=== PATIENT | male | born 1940 | race Hispanic/Latino ===

== ENCOUNTER 2022-08-21 21:16 | Inpatient (IN) | payer MEDICARE ==
[~2022-08-21] VITALS: Ht 167.6 cm; Wt 71.0 kg
[2022-08-21] MEDS ORDERED: LACTATED RINGERS 1000ML 1,000 ML IV ONE (21:30)
[2022-08-21 21:52] LABS: BASOPHILS % (AUTO) 0.5 % (0.0-5.0); EOSINOPHILS % (AUTO) 0.7 % (0.0-8.0); HEMATOCRIT 43.2 % (42-54); LYMPHOCYTES % (AUTO) 9.8 % (21.0-51.0); MEAN CORPUSCULAR HEMOGLOBIN 30.8 pg (27.0-33.0); MEAN CORPUSCULAR HGB CONC 33.3 g/dL (32.0-36.0); MEAN CORPUSCULAR VOLUME 92.3 fL (79-99); MONOCYTES % (AUTO) 9.8 % (3.0-13.0); NEUTROPHILS % (AUTO) 78.8 % (40.0-77.0); PLATELET COUNT (AUTO) 180 K/uL (130-400); RED BLOOD CELL COUNT(AUTO) 4.68 MIL/uL (4.50-6.20); RED CELL DISTRIBUTION WIDTH 13.7 % (11.0-15.5); WHITE BLOOD COUNT (AUTO) 8.5 K/uL (4.8-10.8)
[2022-08-21 21:53] LABS: APPEARANCE,URINE CLEAR (CLEAR); BILIRUBIN,URINE NEGATIVE (NEGATIVE); COLOR,URINE COLORLESS (YELLOW); GLUCOSE, URINE (UA) NEGATIVE (NEGATIVE); KETONES,URINE NEGATIVE (NEGATIVE); LEUKOCYTE ESTERASE ,URINE NEGATIVE Leu/uL (NEGATIVE); NITRATE,URINE NEGATIVE (NEGATIVE); OCCULT BLOOD,URINE SMALL (NEGATIVE); PH,URINE 6.5 (5.0-8.0); PROTEIN,URINE 70 mg/dL (NEGATIVE); UROBILINOGEN,URINE 0.2 mg/dL (0.2-1.0)
[2022-08-21] MEDS ORDERED: HYDRALAZINE 20MG/ML VIAL IV ONE (22:00)
[2022-08-21 22:01] LABS: CREATININE 1.3 mg/dL (0.5-1.5); POTASSIUM 3.7 mmol/L (3.5-5.1)
[2022-08-21 22:03] LABS: WBC,URINE 0-1 /HPF (0-1)
[2022-08-21 22:08] LABS: ALBUMIN 2.8 g/dL (3.5-5.0); MAGNESIUM 1.6 mg/dL (1.80-2.40); TOTAL PROTEIN, SERUM 7.6 g/dL (6.0-8.3)
[2022-08-21 22:28] LABS: B-TYPE NATRIURETIC PEPTIDE 276 pg/mL (0-100)
[2022-08-21] MEDS ORDERED: M.V.I. IV [ADULT] 10 ML, FOLIC ACID 1 MG, THIAMINE HCL 100 MG in 0.9%NACL 1000ML 1,000 ML IV ONE (22:30)
[2022-08-21] MEDS ORDERED: IOHEXOL 350 MG/ML 100ML INFUS..BTL IV ONE (22:57)
[2022-08-21] MEDS ORDERED: MORPHINE 2 MG SYG IV PRN (23:00)
[2022-08-21] MEDS ORDERED: MAGNESIUM 2GM PREMIX 50ML 50 ML IV PRN (23:00)
[2022-08-21] MEDS ORDERED: ONDANSETRON 4MG INJ IV PRN (23:00)
[2022-08-21] MEDS ORDERED: POTASSIUM CHLORIDE 20MEQ/100ML 100 ML IV PRN (23:00)
[2022-08-21] MEDS ORDERED: ACETAMINOPHEN 325 MG TAB PO PRN ×2 (23:00)
[2022-08-21] MEDS ORDERED: MORPHINE 4 MG SYG IV PRN (23:00)
[2022-08-21] MEDS: CEFTRIAXONE 1G VIAL IV SCH ×2 (23:15→23:39)
[2022-08-21] MEDS ORDERED: DiphenhydrAMINE HCL 50 MG/ML VIAL IV PRN (23:30)
[2022-08-21] MEDS ORDERED: SODIUM CHLORIDE 3% FOR INHALATION 4 ML/AMP VIAL.NEB IH ONE (23:34)
[2022-08-21] MEDS: DOXYCYCLINE 100MG+NS 250ML 250 ML IV SCH (23:39)
[2022-08-21] MEDS: LACTATED RINGERS 1000ML 1,000 ML IV SCH (23:40)
[2022-08-22] VITALS (12 sets, daily range): BP systolic 150–195; BP diastolic 75–94
[2022-08-22] MEDS ORDERED: IPRATROPIUM 0.5 MG/2.5 ML INH IH SCH
[2022-08-22] MEDS: IPRATROPIUM/ALBUTEROL SULFATE 3 ML SOLUTION IH SCH ×2 (00:36→05:26)
[2022-08-22] MEDS ORDERED: ALBUTEROL 0.083% 2.5 MG/3 ML INH IH PRN (01:00)
[2022-08-22] MEDS ORDERED: IPRATROPIUM 0.5 MG/2.5 ML INH IH PRN (01:00)
[2022-08-22] MEDS ORDERED: THIAMINE HCL 100 MG/ML 2ML VIAL IVP ONE (01:30)
[2022-08-22] MEDS: HYDRALAZINE 20MG/ML VIAL IV PRN ×3 (04:32→18:05)
[2022-08-22 06:24] LABS: BASOPHILS % (AUTO) 0.4 % (0.0-5.0); EOSINOPHILS % (AUTO) 0.4 % (0.0-8.0); HEMATOCRIT 42.2 % (42-54); LYMPHOCYTES % (AUTO) 13.4 % (21.0-51.0); MEAN CORPUSCULAR HEMOGLOBIN 31.1 pg (27.0-33.0); MEAN CORPUSCULAR HGB CONC 33.6 g/dL (32.0-36.0); MEAN CORPUSCULAR VOLUME 92.5 fL (79-99); MONOCYTES % (AUTO) 12.1 % (3.0-13.0); NEUTROPHILS % (AUTO) 73.5 % (40.0-77.0); PLATELET COUNT (AUTO) 173 K/uL (130-400); RED BLOOD CELL COUNT(AUTO) 4.56 MIL/uL (4.50-6.20); RED CELL DISTRIBUTION WIDTH 14.1 % (11.0-15.5); WHITE BLOOD COUNT (AUTO) 8.3 K/uL (4.8-10.8)
[2022-08-22 06:37] LABS: CREATININE 1.1 mg/dL (0.5-1.5); MAGNESIUM 2.2 mg/dL (1.80-2.40); PHOSPHORUS 2.9 mg/dL (2.5-4.9); POTASSIUM 3.4 mmol/L (3.5-5.1)
[2022-08-22] MEDS: POTASSIUM CHLORIDE 10% ELIXIR 20 MEQ/15 ML UDCUP PO PRN ×2 (06:42→10:02)
[2022-08-22] MEDS: FAMOTIDINE 20MG VIAL IV SCH (08:31)
[2022-08-22] MEDS: ENOXAPARIN SODIUM 40 MG/0.4 ML SYRINGE SQ SCH (08:32)
[2022-08-22] MEDS ORDERED: M.V.I. IV [ADULT] 10 ML, FOLIC ACID 1 MG, THIAMINE HCL 100 MG in 0.9%NACL 1000ML 1,000 ML IV ONE (09:00)
[2022-08-22] MEDS ORDERED: FUROSEMIDE 40MG VIAL IV ONE (09:30)
[2022-08-22] MEDS: AMLODIPINE 5 MG TAB PO SCH ×2 (10:02→21:07)
[2022-08-22] MEDS: METOPROLOL TARTRATE 25 MG TAB PO SCH ×3 (10:02→21:07)
[2022-08-22] MEDS ORDERED: SODIUM CHLORIDE 3% FOR INHALATION 4 ML/AMP VIAL.NEB IH ONE ×2 (10:21→23:01)
[2022-08-22] MEDS ORDERED: AMLO-258 PO (10:58)
[2022-08-22] MEDS: DOXYCYCLINE 100MG+NS 250ML 250 ML IV SCH ×2 (11:36→22:43)
[2022-08-22 11:47] LABS: HEMOGLOBIN A1C 6.6 % (4.0-6.0)
[2022-08-22] MEDS: LACTATED RINGERS 1000ML 1,000 ML IV SCH (16:48)
[2022-08-22] MEDS: LOSARTAN 50 MG TABLET PO SCH ×2 (16:48→21:07)
[2022-08-22] MEDS: CEFTRIAXONE 1G VIAL IV SCH (22:43)
[2022-08-23] VITALS (8 sets, daily range): BP systolic 137–176; BP diastolic 63–113
[2022-08-23] MEDS: HYDRALAZINE 20MG/ML VIAL IV PRN (00:20)
[2022-08-23 04:01] LABS: BASOPHILS % (AUTO) 0.4 % (0.0-5.0); EOSINOPHILS % (AUTO) 1.2 % (0.0-8.0); HEMATOCRIT 42.8 % (42-54); MEAN CORPUSCULAR HEMOGLOBIN 30.3 pg (27.0-33.0); MEAN CORPUSCULAR HGB CONC 32.7 g/dL (32.0-36.0); MEAN CORPUSCULAR VOLUME 92.6 fL (79-99); MONOCYTES % (AUTO) 12.6 % (3.0-13.0); NEUTROPHILS % (AUTO) 69.5 % (40.0-77.0); PLATELET COUNT (AUTO) 178 K/uL (130-400); RED BLOOD CELL COUNT(AUTO) 4.62 MIL/uL (4.50-6.20); RED CELL DISTRIBUTION WIDTH 14.2 % (11.0-15.5); WHITE BLOOD COUNT (AUTO) 7.7 K/uL (4.8-10.8)
[2022-08-23 04:26] LABS: ALBUMIN 2.3 g/dL (3.5-5.0); CREATININE 1.4 mg/dL (0.5-1.5); CRP QUANTITATIVE 57.2 mg/L (0.00-9.0); MAGNESIUM 1.9 mg/dL (1.80-2.40); POTASSIUM 3.3 mmol/L (3.5-5.1); TOTAL PROTEIN, SERUM 6.6 g/dL (6.0-8.3)
[2022-08-23 04:27] LABS: B-TYPE NATRIURETIC PEPTIDE 516 pg/mL (0-100)
[2022-08-23] MEDS: POTASSIUM CHLORIDE 10% ELIXIR 20 MEQ/15 ML UDCUP PO PRN (05:34)
[2022-08-23] MEDS: FUROSEMIDE 40MG VIAL IV SCH (08:41)
[2022-08-23] MEDS: FAMOTIDINE 20MG VIAL IV SCH (08:41)
[2022-08-23] MEDS: METOPROLOL TARTRATE 25 MG TAB PO SCH ×3 (08:41→20:49)
[2022-08-23] MEDS: AMLODIPINE 5 MG TAB PO SCH ×2 (08:41→20:49)
[2022-08-23] MEDS: LOSARTAN 50 MG TABLET PO SCH ×2 (08:44→20:49)
[2022-08-23] MEDS: ENOXAPARIN SODIUM 40 MG/0.4 ML SYRINGE SQ SCH (08:44)
[2022-08-23] MEDS ORDERED: SODIUM CHLORIDE 3% FOR INHALATION 4 ML/AMP VIAL.NEB IH ONE (10:49)
[2022-08-23] MEDS: DOXYCYCLINE 100MG+NS 250ML 250 ML IV SCH (11:32)
[2022-08-23] MEDS: TAMSULOSIN HCL 0.4 MG CAP.ER.24H PO SCH (13:05)
[2022-08-23] MEDS ORDERED: HYDRALAZINE 20MG/ML VIAL IV PRN (15:30)
[2022-08-23] MEDS: KCL 20 MEQ ERTAB PO PRN (18:30)
[2022-08-23] MEDS: TRIAMCINOLONE ACETONIDE 0.1% CREAM 15GM TP SCH (20:49)
[2022-08-23] MEDS: CEFTRIAXONE 1G VIAL IV SCH (23:23)
[2022-08-24] MEDS: DOXYCYCLINE 100MG+NS 250ML 250 ML IV SCH ×3 (00:37→22:25)
[2022-08-24 04:00] VITALS: BP 150/67
[2022-08-24 08:00] VITALS: BP 174/82
[2022-08-24 08:39] LABS: BASOPHILS % (AUTO) 0.4 % (0.0-5.0); EOSINOPHILS % (AUTO) 1.8 % (0.0-8.0); LYMPHOCYTES % (AUTO) 22.3 % (21.0-51.0); MEAN CORPUSCULAR HEMOGLOBIN 30.8 pg (27.0-33.0); MEAN CORPUSCULAR HGB CONC 32.5 g/dL (32.0-36.0); MEAN CORPUSCULAR VOLUME 94.8 fL (79-99); MONOCYTES % (AUTO) 10.2 % (3.0-13.0); NEUTROPHILS % (AUTO) 64.9 % (40.0-77.0); PLATELET COUNT (AUTO) 194 K/uL (130-400); RED BLOOD CELL COUNT(AUTO) 4.64 MIL/uL (4.50-6.20); RED CELL DISTRIBUTION WIDTH 14.1 % (11.0-15.5); WHITE BLOOD COUNT (AUTO) 7.7 K/uL (4.8-10.8)
[2022-08-24 08:55] LABS: ALBUMIN 2.7 g/dL (3.5-5.0); CREATININE 1.5 mg/dL (0.5-1.5); POTASSIUM 3.5 mmol/L (3.5-5.1); TOTAL PROTEIN, SERUM 7.5 g/dL (6.0-8.3)
[2022-08-24] MEDS: METOPROLOL TARTRATE 25 MG TAB PO SCH ×3 (09:30→20:49)
[2022-08-24] MEDS: TAMSULOSIN HCL 0.4 MG CAP.ER.24H PO SCH (09:30)
[2022-08-24] MEDS: AMLODIPINE 5 MG TAB PO SCH ×2 (09:30→20:49)
[2022-08-24] MEDS: LOSARTAN 50 MG TABLET PO SCH ×2 (09:30→20:49)
[2022-08-24] MEDS: FUROSEMIDE 40MG VIAL IV SCH (09:30)
[2022-08-24] MEDS: FAMOTIDINE 20MG VIAL IV SCH (09:30)
[2022-08-24] MEDS: TRIAMCINOLONE ACETONIDE 0.1% CREAM 15GM TP SCH ×2 (09:31→20:52)
[2022-08-24] MEDS: ENOXAPARIN SODIUM 40 MG/0.4 ML SYRINGE SQ SCH (09:31)
[2022-08-24 11:00] VITALS: BP 148/82
[2022-08-24] MEDS ORDERED: MAGNESIUM 2GM PREMIX 50ML 50 ML IV PRN (11:00)
[2022-08-24] MEDS: POTASSIUM CHLORIDE 10% ELIXIR 20 MEQ/15 ML UDCUP PO PRN (14:59)
[2022-08-24 16:00] VITALS: BP 184/78
[2022-08-24 20:00] VITALS: BP 154/89
[2022-08-24] MEDS: LACTULOSE 20 GM/30 ML UDCUP PO SCH (20:51)
[2022-08-24] MEDS: CEFTRIAXONE 1G VIAL IV SCH (22:26)
[2022-08-25 03:20] VITALS: BP 165/68
[2022-08-25 05:23] LABS: BASOPHILS % (AUTO) 0.7 % (0.0-5.0); HEMATOCRIT 39.3 % (42-54); LYMPHOCYTES % (AUTO) 16.7 % (21.0-51.0); MEAN CORPUSCULAR HEMOGLOBIN 30.5 pg (27.0-33.0); MEAN CORPUSCULAR HGB CONC 33.3 g/dL (32.0-36.0); MEAN CORPUSCULAR VOLUME 91.6 fL (79-99); MONOCYTES % (AUTO) 12.6 % (3.0-13.0); NEUTROPHILS % (AUTO) 67.7 % (40.0-77.0); PLATELET COUNT (AUTO) 191 K/uL (130-400); RED BLOOD CELL COUNT(AUTO) 4.29 MIL/uL (4.50-6.20); RED CELL DISTRIBUTION WIDTH 13.9 % (11.0-15.5); WHITE BLOOD COUNT (AUTO) 6.1 K/uL (4.8-10.8)
[2022-08-25 05:48] LABS: ALBUMIN 2.4 g/dL (3.5-5.0); CREATININE 1.3 mg/dL (0.5-1.5); MAGNESIUM 1.7 mg/dL (1.80-2.40); POTASSIUM 3.4 mmol/L (3.5-5.1); TOTAL PROTEIN, SERUM 6.6 g/dL (6.0-8.3)
[2022-08-25 07:30] VITALS: BP 162/77
[2022-08-25] MEDS: ENOXAPARIN SODIUM 40 MG/0.4 ML SYRINGE SQ SCH (09:00)
[2022-08-25] MEDS: TRIAMCINOLONE ACETONIDE 0.1% CREAM 15GM TP SCH (09:00)
[2022-08-25 11:00] VITALS: BP 164/89
[2022-08-25] MEDS: LACTULOSE 20 GM/30 ML UDCUP PO SCH (11:18)
[2022-08-25] MEDS: LOSARTAN 50 MG TABLET PO SCH (11:18)
[2022-08-25] MEDS: FAMOTIDINE 20MG VIAL IV SCH (11:18)
[2022-08-25] MEDS: TAMSULOSIN HCL 0.4 MG CAP.ER.24H PO SCH (11:19)
[2022-08-25] MEDS: METOPROLOL TARTRATE 25 MG TAB PO SCH (11:21)
[2022-08-25] MEDS: AMLODIPINE 5 MG TAB PO SCH (11:22)
[2022-08-25] MEDS: FUROSEMIDE 40MG VIAL IV SCH (11:22)
[2022-08-25] MEDS: KCL 20 MEQ ERTAB PO PRN (11:24)
[2022-08-25] MEDS: DOXYCYCLINE 100MG+NS 250ML 250 ML IV SCH (11:25)
[2022-08-25] MEDS ORDERED: LOSA50TA2 PO (11:53)
[2022-08-25] MEDS ORDERED: TAMS-1 PO (11:53)
[2022-08-25] MEDS ORDERED: AMLO5TAB4 PO (11:53)
[2022-08-25] MEDS ORDERED: METO25 PO (11:53)
[2022-08-25] MEDS ORDERED: FURO20TA4 PO (11:54)
[2022-08-25] MEDS ORDERED: FUROSEMIDE 20 MG TABLET PO SCH (12:00)
== END 2022-08-25 13:05 | disposition home or self-care (01) | DRG 177 ==
LOC: EDH 21:16 → EDHIP 22:58 → 2AH 08-22 01:28 → 4BH 08-24 10:30
PROVIDERS: ADMIT Family Medicine; ATTEND Family Medicine
DX: J15.6 Pneumonia due to other Gram-negative bacteria (principal); E43 Unspecified severe protein-calorie malnutrition; G92.8 Other toxic encephalopathy; D68.59 Other primary thrombophilia; I48.92 Unspecified atrial flutter; I16.1 Hypertensive emergency; N39.0 Urinary tract infection, site not specified; E51.2 Wernicke's encephalopathy; Z20.822 Contact with and (suspected) exposure to COVID-19; E83.42 Hypomagnesemia; E11.9 Type 2 diabetes mellitus without complications; E87.6 Hypokalemia; I10 Essential (primary) hypertension; N40.0 Benign prostatic hyperplasia without lower urinary tract symptoms; Z79.899 Other long term (current) drug therapy; Z83.3 Family history of diabetes mellitus; Z68.25 Body mass index [BMI] 25.0-25.9, adult
CPT/HCPCS: 36415; 70450; 71045; 71270; 76775; 80048; 80053; 81001; 82607; 82948; 83036; 83605; 83735; 83880; 84100; 84145; 84153; 84425; 84484; 85025; 85378; 85651; 86140; 87040; 87077; 87088; 87186; 87635; 87804; 92610; 93005; 93306; 93356; 93970; 94640; G0378; J0360; J0696; J1650; J1940; J3411; J3475; J3490; J7030; Q9967

== ENCOUNTER 2023-11-12 11:45 | Emergency (ER) | payer OTHER, MEDICARE ==
[~2023-11-12] VITALS: Ht 167.6 cm; Wt 64.4 kg
[~2023-11-12 11:45] MED LIST: AMLO5TAB4 PO; FURO20TA4 PO; LOSA-418 PO; METO25 PO; TAMS-1 PO
[2023-11-12 12:11] LABS: BASOPHILS # (AUTO) 0.03 K/uL (0.00-0.20); BASOPHILS % (AUTO) 0.5 % (0.0-5.0); EOSINOPHILS # (AUTO) 0.06 K/uL (0.00-0.70); EOSINOPHILS % (AUTO) 0.9 % (0.0-8.0); HEMATOCRIT 45.4 % (42-54); IMMATURE GRANULOCYTE ABSOLUTE 0.02 K/uL (0-1); LYMPHOCYTES # (AUTO) 1.1 K/uL (1.0-4.8); MEAN CORPUSCULAR HEMOGLOBIN 31.9 pg (27.0-33.0); MEAN CORPUSCULAR HGB CONC 33.9 g/dL (32.0-36.0); MONOCYTES # (AUTO) 0.5 K/uL (0.1-1.0); MONOCYTES % (AUTO) 8.3 % (3.0-13.0); NEUTROPHILS # (AUTO) 4.7 K/uL (1.8-7.7); PLATELET COUNT (AUTO) 181 K/uL (130-400); RED BLOOD CELL COUNT(AUTO) 4.83 MIL/uL (4.50-6.20); RED CELL DISTRIBUTION WIDTH 14.6 % (11.0-15.5); WHITE BLOOD COUNT (AUTO) 6.4 K/uL (4.8-10.8)
[2023-11-12] MEDS: ENALAPRILAT DIHYDRATE 1.25MG/ML 1ML VIAL IV SCH (12:18)
[2023-11-12 12:24] LABS: CREATININE 1.4 mg/dL (0.5-1.3); POTASSIUM 3.9 mmol/L (3.5-5.1)
[2023-11-12 12:38] LABS: B-TYPE NATRIURETIC PEPTIDE 569 pg/mL (0-100)
[2023-11-12] MEDS: HYDRALAZINE 20MG/ML VIAL IV ONE (14:19)
[2023-11-12 15:15] LABS: APPEARANCE,URINE CLEAR (CLEAR); BILIRUBIN,URINE NEGATIVE (NEGATIVE); COLOR,URINE YELLOW (YELLOW); GLUCOSE, URINE (UA) NEGATIVE (NEGATIVE); KETONES,URINE NEGATIVE (NEGATIVE); LEUKOCYTE ESTERASE ,URINE NEGATIVE Leu/uL (NEGATIVE); NITRATE,URINE NEGATIVE (NEGATIVE); OCCULT BLOOD,URINE MODERATE (NEGATIVE); PROTEIN,URINE 100 mg/dL (NEGATIVE); UROBILINOGEN,URINE 0.2 mg/dL (0.2-1.0)
[2023-11-12 15:31] LABS: ADD UA MICROSCOPIC YES
[2023-11-12 15:53] LABS: BACTERIA,URINE Few /HPF (None Seen); SQUAMOUS EPITHELIAL CELL,UR Rare /HPF (0-2); WBC,URINE 0-1 /HPF (0-1)
[2023-11-12 16:36] VITALS: BP 152/79; PULSE 70; RESP 18; O2SAT 98
== END 2023-11-12 16:58 | disposition home or self-care (01) ==
LOC: EDH 11:45
DX: I10 Essential (primary) hypertension (principal); E11.9 Type 2 diabetes mellitus without complications; E78.00 Pure hypercholesterolemia, unspecified; Z79.899 Other long term (current) drug therapy
CPT/HCPCS: 99285; 96374; 71045; 96375; 84484; 80048; 83880; 85025; 81001; 36415; 93005; J0360; J3490

== ENCOUNTER 2024-02-29 01:32 | Observation (INO) | payer OTHER, MEDICARE ==
[2024-02-29] VITALS (10 sets, daily range): BP systolic 129–183; BP diastolic 57–88; PULSE 57–77; RESP 17–20; TEMP 98.2–98.6; O2SAT 98–99
[~2024-02-29] VITALS: Ht 160 cm; Wt 69.5 kg
[~2024-02-29 01:32] MED LIST changes: +LEVO-70 PO
[2024-02-29 02:18] LABS: BASOPHILS # (AUTO) 0.03 K/uL (0.00-0.20); BASOPHILS % (AUTO) 0.5 % (0.0-5.0); EOSINOPHILS # (AUTO) 0.12 K/uL (0.00-0.70); EOSINOPHILS % (AUTO) 1.9 % (0.0-8.0); HEMATOCRIT 36.5 % (42-54); IMMATURE GRANULOCYTE ABSOLUTE 0.01 K/uL (0-1); LYMPHOCYTES # (AUTO) 0.7 K/uL (1.0-4.8); LYMPHOCYTES % (AUTO) 11.2 % (21.0-51.0); MEAN CORPUSCULAR HEMOGLOBIN 32.1 pg (27.0-33.0); MEAN CORPUSCULAR HGB CONC 34.5 g/dL (32.0-36.0); MEAN CORPUSCULAR VOLUME 93.1 fL (79-99); MONOCYTES # (AUTO) 0.7 K/uL (0.1-1.0); MONOCYTES % (AUTO) 11.1 % (3.0-13.0); NEUTROPHILS # (AUTO) 4.8 K/uL (1.8-7.7); NEUTROPHILS % (AUTO) 75.1 % (40.0-77.0); PLATELET COUNT (AUTO) 153 K/uL (130-400); RED BLOOD CELL COUNT(AUTO) 3.92 MIL/uL (4.50-6.20); RED CELL DISTRIBUTION WIDTH 14.6 % (11.0-15.5); WHITE BLOOD COUNT (AUTO) 6.4 K/uL (4.8-10.8)
[2024-02-29 02:26] LABS: CREATININE 1.3 mg/dL (0.5-1.3); POTASSIUM 3.7 mmol/L (3.5-5.1)
[2024-02-29 02:41] LABS: B-TYPE NATRIURETIC PEPTIDE 482 pg/mL (0-100)
[2024-02-29] MEDS: furoSEMIDE 40MG VIAL IV ONE (02:43)
[2024-02-29] MEDS: hydrALAZine 20MG/ML VIAL IV ONE (02:43)
[2024-02-29 02:44] LABS: APPEARANCE,URINE CLEAR (CLEAR); BILIRUBIN,URINE NEGATIVE (NEGATIVE); COLOR,URINE LIGHT-YELLOW (YELLOW); GLUCOSE, URINE (UA) NEGATIVE (NEGATIVE); KETONES,URINE 5 mg/dL (NEGATIVE); LEUKOCYTE ESTERASE ,URINE 75 Leu/uL (NEGATIVE); NITRATE,URINE NEGATIVE (NEGATIVE); OCCULT BLOOD,URINE SMALL (NEGATIVE); PH,URINE 5.5 (5.0-8.0); PROTEIN,URINE 100 mg/dL (NEGATIVE); UROBILINOGEN,URINE 0.2 mg/dL (0.2-1.0)
[2024-02-29 02:45] LABS: ADD UA MICROSCOPIC YES
[2024-02-29 02:47] LABS: BACTERIA,URINE RARE /HPF (None Seen); MUCUS,URINE RARE LPF (None Seen); SQUAMOUS EPITHELIAL CELL,UR RARE /HPF (0-2)
[2024-02-29] MEDS ORDERED: DEXTROSE 50%-WATER 50 ML DISP.SYRIN IV PRN (04:30)
[2024-02-29] MEDS ORDERED: ENOXAPARIN SODIUM 40 MG/0.4 ML SYRINGE SQ SCH (05:00)
[2024-02-29] MEDS: INSULIN humuLIN R 100 UNIT/ML 3ML SQ SCH (05:46)
[2024-02-29] MEDS: hydrALAZine 20MG/ML VIAL IV PRN (08:28)
[2024-02-29] MEDS: furoSEMIDE 20 MG TABLET PO SCH (08:28)
[2024-02-29] MEDS ORDERED: OLME40TA18 PO (10:57)
[2024-02-29] MEDS ORDERED: FURO40TA5 PO (10:57)
[2024-02-29] MEDS ORDERED: AMLO-258 PO (10:57)
[2024-02-29] MEDS ORDERED: LABE100T7 PO (10:57)
[2024-02-29] MEDS: OLMESARTAN MEDOXOMIL PO SCH (12:30)
[2024-02-29] MEDS: acetaMINOPHEN 325 MG TAB PO PRN (12:53)
[2024-02-29] MEDS: amLODIPine 5 MG TAB PO SCH (12:53)
[2024-02-29] MEDS: furoSEMIDE 40 MG TABLET PO SCH (12:54)
[2024-02-29] MEDS: LAbetaLOL HCL 100 MG TABLET PO SCH (20:51)
[2024-03-01 04:15] VITALS: BP 156/78; PULSE 62; RESP 18; TEMP 98.1
[2024-03-01 04:37] LABS: BASOPHILS # (AUTO) 0.03 K/uL (0.00-0.20); BASOPHILS % (AUTO) 0.5 % (0.0-5.0); EOSINOPHILS # (AUTO) 0.06 K/uL (0.00-0.70); HEMATOCRIT 38.7 % (42-54); IMMATURE GRANULOCYTE ABSOLUTE 0.02 K/uL (0-1); LYMPHOCYTES # (AUTO) 0.9 K/uL (1.0-4.8); MEAN CORPUSCULAR HEMOGLOBIN 32.7 pg (27.0-33.0); MEAN CORPUSCULAR HGB CONC 34.4 g/dL (32.0-36.0); MEAN CORPUSCULAR VOLUME 95.1 fL (79-99); MONOCYTES # (AUTO) 0.8 K/uL (0.1-1.0); MONOCYTES % (AUTO) 12.5 % (3.0-13.0); NEUTROPHILS # (AUTO) 4.3 K/uL (1.8-7.7); NEUTROPHILS % (AUTO) 70.7 % (40.0-77.0); PLATELET COUNT (AUTO) 142 K/uL (130-400); RED BLOOD CELL COUNT(AUTO) 4.07 MIL/uL (4.50-6.20); RED CELL DISTRIBUTION WIDTH 14.5 % (11.0-15.5); WHITE BLOOD COUNT (AUTO) 6.1 K/uL (4.8-10.8)
[2024-03-01 04:54] LABS: CREATININE 1.5 mg/dL (0.5-1.3); POTASSIUM 3.5 mmol/L (3.5-5.1)
[2024-03-01 07:40] VITALS: BP 177/92; PULSE 73; RESP 18; TEMP 98.6
[2024-03-01 08:00] VITALS: O2SAT 99
[2024-03-01] MEDS ORDERED: amLODIPine 5 MG TAB PO SCH (09:00)
[2024-03-01] MEDS ORDERED: OLMESARTAN MEDOXOMIL PO SCH (09:00)
[2024-03-01] MEDS ORDERED: furoSEMIDE 40 MG TABLET PO SCH (09:00)
[2024-03-01] MEDS ORDERED: guaiFENesin-DM 200/20MG 10ML PO PRN (10:00)
[2024-03-01] MEDS ORDERED: IOHEXOL 350 MG/ML 100ML INFUS..BTL IV ONE (10:06)
[2024-03-01 11:50] VITALS: BP 141/65; PULSE 53; RESP 18; TEMP 97.9
== END 2024-03-01 15:35 | disposition home or self-care (01) ==
LOC: EDH 01:32 → EDHIP 04:02 → INTOOBSV 04:02 → 4DH 04:40
PROVIDERS: ADMIT Hospitalist; ATTEND Hospitalist
DX: I16.0 Hypertensive urgency (principal); I51.7 Cardiomegaly; I12.9 Hypertensive chronic kidney disease with stage 1 through stage 4 chronic kidney disease, or unspecified chronic kidney disease; E11.22 Type 2 diabetes mellitus with diabetic chronic kidney disease; N18.30 Chronic kidney disease, stage 3 unspecified; I48.92 Unspecified atrial flutter; N40.0 Benign prostatic hyperplasia without lower urinary tract symptoms; F03.90 Unspecified dementia, unspecified severity, without behavioral disturbance, psychotic disturbance, mood disturbance, and anxiety; E87.70 Fluid overload, unspecified; Z87.891 Personal history of nicotine dependence; Z79.899 Other long term (current) drug therapy
CPT/HCPCS: 99285; 96374; 71045; 96375; 82550; 84484; 80048 ×2; 83880; 85025 ×2; 87086; 82948 ×5; 81001; 36415 ×2; 96376; 93005; 70460; J0360 ×2; J1940; J1815; G0378; Q9967

== ENCOUNTER 2024-03-16 15:33 | Inpatient (IN) | payer OTHER, MEDICARE ==
[~2024-03-16] VITALS: Ht 160 cm; Wt 74.6 kg
[~2024-03-16 15:33] MED LIST changes: +AMLO-258 PO; -AMLO5TAB4 PO; -FURO20TA4 PO; +FURO40TA5 PO; +LABE100T7 PO; -LEVO-70 PO; -LOSA-418 PO; -METO25 PO; +OLME40TA18 PO; -TAMS-1 PO
[2024-03-16 15:59] LABS: BASOPHILS # (AUTO) 0.03 K/uL (0.00-0.20); BASOPHILS % (AUTO) 0.4 % (0.0-5.0); EOSINOPHILS # (AUTO) 0.09 K/uL (0.00-0.70); EOSINOPHILS % (AUTO) 1.3 % (0.0-8.0); HEMATOCRIT 35.7 % (42-54); IMMATURE GRANULOCYTE ABSOLUTE 0.03 K/uL (0-1); LYMPHOCYTES # (AUTO) 0.5 K/uL (1.0-4.8); LYMPHOCYTES % (AUTO) 7.3 % (21.0-51.0); MEAN CORPUSCULAR HEMOGLOBIN 32.6 pg (27.0-33.0); MEAN CORPUSCULAR HGB CONC 34.2 g/dL (32.0-36.0); MEAN CORPUSCULAR VOLUME 95.5 fL (79-99); MONOCYTES # (AUTO) 0.8 K/uL (0.1-1.0); MONOCYTES % (AUTO) 11.2 % (3.0-13.0); NEUTROPHILS # (AUTO) 5.7 K/uL (1.8-7.7); NEUTROPHILS % (AUTO) 79.4 % (40.0-77.0); PLATELET COUNT (AUTO) 144 K/uL (130-400); RED BLOOD CELL COUNT(AUTO) 3.74 MIL/uL (4.50-6.20); RED CELL DISTRIBUTION WIDTH 14.5 % (11.0-15.5); WHITE BLOOD COUNT (AUTO) 7.2 K/uL (4.8-10.8)
[2024-03-16 16:13] LABS: CREATININE 1.5 mg/dL (0.5-1.3); POTASSIUM 3.5 mmol/L (3.5-5.1)
[2024-03-16 16:22] LABS: ALBUMIN 2.6 g/dL (3.5-5.0); BILIRUBIN,DIRECT 0.3 mg/dL (0.0-0.3); BILIRUBIN,TOTAL 0.8 mg/dL (0.2-1.0); TOTAL PROTEIN, SERUM 7.6 g/dL (6.0-8.3)
[2024-03-16 16:25] LABS: B-TYPE NATRIURETIC PEPTIDE 595 pg/mL (0-100)
[2024-03-16] MEDS: 0.9% NACL 500ML IV.SOLN 500 ML IV ONE (16:42)
[2024-03-16] MEDS: acetaMINOPHEN 500 MG TABLET PO ONE (16:42)
[2024-03-16 17:06] LABS: APPEARANCE,URINE CLEAR (CLEAR); BILIRUBIN,URINE NEGATIVE (NEGATIVE); COLOR,URINE LIGHT-YELLOW (YELLOW); GLUCOSE, URINE (UA) 50 mg/dL (NEGATIVE); KETONES,URINE NEGATIVE (NEGATIVE); LEUKOCYTE ESTERASE ,URINE NEGATIVE Leu/uL (NEGATIVE); NITRATE,URINE NEGATIVE (NEGATIVE); OCCULT BLOOD,URINE MODERATE (NEGATIVE); PH,URINE 5.5 (5.0-8.0); PROTEIN,URINE 100 mg/dL (NEGATIVE); UROBILINOGEN,URINE 0.2 mg/dL (0.2-1.0)
[2024-03-16 17:08] LABS: RAPID GROUP A STREP negative (NEGATIVE)
[2024-03-16 17:09] LABS: ADD UA MICROSCOPIC YES
[2024-03-16 17:10] LABS: SARS-CoV-2, RNA, NAAT NEGATIVE SARS CoV-2 (NEGATIVE)
[2024-03-16 17:12] LABS: SQUAMOUS EPITHELIAL CELL,UR RARE /HPF (0-2); WBC,URINE 0-1 /HPF (0-1)
--- NOTE | 2024-03-16 17:13 | HMCIMG ---
PORTABLE CHEST RADIOGRAPH INDICATION: sob COMPARISON: 02/29/2004 FINDINGS: bus monitor leads overlie the field of view. Heart and pulmonary vascularity are enlarged. No abnormal pulmonary parenchymal opacity or consolidation identified. No significant pleural effusion noted. No pneumothorax detected. IMPRESSION: Cardiomegaly and pulmonary vascular congestion.
[2024-03-16 17:18] LABS: INFLUENZA TYPE A Negative For Type A (NEGATIVE); INFLUENZA TYPE B Negative For Type B (NEGATIVE)
[2024-03-16] MEDS: hydrALAZine 20MG/ML VIAL IV ONE (17:50)
[2024-03-16] MEDS ORDERED: VANCOMYCIN 1.75 GM/250 ML BAG 250 ML IV ONE (18:00)
[2024-03-16] MEDS ORDERED: VANCOMYCIN PROTOCOL PER PHARMACY IV SCH ×2 (18:00→19:30)
--- NOTE | 2024-03-16 18:06 | ERN ---
General Chief Complaint: Weakness Stated Complaint: WEAKNESS Time Seen by MD: 15:36 Time Seen by Midlevel: 15:36 Source: patient, family, EMS History of Present Illness Initial Comments Patient is an 83-year-old male with a past medical history of type 2 diabetes, hyperlipidemia, and hypertension presenting to the emergency department for evaluation of generalized weakness and fever. According to daughter who is at bedside patient lives with his who has a history of of dementia. According to daughter, patient's called her stating that patient was not feeling well and he looked very sick. EMS was called onto seen and patient was found to be febrile. He was transported to the ER for further evaluation. On arrival patient does report generalized weakness. His initial blood pressure is elevated with a systolic of 188/82. He was a temperature of 101.5. Patient states he forgot to take his blood pressure medication this morning. Otherwise patient has no other concerns at this time Allergies: Coded Allergies: No Known Drug Allergies (Unverified Allergy, Unknown, 08/21/22) Home Meds Reported Medications Amlodipine Besylate (Amlodipine Besylate) 10 Mg Tablet, 1 TAB PO DAILY 02/29/24 Furosemide (Furosemide) 40 Mg Tablet, 1 TAB PO DAILY 02/29/24 Olmesartan Medoxomil (Olmesartan Medoxomil) 40 Mg Tablet, 1 TAB PO DAILY 02/29/24 Labetalol HCl (Labetalol HCl) 100 Mg Tablet, 1 TAB PO BID 02/29/24 Past Medical History Past Medical History: Diabetes-Type II, High Cholesterol, Hypertension Medical History Other: CATARACS Past Surgical History: None Surgical History Other: UMBILICAL HERNIA REPAIR Social History Social History: Negative, Lives with family ROS Dictation CONSTITUTIONAL: Negative except for HPI HEAD/FACE: Negative except for HPI EENT: Negative except for HPI RESPIRATORY: Negative except for HPI GASTROINTESTINAL/ABDOMINAL: Negative except for HPI GENITOURINARY: Negative except for HPI MUSCULOSKELETAL: Negative except for HPI INTEGUMENTARY: Negative except for HPI NEUROLOGICAL/PSYCH: Negative except for HPI HEMATOLOGIC/LYMPHATIC: Negative except for HPI All Systems Negative, Except as noted above. 13 point review of systems assessed and all negative except for above. Physical Exam Physical Exam Dictation Vital Signs reviewed General Appearance: Alert, oriented x 3, no acute distress, well developed, nourished. Head and Face: non-traumatic. Eyes: PERRL, pink conjunctivas, eyelid no trauma, anterior chamber with arcus s enilis. Ears: Pinnas intact and no signs of trauma or erythema ear canals clear and no discharge TM no erythema Nose: No discharge, no bleeding. Oropharynx: Mouth normal, tongue pink, pharynx clear,no erythema, tonsils no exudates, no abscesses noted, mucous membrane moist Neck: Supple, non-tender, no thyromegaly, no masses, no JVD, no bruits Breast:Deferred Chest:No tenderness, no crepitus, no paradoxical movement, no retractions Lungs:Clear, well-ventilated, symmetric, no rales, no wheezing, no rhonchi, no stridor, good breath sounds bilaterally Heart: Regular rate, regular rhythm, no murmur, no gallops Vascular: no peripheral edema, Abdomen: Soft, positive bowel sounds, nondistended, no guarding, nontender, no rebound, no masses no hepatomegaly, no splenomegaly, no Bliss's sign, no hernias. Rectal: Deferred Genital: Deferred Neurological: Normal speech, motor function intact, sensory function intact Musculoskeletal: Neck nontender, full range of motion, back nontender, full range of motion, Extremities: nontender, full range of motion Skin: Color pink, dry, no turgor, no rash, no lacerations, no abrasions, no contusions. Lymphatic: Deferred Results Laboratory and Microbiology Lab and Micro Result Laboratory Tests Test 03/16/24 15:48 03/16/24 16:21 03/16/24 16:51 White Blood Count 7.2 K/uL (4.8-10.8) Red Blood Count 3.74 MIL/uL (4.50-6.20) L Hemoglobin 12.2 g/dL (14.0-18.0) L Hematocrit 35.7 % (42-54) L Mean Corpuscular Volume 95.5 fL (79-99) Mean Corpuscular Hemoglobin 32.6 pg (27.0-33.0) Mean Corpuscular Hemoglobin Concent 34.2 g/dL (32.0-36.0) Red Cell Distribution Width 14.5 % (11.0-15.5) Platelet Count 144 K/uL (130-400) Mean Platelet Volume 10.1 fL (7.5-10.5) Immature Granulocyte % (Auto) 0.4 % (0-1) Neutrophils (%) (Auto) 79.4 % (40.0-77.0) H Lymphocytes (%) (Auto) 7.3 % (21.0-51.0) L Monocytes (%) (Auto) 11.2 % (3.0-13.0) Eosinophils (%) (Auto) 1.3 % (0.0-8.0) Basophils (%) (Auto) 0.4 % (0.0-5.0) Neutrophils # (Auto) 5.7 K/uL (1.8-7.7) Lymphocytes # (Auto) 0.5 K/uL (1.0-4.8) L Monocytes # (Auto) 0.8 K/uL (0.1-1.0) Eosinophils # (Auto) 0.09 K/uL (0.00-0.70) Basophils # (Auto) 0.03 K/uL (0.00-0.20) Absolute Immature Granulocyte (auto 0.03 K/uL (0-1) Nucleated Red Blood Cells 0.0 % (0.0-0.19) White Cell Morphology Comment See comments Sodium Level 132 mmol/L (136-145) L Potassium Level 3.5 mmol/L (3.5-5.1) Chloride Level 99 mmol/L (101-111) L Carbon Dioxide Level 25 mmol/L (21-32) Blood Urea Nitrogen 23 mg/dL (7-18) H Creatinine 1.5 mg/dL (0.5-1.3) H Glomerular Filtration Rate Calc 45 mL/min (>90) Random Glucose 192 mg/dL (70-105) H Lactic Acid Level 2.3 mmol/L (0.8-2.5) Total Calcium 8.1 mg/dL (8.5-10.1) L Total Bilirubin 0.8 mg/dL (0.2-1.0) Direct Bilirubin 0.3 mg/dL (0.0-0.3) Aspartate Amino Transf (AST/SGOT) 39 U/L (10-37) H Alanine Aminotransferase (ALT/SGPT) 18 U/L (12-78) Alkaline Phosphatase 161 U/L (50-136) H Total Creatine Kinase 251 U/L (21-232) #H Troponin I High Sensitivity 35 ng/L (4-75) B-Type Natriuretic Peptide 595 pg/mL (0-100) H Total Protein 7.6 g/dL (6.0-8.3) Albumin 2.6 g/dL (3.5-5.0) L Procalcitonin 0.06 ng/mL (0.05-0.5) Influenza Type A Antigen Negative For Type A Influenza Type B Antigen Negative For Type B SARS-CoV-2, RNA, NAAT NEGATIVE SARS CoV-2 Group A Streptococcus Rapid negative (NEGATIVE) Urine Color LIGHT-YELLOW (YELLOW) Urine Appearance CLEAR (CLEAR) Urine pH 5.5 (5.0-8.0) Urine Specific Start 1.010 (1.001-1.031) Urine Protein 100 mg/dL (NEGATIVE) H Urine Glucose (UA) 50 mg/dL (NEGATIVE) H Urine Ketones NEGATIVE mg/dL (NEGATIVE) Urine Occult Blood MODERATE (NEGATIVE) H Urine Nitrate NEGATIVE (NEGATIVE) Urine Bilirubin NEGATIVE mg/dL (NEGATIVE) Urine Urobilinogen 0.2 mg/dL (0.2-1.0) Urine Leukocyte Esterase NEGATIVE Yobany/uL Urine RBC 2-5 /HPF (0-1) H Urine WBC 0-1 /HPF (0-1) Urine Squamous Epithelial Cells RARE /HPF (0-2) Urine Bacteria None /HPF (None Seen) Labs Reviewed?: Yes MDM MDM: Patient is an 83-year-old male with a past medical history of type 2 diabetes, hyperlipidemia, and hypertension presenting to the emergency department for evaluation of generalized weakness and fever. According to daughter who is at bedside patient lives with his who has a history of of dementia. According to daughter, patient's called her stating that patient was not feeling well and he looked very sick. EMS was called onto seen and patient was found to be febrile. He was transported to the ER for further evaluation. On arrival patient does report generalized weakness. Patient states he forgot to take his blood pressure medication this morning. Otherwise patient has no other concerns at this time. His initial blood pressure is elevated with a systolic of 188/82. On arrival his temperature was 101.5. Patient meets criteria for sepsis. Sepsis alert was called overhead. Patient was started on IV fluids and blood cultures were drawn. He was given 1 g of Tylenol on arrival. His CBC shows no leukocytosis with a normal white blood cell count of 7.2. His hemoglobin is stable at 12.2. His platelets are normal at 144. His chemistries reveal slight hyponatremia with a sodium of 132. He is hypochloremic with a chloride of 99. His BUN and creatinine are slightly elevated. His lactic acid is on the upper end of the normal ranges at 2.3. He has an elevated alk-phos however patient does have a history of alcohol use. His BNP is 595 however on physical examination patient has 2+ pitting edema. Patient was given 500 cc of IV fluids. His urine does not show any evidence of infection. His respiratory swabs are negative. This time I can not find a source for his fever he was started on broad-spectrum antibiotics and will be admitted for further observation and management. His blood pressure in the emergency department for remained over 180 systolic. He was given 10 mg of hydralazine. Case was discussed with hospitalist on-call who agrees to admit the patient for further observation and management. Differential diagnosis: Sepsis, hypertensive urgency, electrolyte abnormality, dehydration Rationale: Tests considered and ordered secondary to shared decision making include: Previous outside records reviewed: Old ER visits. Risk of complication and/or morbidity or mortality of patient management: None Medications-Per medication reconciliation Need for hospitalization: Patient does meet criteria for hospitalization. Need for emergency major/minor surgery: No There are no social concerns with this patient. Prescription drug management Prescriptions will include symptomatic care Patient's prior external medical records from other ER visits were reviewed by me as indicated. Prior testing and results from previous visits were reviewed. Prior tests were taken into account with medical decision making and resource utilization, independent historian/historians were used to obtain complete medical history. I independently interpreted the test that were performed, results were reviewed by me and considered findings on radiology if ordered. Medical management and examination interpretation discussions were had by me with other qualified healthcare professionals as indicated for the patient's care. ED Course Orders Procedure Category Date Status Time 12 Lead Ekg Tracing- EKG 03/16/24 Logged Technical 15:36 B-Type Natriuretic LAB 03/16/24 Complete Peptide 15:36 Cbc With Differential LAB 03/16/24 Complete 15:36 Basic Metabolic Panel LAB 03/16/24 Complete 15:36 Creatine Kinase, Total LAB 03/16/24 Complete 15:36 Hepatic Function Panel LAB 03/16/24 Complete 15:36 Lactic Acid LAB 03/16/24 Complete 15:36 Procalcitonin LAB 03/16/24 Complete 15:36 Troponin I High LAB 03/16/24 Complete Sensitivity 15:36 Urinalysis Profile LAB 03/16/24 Complete 15:36 Chest 1vw RAD 03/16/24 Resulted 15:36 Blood Cult ANDRE 03/16/24 In Process 15:36 Influenza Type A & B, LAB 03/16/24 Complete Rapid 15:36 Covid Rna Naat LAB 03/16/24 Complete 15:36 Rapid (Group A Strep) LAB 03/16/24 Complete 15:36 Acetaminophen 500mg PHA 03/16/24 Complete Tab (Tylenol 500mg T 16:00 0.9% Nacl 500ml PHA 03/16/24 Complete Iv.Soln (Ns 500ml 16:30 Hydralazine 20mg Inj PHA 03/16/24 Complete (Apresoline 20mg In 17:30 Vancomycin Protocol PHA 03/16/24 In Process (Vancomycin Protocol 18:00 Zosyn 3.375gm+Ns 50ml PHA 03/16/24 Complete (Zosyn 3.375gm+Ns 18:00 Vancomycin 1.75 PHA 03/16/24 Complete Gm/250 Ml Bag 18:00 Vancomycin 1.75 PHA 03/16/24 In Process Gm/250 Ml Bag 22:00 Vancomycin Trough LAB 03/19/24 Verified 21:00 Vancomycin 1g/250ml PHA 03/17/24 In Process Kit (Vancomycin 1g/2 22:00 Compound Iv PHA 03/16/24 In Process Refrigerated 18:30 Edm Admit Bridge Order ADM 03/16/24 Transmitted 18:29 Current Medications Medications (Trade) Dose Ordered Sig/Lashonda Route PRN Reason Start Time Stop Time Status Last Admin Dose Admin Acetaminophen (TYLenol 500MG TAB) 1,000 mg ONCE ONCE PO 03/16/24 16:00 03/16/24 16:04 DC 03/16/24 16:42 Hydralazine HCl (APRESOLine 20MG INJ) 10 mg ONCE ONCE IV 03/16/24 17:30 03/16/24 17:46 DC 03/16/24 17:50 Piperacillin Sod/ Tazobactam Sod (Zosyn 3.375gm+NS 50ml) 3.375 gm ONCE ONCE IV 03/16/24 18:00 03/16/24 18:01 DC 03/16/24 18:25 Sodium Chloride 500 ml @ 0 mls/hr ONCE ONCE IV 03/16/24 16:30 03/16/24 16:31 DC 03/16/24 16:42 Vancomycin HCl 250 ml @ 125 mls/hr ONCE ONCE IV 03/16/24 18:00 03/16/24 17:55 DC Vancomycin HCl (Vancomycin Protocol) 1 each AD IV 03/16/24 18:00 03/30/24 17:59 Vital Signs Date Time Temp Pulse Resp B/P (MAP) Pulse Ox O2 Delivery O2 Flow Rate FiO2 03/16/24 18:30 99.1 73 16 165/76 95 Room Air* 0 03/16/24 16:42 101.1 03/16/24 15:58 101.3 122 16 210/96 98 Room Air* 0 03/16/24 15:34 101.5 94 18 188/[address] [address] IMAGING REPORT Signed PATIENT: EKTA BRICEÑO MR#: [id number] : 1940 SEX: M AGE: 83 LOCATION: [facility] ORDER 36 STATUS: REG REPORT#: [id number] SERVICE 35 REASON: sob ORDERING PHYSICIAN: CHAN ALMEIDA PROCEDURE: CXR1VW - CHEST 1VW PORTABLE CHEST RADIOGRAPH INDICATION: sob COMPARISON: 02/29/2004 FINDINGS: patient monitor leads overlie the field of view. Heart and pulmonary vascularity are enlarged. No abnormal pulmonary parenchymal opacity or consolidation identified. No significant pleural effusion noted. No pneumothorax detected. IMPRESSION: Cardiomegaly and pulmonary vascular congestion. DICTATED BY: CHINO MORELAND MD DATE: 03/16/241704 ELECTRONICALLY SIGNED BY: CHINO MORELAND MD DATE: 03/16/241712 Critical Care Note Critical Time: 30 minutes Comments Total critical care time: Approximately 30 minutes Due to a high probability of clinically significant, life threatening deterioration, the patient required my highest level of preparedness to intervene emergently and I personally spent this critical care time directly and personally managing the patient. This critical care time included obtaining a history; examining the patient; pulse oximetry; ordering and review of studies; arranging urgent treatment with development of a management plan; evaluation of patient's response to treatment; frequent reassessment; and, discussions with other providers. This critical care time was performed to assess and manage the high probability of imminent, life-threatening deterioration that could result in multi-organ failure. It was exclusive of separately billable procedures and treating other patients and teaching time. Please see MDM section and the rest of the note for further information on patient assessment and treatment. DX & DISP Disposition: Discharge Departure Impression: Primary Impression: Fever of unknown origin Additional Impressions: Sepsis, Hypertensive urgency Critical Time: 30 minutes Condition: Stable Referrals: YUSUF AREVALO MD (PCP) I have reviewed the case, and I agree with, Diagnosis and Plan I performed the substantive portion of the visit. I have reviewed and personally made and approve the management plan that is documented in the note by myself or the ABY. I acknowledge for responsibility for the patient's management plan. CHAN ALMEIDA Mar 16, 2024 18:06
[2024-03-16] MEDS: ZOSYN 3.375GM +NS 50ML IV ONE (18:25)
[2024-03-16] MEDS ORDERED: COMPOUND IV REFRIGERATED 1 EACH IVSOLN MISC PRN (18:30)
[2024-03-16] MEDS ORDERED: ondanSETRON 4MG INJ IVP PRN (19:00)
[2024-03-16] MEDS ORDERED: acetaMINOPHEN 650 MG SUPPOSITORY RC PRN (19:00)
[2024-03-16] MEDS ORDERED: LACTULOSE 20 GM/30 ML UDCUP PO PRN (19:00)
[2024-03-16] MEDS ORDERED: TEMAZepam 15 MG CAPSULE PO PRN (19:00)
[2024-03-16] MEDS ORDERED: doCUSate SODIUM 100 MG CAP PO PRN (19:00)
[2024-03-16] MEDS: 0.9%NACL 1000ML 1,000 ML IV SCH (19:25)
--- NOTE | 2024-03-16 20:52 | HP ---
[facility] HISTORY AND PHYSICAL Date of Service: Mar 16, 2024 Time of Service: 20:51 Attending/supervising physicians: Dr. Neff and Dr. Huyen Lees HISTORY OF PRESENT ILLNESS: Mr. Briceño is an 83-year-old male with a past medical history of type 2 diabetes, hyperlipidemia, and hypertension who presented to the emergency department for evaluation of generalized weakness and fever. Per ED the daughter reported that the patient lives with his who has a history of of dementia. According to daughter, patient's called her stating that patient was not feeling well and he looked very sick. EMS was called onto seen and patient was found to be febrile. He was transported to the [facility] for further evaluation. On arrival patient does reported generalized weakness. His initial blood pressure is elevated with a systolic of 188/82 then blood pressure increased to 210/96. He was a temperature of 101.5. Patient stated he forgot to take his blood pressure medication this morning. Patient is negative for flu, COVID, and rapid strep. Remarkable lab results: Hemoglobin 12.2, hematocrit 35.7, RBC 3.75. Sodium 132, chloride 99, BUN 23, creatinine 1.5, GFR 45, glucose 192, total calcium 8.1, AST 39, alk-phos 161, CK 2, BNP 595, albumin 2.6. UA negative for leuk EST and nitrites. Chest x-ray: Cardiomegaly and pulmonary vascular congestion. In ED patient was administered vancomycin, Zosyn, hydralazine, NS 500 mL bolus, and Tylenol1 g. Off note: The patient was recently admitted on February 28 at discharge on March 01, 2024 with the diagnosis of hypertensive urgency. ED provider request patient be admitted with the diagnosis of fever of unknown origin, sepsis, hypertensive urgency. I went to assess the patient at bedside in ED five. Patient appeared comfortable, in no distress, breathing was even and unlabored. The patient denied sore throat, cold signs and symptoms, chest pain, shortness of breath, pain with urination, abdominal pain, any rash or ulcer. I informed patient of labs, diagnostics, and plan of care. Patient verbalized understanding and is in agreement with the plan. Plan and assessment are listed below. REVIEW OF SYSTEMS 12-point ROS reviewed with patient. All pertinent positives mentioned above. Otherwise negative, nonpertinent, or non-contributory. Past Medical History: Diabetes-Type II, High Cholesterol, Hypertension, cataract Past Surgical History: Umbilical hernia repair Social history: Denied alcohol, tobacco, illicit drug abuse Lives with family Coded Allergies: No Known Drug Allergies (Unverified Allergy, Unknown, 08/21/22) PHYSICAL EXAM GENERAL APPEARANCE: The patient is awake, alert, and oriented, in no acute ca rdiopulmonary distress. NEUROLOGICAL: Cranial nerves II-XII grossly intact. Motor is 5/5 in bilateral upper and lower extremities proximal to distal. No sensory deficits. HEENT: Hard of hearing. Face is symmetric. Pupils are equal and reactive. Extraocular movements are intact. NECK: Supple. No JVD. No thyromegaly. No submental, submandibular, pre- /postauricular, occipital or supraclavicular lymphadenopathy. CHEST: Normal chest expansion. No Telemetry. LUNGS: Absence of any rales, rhonchi or any wheezing. CARDIOVASCULAR: Regular. S1 and S2 normal. No appreciable rubs, murmurs or gallops. ABDOMEN: Soft, nontender, and nondistended. There is no rebound, voluntary guarding, or rigidity. : Deferred. No Mcdermott. EXTREMITIES: Non-edematous and not cyanotic. No clubbing. Good capillary refill. SKIN: No skin breakdown. Vital Sign (Last 24 Hours) 03/16/24 18:30 Temp 99.1 Pulse 73 Resp 16 B/P (MAP) 165/76 Pulse Ox 95 O2 Delivery Room Air* O2 Flow Rate 0 FiO2 21 LABS: Laboratory: Test 03/16/24 16:51 03/16/24 16:21 03/16/24 15:48 Range/Units Urine Color LIGHT-YELLOW YELLOW Urine Appearance CLEAR CLEAR Urine pH 5.5 5.0-8.0 Urine Specific [place] 1.010 1.001-1.031 Urine Protein 100 H NEGATIVE mg/dL Urine Glucose (UA) 50 H NEGATIVE mg/dL Urine Ketones NEGATIVE NEGATIVE mg/dL Urine Occult Blood MODERATE H NEGATIVE Urine Nitrate NEGATIVE NEGATIVE Urine Bilirubin NEGATIVE NEGATIVE mg/dL Urine Urobilinogen 0.2 0.2-1.0 mg/dL Urine Leukocyte Esterase NEGATIVE NEGATIVE Yobany/uL Urine RBC 2-5 H 0-1 /HPF Urine WBC 0-1 0-1 /HPF Urine Squamous Epithelial Cells RARE 0-2 /HPF Urine Bacteria None None Seen /HPF Influenza Type A Antigen Negative For Type A NEGATIVE Influenza Type B Antigen Negative For Type B NEGATIVE SARS-CoV-2, RNA, NAAT NEGATIVE SARS CoV-2 NEGATIVE Group A Streptococcus Rapid negative NEGATIVE White Blood Count 7.2 4.8-10.8 K/uL Red Blood Count 3.74 L 4.50-6.20 MIL/uL Hemoglobin 12.2 L 14.0-18.0 g/dL Hematocrit 35.7 L 42-54 % Mean Corpuscular Volume 95.5 79-99 fL Mean Corpuscular Hemoglobin 32.6 27.0-33.0 pg Mean Corpuscular Hemoglobin Concent 34.2 32.0-36.0 g/dL Red Cell Distribution Width 14.5 11.0-15.5 % Platelet Count 144 130-400 K/uL Mean Platelet Volume 10.1 7.5-10.5 fL Immature Granulocyte % (Auto) 0.4 0-1 % Neutrophils (%) (Auto) 79.4 H 40.0-77.0 % Lymphocytes (%) (Auto) 7.3 L 21.0-51.0 % Monocytes (%) (Auto) 11.2 3.0-13.0 % Eosinophils (%) (Auto) 1.3 0.0-8.0 % Basophils (%) (Auto) 0.4 0.0-5.0 % Neutrophils # (Auto) 5.7 1.8-7.7 K/uL Lymphocytes # (Auto) 0.5 L 1.0-4.8 K/uL Monocytes # (Auto) 0.8 0.1-1.0 K/uL Eosinophils # (Auto) 0.09 0.00-0.70 K/uL Basophils # (Auto) 0.03 0.00-0.20 K/uL Absolute Immature Granulocyte (auto 0.03 0-1 K/uL Nucleated Red Blood Cells 0.0 0.0-0.19 % White Cell Morphology Comment See comments Sodium Level 132 L 136-145 mmol/L Potassium Level 3.5 3.5-5.1 mmol/L Chloride Level 99 L 101-111 mmol/L Carbon Dioxide Level 25 21-32 mmol/L Blood Urea Nitrogen 23 H 7-18 mg/dL Creatinine 1.5 H 0.5-1.3 mg/dL Glomerular Filtration Rate Calc 45 >90 mL/min Random Glucose 192 H 70-105 mg/dL Lactic Acid Level 2.3 0.8-2.5 mmol/L Total Calcium 8.1 L 8.5-10.1 mg/dL Total Bilirubin 0.8 0.2-1.0 mg/dL Direct Bilirubin 0.3 0.0-0.3 mg/dL Aspartate Amino Transf (AST/SGOT) 39 H 10-37 U/L Alanine Aminotransferase (ALT/SGPT) 18 12-78 U/L Alkaline Phosphatase 161 H 50-136 U/L Total Creatine Kinase 251 #H 21-232 U/L Troponin I High Sensitivity 35 4-75 ng/L B-Type Natriuretic Peptide 595 H 0-100 pg/mL Total Protein 7.6 6.0-8.3 g/dL Albumin 2.6 L 3.5-5.0 g/dL Procalcitonin 0.06 0.05-0.5 ng/mL Current Medications Medications (Trade) Dose Ordered Sig/Lashonda Route PRN Reason Start Time Stop Time Status Last Admin Dose Admin Acetaminophen (TYLenol 325MG TAB) 650 mg Q6H PRN PO FEVER/MILD PAIN LEVEL 1-3 03/16/24 19:00 04/15/24 18:59 Acetaminophen (TYLenol 650MG SUPPOSITORY) 650 mg Q6H PRN RC FEVER / MILD PAIN 1-3 IF NPO 03/16/24 19:00 04/15/24 18:59 Docusate Sodium (COLace 100MG CAP) 100 mg BID PRN PO c 03/16/24 19:00 04/15/24 18:59 Enoxaparin Sodium (Lovenox) 30 mg DAILY SQ 03/17/24 09:00 04/16/24 08:59 Hydralazine HCl (APRESOLine 20MG INJ) 10 mg Q2H PRN IV SBP GREATER THAN 160 03/16/24 19:00 04/15/24 18:59 Insulin Human Regular (humuLIN R 100 UNIT/ML 3ML) INSULIN SLIDING SCAL... ACHS SQ 03/16/24 21:00 04/15/24 20:59 Lactulose (Constulose 20gm/ 30ml Udcup) 20 gm Q6H PRN PO CONSTIPATION 03/16/24 19:00 04/15/24 18:59 Ondansetron HCl (zoFRAN 4MG INJ) 4 mg Q6H PRN IVP NAUSEA/VOMITING 03/16/24 19:00 04/15/24 18:59 Pantoprazole Sodium (PROTonix 40MG TAB) 40 mg DAILY PO 03/17/24 09:00 04/16/24 08:59 Piperacillin Sod/ Tazobactam Sod (Zosyn 3.375gm+NS 50ml) 3.375 gm Q8H IVPB 03/17/24 02:00 03/27/24 01:59 Sodium Chloride 1,000 ml @ 75 mls/hr [id number] IV 03/16/24 19:00 04/15/24 18:59 03/16/24 19:25 75 MLS/HR Sodium Chloride (NS 50ml) 50 ml AD IV 03/17/24 02:00 03/16/24 19:08 DC Temazepam (restORIL 15 MG CAP) 15 mg HS PRN PO INSOMNIA/SLEEP 03/16/24 19:00 04/15/24 18:59 Vancomycin HCl 250 ml @ 125 mls/hr Q24H IV 03/17/24 22:00 03/27/24 21:59 Vancomycin HCl (Vancomycin Protocol) 1 each AD IV 03/16/24 18:00 03/30/24 17:59 Vancomycin HCl (Vancomycin Protocol) 1 each AD IV 03/16/24 19:30 03/16/24 19:29 DC DIAGNOSTICS / RADIOLOGY: [ ] ASSESSMENT: Sepsis, POA Acute febrile illness, unknown origin Hypertensive urgency Pulmonary vascular congestion Anemia Transaminitis Volume overload, Elevated BNP 595 Grade III diastolic dysfunction, LVEF 60-65%, RVSP 52 mmHg, per echo 08/23/2022 Hypoalbuminemia Electrolyte derangement (hyponatremia, hypochloremia, hypocalcemia) Acute on chronic kidney disease, GFR 45 Diabetes mellitus with hyperglycemia Noncompliance with medical management/medications PLAN: Admit to medical floor with telemetry monitoring. Continue vancomycin IV per pharmacy protocol and start cefepime IV. Monitor for any fevers. Follow white blood cell count. Cultures and infl ammatory markers as needed. Antibiotic therapy tailored to culture results. De- escalate antibiotics when appropriate. P.r.n. medications for: Fever, nausea, vomiting, constipation, hypertension Reconcile home medications: Labetalol, Amlodipine, and Olmesartan. Hold Lasix for now due to Sepsis. (ED administer NS 500 ml bolus). Monitor renal and liver function. Monitor electrolytes and treat accordingly. Monitor for fluid overload. Strict I&Os. Daily weights. Glucometer checks a.c. and HS with insulin regular sliding scale per protocol. DVT and GI prophylaxis. Obtain a CT abdomen and pelvis for evaluation of a liver/transaminitis and fever. A.m. labs. Additional Plan and Assessment: Neurological: Avoid psychoactive medications as much as possible. Maintain adequate lighting during the daytime and a quiet environment at night with low light level to prevent acute delirium. Continue with seizure, fall, and aspiration precaution. Antiemetics and pain management. Respiratory: Monitor respiratory status and maintain adequate oxygenation. Administer oxygen therapy as needed. Titrate oxygen therapy PRN to keep SpO2 >/= 92%. Monitor ABGs and CXR as needed. Nebulizer therapy, CPT, and CPAP/BIPAP PRN. Cardiovascular: Continues telemetry pack monitoring. Blood pressure checks every 4 hours and as needed. Spread cardioprotective medications evenly thr oughout the day. Monitor for arrhythmias. Maintain adequate perfusion pressures, keep MAP >/= 65 mmHg. Gastrointestinal: Follow dietary recommendations. Advance nutrition as tolerated. Monitor albumin and pre albumin. Aspiration precautions. Prokinetic agents and laxatives as needed. Renal: Keep the patient in a euvolemic state. Correct electrolytes accordingly. Avoid Nephrotoxic medications. Adjust medications according to renal function. Infectious Diseases: Monitor for any fevers. Follow white blood cell count. Cultures and inflammatory markers as needed. Antibiotic therapy tailored to culture results. De-escalate antibiotics if possible. Endocrine: Monitor blood sugars. Avoid hypoglycemic events. Insulin coverage as per insulin sliding scale protocol. Hematologic: Monitor closely for any signs or symptoms of bleeding. Keep Hgb >/= 7. Avoid blood transfusions unless patient is symptomatic or has an active bleed. Skin: Monitor for any skin breakdown. Turn patient as per pressure ulcer prevention protocol. Prophylaxis: Continue GI and DVT prophylaxis. Code status: Full Code. ADVANCED CARE PLANNING 1. Which of the following were discussed? Hospice Care - No Therapeutic options - No Advance Directives - Yes Other discussions - 2. Discussed with who? Patient 3. Voluntary nature of this service was explained to the patient? Yes 4. Amount of time spent - ___ over 30 minutes ____ 5. Reviewed by Physician? (if this service was performed by NPP) Yes Patient seen and examined by me. Agree with note by FLAVORER SEE ADDITIONAL ORDERS PER CHART DISCUSSED WITH NURSING STAFF TYSHAWN BRICEÑO DUST COLLECTOR TREATER Mar 16, 2024 20:51
[2024-03-16] MEDS: INSULIN humuLIN R 100 UNIT/ML 3ML SQ SCH (20:58)
[2024-03-16] MEDS: VANCOMYCIN 1.75 GM/250 ML BAG 250 ML IV ONE (21:40)
[2024-03-17] MEDS ORDERED: 0.9%NACL 50ML IV SCH (02:00)
[2024-03-17] MEDS: ZOSYN 3.375GM +NS 50ML IVPB SCH (03:05)
[2024-03-17 04:35] LABS: BASOPHILS # (AUTO) 0.03 K/uL (0.00-0.20); BASOPHILS % (AUTO) 0.5 % (0.0-5.0); EOSINOPHILS # (AUTO) 0.05 K/uL (0.00-0.70); EOSINOPHILS % (AUTO) 0.8 % (0.0-8.0); HEMATOCRIT 37.4 % (42-54); IMMATURE GRANULOCYTE ABSOLUTE 0.02 K/uL (0-1); LYMPHOCYTES # (AUTO) 0.9 K/uL (1.0-4.8); LYMPHOCYTES % (AUTO) 13.9 % (21.0-51.0); MEAN CORPUSCULAR HGB CONC 34.5 g/dL (32.0-36.0); MEAN CORPUSCULAR VOLUME 92.8 fL (79-99); MONOCYTES % (AUTO) 15.6 % (3.0-13.0); NEUTROPHILS # (AUTO) 4.3 K/uL (1.8-7.7); NEUTROPHILS % (AUTO) 68.9 % (40.0-77.0); PLATELET COUNT (AUTO) 140 K/uL (130-400); RED BLOOD CELL COUNT(AUTO) 4.03 MIL/uL (4.50-6.20); RED CELL DISTRIBUTION WIDTH 14.5 % (11.0-15.5); WHITE BLOOD COUNT (AUTO) 6.2 K/uL (4.8-10.8)
[2024-03-17] MEDS: hydrALAZine 20MG/ML VIAL IV PRN (04:35)
[2024-03-17 04:45] LABS: CREATININE 1.3 mg/dL (0.5-1.3); PHOSPHORUS 2.5 mg/dL (2.5-4.9); POTASSIUM 3.5 mmol/L (3.5-5.1)
[2024-03-17] MEDS: acetaMINOPHEN 325 MG TAB PO PRN (06:19)
--- NOTE | 2024-03-17 06:58 | EKG ---
[facility] Test Date: 2024-03-16 Test Time: 15:51:29 Pat Name: EKTA BRICEÑO Department: EDHIP Room: 316 Gender: M [employer] Installer: [id number] : 1940 Requested By: CHAN ALMEIDA Order Number: [id number] Reading MD: Clyde Bradshaw Measurements Intervals [place] Rate: 79 P: 0 AK: 0 QRS: -34 QRSD: 103 T: 80 QT: 388 QTc: 447 Interpretive Statements Atrial flutter with predominant 3:1 AV block Left axis deviation ST elevation, consider inferior injury Compared to ECG 02/29/2024 01:49:24 Prolonged QT interval no longer present ST (T wave) deviation still present Myocardial infarct finding still present Electronically Signed On 03-17-2024 19:13:16 TRUCK JUMPER by Clyde Bradshaw Please click the below link to view image of tracing.
[2024-03-17 07:05] VITALS: TEMP 97.6
[2024-03-17] MEDS: ENOXAPARIN SODIUM 30 MG/0.3 ML SQ SCH (10:19)
[2024-03-17] MEDS: LoSARTan 100 MG TABLET PO SCH (10:19)
[2024-03-17] MEDS: amLODIPine 5 MG TAB PO SCH (10:19)
[2024-03-17] MEDS: ceFEPime HCL 1 GM VIAL IVPB SCH (10:19)
[2024-03-17] MEDS: PANTOPrazole 40 MG TAB DR PO SCH (10:19)
[2024-03-17] MEDS: LAbetaLOL HCL 100 MG TABLET PO SCH (10:21)
--- NOTE | 2024-03-17 11:01 | PN ---
[facility] PROGRESS NOTE Date of Service: Mar 17, 2024 Time of Service: 10:59 SUBJECTIVE: The patient has been seen and examined during my rounding, comfortably in bed, spiked fever earlier this morning 100.2, BP 137/82, saturating normal on room air, getting IV antibiotics during my visit, he denies dizziness, no headache, no blurry vision, no chest pain, no shortness a breath, nausea, no vomiting, no abdominal pain, no diarrhea, no constipation, no melena, no hematochezia, no hematemesis, no hematuria, no dysuria. No family members at bedside during my visit REVIEW OF SYSTEMS 12-point ROS reviewed with patient. All pertinent positives mentioned above. Otherwise negative, nonpertinent, or non-contributory. PHYSICAL EXAM GENERAL APPEARANCE: The patient is awake, alert, and oriented, in no acute cardiopulmonary distress. NEUROLOGICAL: Cranial nerves II-XII grossly intact. Motor is 5/5 in bilateral upper and lower extremities proximal to distal. No sensory deficits. HEENT: Hard of hearing. Face is symmetric. Pupils are equal and reactive. Extraocular movements are intact. NECK: Supple. No JVD. No thyromegaly. No submental, submandibular, pre- /postauricular, occipital or supraclavicular lymphadenopathy. CHEST: Normal chest expansion. No Telemetry. LUNGS: Absence of any rales, rhonchi or any wheezing. CARDIOVASCULAR: Regular. S1 and S2 normal. No appreciable rubs, murmurs or gallops. ABDOMEN: Soft, nontender, and nondistended. There is no rebound, voluntary guarding, or rigidity. : Deferred. No Mcdermott. EXTREMITIES: Non-edematous and not cyanotic. No clubbing. Good capillary refill. SKIN: No skin breakdown. Vital Signs (last 8hr) Date Time Temp Pulse Resp B/P (MAP) Pulse Ox O2 Delivery O2 Flow Rate FiO2 03/17/24 07:30 97.5 77 20 137/82 96 Room Air* 0 21 03/17/24 06:19 100.2 03/17/24 06:13 100.2 77 16 173/77 98 Room Air* 0 03/17/24 04:47 98.8 76 16 165/93 97 Room Air* 0 21 03/17/24 04:32 99.0 82 16 186/81 98 Room Air* 0 21 LABS: Laboratory: Test 03/17/24 04:27 03/16/24 20:34 03/16/24 16:51 03/16/24 16:21 Range/Units White Blood Count 6.2 4.8-10.8 K/uL Red Blood Count 4.03 L 4.50-6.20 MIL/uL Hemoglobin 12.9 L 14.0-18.0 g/dL Hematocrit 37.4 L 42-54 % Mean Corpuscular Volume 92.8 79-99 fL Mean Corpuscular Hemoglobin 32.0 27.0-33.0 pg Mean Corpuscular Hemoglobin Concent 34.5 32.0-36.0 g/dL Red Cell Distribution Width 14.5 11.0-15.5 % Platelet Count 140 130-400 K/uL Mean Platelet Volume 9.6 7.5-10.5 fL Immature Granulocyte % (Auto) 0.3 0-1 % Neutrophils (%) (Auto) 68.9 40.0-77.0 % Lymphocytes (%) (Auto) 13.9 L 21.0-51.0 % Monocytes (%) (Auto) 15.6 H 3.0-13.0 % Eosinophils (%) (Auto) 0.8 0.0-8.0 % Basophils (%) (Auto) 0.5 0.0-5.0 % Neutrophils # (Auto) 4.3 1.8-7.7 K/uL Lymphocytes # (Auto) 0.9 L 1.0-4.8 K/uL Monocytes # (Auto) 1.0 0.1-1.0 K/uL Eosinophils # (Auto) 0.05 0.00-0.70 K/uL Basophils # (Auto) 0.03 0.00-0.20 K/uL Absolute Immature Granulocyte (auto 0.02 0-1 K/uL Nucleated Red Blood Cells 0.0 0.0-0.19 % Sodium Level 141 136-145 mmol/L Potassium Level 3.5 3.5-5.1 mmol/L Chloride Level 108 101-111 mmol/L Carbon Dioxide Level 23 21-32 mmol/L Blood Urea Nitrogen 18 7-18 mg/dL Creatinine 1.3 0.5-1.3 mg/dL Glomerular Filtration Rate Calc 54 >90 mL/min Random Glucose 94 # 70-105 mg/dL Total Calcium 7.8 L 8.5-10.1 mg/dL Phosphorus Level 2.5 2.5-4.9 mg/dL Lactic Acid Level 1.8 0.8-2.5 mmol/L Urine Color LIGHT-YELLOW YELLOW Urine Appearance CLEAR CLEAR Urine pH 5.5 5.0-8.0 Urine Specific [place] 1.010 1.001-1.031 Urine Protein 100 H NEGATIVE mg/dL Urine Glucose (UA) 50 H NEGATIVE mg/dL Urine Ketones NEGATIVE NEGATIVE mg/dL Urine Occult Blood MODERATE H NEGATIVE Urine Nitrate NEGATIVE NEGATIVE Urine Bilirubin NEGATIVE NEGATIVE mg/dL Urine Urobilinogen 0.2 0.2-1.0 mg/dL Urine Leukocyte Esterase NEGATIVE NEGATIVE Yobany/uL Urine RBC 2-5 H 0-1 /HPF Urine WBC 0-1 0-1 /HPF Urine Squamous Epithelial Cells RARE 0-2 /HPF Urine Bacteria None None Seen /HPF Influenza Type A Antigen Negative For Type A NEGATIVE Influenza Type B Antigen Negative For Type B NEGATIVE SARS-CoV-2, RNA, NAAT NEGATIVE SARS CoV-2 NEGATIVE Group A Streptococcus Rapid negative NEGATIVE Test 03/16/24 15:48 Range/Units White Cell Morphology Comment See comments Total Bilirubin 0.8 0.2-1.0 mg/dL Direct Bilirubin 0.3 0.0-0.3 mg/dL Aspartate Amino Transf (AST/SGOT) 39 H 10-37 U/L Alanine Aminotransferase (ALT/SGPT) 18 12-78 U/L Alkaline Phosphatase 161 H 50-136 U/L Total Creatine Kinase 251 #H 21-232 U/L Troponin I High Sensitivity 35 4-75 ng/L B-Type Natriuretic Peptide 595 H 0-100 pg/mL Total Protein 7.6 6.0-8.3 g/dL Albumin 2.6 L 3.5-5.0 g/dL Procalcitonin 0.06 0.05-0.5 ng/mL Current Medications Medications (Trade) Dose Ordered Sig/Lashonda Route PRN Reason Start Time Stop Time Status Last Admin Dose Admin Acetaminophen (TYLenol 325MG TAB) 650 mg Q6H PRN PO FEVER/MILD PAIN LEVEL 1-3 03/16/24 19:00 04/15/24 18:59 03/17/24 06:19 650 MG Acetaminophen (TYLenol 650MG SUPPOSITORY) 650 mg Q6H PRN RC FEVER / MILD PAIN 1-3 IF NPO 03/16/24 19:00 04/15/24 18:59 Amlodipine Besylate (NorvASC 5MG TAB) 10 mg DAILY PO 03/17/24 09:00 04/16/24 08:59 03/17/24 10:19 10 MG Cefepime HCl (MAXipime 1 GM vial) 1 gm Q24H IVPB 03/17/24 09:00 03/27/24 08:59 03/17/24 10:19 1 GM Docusate Sodium (COLace 100MG CAP) 100 mg BID PRN PO c 03/16/24 19:00 04/15/24 18:59 Enoxaparin Sodium (Lovenox) 30 mg DAILY SQ 03/17/24 09:00 04/16/24 08:59 03/17/24 10:19 30 MG Hydralazine HCl (APRESOLine 20MG INJ) 10 mg Q2H PRN IV SBP GREATER THAN 160 03/16/24 19:00 04/15/24 18:59 03/17/24 04:35 10 MG Insulin Human Regular (humuLIN R 100 UNIT/ML 3ML) INSULIN SLIDING SCAL... ACHS SQ 03/16/24 21:00 04/15/24 20:59 Labetalol HCl (TRANdate 100 MG TABLET) 100 mg BID PO 03/17/24 09:00 04/16/24 08:59 03/17/24 10:21 100 MG Lactulose (Constulose 20gm/ 30ml Udcup) 20 gm Q6H PRN PO CONSTIPATION 03/16/24 19:00 04/15/24 18:59 Losartan Potassium (CozAAR 100MG TAB) 100 mg DAILY PO 03/17/24 09:00 04/16/24 08:59 03/17/24 10:19 100 MG Ondansetron HCl (zoFRAN 4MG INJ) 4 mg Q6H PRN IVP NAUSEA/VOMITING 03/16/24 19:00 04/15/24 18:59 Pantoprazole Sodium (PROTonix 40MG TAB) 40 mg DAILY PO 03/17/24 09:00 04/16/24 08:59 03/17/24 10:19 40 MG Piperacillin Sod/ Tazobactam Sod (Zosyn 3.375gm+NS 50ml) 3.375 gm Q8H IVPB 03/17/24 02:00 03/17/24 03:50 DC 03/17/24 03:05 3.375 GM Sodium Chloride 1,000 ml @ 75 mls/hr [id number] IV 03/16/24 19:00 04/15/24 18:59 03/17/24 10:21 75 MLS/HR Sodium Chloride (NS 50ml) 50 ml AD IV 03/17/24 02:00 03/16/24 19:08 DC Temazepam (restORIL 15 MG CAP) 15 mg HS PRN PO INSOMNIA/SLEEP 03/16/24 19:00 04/15/24 18:59 Vancomycin HCl 250 ml @ 125 mls/hr Q24H IV 03/17/24 22:00 03/27/24 21:59 Vancomycin HCl (Vancomycin Protocol) 1 each AD IV 03/16/24 18:00 03/30/24 17:59 Vancomycin HCl (Vancomycin Protocol) 1 each AD IV 03/16/24 19:30 03/16/24 19:29 DC DIAGNOSTICS / RADIOLOGY: [ ] PORTABLE CHEST RADIOGRAPH INDICATION: sob COMPARISON: 02/29/2004 FINDINGS: sales special agent leads overlie the field of view. Heart and pulmonary vascularity are enlarged. No abnormal pulmonary parenchymal opacity or consolidation identified. No significant pleural effusion noted. No pneumothorax detected. IMPRESSION: Cardiomegaly and pulmonary vascular congestion. ASSESSMENT: Sepsis, POA Acute febrile illness, unknown origin Hypertensive urgency Pulmonary vascular congestion Anemia Transaminitis Volume overload, Elevated BNP 595 Grade III diastolic dysfunction, LVEF 60-65%, RVSP 52 mmHg, per echo 08/23/2022 Hypoalbuminemia Electrolyte derangement (hyponatremia, hypochloremia, hypocalcemia) Acute on chronic kidney disease, GFR 45 Diabetes mellitus with hyperglycemia Noncompliance with medical management/medications PLAN: Admit to medical floor with telemetry monitoring. Continue vancomycin IV per pharmacy protocol and start cefepime IV. Monitor for any fevers. Follow white blood cell count. Cultures and inflammatory markers as needed. Antibiotic therapy tailored to culture results. De-escalate antibiotics when appropriate. P.r.n. medications for: Fever, nausea, vomiting, constipation, hypertension Reconcile home medications: Labetalol, Amlodipine, and Olmesartan. Hold Lasix for now due to Sepsis. (ED administer NS 500 ml bolus). Monitor renal and liver function. Monitor electrolytes and treat accordingly. Monitor for fluid overload. Strict I&Os. Daily weights. Glucometer checks a.c. and HS with insulin regular sliding scale per protocol. DVT and GI prophylaxis. Obtain a CT abdomen and pelvis for evaluation of a liver/transaminitis and fever. A.m. labs. Plan of action discussed with the patient, all questions answered, agreed and understood the information provided RANDOLPH MARTELL MD Mar 17, 2024 11:01
--- NOTE | 2024-03-17 11:56 | HMCIMG ---
CT ABDOMEN/PELVIS W/O CONTRAST HISTORY: Elevated liver enzymes COMPARISON: None TECHNIQUE: Multiple sequential axial images of the abdomen and pelvis were obtained from the dome of the diaphragm through symphysis pubis. Patient was not given contrast through intravenous route. Oral contrast was not given. FINDINGS: Small bilateral pleural effusions are seen. Mild bilateral pulmonary infiltrates are seen. Degenerative changes of the thoracolumbar spine are present. The heart is not enlarged. Liver is enlarged with fatty changes measuring 17 cm. There is liver parenchymal disease. Dystrophic calcifications are seen in the spleen. Gallbladder is moderately distended with gallstones. There is left renal cyst measuring 3.5 cm. Nonspecific bilateral perinephric fat stranding is seen. There is diverticulosis. The liver, spleen, adrenal glands and pancreas are unremarkable. There is no evidence of hydronephrosis bilaterally. No evidence of renal stone is seen. Fecal material is seen in the colon. There are normal size retroperitoneal and mesenteric lymph nodes. No ascites is seen. Atherosclerotic changes are present. Pelvic sidewalls are symmetric bilaterally. Bladder is well distended without wall thickening. There may be bladder stone in the bladder measuring 17 mm. IMPRESSION: 1. Diverticulosis. Nonspecific mesenteric fat stranding. Small bilateral pleural effusions. Borderline enlarged fatty liver. CT was performed with one or more following dose reduction techniques: automated exposure control, adjustment of the mA and kv according to patient's size, or use of a iterative reconstruction technique.
[2024-03-17 15:05] VITALS: BP 161/75; PULSE 68; RESP 20; TEMP 98.4
[2024-03-17 18:00] VITALS: O2SAT 96
[2024-03-17 20:00] VITALS: BP 150/85; PULSE 77; RESP 18; TEMP 99.1
[2024-03-17 20:29] VITALS: O2SAT 96
[2024-03-17] MEDS: VANCOMYCIN 1G/250ML KIT 250 ML IV SCH (21:58)
--- NOTE | 2024-03-17 22:03 | CONS ---
INFECTIOUS DISEASE CONSULTATION NOTE DATE OF SERVICE: 03/17/2024 REQUESTING PHYSICIAN: Dr. Neff. REASON FOR CONSULTATION: Sepsis and antibiotic management. HISTORY OF PRESENT ILLNESS: An 83-year-old male with history of diabetes mellitus, dyslipidemia and hypertension, was brought to the Emergency Room with fever, weakness. The patient found with increasing weakness and poor oral intake by and was brought to the Emergency Room. In the ER, the patient found with T-max of 101.5. Blood culture has been done, came back with gram-positive cocci in cluster. The patient has been started on cefepime and vancomycin. Denies sick contact or recent travel. No rashes or itchiness. No dysuria, no urinary frequency. Denied depression. No suicidal ideation. No palpitation, no orthopnea. No neck pain or neck swelling. PAST MEDICAL HISTORY: * Diabetes mellitus. * Dyslipidemia. * Hypertension. PAST SURGICAL HISTORY: Umbilical hernia repair. ALLERGIES: No known drug allergy. HOME MEDICATIONS: Reviewed, include: * Cefepime. * Norvasc. * Lovenox. * Vancomycin. * Tylenol. SOCIAL HISTORY: Lives with . Denies alcohol, tobacco or illicit drug use. FAMILY HISTORY: Positive for diabetes mellitus. REVIEW OF SYSTEMS: CONSTITUTIONAL: Positive for fever. No weight loss or night sweats. EYES: No eye pain, no photophobia or diplopia. HENT: No sore throat, no rhinorrhea or earache. NECK: No neck pain or neck swelling. RESPIRATORY: No cough, no hemoptysis or pleuritic pain. CARDIOVASCULAR: No chest pain, no palpitation or orthopnea. GASTROINTESTINAL: Denied nausea, vomiting or abdominal pain. GENITOURINARY: No dysuria, urgency or urinary frequency. CENTRAL NERVOUS SYSTEM: No headache, dyspnea, or slurred speech. PSYCHIATRY: No depression. No suicidal ideation. MUSCULOSKELETAL: No joint pain or joint swelling. PHYSICAL EXAMINATION: GENERAL: Elderly male, awake. VITAL SIGNS: Temperature 100.2, pulse 77, respiration 20, BP 137/82. EYES: No icterus. Pupils equal and reactive. HENT: No oral thrush seen. Moist oral mucosa. NECK: Supple, no JVD or thyromegaly. LUNGS: Good air entry. No rales, no rhonchi. CARDIOVASCULAR: S1, S2 regular. No murmur heard. ABDOMEN: Full, soft, nontender. Bowel sound is present. CENTRAL NERVOUS SYSTEM: Awake, alert, oriented x 3. No focal deficits. SKIN: No rashes, no itchiness. LYMPHATIC: No peripheral lymphadenopathy. BACK: No deformity, no pressure ulcer. HEMATOLOGIC: No bleeding or petechial lesion seen. MUSCULOSKELETAL: No joint swelling, erythema or tenderness. LABORATORY DATA: Sodium 141, potassium 3.5, BUN 18, creatinine 1.3, WBC 6.2, hemoglobin 12.9, platelet 114. ____ negative. Urinalysis negative. Blood cultures growing gram-positive cocci in cluster. RADIOLOGY: CT of the abdomen shows diverticulosis, nonspecific ____ . Chest x-ray shows severe pneumoniae. ASSESSMENT: An 83-year-old male presenting with fever and generalized weakness. CURRENT PROBLEMS: Include: * Sepsis. * Pneumonia. * Gram-positive bacteremia. * Diabetes mellitus. * Hypertension. * Debility. PLAN: * Continue cefepime. * Continue vancomycin. * Continue antihypertensive. * Continue antidiabetic. * Continue pain management. * Monitor electrolytes. * Continue GI prophylaxis. * Follow up cultures. Thank you for allowing me to participate in the care of this patient. TID: [id number] RECEIPT: [id number]
--- NOTE | 2024-03-17 23:07 | EKG ---
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 : 1940 Requested By: TYSHAWN BRICEÑO Order Number: [id number] Reading MD: Clyde Bradshaw Measurements Intervals [place] Rate: 59 P: 0 MI: 0 QRS: -5 QRSD: 98 T: 10 QT: 510 QTc: 504 Interpretive Statements Atrial flutter with variable AV block with ventricular escape complexes Nonspecific T wave abnormality Prolonged QT Compared to ECG 03/16/2024 15:51:29 Ventricular escape complex(es) now present T-wave abnormality now present Prolonged QT interval now present AV block, advanced (high-grade) no longer present Left-axis deviation no longer present ST (T wave) deviation no longer present Myocardial infarct finding no longer present Electronically Signed On 03-18-2024 14:33:14 [employer] by Clyde Bradshaw Please click the below link to view image of tracing.
[2024-03-18] VITALS (8 sets, daily range): BP systolic 137–181; BP diastolic 62–94; PULSE 52–78; RESP 18–20; TEMP 97.7–98.9; O2SAT 97
[2024-03-18 04:32] LABS: HEMATOCRIT 37.1 % (42-54); MEAN CORPUSCULAR HEMOGLOBIN 32.1 pg (27.0-33.0); MEAN CORPUSCULAR HGB CONC 33.7 g/dL (32.0-36.0); MEAN CORPUSCULAR VOLUME 95.1 fL (79-99); RED BLOOD CELL COUNT(AUTO) 3.9 MIL/uL (4.50-6.20); RED CELL DISTRIBUTION WIDTH 14.9 % (11.0-15.5); WHITE BLOOD COUNT (AUTO) 8.4 K/uL (4.8-10.8)
[2024-03-18 04:49] LABS: ALBUMIN 2.2 g/dL (3.5-5.0); BILIRUBIN,TOTAL 0.9 mg/dL (0.2-1.0); CREATININE 1.5 mg/dL (0.5-1.3); MAGNESIUM 1.8 mg/dL (1.80-2.40); POTASSIUM 3.4 mmol/L (3.5-5.1); TOTAL PROTEIN, SERUM 6.8 g/dL (6.0-8.3)
[2024-03-18] MEDS: PoTASSium chloRIDE 20MEQ ER 20 MEQ ERTAB PO ONE (10:22)
--- NOTE | 2024-03-18 12:18 | PN ---
[facility] PROGRESS NOTE Date of Service: Mar 18, 2024 Time of Service: 12:14 SUBJECTIVE: The patient has been seen and examined during my rounding, comfortably in bed, spiked fever earlier this morning 100.2, BP 137/82, saturating normal on room air, getting IV antibiotics during my visit, he denies dizziness, no headache, no blurry vision, no chest pain, no shortness a breath, nausea, no vomiting, no abdominal pain, no diarrhea, no constipation, no melena, no hematochezia, no hematemesis, no hematuria, no dysuria. No family members at bedside during my visit 03/18 the patient has been seen and examined during my rounding, no acute events overnight, BP 174/94, rest of the vital signs are unremarkable. The patient looks and feels less weak today compared to time of admission. He denies dizziness, no headache, no blurry vision, no chest pain, no shortness a breath, no nausea, no vomiting, no abdominal discomfort, no diarrhea, no constipation, no melena, no hematochezia, no hematemesis, no hematuria, no dysuria. is at bedside during my visit. Results of CT of the abdomen and pelvis without contrast reviewed and discussed with both the patient and the , all questions answered. Understood the information provided. REVIEW OF SYSTEMS 12-point ROS reviewed with patient. All pertinent positives mentioned above. Otherwise negative, nonpertinent, or non-contributory. PHYSICAL EXAM GENERAL APPEARANCE: The patient is awake, alert, and oriented, in no acute cardiopulmonary distress. NEUROLOGICAL: Cranial nerves II-XII grossly intact. Motor is 5/5 in bilateral upper and lower extremities proximal to distal. No sensory deficits. HEENT: Hard of hearing. Face is symmetric. Pupils are equal and reactive. Extraocular movements are intact. NECK: Supple. No JVD. No thyromegaly. No submental, submandibular, pre-/postauricular, occipital or supraclavicular lymphadenopathy. CHEST: Normal chest expansion. No Telemetry. LUNGS: Absence of any rales, rhonchi or any wheezing. CARDIOVASCULAR: Regular. S1 and S2 normal. No appreciable rubs, murmurs or gallops. ABDOMEN: Soft, nontender, and nondistended. There is no rebound, voluntary guarding, or rigidity. : Deferred. No Mcdermott. EXTREMITIES: Non-edematous and not cyanotic. No clubbing. Good capillary refill. SKIN: No skin breakdown. Vital Signs (last 8hr) Date Time Temp Pulse Resp B/P (MAP) Pulse Ox O2 Delivery O2 Flow Rate FiO2 03/18/24 08:00 98.1 73 20 174/94 96 Room Air 03/18/24 08:00 97 Room Air* 0 21 03/18/24 05:00 163/86 LABS: Laboratory: Test 03/18/24 11:34 03/18/24 04:28 03/17/24 04:27 03/16/24 20:34 Range/Units Whole Blood Glucose 156 #H 70-110 MG/DL White Blood Count 8.4 4.8-10.8 K/uL Red Blood Count 3.90 L 4.50-6.20 MIL/uL Hemoglobin 12.5 L 14.0-18.0 g/dL Hematocrit 37.1 L 42-54 % Mean Corpuscular Volume 95.1 79-99 fL Mean Corpuscular Hemoglobin 32.1 27.0-33.0 pg Mean Corpuscular Hemoglobin Concent 33.7 32.0-36.0 g/dL Red Cell Distribution Width 14.9 11.0-15.5 % Platelet Count 126 L 130-400 K/uL Mean Platelet Volume 9.9 7.5-10.5 fL Nucleated Red Blood Cells 0.0 0.0-0.19 % Sodium Level 139 136-145 mmol/L Potassium Level 3.4 L 3.5-5.1 mmol/L Chloride Level 106 101-111 mmol/L Carbon Dioxide Level 22 21-32 mmol/L Blood Urea Nitrogen 19 H 7-18 mg/dL Creatinine 1.5 H 0.5-1.3 mg/dL Glomerular Filtration Rate Calc 45 >90 mL/min Random Glucose 105 70-105 mg/dL Total Calcium 7.7 L 8.5-10.1 mg/dL Magnesium Level 1.80 1.80-2.40 mg/dL Total Bilirubin 0.9 0.2-1.0 mg/dL Aspartate Amino Transf (AST/SGOT) 40 H 10-37 U/L Alanine Aminotransferase (ALT/SGPT) 17 12-78 U/L Alkaline Phosphatase 105 50-136 U/L Total Protein 6.8 6.0-8.3 g/dL Albumin 2.2 L 3.5-5.0 g/dL Immature Granulocyte % (Auto) 0.3 0-1 % Neutrophils (%) (Auto) 68.9 40.0-77.0 % Lymphocytes (%) (Auto) 13.9 L 21.0-51.0 % Monocytes (%) (Auto) 15.6 H 3.0-13.0 % Eosinophils (%) (Auto) 0.8 0.0-8.0 % Basophils (%) (Auto) 0.5 0.0-5.0 % Neutrophils # (Auto) 4.3 1.8-7.7 K/uL Lymphocytes # (Auto) 0.9 L 1.0-4.8 K/uL Monocytes # (Auto) 1.0 0.1-1.0 K/uL Eosinophils # (Auto) 0.05 0.00-0.70 K/uL Basophils # (Auto) 0.03 0.00-0.20 K/uL Absolute Immature Granulocyte (auto 0.02 0-1 K/uL Phosphorus Level 2.5 2.5-4.9 mg/dL Lactic Acid Level 1.8 0.8-2.5 mmol/L Test 03/16/24 16:51 03/16/24 16:21 03/16/24 15:48 Range/Units Urine Color LIGHT-YELLOW YELLOW Urine Appearance CLEAR CLEAR Urine pH 5.5 5.0-8.0 Urine Specific [place] 1.010 1.001-1.031 Urine Protein 100 H NEGATIVE mg/dL Urine Glucose (UA) 50 H NEGATIVE mg/dL Urine Ketones NEGATIVE NEGATIVE mg/dL Urine Occult Blood MODERATE H NEGATIVE Urine Nitrate NEGATIVE NEGATIVE Urine Bilirubin NEGATIVE NEGATIVE mg/dL Urine Urobilinogen 0.2 0.2-1.0 mg/dL Urine Leukocyte Esterase NEGATIVE NEGATIVE Yobany/uL Urine RBC 2-5 H 0-1 /HPF Urine WBC 0-1 0-1 /HPF Urine Squamous Epithelial Cells RARE 0-2 /HPF Urine Bacteria None None Seen /HPF Influenza Type A Antigen Negative For Type A NEGATIVE Influenza Type B Antigen Negative For Type B NEGATIVE SARS-CoV-2, RNA, NAAT NEGATIVE SARS CoV-2 NEGATIVE Group A Streptococcus Rapid negative NEGATIVE White Cell Morphology Comment See comments Direct Bilirubin 0.3 0.0-0.3 mg/dL Total Creatine Kinase 251 #H 21-232 U/L Troponin I High Sensitivity 35 4-75 ng/L B-Type Natriuretic Peptide 595 H 0-100 pg/mL Procalcitonin 0.06 0.05-0.5 ng/mL Current Medications Medications (Trade) Dose Ordered Sig/Lashonda Route PRN Reason Start Time Stop Time Status Last Admin Dose Admin Acetaminophen (TYLenol 325MG TAB) 650 mg Q6H PRN PO FEVER/MILD PAIN LEVEL 1-3 03/16/24 19:00 04/15/24 18:59 03/17/24 06:19 650 MG Acetaminophen (TYLenol 650MG SUPPOSITORY) 650 mg Q6H PRN RC FEVER / MILD PAIN 1-3 IF NPO 03/16/24 19:00 04/15/24 18:59 Amlodipine Besylate (NorvASC 5MG TAB) 10 mg DAILY PO 03/17/24 09:00 04/16/24 08:59 03/18/24 08:24 10 MG Cefepime HCl (MAXipime 1 GM vial) 1 gm Q24H IVPB 03/17/24 09:00 03/27/24 08:59 03/18/24 08:23 1 GM Docusate Sodium (COLace 100MG CAP) 100 mg BID PRN PO c 03/16/24 19:00 04/15/24 18:59 Enoxaparin Sodium (Lovenox) 30 mg DAILY SQ 03/17/24 09:00 04/16/24 08:59 03/18/24 08:24 30 MG Hydralazine HCl (APRESOLine 20MG INJ) 5 mg Q6H6 PRN IV SBP GREATER THAN 160 03/18/24 09:00 04/17/24 08:59 Hydralazine HCl (APRESOLine 20MG INJ) 10 mg Q2H PRN IV SBP GREATER THAN 160 03/16/24 19:00 03/18/24 08:55 DC 03/18/24 04:05 10 MG Insulin Human Regular (humuLIN R 100 UNIT/ML 3ML) INSULIN SLIDING SCAL... ACHS SQ 03/16/24 21:00 04/15/24 20:59 Labetalol HCl (TRANdate 100 MG TABLET) 100 mg BID PO 03/17/24 09:00 04/16/24 08:59 03/18/24 08:24 100 MG Lactulose (Constulose 20gm/ 30ml Udcup) 20 gm Q6H PRN PO CONSTIPATION 03/16/24 19:00 04/15/24 18:59 Losartan Potassium (CozAAR 100MG TAB) 100 mg DAILY PO 03/17/24 09:00 04/16/24 08:59 03/18/24 08:24 100 MG Ondansetron HCl (zoFRAN 4MG INJ) 4 mg Q6H PRN IVP NAUSEA/VOMITING 03/16/24 19:00 04/15/24 18:59 Pantoprazole Sodium (PROTonix 40MG TAB) 40 mg DAILY PO 03/17/24 09:00 04/16/24 08:59 03/18/24 08:23 40 MG Piperacillin Sod/ Tazobactam Sod (Zosyn 3.375gm+NS 50ml) 3.375 gm Q8H IVPB 03/17/24 02:00 03/17/24 03:50 DC 03/17/24 03:05 3.375 GM Sodium Chloride 1,000 ml @ 75 mls/hr [id number] IV 03/16/24 19:00 04/15/24 18:59 03/18/24 08:27 75 MLS/HR Sodium Chloride (NS 50ml) 50 ml AD IV 03/17/24 02:00 03/16/24 19:08 DC Temazepam (restORIL 15 MG CAP) 15 mg HS PRN PO INSOMNIA/SLEEP 03/16/24 19:00 04/15/24 18:59 Vancomycin HCl 250 ml @ 125 mls/hr Q24H IV 03/17/24 22:00 03/27/24 21:59 03/17/24 21:58 125 MLS/HR Vancomycin HCl (Vancomycin Protocol) 1 each AD IV 03/16/24 18:00 03/30/24 17:59 Vancomycin HCl (Vancomycin Protocol) 1 each AD IV 03/16/24 19:30 03/16/24 19:29 DC DIAGNOSTICS / RADIOLOGY: [ ] CT ABDOMEN/PELVIS W/O CONTRAST HISTORY: Elevated liver enzymes COMPARISON: None TECHNIQUE: Multiple sequential axial images of the abdomen and pelvis were obtained from the dome of the diaphragm through symphysis pubis. Patient was not given contrast through intravenous route. Oral contrast was not given. FINDINGS: Small bilateral pleural effusions are seen. Mild bilateral pulmonary infiltrates are seen. Degenerative changes of the thoracolumbar spine are present. The heart is not enlarged. Liver is enlarged with fatty changes measuring 17 cm. There is liver parenchymal disease. Dystrophic calcifications are seen in the spleen. Gallbladder is moderately distended with gallstones. There is left renal cyst measuring 3.5 cm. Nonspecific bilateral perinephric fat stranding is seen. There is diverticulosis. The liver, spleen, adrenal glands and pancreas are unremarkable. There is no evidence of hydronephrosis bilaterally. No evidence of renal stone is seen. Fecal material is seen in the colon. There are normal size retroperitoneal and mesenteric lymph nodes. No ascites is seen. Atherosclerotic changes are present. Pelvic sidewalls are symmetric bilaterally. Bladder is well distended without wall thickening. There may be bladder stone in the bladder measuring 17 mm. IMPRESSION: 1. Diverticulosis. Nonspecific mesenteric fat stranding. Small bilateral pleural effusions. Borderline enlarged fatty liver. ASSESSMENT: Sepsis, POA Acute febrile illness, unknown origin Hypertensive urgency Pulmonary vascular congestion Anemia Transaminitis Volume overload, Elevated BNP 595 Grade III diastolic dysfunction, LVEF 60-65%, RVSP 52 mmHg, per echo 08/23/2022 Hypoalbuminemia Electrolyte derangement (hyponatremia, hypochloremia, hypocalcemia) Acute on chronic kidney disease, GFR 45 Diabetes mellitus with hyperglycemia Noncompliance with medical management/medications PLAN: Admit to medical floor with telemetry monitoring. Continue vancomycin IV per pharmacy protocol and start cefepime IV. Monitor for any fevers. Follow white blood cell count. Cultures and inflammatory markers as needed. Antibiotic therapy tailored to culture results. De-escalate antibiotics when appropriate. P.r.n. medications for: Fever, nausea, vomiting, constipation, hypertension Reconcile home medications: Labetalol, Amlodipine, and Olmesartan. Hold Lasix for now due to Sepsis. (ED administer NS 500 ml bolus). Monitor renal and liver function. Monitor electrolytes and treat accordingly. Monitor for fluid overload. Strict I&Os. Daily weights. Glucometer checks a.c. and HS with insulin regular sliding scale per protocol. DVT and GI prophylaxis. A.m. labs. Disposition: The patient remains admitted to the medical floor, BP noted to be moderately elevated, continue hydralazine 5 mg IV every 6 hours as needed for SBP greater than 160, currently the patient on amlodipine 10 mg p.o. daily, labetalol 100 mg p.o. b.i.d.. Results of CT of the abdomen and pelvis without contrast showing diverticulosis, nonspecific mesenteric fat stranding, small bilateral pleural effusion, borderline enlarged fatty liver. We will continue the patient on IV antibiotics. Infectious disease input noted and appreciated. Continue to follow a.m. labs. Plan of action discussed with the patient, all questions answered, agreed and understood the information provided RANDOLPH MARTELL MD Mar 18, 2024 12:18
--- NOTE | 2024-03-18 13:18 | CONS ---
[facility] Cardiology Consultation Note Cardiology consultation March 18 2024 Chief complaint: This is an 83-year-old male who was admitted with fever and generalized weakness. He has been found to be in atrial flutter with controlled ventricular response. The patient has no knowledge of any prior atrial arrhythmias or cardiac issues. He has had no dizziness syncope or chest pain. Past medical history: He has a history of hypertension dyslipidemia and diabetes mellitus type 2. There was no history of previous rheumatic fever heart murmur myocardial infarction CVAs kidney or liver disease. Review of systems: No recent syncope PND orthopnea. He is unaware of any palpitations in his noted has had no chest pain. He has had some fever but no productive cough diarrhea or dysuria. Allergies: No known allergies Social history: He is a nonsmoker nondrinker Surgical history: Umbilical hernia repair and cataract surgery Medications: The patient continues on amlodipine antibiotics Lovenox for DVT prophylaxis insulin scale labetalol 100 mg b.i.d. losartan 100 mg daily pantoprazole and temazepam p.r.n.. Physical exam: The patient is in no acute distress. Blood pressure is running 160-170 systolic heart rate in the 70s there there was no elevation of the jugular venous pressure but he does have ford a waves present when lying flat. He is currently afebrile. Lungs are clear S1 normal S2 physiologically split. No murmur appreciable. Abdomen is soft extremities show no edema he is alert and oriented. Laboratory studies: White count 8.4 hemoglobin 12.5 platelet count [id number]. He was [id number] baseline. Potassium 3.4 BUN 19 creatinine 1.5 with estimated GFR of 45 essentially unchanged from baseline. Chest x-ray: This is a portable film nevertheless there appears to be some cardiomegaly present. Mild passive congestive changes are noted there were no effusions or infiltrates. Electrode atrial flutter with 4-1 conduction and rate of 60 per minute. Isol ated PVC. Assessment: 1. Fever 2. Atrial fibrillation of uncertain duration with controlled ventricular response on labetalol 3. Hypertension 4. Diabetes mellitus type 2 5. Dyslipidemia Plan: At this point we are unsure as to how long the patient has been in atrial flutter. He is asymptomatic with this on a home dose of labetalol. He does have a significant CHADS-VASc score and I would recommend initiation of Eliquis 2.5 mg b.i.d. for stroke prevention. We will monitor his platelet count while on antibiotics. A 2D echocardiogram will be used to assess LV function mitral valve status and left atrial size. In 4-6 weeks can have elective cardioversion or a trial of antiarrhythmic drug therapy. MIRIAM DAVALOS MD Mar 18, 2024 13:18
--- NOTE | 2024-03-18 15:06 | PN ---
INFECTIOUS DISEASE PROGRESS NOTE Date of Service: Mar 18, 2024 SUBJECTIVE: This is an 83 year old male patient seen today at bedside. Patient continues with antibiotics, vancomycin and cefepime tolerating well. WBC 8.4 this AM. No fever or chills. Patient denies chest pain and shortness of breath. Patient is seating in bed calm, with at bedside. Nurse reports patient is pending to be evaluated by cardio due to A-flutter with controlled ventricular response. Patient continues to be monitored closely. PHYSICAL EXAM EYES: Anicteric. Pupils equal and reactive. HENT: No oral thrush seen, moist Oral mucosa NECK: Supple, no JVD or thyromegaly. LUNGS: Good air entry. No rales, no rhonchi. CARDIOVASCULAR: S1, S2 regular. No murmur heard. ABDOMEN: Soft, non tender, bowel sounds present, no organomegaly CENTRAL NERVOUS SYSTEM: Awake, alert, oriented x 3. No focal deficits. SKIN: No rashes, no swelling. LYMPHATICS: No peripheral lymphadenopathy MUSCULOSKELETAL: No joint swelling, erythema or tenderness. EXTREMITIES: No cyanosis or clubbing BACK: No deformity, no pressure ulcer. GENITOURINARY: No dysuria or hematuria Vital Sign (Last 12 Hours) 03/18/24 03/18/24 03/18/24 03/18/24 04:00 05:00 08:00 08:00 Temp 98.4 98.1 Pulse 78 73 Resp 18 20 B/P (MAP) 181/88 163/86 174/94 Pulse Ox 97 97 96 O2 Delivery Room Air Room Air* Room Air O2 Flow Rate 0 FiO2 21 03/18/24 12:00 Temp 97.7 Pulse 52 Resp 20 B/P (MAP) 137/62 Pulse Ox 97 O2 Delivery Room Air Intake & Output (last 24hrs) 03/17/24 03/17/24 03/18/24 15:00 23:00 07:00 Intake Total 400 ml 250.0 ml Balance 400 ml 250.0 ml LABS: Laboratory: Test 03/18/24 11:34 03/18/24 04:28 03/17/24 04:27 03/16/24 20:34 Range/Units Whole Blood Glucose 156 #H 70-110 MG/DL White Blood Count 8.4 4.8-10.8 K/uL Red Blood Count 3.90 L 4.50-6.20 MIL/uL Hemoglobin 12.5 L 14.0-18.0 g/dL Hematocrit 37.1 L 42-54 % Mean Corpuscular Volume 95.1 79-99 fL Mean Corpuscular Hemoglobin 32.1 27.0-33.0 pg Mean Corpuscular Hemoglobin Concent 33.7 32.0-36.0 g/dL Red Cell Distribution Width 14.9 11.0-15.5 % Platelet Count 126 L 130-400 K/uL Mean Platelet Volume 9.9 7.5-10.5 fL Nucleated Red Blood Cells 0.0 0.0-0.19 % Sodium Level 139 136-145 mmol/L Potassium Level 3.4 L 3.5-5.1 mmol/L Chloride Level 106 101-111 mmol/L Carbon Dioxide Level 22 21-32 mmol/L Blood Urea Nitrogen 19 H 7-18 mg/dL Creatinine 1.5 H 0.5-1.3 mg/dL Glomerular Filtration Rate Calc 45 >90 mL/min Random Glucose 105 70-105 mg/dL Total Calcium 7.7 L 8.5-10.1 mg/dL Magnesium Level 1.80 1.80-2.40 mg/dL Total Bilirubin 0.9 0.2-1.0 mg/dL Aspartate Amino Transf (AST/SGOT) 40 H 10-37 U/L Alanine Aminotransferase (ALT/SGPT) 17 12-78 U/L Alkaline Phosphatase 105 50-136 U/L Total Protein 6.8 6.0-8.3 g/dL Albumin 2.2 L 3.5-5.0 g/dL Immature Granulocyte % (Auto) 0.3 0-1 % Neutrophils (%) (Auto) 68.9 40.0-77.0 % Lymphocytes (%) (Auto) 13.9 L 21.0-51.0 % Monocytes (%) (Auto) 15.6 H 3.0-13.0 % Eosinophils (%) (Auto) 0.8 0.0-8.0 % Basophils (%) (Auto) 0.5 0.0-5.0 % Neutrophils # (Auto) 4.3 1.8-7.7 K/uL Lymphocytes # (Auto) 0.9 L 1.0-4.8 K/uL Monocytes # (Auto) 1.0 0.1-1.0 K/uL Eosinophils # (Auto) 0.05 0.00-0.70 K/uL Basophils # (Auto) 0.03 0.00-0.20 K/uL Absolute Immature Granulocyte (auto 0.02 0-1 K/uL Phosphorus Level 2.5 2.5-4.9 mg/dL Lactic Acid Level 1.8 0.8-2.5 mmol/L Test 03/16/24 16:51 03/16/24 16:21 03/16/24 15:48 Range/Units Urine Color LIGHT-YELLOW YELLOW Urine Appearance CLEAR CLEAR Urine pH 5.5 5.0-8.0 Urine Specific [place] 1.010 1.001-1.031 Urine Protein 100 H NEGATIVE mg/dL Urine Glucose (UA) 50 H NEGATIVE mg/dL Urine Ketones NEGATIVE NEGATIVE mg/dL Urine Occult Blood MODERATE H NEGATIVE Urine Nitrate NEGATIVE NEGATIVE Urine Bilirubin NEGATIVE NEGATIVE mg/dL Urine Urobilinogen 0.2 0.2-1.0 mg/dL Urine Leukocyte Esterase NEGATIVE NEGATIVE Yobany/uL Urine RBC 2-5 H 0-1 /HPF Urine WBC 0-1 0-1 /HPF Urine Squamous Epithelial Cells RARE 0-2 /HPF Urine Bacteria None None Seen /HPF Influenza Type A Antigen Negative For Type A NEGATIVE Influenza Type B Antigen Negative For Type B NEGATIVE SARS-CoV-2, RNA, NAAT NEGATIVE SARS CoV-2 NEGATIVE Group A Streptococcus Rapid negative NEGATIVE White Cell Morphology Comment See comments Direct Bilirubin 0.3 0.0-0.3 mg/dL Total Creatine Kinase 251 #H 21-232 U/L Troponin I High Sensitivity 35 4-75 ng/L B-Type Natriuretic Peptide 595 H 0-100 pg/mL Procalcitonin 0.06 0.05-0.5 ng/mL DIAGNOSTICS / RADIOLOGY: CT ABDOMEN/PELVIS W/O CONTRAST HISTORY: Elevated liver enzymes COMPARISON: None TECHNIQUE: Multiple sequential axial images of the abdomen and pelvis were obtained from the dome of the diaphragm through symphysis pubis. Patient was not given contrast through intravenous route. Oral contrast was not given. FINDINGS: Small bilateral pleural effusions are seen. Mild bilateral pulmonary infiltrates are seen. Degenerative changes of the thoracolumbar spine are present. The heart is not enlarged. Liver is enlarged with fatty changes measuring 17 cm. There is liver parenchymal disease. Dystrophic calcifications are seen in the spleen. Gallbladder is moderately distended with gallstones. There is left renal cyst measuring 3.5 cm. Nonspecific bilateral perinephric fat stranding is seen. There is diverticulosis. The liver, spleen, adrenal glands and pancreas are unremarkable. There is no evidence of hydronephrosis bilaterally. No evidence of renal stone is seen. Fecal material is seen in the colon. There are normal size retroperitoneal and mesenteric lymph nodes. No ascites is seen. Atherosclerotic changes are present. Pelvic sidewalls are symmetric bilaterally. Bladder is well distended without wall thickening. There may be bladder stone in the bladder measuring 17 mm. IMPRESSION: 1. Diverticulosis. Nonspecific mesenteric fat stranding. Small bilateral pleural effusions. Borderline enlarged fatty liver. ASSESSMENT: this is an 83 year old male patient with current problems which include: * Sepsis. * Pneumonia. * Gram-positive cocci bacteremia. * Diabetes mellitus. * Hypertension. * Debility. PLAN: * Continue cefepime. * Continue vancomycin. * Continue antihypertensive. * Continue antidiabetic. * Continue pain management. * Monitor electrolytes. * Continue GI prophylaxis. * Follow up cultures. This case has been discussed with my supervising physician Dr. Thomas. The case been discussed and agreed upon. PAUL JOHNSON [facility] Mar 18, 2024 15:06
[2024-03-18] MEDS: APIXaban 2.5 MG TABLET PO SCH (20:53)
[2024-03-19] VITALS (9 sets, daily range): BP systolic 132–179; BP diastolic 67–90; PULSE 57–90; RESP 16–20; TEMP 97.4–98.7; O2SAT 96–98
[2024-03-19] MEDS: hydrALAZine 20MG/ML VIAL IV PRN (03:46)
[2024-03-19 05:30] LABS: HEMATOCRIT 36.2 % (42-54); MEAN CORPUSCULAR HEMOGLOBIN 32.2 pg (27.0-33.0); MEAN CORPUSCULAR HGB CONC 33.1 g/dL (32.0-36.0); MEAN CORPUSCULAR VOLUME 97.1 fL (79-99); RED BLOOD CELL COUNT(AUTO) 3.73 MIL/uL (4.50-6.20); RED CELL DISTRIBUTION WIDTH 15.1 % (11.0-15.5); WHITE BLOOD COUNT (AUTO) 6.8 K/uL (4.8-10.8)
[2024-03-19 05:58] LABS: ALBUMIN 2.1 g/dL (3.5-5.0); BILIRUBIN,TOTAL 0.7 mg/dL (0.2-1.0); CREATININE 1.5 mg/dL (0.5-1.3); MAGNESIUM 1.8 mg/dL (1.80-2.40); POTASSIUM 3.8 mmol/L (3.5-5.1); THYROID STIMULATING HORMONE 3.97 uIU/mL (0.36-3.74); TOTAL PROTEIN, SERUM 6.6 g/dL (6.0-8.3)
--- NOTE | 2024-03-19 11:11 | PN ---
1. Fever 2. Atrial fibrillation of uncertain duration with controlled ventricular response on labetalol 3. Hypertension 4. Diabetes mellitus type 2 5. Dyslipidemia Patient is very cheerful, very pleasant, offers no symptomatic complaints of any type. Specifically denies dizziness or lightheadedness or chest pain or chest pressure. Says he has never had a chest pain in his life and he is83 years old. Chest is clear and S1 and S2 are normal. S4 is noted. Appears to be in sinus rhythm at this time. No murmur. Impression: Patient had atrial flutter with controlled ventricular response but heart rate has been in the 54-90 range for the last24 hours and the patient is stable. Recommendations: No change from recommendation yesterday by Dr. Bradshaw. Vitals/Labs Vital Signs Date Time Temp Pulse Resp B/P (MAP) Pulse Ox O2 Delivery O2 Flow Rate FiO2 03/19/24 04:55 74 20 159/73 97 Room Air 0.0 03/19/24 04:00 98.1 21 Laboratory Tests 03/19/24 05:09 Medications Current Medications Acetaminophen 1,000 mg ONCE ONCE PO Last administered on 03/16/24at 16:42; Start 03/16/24 at 16:00; Stop 03/16/24 at 16:04; Status DC Sodium Chloride 500 ml @ 0 mls/hr ONCE ONCE IV Last administered on 03/16/24at 16:42; Start 03/16/24 at 16:30; Stop 03/16/24 at 16:31; Status DC Hydralazine HCl 10 mg ONCE ONCE IV Last administered on 03/16/24at 17:50; Start 03/16/24 at 17:30; Stop 03/16/24 at 17:46; Status DC Vancomycin HCl 1 each AD IV; Start 03/16/24 at 18:00; Stop 03/30/24 at 17:59 Piperacillin Sod/ Tazobactam Sod 3.375 gm ONCE ONCE IV Last administered on 03/16/24at 18:25; Start 03/16/24 at 18:00; Stop 03/16/24 at 18:01; Status DC Vancomycin HCl 250 ml @ 125 mls/hr ONCE ONCE IV; Start 03/16/24 at 18:00; Stop 03/16/24 at 17:55; Status DC Vancomycin HCl 250 ml @ 125 mls/hr ONCE ONCE IV Last administered on 03/16/24at 21:40; Start 03/16/24 at 22:00; Stop 03/16/24 at 23:59; Status DC Vancomycin HCl 250 ml @ 125 mls/hr Q24H IV Last administered on 03/18/24at 20:59; Start 03/17/24 at 22:00; Stop 03/27/24 at 21:59 Sodium Chloride 1,000 ml @ 75 mls/hr [id number] IV Last administered on 03/19/24at 03:41; Start 03/16/24 at 19:00; Stop 04/15/24 at 18:59 Pantoprazole Sodium 40 mg DAILY PO Last administered on 03/19/24at 09:09; Start 03/17/24 at 09:00; Stop 04/16/24 at 08:59 Enoxaparin Sodium 30 mg DAILY SQ Last administered on 03/18/24at 08:24; Start 03/17/24 at 09:00; Stop 03/18/24 at 13:22; Status DC Acetaminophen 650 mg Q6H PRN PO Last administered on 03/17/24at 06:19; Start 03/16/24 at 19:00; Stop 04/15/24 at 18:59 Acetaminophen 650 mg Q6H PRN RC; Start 03/16/24 at 19:00; Stop 04/15/24 at 18:59 Lactulose 20 gm Q6H PRN PO; Start 03/16/24 at 19:00; Stop 04/15/24 at 18:59 Docusate Sodium 100 mg BID PRN PO; Start 03/16/24 at 19:00; Stop 04/15/24 at 18:59 Temazepam 15 mg HS PRN PO; Start 03/16/24 at 19:00; Stop 04/15/24 at 18:59 Ondansetron HCl 4 mg Q6H PRN IVP; Start 03/16/24 at 19:00; Stop 04/15/24 at 18:59 Hydralazine HCl 10 mg Q2H PRN IV Last administered on 03/18/24at 04:05; Start 03/16/24 at 19:00; Stop 03/18/24 at 08:55; Status DC Insulin Human Regular INSULIN SLIDING SCAL... ACHS SQ; Start 03/16/24 at 21:00; Stop 04/15/24 at 20:59 Piperacillin Sod/ Tazobactam Sod 3.375 gm Q8H IVPB Last administered on 03/17/24at 03:05; Start 03/17/24 at 02:00; Stop 03/17/24 at 03:50; Status DC Sodium Chloride 50 ml AD IV; Start 03/17/24 at 02:00; Stop 03/16/24 at 19:08; Status DC Vancomycin HCl 1 each AD IV; Start 03/16/24 at 19:30; Stop 03/16/24 at 19:29; Status DC Cefepime HCl 1 gm Q24H IVPB Last administered on 03/19/24at 09:07; Start 03/17/24 at 09:00; Stop 03/27/24 at 08:59 Labetalol HCl 100 mg BID PO Last administered on 03/19/24at 09:09; Start 03/17/24 at 09:00; Stop 04/16/24 at 08:59 Amlodipine Besylate 10 mg DAILY PO Last administered on 03/19/24at 09:10; Start 03/17/24 at 09:00; Stop 04/16/24 at 08:59 Losartan Potassium 100 mg DAILY PO Last administered on 03/19/24at 09:09; Start 03/17/24 at 09:00; Stop 04/16/24 at 08:59 Hydralazine HCl 5 mg Q6H6 PRN IV Last administered on 03/19/24at 03:46; Start 03/18/24 at 09:00; Stop 04/17/24 at 08:59 Potassium Chloride 40 meq ONCE ONCE PO Last administered on 03/18/24at 10:22; Start 03/18/24 at 09:00; Stop 03/18/24 at 09:05; Status DC Apixaban 2.5 mg BID PO Last administered on 03/19/24at 09:09; Start 03/18/24 at 21:00; Stop 04/17/24 at 20:59 SONAL FREEMAN MD Mar 19, 2024 11:11
--- NOTE | 2024-03-19 12:08 | PN ---
[facility] PROGRESS NOTE Date of Service: Mar 19, 2024 Time of Service: 12:03 SUBJECTIVE: The patient has been seen and examined during my rounding, comfortably in bed, spiked fever earlier this morning 100.2, BP 137/82, saturating normal on room air, getting IV antibiotics during my visit, he denies dizziness, no headache, no blurry vision, no chest pain, no shortness a breath, nausea, no vomiting, no abdominal pain, no diarrhea, no constipation, no melena, no hematochezia, no hematemesis, no hematuria, no dysuria. No family members at bedside during my visit 03/18 the patient has been seen and examined during my rounding, no acute events overnight, BP 174/94, rest of the vital signs are unremarkable. The patient looks and feels less weak today compared to time of admission. He denies dizziness, no headache, no blurry vision, no chest pain, no shortness a breath, no nausea, no vomiting, no abdominal discomfort, no diarrhea, no constipation, no melena, no hematochezia, no hematemesis, no hematuria, no dysuria. is at bedside during my visit. Results of CT of the abdomen and pelvis without contrast reviewed and discussed with both the patient and the , all questions answered. Understood the information provided. 03/19 the patient has been seen and examined during my rounding, no acute events overnight, he is sitting comfortably in the chair during my visit, admits dry nonproductive cough. BP 159/73, afebrile, saturating normal on room air, he denied chest pain, no shortness shortness for breath, no nausea, no vomiting, no abdominal discomfort. at bedside during my visit. REVIEW OF SYSTEMS 12-point ROS reviewed with patient. All pertinent positives mentioned above. Otherwise negative, nonpertinent, or non-contributory. PHYSICAL EXAM GENERAL APPEARANCE: The patient is awake, alert, and oriented, in no acute cardiopulmonary distress. NEUROLOGICAL: Cranial nerves II-XII grossly intact. Motor is 5/5 in bilateral upper and lower extremities proximal to distal. No sensory deficits. HEENT: Hard of hearing. Face is symmetric. Pupils are equal and reactive. Extraocular movements are intact. NECK: Supple. No JVD. No thyromegaly. No submental, submandibular, pre- /postauricular, occipital or supraclavicular lymphadenopathy. CHEST: Normal chest expansion. No Telemetry. LUNGS: Absence of any rales, rhonchi or any wheezing. CARDIOVASCULAR: Regular. S1 and S2 normal. No appreciable rubs, murmurs or gallops. ABDOMEN: Soft, nontender, and nondistended. There is no rebound, voluntary guarding, or rigidity. : Deferred. No Mcdermott. EXTREMITIES: Non-edematous and not cyanotic. No clubbing. Good capillary refill. SKIN: No skin breakdown. Vital Signs (last 8hr) Date Time Temp Pulse Resp B/P (MAP) Pulse Ox O2 Delivery O2 Flow Rate FiO2 03/19/24 04:55 74 20 159/73 97 Room Air 0.0 LABS: Laboratory: Test 03/19/24 05:17 03/19/24 05:09 Range/Units Whole Blood Glucose 93 70-110 MG/DL White Blood Count 6.8 4.8-10.8 K/uL Red Blood Count 3.73 L 4.50-6.20 MIL/uL Hemoglobin 12.0 L 14.0-18.0 g/dL Hematocrit 36.2 L 42-54 % Mean Corpuscular Volume 97.1 79-99 fL Mean Corpuscular Hemoglobin 32.2 27.0-33.0 pg Mean Corpuscular Hemoglobin Concent 33.1 32.0-36.0 g/dL Red Cell Distribution Width 15.1 11.0-15.5 % Platelet Count 117 L 130-400 K/uL Mean Platelet Volume 9.6 7.5-10.5 fL Nucleated Red Blood Cells 0.0 0.0-0.19 % Sodium Level 138 136-145 mmol/L Potassium Level 3.8 3.5-5.1 mmol/L Chloride Level 106 101-111 mmol/L Carbon Dioxide Level 22 21-32 mmol/L Blood Urea Nitrogen 22 H 7-18 mg/dL Creatinine 1.5 H 0.5-1.3 mg/dL Glomerular Filtration Rate Calc 45 >90 mL/min Random Glucose 95 70-105 mg/dL Total Calcium 7.6 L 8.5-10.1 mg/dL Magnesium Level 1.80 1.80-2.40 mg/dL Total Bilirubin 0.7 0.2-1.0 mg/dL Aspartate Amino Transf (AST/SGOT) 41 H 10-37 U/L Alanine Aminotransferase (ALT/SGPT) 14 12-78 U/L Alkaline Phosphatase 96 50-136 U/L Total Protein 6.6 6.0-8.3 g/dL Albumin 2.1 L 3.5-5.0 g/dL Thyroid Stimulating Hormone (TSH) 3.97 H 0.36-3.74 uIU/mL Current Medications Medications (Trade) Dose Ordered Sig/Lashonda Route PRN Reason Start Time Stop Time Status Last Admin Dose Admin Acetaminophen (TYLenol 325MG TAB) 650 mg Q6H PRN PO FEVER/MILD PAIN LEVEL 1-3 03/16/24 19:00 04/15/24 18:59 03/17/24 06:19 650 MG Acetaminophen (TYLenol 650MG SUPPOSITORY) 650 mg Q6H PRN RC FEVER / MILD PAIN 1-3 IF NPO 03/16/24 19:00 04/15/24 18:59 Amlodipine Besylate (NorvASC 5MG TAB) 10 mg DAILY PO 03/17/24 09:00 04/16/24 08:59 03/19/24 09:10 10 MG Apixaban (EliquIS 2.5 mg) 2.5 mg BID PO 03/18/24 21:00 04/17/24 20:59 03/19/24 09:09 2.5 MG Cefepime HCl (MAXipime 1 GM vial) 1 gm Q24H IVPB 03/17/24 09:00 03/27/24 08:59 03/19/24 09:07 1 GM Docusate Sodium (COLace 100MG CAP) 100 mg BID PRN PO c 03/16/24 19:00 04/15/24 18:59 Enoxaparin Sodium (Lovenox) 30 mg DAILY SQ 03/17/24 09:00 03/18/24 13:22 DC 03/18/24 08:24 30 MG Hydralazine HCl (APRESOLine 20MG INJ) 5 mg Q6H6 PRN IV SBP GREATER THAN 160 03/18/24 09:00 04/17/24 08:59 03/19/24 03:46 5 MG Hydralazine HCl (APRESOLine 20MG INJ) 10 mg Q2H PRN IV SBP GREATER THAN 160 03/16/24 19:00 03/18/24 08:55 DC 03/18/24 04:05 10 MG Insulin Human Regular (humuLIN R 100 UNIT/ML 3ML) INSULIN SLIDING SCAL... ACHS SQ 03/16/24 21:00 04/15/24 20:59 Labetalol HCl (TRANdate 100 MG TABLET) 100 mg BID PO 03/17/24 09:00 04/16/24 08:59 03/19/24 09:09 100 MG Lactulose (Constulose 20gm/ 30ml Udcup) 20 gm Q6H PRN PO CONSTIPATION 03/16/24 19:00 04/15/24 18:59 Losartan Potassium (CozAAR 100MG TAB) 100 mg DAILY PO 03/17/24 09:00 04/16/24 08:59 03/19/24 09:09 100 MG Ondansetron HCl (zoFRAN 4MG INJ) 4 mg Q6H PRN IVP NAUSEA/VOMITING 03/16/24 19:00 04/15/24 18:59 Pantoprazole Sodium (PROTonix 40MG TAB) 40 mg DAILY PO 03/17/24 09:00 04/16/24 08:59 03/19/24 09:09 40 MG Piperacillin Sod/ Tazobactam Sod (Zosyn 3.375gm+NS 50ml) 3.375 gm Q8H IVPB 03/17/24 02:00 03/17/24 03:50 DC 03/17/24 03:05 3.375 GM Sodium Chloride 1,000 ml @ 75 mls/hr [id number] IV 03/16/24 19:00 04/15/24 18:59 03/19/24 03:41 75 MLS/HR Sodium Chloride (NS 50ml) 50 ml AD IV 03/17/24 02:00 03/16/24 19:08 DC Temazepam (restORIL 15 MG CAP) 15 mg HS PRN PO INSOMNIA/SLEEP 03/16/24 19:00 04/15/24 18:59 Vancomycin HCl 250 ml @ 125 mls/hr Q24H IV 03/17/24 22:00 03/27/24 21:59 03/18/24 20:59 125 MLS/HR Vancomycin HCl (Vancomycin Protocol) 1 each AD IV 03/16/24 18:00 03/30/24 17:59 Vancomycin HCl (Vancomycin Protocol) 1 each AD IV 03/16/24 19:30 03/16/24 19:29 DC DIAGNOSTICS / RADIOLOGY: [ ] CT ABDOMEN/PELVIS W/O CONTRAST HISTORY: Elevated liver enzymes COMPARISON: None TECHNIQUE: Multiple sequential axial images of the abdomen and pelvis were obtained from the dome of the diaphragm through symphysis pubis. Patient was not given contrast through intravenous route. Oral contrast was not given. FINDINGS: Small bilateral pleural effusions are seen. Mild bilateral pulmonary infiltrates are seen. Degenerative changes of the thoracolumbar spine are present. The heart is not enlarged. Liver is enlarged with fatty changes measuring 17 cm. There is liver parenchymal disease. Dystrophic calcifications are seen in the spleen. Gallbladder is moderately distended with gallstones. There is left renal cyst measuring 3.5 cm. Nonspecific bilateral perinephric fat stranding is seen. There is diverticulosis. The liver, spleen, adrenal glands and pancreas are unremarkable. There is no evidence of hydronephrosis bilaterally. No evidence of renal stone is seen. Fecal material is seen in the colon. There are normal size retroperitoneal and mesenteric lymph nodes. No ascites is seen. Atherosclerotic changes are present. Pelvic sidewalls are symmetric bilaterally. Bladder is well distended without wall thickening. There may be bladder stone in the bladder measuring 17 mm. IMPRESSION: 1. Diverticulosis. Nonspecific mesenteric fat stranding. Small bilateral pleural effusions. Borderline enlarged fatty liver. ASSESSMENT: Sepsis, POA Acute febrile illness, unknown origin Hypertensive urgency Pulmonary vascular congestion Anemia Transaminitis Volume overload, Elevated BNP 595 Grade III diastolic dysfunction, LVEF 60-65%, RVSP 52 mmHg, per echo 08/23/2022 Hypoalbuminemia Electrolyte derangement (hyponatremia, hypochloremia, hypocalcemia) Acute on chronic kidney disease, GFR 45 Diabetes mellitus with hyperglycemia Noncompliance with medical management/medications Atrial flutter Gallbladder moderately distended with gallstones PLAN: Admit to medical floor with telemetry monitoring. Continue vancomycin IV per pharmacy protocol and start cefepime IV. Monitor for any fevers. Follow white blood cell count. Cultures and inflammatory markers as needed. Antibiotic therapy tailored to culture results. De-escalate antibiotics when appropriate. P.r.n. medications for: Fever, nausea, vomiting, constipation, hypertension Reconcile home medications: Labetalol, Amlodipine, and Olmesartan. Hold Lasix for now due to Sepsis. (ED administer NS 500 ml bolus). Monitor renal and liver function. Monitor electrolytes and treat accordingly. Monitor for fluid overload. Strict I&Os. Daily weights. Glucometer checks a.c. and HS with insulin regular sliding scale per protocol. DVT and GI prophylaxis. A.m. labs. Disposition: The patient remains admitted to the medical floor, results of CT of the abdomen reviewed, diverticulosis, nonspecific mesenteric fat stranding, small bilateral pleural effusions, borderline enlarged fatty liver. Gallbladder is moderately distended with gallstones. HIDA scan has been requested. Continue the patient on broad-spectrum IV antibiotics, continue to follow infectious disease input and recommendations. The patient also with a atrial flutter, Cardiology input noted and appreciated, patient with significant chads Vasc score, recommended initiation of Eliquis 2.5 mg p.o. b.i.d. for stroke prevention. Echocardiogram pending to assess left ventricular ejection fraction. In 4-6 weeks patient can happen elective cardioversion or a trial of antiarrhythmic drug therapy. Plan of action discussed with the patient, all questions answered, agreed and understood the information provided RANDOLPH MARTELL MD Mar 19, 2024 12:08
--- NOTE | 2024-03-19 14:32 | HMCSR ---
APPROVED REPORT EXAM: Two-dimensional and M-mode echocardiogram with Doppler and color Doppler. Study Details: Hx: DM, High cholesterol, HTN INDICATION ICD: Atrial flutter I48.4 2D Dimensions RVDd4.5 cmLVEF(%)48.7 (>50%)LVED Vol(simp.)102.0 mL IVSd1.1 (0.7-1.1cm)FS(%)24 %LVES Vol(simp.)40.5 mL LVDd4.5 (3.8-5.6cm)LA (2D)4.9 (1.6-4.0cm)LVEF(%, simp.)60 % PWd1.1 (0.7-1.1cm)Ao Root(2D)3.6 (2.0-3.7cm)LA ESV INDEX (4CH)56.10 mL/m2 IVSs1.6 cmLVOT diam2.1 (1.8-2.4cm)LA ESV INDEX (2CH)43.40 mL/m2 LVDs3.4 (2.5-4.0cm)LA ESV INDEX (BP)51.80 mL/m2 PWs1.5 cm Deformation Strain Apical 418.0 % Apical 219.0 % Apical 324.0 % Global Vfykxp37.0 % M-Mode Dimensions EPSS0.9 cm LA (MM)5.0 (1.6-4.0cm) Ao Root(MM)3.4 (2.0-3.7cm) Aortic Valve AoV VTI0.3 mAo Mean GR6.0 mmHgLVOT VTI0.21 m CHERIE (VMAX)2.3 cm2Al P1/2T765 msAVA (VTI) 2.3 cm2 Mitral Valve MV E Vmax87.3 cm/sDECEL Npqu720 ms MR Max PG33 mmHgP 1/2 T81 ms MVA (PHT)2.7 cm2 TDI E/E' Bnzqow80.0E/E' Kuirinb54.4 Medial E' Peak V6.70 cm/sLateral E' Peak V8.40 cm/s Pulmonary Valve PV VTI0.26 mPV Mean GR3 mmHg Tricuspid Valve TR Vmax3.0 m/sRAP (EST) 15 stUdTHOQ04.9 mmHg TR Peak GR34.9 mmHg Left Ventricle Left ventricular cavity size is normal. Normal GLS -20.0%. There is normal left ventricular wall thic kness. LVEF is 60-65%. Right Ventricle The right ventricle is moderately dilated. The right ventricular systolic function is normal. Atria The left atrium is severely dilated. LASVI 52mL/m. Echogenicity mass attached to the left atrial sep jerry wall. The right atrium is severely dilated. Aortic Valve Aortic valve is trileaflet, thickened but open well. Trace of aortic regurgitation is present. There is no aortic valvular stenosis. Mitral Valve The mitral valve is mildly thickened but open well. There is mild mitral valve regurgitation noted. T here is no mitral valve stenosis. Tricuspid Valve The tricuspid valve is normal in structure and function. There is mild tricuspid valve regurgitation noted. RVSP 50 mmHg There is moderate to severe pulmonary hypertension. Pulmonic Valve The pulmonary valve is normal in structure and function. There is no pulmonic valvular regurgitation. Great Vessels The aortic root is normal in size. IVC is dilated and collapses <50% with inspiration. Pericardium No pericardial effusion. Other Information Quality : Fair Conclusion LVEF is 60-65%. Normal GLS -20.0%. The right ventricle is moderately dilated. The right atrium is severely dilated. Trace of aortic regurgitation is present. There is mild tricuspid valve regurgitation noted. There is mild tricuspid valve regurgitation noted. RVSP 50 mmHg There is moderate to severe pulmonary hypertension.
[2024-03-20] VITALS (7 sets, daily range): BP systolic 142–173; BP diastolic 68–79; PULSE 53–68; RESP 18–20; TEMP 98–98.6; O2SAT 97–98
[2024-03-20 05:01] LABS: MEAN CORPUSCULAR HEMOGLOBIN 32.1 pg (27.0-33.0); MEAN CORPUSCULAR HGB CONC 33.8 g/dL (32.0-36.0); RED BLOOD CELL COUNT(AUTO) 3.58 MIL/uL (4.50-6.20); WHITE BLOOD COUNT (AUTO) 5.5 K/uL (4.8-10.8)
[2024-03-20 05:16] LABS: ALBUMIN 2.2 g/dL (3.5-5.0); BILIRUBIN,TOTAL 0.7 mg/dL (0.2-1.0); CREATININE 1.6 mg/dL (0.5-1.3); MAGNESIUM 1.9 mg/dL (1.80-2.40); TOTAL PROTEIN, SERUM 6.2 g/dL (6.0-8.3)
--- NOTE | 2024-03-20 07:17 | PN ---
[facility] Cardiology Progress Note CARDIOLOGY PROGRESS NOTE MARCH 20, 2024 problems: 1. Fever 2. Atrial fibrillation of uncertain duration with controlled ventricular response on labetalol 3. Hypertension 4. Diabetes mellitus type 2 5. Dyslipidemia Pressure is running 130-140 systolic heart rate is in the 60s. The patient is a febrile. White count 5.5 hemoglobin 0.5 platelet count [id number]. Potassium 0.0 BUN 26 creatinine 1.6. Baseline creatinine 1.5. CT scan of the pelvis showed diverticulosis. 2D echo shows an ejection fraction of 60-65%. Left atrial size was enlarged at 5.0. Patient had mild mitral regurgitation. There was no pericardial effusion. Patient continues on amlodipine apixaban insulin scale losartan pantoprazole home dose of labetalol and antibiotics. The patient has had a drop in platelets. I suspect this is related to antibiotics as he has not received any heparin products. If platelet count remains [place] [id number] can continue with apixaban medication. From my standpoint he can be discharged home and follow up me as an outpatient. We will consider continue medical management or cardioversion in 4-6 weeks depending on his clinical status. MIRIAM DAVALOS MD Mar 20, 2024 07:17
--- NOTE | 2024-03-20 12:25 | PN ---
INFECTIOUS DISEASE PROGRESS NOTE Date of Service: Mar 20, 2024 SUBJECTIVE: Patient was seen and examined at bedside in room is 316. Patient is awake, alert and able to answer basic questions. Blood culture is final results came back positive for Staphylococcus epidermidis which is possible a contaminant. No growth reported on the repeat blood cultures yet. No reports of fever this morning, temperature is 98.4 and a WBC of 5.5. Will continue on cefepime and vancomycin. No reports of nausea or vomiting. We will continue to monitor patient. PHYSICAL EXAM EYES: Anicteric. Pupils equal and reactive. HENT: No oral thrush seen, moist Oral mucosa NECK: Supple, no JVD or thyromegaly. LUNGS: Good air entry. No rales, no rhonchi. CARDIOVASCULAR: S1, S2 regular. No murmur heard. ABDOMEN: Soft, non tender, bowel sounds present, no organomegaly CENTRAL NERVOUS SYSTEM: Awake, alert, oriented x 3. No focal deficits. SKIN: No rashes, no swelling. LYMPHATICS: No peripheral lymphadenopathy MUSCULOSKELETAL: No joint swelling, erythema or tenderness. EXTREMITIES: No cyanosis or clubbing BACK: No deformity, no pressure ulcer. GENITOURINARY: No dysuria or hematuria Vital Sign (Last 12 Hours) 03/20/24 03/20/24 03/20/24 03:28 07:15 11:46 Temp 98.1 98.6 98.4 Pulse 60 60 53 Resp 19 18 18 B/P (MAP) 142/74 173/79 157/72 Pulse Ox 99 96 97 O2 Delivery Room Air Room Air Room Air FiO2 21 21 Intake & Output (last 24hrs) 03/19/24 03/19/24 03/20/24 15:00 23:00 07:00 Intake Total 1000 ml Balance 1000 ml LABS: Laboratory: Test 03/20/24 05:07 03/20/24 04:31 03/19/24 20:54 03/19/24 05:09 Range/Units Whole Blood Glucose 98 70-110 MG/DL White Blood Count 5.5 4.8-10.8 K/uL Red Blood Count 3.58 L 4.50-6.20 MIL/uL Hemoglobin 11.5 L 14.0-18.0 g/dL Hematocrit 34.0 L 42-54 % Mean Corpuscular Volume 95.0 79-99 fL Mean Corpuscular Hemoglobin 32.1 27.0-33.0 pg Mean Corpuscular Hemoglobin Concent 33.8 32.0-36.0 g/dL Red Cell Distribution Width 15.0 11.0-15.5 % Platelet Count 118 L 130-400 K/uL Mean Platelet Volume 9.9 7.5-10.5 fL Nucleated Red Blood Cells 0.0 0.0-0.19 % Sodium Level 148 H 136-145 mmol/L Potassium Level 4.0 3.5-5.1 mmol/L Chloride Level 115 H 101-111 mmol/L Carbon Dioxide Level 23 21-32 mmol/L Blood Urea Nitrogen 26 H 7-18 mg/dL Creatinine 1.6 H 0.5-1.3 mg/dL Glomerular Filtration Rate Calc 42 >90 mL/min Random Glucose 86 70-105 mg/dL Total Calcium 7.7 L 8.5-10.1 mg/dL Magnesium Level 1.90 1.80-2.40 mg/dL Total Bilirubin 0.7 0.2-1.0 mg/dL Aspartate Amino Transf (AST/SGOT) 38 H 10-37 U/L Alanine Aminotransferase (ALT/SGPT) 17 # 12-78 U/L Alkaline Phosphatase 103 50-136 U/L Total Protein 6.2 6.0-8.3 g/dL Albumin 2.2 L 3.5-5.0 g/dL Vancomycin Level Trough 16.4 10.0-20.0 UG/ML Thyroid Stimulating Hormone (TSH) 3.97 H 0.36-3.74 uIU/mL ASSESSMENT: Pneumonia. Staphylococcus epidermidis bacteremia, possible contaminant. Sepsis. Diabetes mellitus. Hypertension. Debility. PLAN: Continue vancomycin per pharmacy protocol. Continue on cefepime. GI prophylaxis. Continue antihypertensive. Continue antidiabetic. Continue pain management. Will Monitor electrolytes. Continue GI prophylaxis. This case was reviewed and discussed with my supervising physician and the above assessment and plan was formulated and agreed upon. ATTESTATION BY PHYSICIAN I have seen and examined the patient. I reviewed the documentation, medical decision making, and treatment plan as noted by the mid-level provider above. I agree with the findings and plan of care. TANNA BLACKMAN MD, MIRTA L [facility] Mar 20, 2024 12:24
--- NOTE | 2024-03-20 16:54 | PN ---
[facility] PROGRESS NOTE Date of Service: Mar 20, 2024 Time of Service: 16:37 SUBJECTIVE: The patient has been seen and examined during my rounding, comfortably in bed, spiked fever earlier this morning 100.2, BP 137/82, saturating normal on room air, getting IV antibiotics during my visit, he denies dizziness, no headache, no blurry vision, no chest pain, no shortness a breath, nausea, no vomiting, no abdominal pain, no diarrhea, no constipation, no melena, no hematochezia, no hematemesis, no hematuria, no dysuria. No family members at bedside during my visit 03/18 the patient has been seen and examined during my rounding, no acute events overnight, BP 174/94, rest of the vital signs are unremarkable. The patient looks and feels less weak today compared to time of admission. He denies dizziness, no headache, no blurry vision, no chest pain, no shortness a breath, no nausea, no vomiting, no abdominal discomfort, no diarrhea, no constipation, no melena, no hematochezia, no hematemesis, no hematuria, no dysuria. is at bedside during my visit. Results of CT of the abdomen and pelvis without contrast reviewed and discussed with both the patient and the , all questions answered. Understood the information provided. 03/19 the patient has been seen and examined during my rounding, no acute events overnight, he is sitting comfortably in the chair during my visit, admits dry nonproductive cough. BP 159/73, afebrile, saturating normal on room air, he denied chest pain, no shortness shortness for breath, no nausea, no vomiting, no abdominal discomfort. at bedside during my visit. 03/20 Pt seen at bedside, no acute events overnight. Pending HIDA scan will follow up post study. Vitals unremarkable, creatinine stable at 1.5, similar to yesterday. REVIEW OF SYSTEMS 12-point ROS reviewed with patient. All pertinent positives mentioned above. Otherwise negative, nonpertinent, or non-contributory. PHYSICAL EXAM GENERAL APPEARANCE: The patient is awake, alert, and oriented, in no acute cardiopulmonary distress. NEUROLOGICAL: Cranial nerves II-XII grossly intact. Motor is 5/5 in bilateral upper and lower extremities proximal to distal. No sensory deficits. HEENT: Hard of hearing. Face is symmetric. Pupils are equal and reactive. Extraocular movements are intact. NECK: Supple. No JVD. No thyromegaly. No submental, submandibular, pre- /postauricular, occipital or supraclavicular lymphadenopathy. CHEST: Normal chest expansion. No Telemetry. LUNGS: Absence of any rales, rhonchi or any wheezing. CARDIOVASCULAR: Regular. S1 and S2 normal. No appreciable rubs, murmurs or gallops. ABDOMEN: Soft, nontender, and nondistended. There is no rebound, voluntary guarding, or rigidity. : Deferred. No Mcdermott. EXTREMITIES: Non-edematous and not cyanotic. No clubbing. Good capillary refill. SKIN: No skin breakdown. Vital Signs (last 8hr) Date Time Temp Pulse Resp B/P (MAP) Pulse Ox O2 Delivery O2 Flow Rate FiO2 03/20/24 11:46 98.4 53 18 157/72 97 Room Air 21 LABS: Laboratory: Test 03/20/24 16:25 03/20/24 04:31 03/19/24 20:54 03/19/24 05:09 Range/Units Whole Blood Glucose 86 70-110 MG/DL White Blood Count 5.5 4.8-10.8 K/uL Red Blood Count 3.58 L 4.50-6.20 MIL/uL Hemoglobin 11.5 L 14.0-18.0 g/dL Hematocrit 34.0 L 42-54 % Mean Corpuscular Volume 95.0 79-99 fL Mean Corpuscular Hemoglobin 32.1 27.0-33.0 pg Mean Corpuscular Hemoglobin Concent 33.8 32.0-36.0 g/dL Red Cell Distribution Width 15.0 11.0-15.5 % Platelet Count 118 L 130-400 K/uL Mean Platelet Volume 9.9 7.5-10.5 fL Nucleated Red Blood Cells 0.0 0.0-0.19 % Sodium Level 148 H 136-145 mmol/L Potassium Level 4.0 3.5-5.1 mmol/L Chloride Level 115 H 101-111 mmol/L Carbon Dioxide Level 23 21-32 mmol/L Blood Urea Nitrogen 26 H 7-18 mg/dL Creatinine 1.6 H 0.5-1.3 mg/dL Glomerular Filtration Rate Calc 42 >90 mL/min Random Glucose 86 70-105 mg/dL Total Calcium 7.7 L 8.5-10.1 mg/dL Magnesium Level 1.90 1.80-2.40 mg/dL Total Bilirubin 0.7 0.2-1.0 mg/dL Aspartate Amino Transf (AST/SGOT) 38 H 10-37 U/L Alanine Aminotransferase (ALT/SGPT) 17 # 12-78 U/L Alkaline Phosphatase 103 50-136 U/L Total Protein 6.2 6.0-8.3 g/dL Albumin 2.2 L 3.5-5.0 g/dL Vancomycin Level Trough 16.4 10.0-20.0 UG/ML Thyroid Stimulating Hormone (TSH) 3.97 H 0.36-3.74 uIU/mL Current Medications Medications (Trade) Dose Ordered Sig/Lashonda Route PRN Reason Start Time Stop Time Status Last Admin Dose Admin Acetaminophen (TYLenol 325MG TAB) 650 mg Q6H PRN PO FEVER/MILD PAIN LEVEL 1-3 03/16/24 19:00 04/15/24 18:59 03/17/24 06:19 650 MG Acetaminophen (TYLenol 650MG SUPPOSITORY) 650 mg Q6H PRN RC FEVER / MILD PAIN 1-3 IF NPO 03/16/24 19:00 04/15/24 18:59 Amlodipine Besylate (NorvASC 5MG TAB) 10 mg DAILY PO 03/17/24 09:00 04/16/24 08:59 03/20/24 10:09 10 MG Apixaban (EliquIS 2.5 mg) 2.5 mg BID PO 03/18/24 21:00 04/17/24 20:59 03/19/24 21:46 2.5 MG Cefepime HCl (MAXipime 1 GM vial) 1 gm Q24H IVPB 03/17/24 09:00 03/27/24 08:59 03/20/24 10:07 1 GM Docusate Sodium (COLace 100MG CAP) 100 mg BID PRN PO c 03/16/24 19:00 04/15/24 18:59 Enoxaparin Sodium (Lovenox) 30 mg DAILY SQ 03/17/24 09:00 03/18/24 13:22 DC 03/18/24 08:24 30 MG Hydralazine HCl (APRESOLine 20MG INJ) 5 mg Q6H6 PRN IV SBP GREATER THAN 160 03/18/24 09:00 04/17/24 08:59 03/19/24 03:46 5 MG Hydralazine HCl (APRESOLine 20MG INJ) 10 mg Q2H PRN IV SBP GREATER THAN 160 03/16/24 19:00 03/18/24 08:55 DC 03/18/24 04:05 10 MG Insulin Human Regular (humuLIN R 100 UNIT/ML 3ML) INSULIN SLIDING SCAL... ACHS SQ 03/16/24 21:00 04/15/24 20:59 Labetalol HCl (TRANdate 100 MG TABLET) 100 mg BID PO 03/17/24 09:00 04/16/24 08:59 03/20/24 10:08 100 MG Lactulose (Constulose 20gm/ 30ml Udcup) 20 gm Q6H PRN PO CONSTIPATION 03/16/24 19:00 04/15/24 18:59 Losartan Potassium (CozAAR 100MG TAB) 100 mg DAILY PO 03/17/24 09:00 04/16/24 08:59 03/20/24 10:08 100 MG Ondansetron HCl (zoFRAN 4MG INJ) 4 mg Q6H PRN IVP NAUSEA/VOMITING 03/16/24 19:00 04/15/24 18:59 Pantoprazole Sodium (PROTonix 40MG TAB) 40 mg DAILY PO 03/17/24 09:00 04/16/24 08:59 03/19/24 09:09 40 MG Piperacillin Sod/ Tazobactam Sod (Zosyn 3.375gm+NS 50ml) 3.375 gm Q8H IVPB 03/17/24 02:00 03/17/24 03:50 DC 03/17/24 03:05 3.375 GM Sodium Chloride 1,000 ml @ 75 mls/hr [id number] IV 03/16/24 19:00 04/15/24 18:59 03/20/24 03:23 75 MLS/HR Sodium Chloride (NS 50ml) 50 ml AD IV 03/17/24 02:00 03/16/24 19:08 DC Temazepam (restORIL 15 MG CAP) 15 mg HS PRN PO INSOMNIA/SLEEP 03/16/24 19:00 04/15/24 18:59 Vancomycin HCl 250 ml @ 125 mls/hr Q24H IV 03/17/24 22:00 03/27/24 21:59 03/19/24 21:47 125 MLS/HR Vancomycin HCl (Vancomycin Protocol) 1 each AD IV 03/16/24 18:00 03/30/24 17:59 Vancomycin HCl (Vancomycin Protocol) 1 each AD IV 03/16/24 19:30 03/16/24 19:29 DC DIAGNOSTICS / RADIOLOGY: [ ] ASSESSMENT: Sepsis, POA Acute febrile illness, unknown origin Hypertensive urgency Pulmonary vascular congestion Anemia Transaminitis Volume overload, Elevated BNP 595 Grade III diastolic dysfunction, LVEF 60-65%, RVSP 52 mmHg, per echo 08/23/2022 Hypoalbuminemia Electrolyte derangement (hyponatremia, hypochloremia, hypocalcemia) Acute on chronic kidney disease, GFR 45 Diabetes mellitus with hyperglycemia Noncompliance with medical management/medications Atrial flutter Gallbladder moderately distended with gallstones PLAN: Admit to medical floor with telemetry monitoring. Continue vancomycin IV per pharmacy protocol and start cefepime IV. Monitor for any fevers. Follow white blood cell count. Cultures and inflammatory markers as needed. Antibiotic therapy tailored to culture results. De-escalate antibiotics when appropriate. P.r.n. medications for: Fever, nausea, vomiting, constipation, hypertension Reconcile home medications: Labetalol, Amlodipine, and Olmesartan. Hold Lasix for now due to Sepsis. (ED administer NS 500 ml bolus). Monitor renal and liver function. Monitor electrolytes and treat accordingly. Monitor for fluid overload. Strict I&Os. Daily weights. Glucometer checks a.c. and HS with insulin regular sliding scale per protocol. DVT and GI prophylaxis. A.m. labs. Disposition: Pending HIDA scan and surgery recommendations Plan of action discussed with the patient, all questions answered, agreed and understood the information provided JENNIFER GARCIA MD Mar 20, 2024 16:54
--- NOTE | 2024-03-20 22:27 | PN ---
DATE OF SERVICE: 03/19/2024. INFECTIOUS DISEASE FOLLOWUP NOTE SUBJECTIVE: The patient is seen. No fever or chills. No nausea or vomiting. Appetite is good. Denies sore throat or rhinorrhea. No depression. No suicidal ideation. No dysuria or hematuria. No bleeding tendency. No slurred speech or limb weakness. PHYSICAL EXAMINATION: VITAL SIGNS: Temperature today is 97.5. EYES: No icterus. Pupils equal and reactive. HENT: No oral thrush seen. Moist oral mucosa. NECK: Supple, no JVD or thyromegaly. LUNGS: Good air entry. No rales, no rhonchi. CARDIOVASCULAR: S1, S2 regular. No murmur heard. ABDOMEN: Full, soft, and nontender. Bowel sounds present. CENTRAL NERVOUS SYSTEM: Awake, alert, and oriented x 3. No focal deficits. SKIN: No rashes, no itchiness. LYMPHATIC: No peripheral lymphadenopathy. MUSCULOSKELETAL: No joint swelling, erythema or tenderness. BACK: No deformity, no pressure ulcer. ASSESSMENT: An 83-year-old male admitted with fever, chills and weakness. CURRENT PROBLEMS: Include: * Sepsis. * Gram-positive bacteremia. * Pneumonia. * Diabetes mellitus. * Hypertension. * Debility. PLAN: * Continue vancomycin. * Continue cefepime. * Continue pain management. * Continue GI prophylaxis. * Continue DVT prophylaxis. * Monitor electrolytes. TID: [id number] RECEIPT: [id number]
[2024-03-21] VITALS: BP 146/66; PULSE 55; RESP 20; TEMP 98
[2024-03-21 04:00] VITALS: BP 146/58; PULSE 46; RESP 20; TEMP 98
[2024-03-21 05:56] LABS: BASOPHILS # (AUTO) 0.02 K/uL (0.00-0.20); BASOPHILS % (AUTO) 0.4 % (0.0-5.0); EOSINOPHILS # (AUTO) 0.24 K/uL (0.00-0.70); EOSINOPHILS % (AUTO) 4.4 % (0.0-8.0); HEMATOCRIT 33.6 % (42-54); IMMATURE GRANULOCYTE ABSOLUTE 0.02 K/uL (0-1); LYMPHOCYTES # (AUTO) 0.9 K/uL (1.0-4.8); LYMPHOCYTES % (AUTO) 16.5 % (21.0-51.0); MEAN CORPUSCULAR HEMOGLOBIN 31.7 pg (27.0-33.0); MONOCYTES # (AUTO) 0.6 K/uL (0.1-1.0); MONOCYTES % (AUTO) 11.7 % (3.0-13.0); NEUTROPHILS # (AUTO) 3.6 K/uL (1.8-7.7); NEUTROPHILS % (AUTO) 66.6 % (40.0-77.0); PLATELET COUNT (AUTO) 109 K/uL (130-400); WHITE BLOOD COUNT (AUTO) 5.5 K/uL (4.8-10.8)
[2024-03-21 06:07] LABS: ALBUMIN 2.2 g/dL (3.5-5.0); BILIRUBIN,TOTAL 0.7 mg/dL (0.2-1.0); CREATININE 1.7 mg/dL (0.5-1.3); MAGNESIUM 1.9 mg/dL (1.80-2.40); PHOSPHORUS 3.4 mg/dL (2.5-4.9); POTASSIUM 3.8 mmol/L (3.5-5.1); TOTAL PROTEIN, SERUM 6.6 g/dL (6.0-8.3)
[2024-03-21 07:40] VITALS: BP 165/63; PULSE 53; RESP 18; TEMP 97.9
[2024-03-21 08:00] VITALS: O2SAT 98
--- NOTE | 2024-03-21 08:53 | HMCIMG ---
NM HIDA WO EF/CCK REASON: Rule out acute cholecystitis COMPARISON: None TECHNIQUE: Routine imaging protocol was performed following injection of 6 mCi technetium 99m Choletec. FINDINGS: There is prompt hepatic parenchymal uptake. There is prompt excretion into the gallbladder and common duct. There is partial clearing of hepatic activity by one hour, there is near complete clearing on the two-hour delay. Common duct does not appear dilated. IMPRESSION: 1. Normal hepatobiliary scan.
[2024-03-21 11:40] VITALS: BP 168/63; PULSE 55; RESP 18; TEMP 97.8
--- NOTE | 2024-03-21 15:14 | PN ---
INFECTIOUS DISEASE PROGRESS NOTE Date of Service: Mar 21, 2024 SUBJECTIVE: Patient was seen and examined at bedside in room 316. Patient is awake, alert and able to answer basic questions. Patient remaining afebrile, temperature is 97.9. The WBC remains within normal level of 5.5. Continues on cefepime and vancomycin. Patient on renal failure, BUN of 30 and creatinine of 1.7. Vancomycin levels being managed by pharmacy. HIDA scan done yesterday came back negative for acute cholecystitis. We will continue to monitor patient. PHYSICAL EXAM EYES: Anicteric. Pupils equal and reactive. HENT: No oral thrush seen, moist Oral mucosa NECK: Supple, no JVD or thyromegaly. LUNGS: Good air entry. No rales, no rhonchi. CARDIOVASCULAR: S1, S2 regular. No murmur heard. ABDOMEN: Soft, non tender, bowel sounds present, no organomegaly CENTRAL NERVOUS SYSTEM: Awake, alert, oriented x 3. No focal deficits. SKIN: No rashes, no swelling. LYMPHATICS: No peripheral lymphadenopathy MUSCULOSKELETAL: No joint swelling, erythema or tenderness. EXTREMITIES: No cyanosis or clubbing BACK: No deformity, no pressure ulcer. GENITOURINARY: No dysuria or hematuria Vital Sign (Last 12 Hours) 03/21/24 03/21/24 03/21/24 03/21/24 04:00 07:40 08:00 11:40 Temp 98.1 97.9 97.9 Pulse 46 53 55 Resp 20 18 18 B/P (MAP) 146/58 165/63 168/63 Pulse Ox 97 97 98 96 O2 Delivery Room Air Room Air Room Air* Room Air O2 Flow Rate 0 FiO2 21 21 21 Intake & Output (last 24hrs) 03/20/24 03/20/24 03/21/24 15:00 23:00 07:00 Intake Total 1250.0 ml 490.0 ml Balance 1250.0 ml 490.0 ml LABS: Laboratory: Test 03/21/24 11:35 03/21/24 05:30 03/19/24 20:54 Range/Units Whole Blood Glucose 90 70-110 MG/DL White Blood Count 5.5 4.8-10.8 K/uL Red Blood Count 3.50 L 4.50-6.20 MIL/uL Hemoglobin 11.1 L 14.0-18.0 g/dL Hematocrit 33.6 L 42-54 % Mean Corpuscular Volume 96.0 79-99 fL Mean Corpuscular Hemoglobin 31.7 27.0-33.0 pg Mean Corpuscular Hemoglobin Concent 33.0 32.0-36.0 g/dL Red Cell Distribution Width 15.0 11.0-15.5 % Platelet Count 109 L 130-400 K/uL Mean Platelet Volume 9.5 7.5-10.5 fL Immature Granulocyte % (Auto) 0.4 0-1 % Neutrophils (%) (Auto) 66.6 40.0-77.0 % Lymphocytes (%) (Auto) 16.5 L 21.0-51.0 % Monocytes (%) (Auto) 11.7 3.0-13.0 % Eosinophils (%) (Auto) 4.4 0.0-8.0 % Basophils (%) (Auto) 0.4 0.0-5.0 % Neutrophils # (Auto) 3.6 1.8-7.7 K/uL Lymphocytes # (Auto) 0.9 L 1.0-4.8 K/uL Monocytes # (Auto) 0.6 0.1-1.0 K/uL Eosinophils # (Auto) 0.24 0.00-0.70 K/uL Basophils # (Auto) 0.02 0.00-0.20 K/uL Absolute Immature Granulocyte (auto 0.02 0-1 K/uL Nucleated Red Blood Cells 0.0 0.0-0.19 % Sodium Level 145 136-145 mmol/L Potassium Level 3.8 3.5-5.1 mmol/L Chloride Level 114 H 101-111 mmol/L Carbon Dioxide Level 21 21-32 mmol/L Blood Urea Nitrogen 30 H 7-18 mg/dL Creatinine 1.7 H 0.5-1.3 mg/dL Glomerular Filtration Rate Calc 39 >90 mL/min Random Glucose 77 70-105 mg/dL Total Calcium 7.8 L 8.5-10.1 mg/dL Phosphorus Level 3.4 2.5-4.9 mg/dL Magnesium Level 1.90 1.80-2.40 mg/dL Total Bilirubin 0.7 0.2-1.0 mg/dL Aspartate Amino Transf (AST/SGOT) 42 H 10-37 U/L Alanine Aminotransferase (ALT/SGPT) 16 12-78 U/L Alkaline Phosphatase 116 50-136 U/L Total Protein 6.6 6.0-8.3 g/dL Albumin 2.2 L 3.5-5.0 g/dL Vancomycin Level Trough 16.4 10.0-20.0 UG/ML ASSESSMENT: Pneumonia. Staphylococcus epidermidis bacteremia, possible contaminant. Sepsis. Renal failure. Diabetes mellitus. Hypertension. Debility. PLAN: Continue on cefepime. Continue vancomycin per pharmacy protocol. Continue GI prophylaxis. Continue antihypertensive. Continue antidiabetic. Continue pain management. Will Monitor electrolytes. Continue GI prophylaxis. This case was reviewed and discussed with my supervising physician and the above assessment and plan was formulated and agreed upon. ATTESTATION BY PHYSICIAN I have seen and examined the patient. I reviewed the documentation, medical decision making, and treatment plan as noted by the mid-level provider above. I agree with the findings and plan of care. TANNA BLACKMAN MD, MIRTA L [facility] Mar 21, 2024 15:14
[2024-03-21 15:20] VITALS: BP 159/65; PULSE 55; RESP 18; TEMP 97.8
[2024-03-21] MEDS ORDERED: APIX2.5T PO (16:49)
--- NOTE | 2024-03-21 18:06 | DS ---
Discharge Summary Hospital Course Summary: 83 yo M presented with fever and weakness. He was admitted and started on empiric antibiotics. Patient was in atrial flutter that was rate controlled, but had an episode of uncontrolled ventricular response of unknown duration that resolved spontaneously and did not reoccur. Cardiology was consulted and r ecommended to continue current management. Patient blood grew gram positive in 1/2 bottles. He grew staph epidermidis a possible contaminant. ID was consulted. HIDA scan was ordered and showed normal hepatobiliary function. By hospital day 5 he was cleared for discharge home on oral antibioitics. Clinical Auditor(s): Cardiology Infectious Disease Procedure(s): NM HIDA WO EF/CCK REASON: Rule out acute cholecystitis COMPARISON: None TECHNIQUE: Routine imaging protocol was performed following injection of 6 mCi technetium 99m Choletec. FINDINGS: There is prompt hepatic parenchymal uptake. There is prompt excretion into the gallbladder and common duct. There is partial clearing of hepatic activity by one hour, there is near complete clearing on the two-hour delay. Common duct does not appear dilated. IMPRESSION: 1. Normal hepatobiliary scan. Echocardiogram: Conclusion LVEF is 60-65%. Normal GLS -20.0%. The right ventricle is moderately dilated. The right atrium is severely dilated. Trace of aortic regurgitation is present. There is mild tricuspid valve regurgitation noted. There is mild tricuspid valve regurgitation noted. RVSP 50 mmHg There is moderate to severe pulmonary hypertension. CT ABDOMEN/PELVIS W/O CONTRAST HISTORY: Elevated liver enzymes COMPARISON: None TECHNIQUE: Multiple sequential axial images of the abdomen and pelvis were obtained from the dome of the diaphragm through symphysis pubis. Patient was not given contrast through intravenous route. Oral contrast was not given. FINDINGS: Small bilateral pleural effusions are seen. Mild bilateral pulmonary infiltrates are seen. Degenerative changes of the thoracolumbar spine are present. The heart is not enlarged. Liver is enlarged with fatty changes measuring 17 cm. There is liver parenchymal disease. Dystrophic calcifications are seen in the spleen. Gallbladder is moderately distended with gallstones. There is left renal cyst measuring 3.5 cm. Nonspecific bilateral perinephric fat stranding is seen. There is diverticulosis. The liver, spleen, adrenal glands and pancreas are unremarkable. There is no evidence of hydronephrosis bilaterally. No evidence of renal stone is seen. Fecal material is seen in the colon. There are normal size retroperitoneal and mesenteric lymph nodes. No ascites is seen. Atherosclerotic changes are present. Pelvic sidewalls are symmetric bilaterally. Bladder is well distended without wall thickening. There may be bladder stone in the bladder measuring 17 mm. IMPRESSION: 1. Diverticulosis. Nonspecific mesenteric fat stranding. Small bilateral pleural effusions. Borderline enlarged fatty liver. PORTABLE CHEST RADIOGRAPH INDICATION: sob COMPARISON: 02/29/2004 FINDINGS: radiation monitor leads overlie the field of view. Heart and pulmonary vascularity are enlarged. No abnormal pulmonary parenchymal opacity or consolidation identified. No significant pleural effusion noted. No pneumothorax detected. IMPRESSION: Cardiomegaly and pulmonary vascular congestion. Assessment/Plan: Sepsis, POA Acute febrile illness, unknown origin Hypertensive urgency Pulmonary vascular congestion Anemia Transaminitis Volume overload, Elevated BNP 595 Grade III diastolic dysfunction, LVEF 60-65%, RVSP 52 mmHg, per echo 08/23/2022 Hypoalbuminemia Electrolyte derangement (hyponatremia, hypochloremia, hypocalcemia) Acute on chronic kidney disease, GFR 45 Diabetes mellitus with hyperglycemia Noncompliance with medical management/medications Atrial flutter Gallbladder moderately distended with gallstones Discharge Instructions: Follow up with PCP in 3-7 days Follow up with cardiology in 2-3 weeks Home Medications: Active Scripts Apixaban (Eliquis) 2.5 Mg Tablet, 2.5 MG PO BID, #60 TAB 0 Refills Prov:JENNIFER GARCIA MD 03/21/24 Reported Medications Amlodipine Besylate (Amlodipine Besylate) 10 Mg Tablet, 1 TAB PO DAILY 02/29/24 Furosemide (Furosemide) 40 Mg Tablet, 1 TAB PO DAILY 02/29/24 Olmesartan Medoxomil (Olmesartan Medoxomil) 40 Mg Tablet, 1 TAB PO DAILY 02/29/24 Labetalol HCl (Labetalol HCl) 100 Mg Tablet, 1 TAB PO BID 02/29/24 Time spent arranging discharge: 31-60 minutes JENNIFER GARCIA MD Mar 21, 2024 18:06
== END 2024-03-21 18:05 | disposition home or self-care (01) | DRG 871 ==
LOC: EDH 15:33 → EDHIP 18:49 → 3CH 03-17 15:05
PROVIDERS: ADMIT Internal Medicine; ATTEND Internal Medicine
DX: A41.1 Sepsis due to other specified staphylococcus (principal); J18.9 Pneumonia, unspecified organism; E87.1 Hypo-osmolality and hyponatremia; I48.92 Unspecified atrial flutter; N17.9 Acute kidney failure, unspecified; E78.00 Pure hypercholesterolemia, unspecified; I16.0 Hypertensive urgency; Z20.822 Contact with and (suspected) exposure to COVID-19; E87.8 Other disorders of electrolyte and fluid balance, not elsewhere classified; E87.70 Fluid overload, unspecified; E83.51 Hypocalcemia; E11.65 Type 2 diabetes mellitus with hyperglycemia; I48.91 Unspecified atrial fibrillation; D64.9 Anemia, unspecified; E11.22 Type 2 diabetes mellitus with diabetic chronic kidney disease; R74.01 Elevation of levels of liver transaminase levels; N18.9 Chronic kidney disease, unspecified; E88.09 Other disorders of plasma-protein metabolism, not elsewhere classified; I12.9 Hypertensive chronic kidney disease with stage 1 through stage 4 chronic kidney disease, or unspecified chronic kidney disease; K82.8 Other specified diseases of gallbladder; Z91.199 Patient's noncompliance with other medical treatment and regimen due to unspecified reason; Z83.3 Family history of diabetes mellitus; Z79.899 Other long term (current) drug therapy
CPT/HCPCS: 36415; 71045; 74176; 78226; 80048; 80053; 80076; 80202; 81001; 82550; 82948; 83605; 83735; 83880; 84100; 84145; 84443; 84484; 85025; 85027; 87040; 87086; 87186; 87635; 87804; 87880; 93005; 93306; 93356; 96365; 99291; A9537; G0378; J0360; J0692; J1650; J2543; J3370; J7040

== ENCOUNTER 2025-04-19 00:13 | Inpatient (IN) | payer OTHER ==
[~2025-04-19] VITALS: Ht 165.1 cm; Wt 67.7 kg
[~2025-04-19 00:13] MED LIST changes: +ACET-3859 PO; -AMLO-258 PO; +APIX2.5T PO; +CHOLECALCIFEROL PO; +CLON0.1T PO; +DAPA10TA PO; +DOCU100C33 PO; +DONE10TA8 PO; +FERS325 PO; -FURO40TA5 PO; -LABE100T7 PO; +LOPE2TAB26 PO; +MELA5TAB20 PO; +MVIT PO; +NIFE-39 PO; -OLME40TA18 PO; +ONDA-104 PO; +PANT40TA PO; +TAMS-55 PO; +lactulose PO
--- NOTE | 2025-04-19 00:34 | ERN ---
ED Note History of Present Illness Stated Complaint: C/O ALTERED MENTAL STATUS Chief Complaint: Altered Mental Status Time Seen by MD: 00:16 Dictation: This is an 84-year-old male who was brought in to the emergency room by his daughter Christina for evaluation of worsening altered mental status over the past 2 days. Patient used to live in [facility] however patient's daughter indicated that she took him out of the a few weeks ago as he was more depressed and dwindling down. [facility] she has not been able to get any of his medications that were routinely given and he has been off of lactulose for more than 3 weeks. She did finally get the lactulose prescription and resumed it the past 2 days. He stated that he has been extremely sleepy and has very interrupted sleep. No fever chills or rigors. No nausea vomitings diarrhea. He does have a history of drinking alcohol 40 years ago when he was young. No history of any falls no fever chills or rigors. Temperature 98.9 pulse 105 respirations 20 blood pressure 189/96 with a pulse oximetry of 100% on room air Chronic medical problems include diabetes mellitus, hypertension, CKD, history of colitis, history of UTIs, congestive heart failure and dementia history of atrial fibrillation on Eliquis I obtained most of the information from the daughter and medical records Allergies: Coded Allergies: No Known Drug Allergies (Unverified Allergy, Unknown, 08/21/22) Home Meds Reported Medications [cholecalciferol d3] No Conflict Check, 1 TAB PO DAILY 01/08/25 Pantoprazole Sodium (Protonix) 40 Mg Tablet.dr, 1 TAB PO BID for 30 Days, #30 TAB 0 Refills 01/08/25 Ondansetron HCl (Ondansetron HCl) 4 Mg Tablet, 1 TAB PO Q6HPRN PRN for nausea/vomiting, #10 TAB 0 Refills 01/08/25 Nifedipine (Nifedipine ER) 60 Mg Tab.er.24, 1 TAB PO BID for 30 Days, #30 TAB 0 Refills 01/08/25 Multivitamins,Therapeutic (Multivitamin Tablet) 400 Mcg Tab, 1 TAB PO DAILY for 30 Days, #30 TAB 0 Refills 01/08/25 Melatonin (Melatonin) 5 Mg Tab.rapdis, 1 TAB PO HS for sleep for 30 Days, #30 TAB 0 Refills 01/08/25 Loperamide HCl (Loperamide) 2 Mg Tablet, 1 TAB PO Q6HPRN PRN for diarrhea for 30 Days, #180 TAB 0 Refills 01/08/25 [lactulose] No Conflict Check, 20 GM PO BID 01/08/25 Tamsulosin HCl (Flomax) 0.4 Mg Cap.er.24h, 1 CAP PO HS for 30 Days, #30 CAP 0 Refills 01/08/25 Ferrous Sulfate (Ferrous Sulfate) 325 Mg (65 Mg Iron) Ectab, 1 TAB PO DAILY for 30 Days, #60 TAB 0 Refills 01/08/25 Dapagliflozin Propanediol (Farxiga) 10 Mg Tablet, 1 TAB PO DAILY for 30 Days, #30 TAB 0 Refills 01/08/25 Docusate Sodium (Docusate Sodium) 100 Mg Capsule, 1 CAP PO BID for constipation for 7 Days, #14 CAP 0 Refills 01/08/25 Clonidine HCl (Clonidine HCl) 0.1 Mg Tablet, 1 TAB PO HS for 30 Days, #30 TAB 0 Refills 01/08/25 Donepezil HCl (Aricept) 10 Mg Tablet, 1 TAB PO HS for 30 Days, #30 TAB 0 Refills 01/08/25 Acetaminophen (Acetaminophen) 325 Mg Tablet, 2 TAB PO Q4HPRN PRN for pain or fever for 30 Days, #30 TAB 0 Refills 01/08/25 Apixaban (Eliquis) 2.5 Mg Tablet, 2.5 MG PO BID, TAB 07/27/24 Past Medical History Past Medical History: A-Fib, Anemia, CAD, CHF, Dementia, Diabetes-Type II, Hypertension, Renal Disese Additional Past Medical Hx: CIRRHOSIS Surgical History: Unknown Surgical History Other: UMBILICAL HERNIA REPAIR Family History: Negative Social History: Negative, Lives with family RN Note Reviewed/Agreed w/PFSH: Yes Review of System Dictation Constitutional: Negative for fever,chills, and weight loss Eyes: Negative for injury, pain,redness, and discharge ENT: Negative for injury,pain or swelling Cardiovascular: Negative for chest pain, palpitations, and edema Respiratory: Negative for shortness of breath, cough, and wheezing, Abdomen/GI: Negative for abdominal pain, nausea, vomiting, diarrhea, and constipation Back: Negative for injury and pain : Negative for injury, bleeding and discharge MS/Extremity: Negative for injury and deformity Skin: Negative for rash, and discoloration Neuro: Negative for headache, weakness, numbness, tingling, and seizure positive for lethargy and confusion Psych: Negative for suicide ideation, homicidal ideation, and hallucinations Initial Vital Sign VS Vital Signs Date Time Temp Pulse Resp B/P (MAP) Pulse Ox O2 Delivery O2 Flow Rate FiO2 04/19/25 00:16 99.0 105 20 168/78 100 Room Air 04/19/25 00:55 0 21 Physical Exam Dictation General: Elderly male who is pleasantly confused but not in distress Head/Face: Normocephalic, atraumatic Eyes: PERRL, EOMI, vision at baseline ENT: oral cavity clear, TMs clear, no signs of infection Neck: Trachea midline, supple, no nuchal rigidity Cardiovascular: RRR, normal S1/S2, No MRGs, no JVD Respiratory: CTAB, no respiratory distress, No rales or wheezes Abdomen: Soft, non-tender, non-distended, normal bowel sounds, no guarding or rebound. Skin: Warm, dry, normal turgor, no rash MS/Extremity: Pulses equal, no cyanosis, neurovascular intact, FROM Neuro: COAx4, GCS 15, strength 5/5, CN 2-12 intact, normal cerebellar exam, normal gait, Psych: Normal behavior, mood, and affect normal Extremities-trace edema without any palpable cords, Homans sign is negative Results (Laboratory/Radiology) Laboratory/Radiology Laboratory Tests Test 04/19/25 00:51 White Blood Count 6.2 K/uL (4.8-10.8) Red Blood Count 3.38 MIL/uL (4.50-6.20) L Hemoglobin 10.7 g/dL (14.0-18.0) L Hematocrit 32.4 % (42-54) L Mean Corpuscular Volume 95.9 fL (79-99) Mean Corpuscular Hemoglobin 31.7 pg (27.0-33.0) Mean Corpuscular Hemoglobin Concent 33.0 g/dL (32.0-36.0) Red Cell Distribution Width 15.5 % (11.0-15.5) Platelet Count 182 K/uL (130-400) Mean Platelet Volume 10.0 fL (7.5-10.5) Immature Granulocyte % (Auto) 0.2 % (0-1) Neutrophils (%) (Auto) 51.4 % (40.0-77.0) Lymphocytes (%) (Auto) 24.2 % (21.0-51.0) Monocytes (%) (Auto) 11.2 % (3.0-13.0) Eosinophils (%) (Auto) 12.2 % (0.0-8.0) H Basophils (%) (Auto) 0.8 % (0.0-5.0) Neutrophils # (Auto) 3.2 K/uL (1.8-7.7) Lymphocytes # (Auto) 1.5 K/uL (1.0-4.8) Monocytes # (Auto) 0.7 K/uL (0.1-1.0) Eosinophils # (Auto) 0.75 K/uL (0.00-0.70) H Basophils # (Auto) 0.05 K/uL (0.00-0.20) Absolute Immature Granulocyte (auto 0.01 K/uL (0-1) Nucleated Red Blood Cells 0.0 % (0.0-0.19) Sodium Level 143 mmol/L (136-145) Potassium Level 3.6 mmol/L (3.5-5.1) Chloride Level 109 mmol/L (101-111) Carbon Dioxide Level 23 mmol/L (21-32) Blood Urea Nitrogen 17 mg/dL (7-18) Creatinine 1.7 mg/dL (0.5-1.3) H Glomerular Filtration Rate Calc 39 mL/min (>90) Random Glucose 125 mg/dL (70-105) H Lactic Acid Level 2.4 mmol/L (0.8-2.5) Total Calcium 8.1 mg/dL (8.5-10.1) L Ammonia 108 umol/L (11-32) H Total Creatine Kinase 96 U/L (21-232) Troponin I High Sensitivity 28.8 ng/L (4-75) Lipase 17 U/L (16-77) Labs Reviewed?: Yes EKG Comment: 12 lead EKG done on 04/19/2025 at 12:43 a.m. shows a heart rate of 96, WV interval 260, QRS 103, QT/QTC 402/507 Impression normal sinus rhythm with a prolonged WV, prolonged QT interval. Overall nonspecific changes but no acute STT wave elevations or deep ST depressions. Interpreted by ER MD Dr. Mortensen ED Course ED Course Orders Procedure Category Date Status Time Ammonia LAB 04/19/25 Complete 00:29 Cardiac Panel LAB 04/19/25 Complete 00: Cbc With Differential LAB 04/19/25 Complete 00: Basic Metabolic Panel LAB 04/19/25 Complete 00:29 Urinalysis Profile LAB 04/19/25 Logged 00:29 12 Lead Ekg Tracing- EKG 04/19/25 Logged Technical 00:29 Lactic Acid LAB 04/19/25 Complete 00:29 0.9%Nacl 1000ml (Ns PHA 04/19/25 In Process 1000ml) 00:30 Lipase LAB 04/19/25 Complete 00:29 Acetaminophen 325 Tab PHA 04/19/25 Complete (Tylenol 325mg Tab 01:30 Ct Head/Brain W/O CT 04/19/25 Taken Contrast 01:25 Edm Admit Bridge Order ADM 04/19/25 Transmitted 03:02 Current Medications Medications (Trade) Dose Ordered Sig/Lashonda Route PRN Reason Start Time Stop Time Status Last Admin Dose Admin Acetaminophen (TYLenol 325MG TAB) 650 mg ONCE ONCE PO 04/19/25 01:30 04/19/25 01:31 DC 04/19/25 01:33 Sodium Chloride 1,000 ml @ 125 mls/hr ONCE ONCE IV 04/19/25 00:30 04/19/25 08:29 04/19/25 01:32 Vital Signs Date Time Temp Pulse Resp B/P (MAP) Pulse Ox O2 Delivery O2 Flow Rate FiO2 04/19/25 00:55 99.0 103 18 159/83 98 Room Air* 0 21 04/19/25 00:16 99.0 105 20 168/78 100 Room Air Medical Decision Making MDM Differential diagnosis: Altered mental status, acute metabolic encephalopathy, acute hepatic encephalopathy, acute delirium hyperactive, sleep rhythm disorders, sepsis, electrolyte abnormalities, medication side effects This is an 84-year-old male who was brought in to the emergency room by his daughter Christina for evaluation of worsening altered mental status over the past 2 days. Patient used to live in [facility] however patient's daughter indicated that she took him out of the a few weeks ago as he was more depressed and dwindling down. Since [facility] discharge [facility] the jail she has not been able to get any of his medications that were routinely given and he has been off of lactulose for more than 3 weeks. She did finally get the lactulose prescription and resumed it the past 2 days. He stated that he has been extremely sleepy and has very interrupted sleep. No fever chills or rigors. No nausea vomitings diarrhea. He does have a history of drinking alcohol 40 years ago when he was young. No history of any falls no fever chills or rigors. Temperature 98.9 pulse 105 respirations 20 blood pressure 189/96 with a pulse oximetry of 100% on room air Chronic medical problems include diabetes mellitus, hypertension, CKD, history of colitis, history of UTIs, congestive heart failure and dementia history of atrial fibrillation on Eliquis 1:05 a.m. labs reviewed CBC shows a white count of 6.2 hemoglobin 10.7 platelets 182. Lactic acid 2.4. 2:19 a.m. BNP 7 is significant for a BUN and creatinine of 17 and 1.7 with a glucose of 125 lipase is 17 troponins are negative ammonia is 108 CT scan of the head requested as he was complaining of a headache per daughter. The results of which are pending at this time 3:00 a.m. patient accepted by Rob Baez, mid-level provider for the hospitalist group for admission and further management Rationale: Tests considered and ordered secondary to shared decision making include: labs, ECG and radiology Previous outside records reviewed: Old ER visits. Risk of complication and/or morbidity or mortality of patient management: None Medications-Per medication reconciliation Need for hospitalization: Patient does meet criteria for hospitalization. Need for emergency major/minor surgery: No There are no social concerns with this patient. Prescription drug management Prescriptions will include symptomatic care Patient's prior external medical records from other ER visits were reviewed by me as indicated. Prior testing and results from previous visits were reviewed. Prior tests were taken into account with medical decision making and resource utilization, independent historian/historians were used to obtain complete medical history. I independently interpreted the test that were performed, results were reviewed by me and considered findings on radiology if ordered. Medical management and examination interpretation discussions were had by me with other qualified healthcare professionals as indicated for the patient's care. Problem List Problem List: (1) Acute hepatic encephalopathy (2) Cirrhosis of liver (3) Dementia (4) Hyperammonemia (5) Chronic anemia DX & DISP Disposition: Inpatient Decision to Admit Time: 02:56 Departure Impression: Primary Impression: Acute hepatic encephalopathy Additional Impressions: Cirrhosis of liver, Dementia, Chronic anemia, Hyperammonemia Condition: Stable Additional Instructions: Patients daughter was informed of all the diagnostic labs and procedures conducted in the emergency room today and demonstrated understanding of the results. I personally reviewed and interpreted all the diagnostic exams performed in the ER today. The patient will be admitted to the hospital for further treatment and evaluation. Disposition-admit to facility Condition-stable/guarded Course-uncertain at this time Pain status-decreased Assessment-exam unchanged Admission Certification- I certify that the patients status is appropriate and is based on my best clinical judgment and the patient's condition as documented in the medical records Referrals: TANNA BLACKMAN MD (PCP) GAGANDEEP MORTENSEN MD Apr 19, 2025 00:33
[2025-04-19 01:01] LABS: IMMATURE GRANULOCYTE ABSOLUTE 0.01 K/uL (0-1); NUCLEATED RED BLOOD CELLS 0.0 % (0.0-0.19); PLATELET COUNT (AUTO) 182 K/uL (130-400); RED BLOOD CELL COUNT(AUTO) 3.38 MIL/uL (4.50-6.20); RED CELL DISTRIBUTION WIDTH 15.5 % (11.0-15.5); WHITE BLOOD COUNT (AUTO) 6.2 K/uL (4.8-10.8)
[2025-04-19 01:26] LABS: CREATININE 1.7 mg/dL (0.5-1.3); GLOMERULAR FILTR. RATE CALC 39.0 mL/min (>90); GLUCOSE,RANDOM 125.0 mg/dL (70-105); SODIUM SERUM 143.0 mmol/L (136-145); UREA NITROGEN, BLOOD 17.0 mg/dL (7-18)
[2025-04-19] MEDS: 0.9%NACL 1000ML 1,000 ML IV ONE (01:32)
[2025-04-19 01:37] LABS: CREATINE KINASE, TOTAL 96.0 U/L (21-232)
--- NOTE | 2025-04-19 03:06 | HP ---
History of Present Illness Reason for Visit: [facility] History of Present Illness Mr. Montgomery is an 84-year-old male that was seen and examined today on 04/19/2025. Patient is a poor historian and personal health. There was no family member at bedside. The following was obtained from a combination of emergency room physician report and previous medical records available to me from prior admissions lastly in January of 2025. According to emergency room physician: This is an 84-year-old male who was brought in to the emergency room by his daughter Christina for evaluation of worsening altered mental status over the past 2 days. Patient used to live in [facility] however patient's daughter indicated that she took him out of the a few weeks ago as he was more depressed and dwindling down. Since his discharge from the [facility] she has not been able to get any of his medications that were routinely given and he has been off of lactulose for more than 3 weeks. She did finally get the lactulose prescription and resumed it the past 2 days. He stated that he has been extremely sleepy and has very interrupted sleep. No fever chills or rigors. No nausea vomitings diarrhea. He does have a history of drinking alcohol 40 years ago when he was young. No history of any falls no fever chills or rigors. Temperature 98.9 pulse 105 respirations 20 blood pressure 189/96 with a pulse oximetry of 100% on room air Chronic medical problems include diabetes mellitus, hypertension, CKD, history of colitis, history of UTIs, congestive heart failure and dementia history of atrial fibrillation on Eliquis I obtained most of the information from the daughter and medical records Today in the emergency department creatinine 1.7, no urinalysis has been collected and sent to lab, CT of head is pending radiology report, ammonia level is elevated at 108. Emergency room physician recommended patient be admitted with a diagnosis of hepatic encephalopathy. Past Medical History Patient History: Carcinomas FATHER Completed stroke MOTHER FATHER Diabetes mellitus FATHER Hypertension MOTHER Sudden MOTHER FATHER ADDITIONAL PAST MEDICAL HISTORY: [Dementia, atrial fibrillation, CHF with LVEF 55-60 per 2D echo on 10/08/2024 with a stage II diastolic dysfunction, Diabetes mellitius type2, hypertension, CKD, liver parenchymal disease by CT on 03/17/2024] SOCIAL HISTORY: [Negative for smoking, alcohol use, drug use. Patient is currently living with his daughter, Christina. Before that patient was residing in a snf facility, [facility]. Patient is dependent of his ADLs] SURGICAL HISTORY: Umbilical hernia repair Review of Systems General: No Fever, No Chills, No Night Sweats, No Fatigue, No Malaise, No Appetite, No Other HEENT: No Head Aches, No Visual Changes, No Eye Pain, No Ear Pain, No Dysphasia, No Sinus Congestion, No Post Nasal Drip, No Sore Throat, No Other Pulmonary: No Dyspnea, No Cough, No Pleuritic Chest Pain, No Other Cardiovascular: No: Chest Pain, Palpitations, Orthopnea, Paroxysmal Noc. Dyspnea, Edema, Lt Headedness, Other Gastrointestinal: No: Nausea, Vomiting, Abdominal Pain, Diarrhea, Constipation, Melena, Hematochezia, Other Genitourinary: No Dysuria, No Frequency, No Incontinence, No Hematuria, No Retention, No Other Musculoskeletal: No: other, neck pain, shoulder pain, arm pain, back pain, hand pain, leg pain, foot pain Skin: No Urticaria, No Rash, No Other Neurological: Confusion; No: Weakness, Numbness, Incoordination, Change in speech, Seizures, Other Allergies: Coded Allergies: No Known Drug Allergies (Unverified Allergy, Unknown, 08/21/22) Scheduled Apixaban (Eliquis), 2.5 MG PO BID, (Reported) Clonidine HCl (Clonidine HCl), 1 TAB PO HS, (Reported) Dapagliflozin Propanediol (Farxiga), 1 TAB PO DAILY, (Reported) Docusate Sodium (Docusate Sodium), 1 CAP PO BID, (Reported) Donepezil HCl (Aricept), 1 TAB PO HS, (Reported) Ferrous Sulfate (Ferrous Sulfate), 1 TAB PO DAILY, (Reported) Melatonin (Melatonin), 1 TAB PO HS, (Reported) Multivitamins,Therapeutic (Multivitamin Tablet), 1 TAB PO DAILY, (Reported) Nifedipine (Nifedipine ER), 1 TAB PO BID, (Reported) Pantoprazole Sodium (Protonix), 1 TAB PO BID, (Reported) Tamsulosin HCl (Flomax), 1 CAP PO HS, (Reported) [cholecalciferol d3], 1 TAB PO DAILY, (Reported) [lactulose], 20 GM PO BID, (Reported) Scheduled PRN Acetaminophen (Acetaminophen), 2 TAB PO Q4HPRN PRN for pain or fever, (Reported) Loperamide HCl (Loperamide), 1 TAB PO Q6HPRN PRN for diarrhea , (Reported) Ondansetron HCl (Ondansetron HCl), 1 TAB PO Q6HPRN PRN for nausea/vomiting, (Reported) Exam Vital Signs Vital Signs Date Time Temp Pulse Resp B/P (MAP) Pulse Ox O2 Delivery O2 Flow Rate FiO2 04/19/25 00:55 99.0 103 18 159/83 98 Room Air* 0 21 General Appearance: Alert (x1) HEENT: Atraumatic Respiratory: Clear to auscultation, Normal air movement, NL respiratory effort Cardiovascular: Regular rate, Regular rhythm, Normal S1, Normal S2 Abdominal: Normal bowel sounds, Soft, No tenderness Extremities: Other (Positive weakness to bilateral lower extremities) Skin: Other (Left lower extremity anterior tibial wound) Neuro: Other (Unable to assess) Psych/Mental Status: Other (Patient unable to answer questions) Assessment/Plan ASSESSMENT: [ Hepatic encephalopathy, POA CKD stage IIIB, POA Left lower extremity anterior tibial wound, POA Dementia Atrial fibrillation CHF with LVEF 55-60% by 2D echo on 10/08/2024 Diabetes mellitius type2 Hypertension Liver parenchymal disease by CT on 03/17/2024] PLAN: [ Admit patient to medical floor as inpatient status. Place patient on telemetry monitoring. Lactulose 20 g/30 mL by mouth twice daily. Monitor intake and output every shift Weight patient daily Monitor patient's ammonia level Fall precautions Consider resuming home medications once they have been reconciled. At time of admission home medications has been reconciled. For now: Metoprolol 12.5 mg by mouth twice daily Administer metoprolol 5 mg IV every 5 minutes as needed for AFib RVR with heart rate greater than 120 beats per minute max three doses. Resume patient's home dose of Eliquis Consider fluid restriction if patient develops any JVD, pedal edema or shortness and breath Check glucometer a.c. and HS One thousand eight hundred ADA diet Check hemoglobin A1c in a.m. Humulin R sliding scale Hydralazine 10 mg IV every 4 hours for systolic blood pressure greater than 160 mmHg GI prophylaxis, famotidine DVT prophylaxis, resume patient's DOAC, Eliquis as stated above ADVANCED CARE PLANNING 1. Which of the following were discussed? Hospice Care - Yes Therapeutic options - yes Advance Directives - Yes - patient does not have any advance directives in place at this time, however his daughter Christina can make decisions for him if he becomes unable. Other discussions - daughter wishes for patient to remain a full code at this time 2. Discussed with who? Daughter 3. Voluntary nature of this service was explained to the patient? Yes 4. Amount of time spent - ___16 minutes____ 5. Reviewed by Physician? (if this service was performed by NPP) Yes This document was generated in part using voice recognition software, occasional wrong word or sound alike substitutions may have occurred due to the inherent limitations of voice recognition software. Read the chart carefully and recognize using context, where the substitutions have occurred. Although every effort was made to edit the content, health commissioner and typing errors may occur ATTESTATION BY PHYSICIAN I have seen and examined the patient. I reviewed the documentation, medical decision making, and treatment plan as noted by the mid-level provider above. I agree with the findings and plan of care.] [facility] Apr 19, 2025 03:05
--- NOTE | 2025-04-19 03:26 | HMCIMG ---
EXAM: Non-contrast CT examination of the Brain CLINICAL HISTORY: Increasing confusion. TECHNIQUE: Thin collimated axial CT images of the brain were obtained, with sagittal and coronal reformatted images also submitted. A CT scan is done according to ALARA (As Low as Reasonably Achievable). CONTRAST USED: None. COMPARISON: Prior CT brain dated December 31, 2024. FINDINGS: Mild age-related degenerative change with prominent sulci and basilar cisterns. Diffuse hypoattenuation in the deep periventricular white matter and yu radiata sequela of chronic microvascular ischemic change. No acute intracranial abnormality is present. No acute cortical infarction, hemorrhage, mass or mass effect. No hydrocephalus or abnormal extra-axial fluid collections. The posterior fossa is unremarkable. The skull base and calvarium are intact. Mild S-shaped deviation of the nasal septum. Minimal mucosal thickening along the floor of the bilateral maxillary sinuses. The remainder of the paranasal sinuses are clear. IMPRESSION: Age-related degenerative change. Changes of chronic microvascular ischemic disease. No acute intracranial abnormality. Early changes of stroke may not be detected on a CT scan. If strong clinical suspicion, then suggest MRI with diffusion-weighted imaging. Compared with the prior study, there is no significant change in the interval. /Hamel
[2025-04-19] MEDS: PHARMACY COMMUNICATION MISC SCH (03:30)
[2025-04-19 05:14] LABS: APPEARANCE,URINE CLEAR (CLEAR); GLUCOSE, URINE (UA) 200 mg/dL (NEGATIVE); LEUKOCYTE ESTERASE ,URINE 25 Leu/uL (NEGATIVE); NITRATE,URINE NEGATIVE (NEGATIVE); OCCULT BLOOD,URINE NEGATIVE (NEGATIVE)
[2025-04-19 05:21] LABS: ADD UA MICROSCOPIC YES
[2025-04-19] MEDS ORDERED: DAPA10TA PO (05:22)
--- NOTE | 2025-04-19 07:02 | EKG ---
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
[2025-04-19 07:49] LABS: IMMATURE GRANULOCYTE ABSOLUTE 0.00 K/uL (0-1); NUCLEATED RED BLOOD CELLS 0.0 % (0.0-0.19); PLATELET COUNT (AUTO) 179 K/uL (130-400); RED BLOOD CELL COUNT(AUTO) 3.64 MIL/uL (4.50-6.20); RED CELL DISTRIBUTION WIDTH 15.4 % (11.0-15.5); WHITE BLOOD COUNT (AUTO) 5.1 K/uL (4.8-10.8)
[2025-04-19 08:10] LABS: ASPARTATE AMINOTRANSFERASE 52.0 U/L (10-37); CREATININE 1.5 mg/dL (0.5-1.3); GLOMERULAR FILTR. RATE CALC 45.0 mL/min (>90); GLUCOSE,RANDOM 91.0 mg/dL (70-105); SODIUM SERUM 147.0 mmol/L (136-145); TOTAL PROTEIN, SERUM 7.0 g/dL (6.0-8.3); UREA NITROGEN, BLOOD 17.0 mg/dL (7-18)
[2025-04-19 08:57] LABS: LACTATE DEHYDROGENASE 316.0 U/L (81-234); PHOSPHORUS 3.0 mg/dL (2.5-4.9)
[2025-04-19] MEDS: FAMOTIDINE 20MG TAB PO SCH (08:58)
[2025-04-19] MEDS: LACTULOSE 20 GM/30 ML UDCUP PO SCH ×2 (08:58→16:18)
[2025-04-19] MEDS ORDERED: ENOXAPARIN SODIUM 30 MG/0.3 ML SQ SCH (09:00)
[2025-04-19] MEDS: DEXTROSE 5%-WATER 1,000 ML IV SCH (09:00)
[2025-04-19] MEDS: MAGNESIUM 2GM PREMIX 50ML 50 ML IV PRN (11:12)
[2025-04-19] MEDS: PoTASSium chl 10% ELIXIR 20MEQ 20 MEQ/15 ML UDCUP PO PRN (11:13)
[2025-04-19] MEDS: MAGNESIUM 4GM PREMIX 100ML IV ONE (11:16)
--- NOTE | 2025-04-19 11:19 | NUR ---
DCP:HOME Pt currently lives at home with his daughter and . Pt does have a walker and wheelchair at home. Pt does not currently have any home health or provider services. As per daughter, they are currently working on getting a provider through the [facility]. At this time the daughter assists him with all ADLs, home management, and meals. PCP is Dr. Frederick Tafoya ([facility]) and gets his meds through the [facility]. At [place] daughter states that she will take her father home and she can drive him.
--- NOTE | 2025-04-19 11:35 | NUR ---
REPORT GIVEN TO CHLOÉ FOSTER AT 1130 PT STABLE NO DISTRESS VITALS WNL NO C/O PAIN, PT TRANSFERRED BY [facility] WITH PERSONAL BELONGINGS, WITH [facility] GRACIA SITTER.
[2025-04-19 12:00] VITALS: BP 134/68; PULSE 57; RESP 12; TEMP 97.6; O2SAT 96
--- NOTE | 2025-04-19 15:41 | PN ---
[facility] PROGRESS NOTE Date of Service: Apr 19, 2025 Time of Service: 15:14 SUBJECTIVE: Mr. Briceño is an 84-year-old male that was seen and examined today on 04/19/2025. Patient is a poor historian and personal health. There was no family member at bedside. The following was obtained from a combination of emergency room physician report and previous medical records available to me f rom prior admissions lastly in January of 2025. According to emergency room physician: This is an 84-year-old male who was brought in to the emergency room by his daughter Christina for evaluation of worsening altered mental status over the past 2 days. Patient used to live in [facility] however patient's daughter indicated that she took him out of the a few weeks ago as he was more depressed and dwindling down. Since his discharge from the half-way she has not been able to get any of his medications that were routinely given and he has been off of lactulose for more than 3 weeks. She did finally get the lactulose prescription and resumed it the past 2 days. He stated that he has been extremely sleepy and has very interrupted sleep. No fever chills or rigors. No nausea vomitings diarrhea. He does have a history of drinking alcohol 40 years ago when he was young. No history of any falls no fever chills or rigors. Temperature 98.9 pulse 105 respirations 20 blood pressure 189/96 with a pulse oximetry of 100% on room air Chronic medical problems include diabetes mellitus, hypertension, CKD, history of colitis, history of UTIs, congestive heart failure and dementia history of atrial fibrillation on Eliquis I obtained most of the information from the daughter and medical records Today in the emergency department creatinine 1.7, no urinalysis has been annelise ected and sent to lab, CT of head is pending radiology report, ammonia level is elevated at 108. Emergency room physician recommended patient be admitted with a diagnosis of hepatic encephalopathy. 04/19/2025: Patient is seen in room 407 with out family present. Patient is awake, alert x3, much better than when I saw him in the morning in the ED. Patient has no complaints at this time. His ammonium levels have improved to 52 from 108 on admission. Ordered a bedside swallow evaluation change the lactulose to 20 g p.o. t.i.d. also ordered an ultrasound with the AFP tumor marker for hepatocellular carcinoma screening. Patient also got magnesium 4 g IV. REVIEW OF SYSTEMS CONSTITUTIONAL: Denies fevers, chills, or night sweats. No unintentional weight loss reported. NEUROLOGICAL: Denies headache, motor weakness, sensory deficit, vertigo/spinning sensation, gait abnormalities, or tremors. ENT: No hearing loss, rhinitis, rhinorrhea, hoarseness, or sore throat. CARDIOVASCULAR: Denies any exertional angina, dyspnea on exertion, orthopnea, paroxysmal nocturnal dyspnea, palpitations PULMONARY: Denies any shortness of breath, cough, phlegm/sputum, hemoptysis, pleuritic chest pain. GASTROINTESTINAL: Denies any type of dysphagia to either liquids or solids. Denies nausea, vomiting, abdominal pain, diarrhea, constipation, or changes in stool consistency or caliber. GENITOURINARY: Denies frequency, urgency, nocturia, hematuria or incontinence. ENDOCRINOLOGIC: Denies polyuria, polydipsia, polyphagia or heat/cold intolerances. DERMATOLOGIC: Denies rashes or pruritus. PHYSICAL EXAM GENERAL APPEARANCE: The patient is awake, alert, and oriented, in no acute cardiopulmonary distress. NEUROLOGICAL: No sensory deficits. HEENT: Face is symmetric. Pupils are equal and reactive. Extraocular movements are intact. NECK: Supple. No JVD. No thyromegaly. No lymphadenopathy. CHEST: Normal chest expansion. No Telemetry. LUNGS: Absence of any rales, rhonchi or any wheezing. CARDIOVASCULAR: Regular. S1 and S2 normal. No appreciable rubs, murmurs or gallops. ABDOMEN: Soft, nontender, and nondistended. There is no rebound, voluntary guarding, or rigidity. : Deferred. No Mcdermott. EXTREMITIES: Non-edematous and not cyanotic. SKIN: No skin breakdown. Vital Signs (last 8hr) Date Time Temp Pulse Resp B/P (MAP) Pulse Ox O2 Delivery O2 Flow Rate FiO2 04/19/25 12:00 97.5 57 12 134/68 100 Room Air 04/19/25 11:34 98.8 56 17 176/71 100 Room Air* 0 21 04/19/25 11:25 56 175/71 04/19/25 09:09 98.8 67 17 146/68 99 Room Air* 0 21 LABS: Laboratory: Test 04/19/25 11:35 04/19/25 07:19 04/19/25 05:07 04/19/25 00:51 Range/Units Whole Blood Glucose 148 #H 70-110 MG/DL White Blood Count 5.1 4.8-10.8 K/uL Red Blood Count 3.64 L 4.50-6.20 MIL/uL Hemoglobin 11.7 L 14.0-18.0 g/dL Hematocrit 34.9 L 42-54 % Mean Corpuscular Volume 95.9 79-99 fL Mean Corpuscular Hemoglobin 32.1 27.0-33.0 pg Mean Corpuscular Hemoglobin Concent 33.5 32.0-36.0 g/dL Red Cell Distribution Width 15.4 11.0-15.5 % Platelet Count 179 130-400 K/uL Mean Platelet Volume 9.5 7.5-10.5 fL Immature Granulocyte % (Auto) 0.0 0-1 % Neutrophils (%) (Auto) 55.9 40.0-77.0 % Lymphocytes (%) (Auto) 19.7 L 21.0-51.0 % Monocytes (%) (Auto) 11.6 3.0-13.0 % Eosinophils (%) (Auto) 11.4 H 0.0-8.0 % Basophils (%) (Auto) 1.4 0.0-5.0 % Neutrophils # (Auto) 2.8 1.8-7.7 K/uL Lymphocytes # (Auto) 1.0 1.0-4.8 K/uL Monocytes # (Auto) 0.6 0.1-1.0 K/uL Eosinophils # (Auto) 0.58 0.00-0.70 K/uL Basophils # (Auto) 0.07 0.00-0.20 K/uL Absolute Immature Granulocyte (auto 0.00 0-1 K/uL Nucleated Red Blood Cells 0.0 0.0-0.19 % Sodium Level 147 H 136-145 mmol/L Potassium Level 3.3 L 3.5-5.1 mmol/L Chloride Level 112 H 101-111 mmol/L Carbon Dioxide Level 26 21-32 mmol/L Blood Urea Nitrogen 17 7-18 mg/dL Creatinine 1.5 H 0.5-1.3 mg/dL Glomerular Filtration Rate Calc 45 >90 mL/min Random Glucose 91 70-105 mg/dL Hemoglobin A1c 4.8 4.0-6.0 % Estimated Average Glucose (eAG) 91 70-126 mg/dL Lactic Acid Level 2.0 0.8-2.5 mmol/L Total Calcium 8.1 L 8.5-10.1 mg/dL Phosphorus Level 3.0 2.5-4.9 mg/dL Magnesium Level 1.60 L 1.80-2.40 mg/dL Total Bilirubin 0.6 0.2-1.0 mg/dL Aspartate Amino Transf (AST/SGOT) 52 H 10-37 U/L Alanine Aminotransferase (ALT/SGPT) 15 12-78 U/L Alkaline Phosphatase 131 50-136 U/L Ammonia 52 #H 11-32 umol/L Lactate Dehydrogenase 316 H 81-234 U/L Total Protein 7.0 6.0-8.3 g/dL Albumin 2.2 L 3.5-5.0 g/dL Procalcitonin 0.07 0.05-0.5 ng/mL Thyroid Stimulating Hormone (TSH) 3.65 # 0.36-3.74 uIU/mL Urine Color COLORLESS YELLOW Urine Appearance CLEAR CLEAR Urine pH 7.5 5.0-8.0 Urine Specific [place] 1.005 1.001-1.031 Urine Protein 10 H NEGATIVE mg/dL Urine Glucose (UA) 200 H NEGATIVE mg/dL Urine Ketones NEGATIVE NEGATIVE mg/dL Urine Occult Blood NEGATIVE NEGATIVE Urine Nitrate NEGATIVE NEGATIVE Urine Bilirubin NEGATIVE NEGATIVE mg/dL Urine Urobilinogen 0.2 0.2-1.0 mg/dL Urine Leukocyte Esterase 25 H NEGATIVE Yobany/uL Urine RBC 0-1 0-1 /HPF Urine WBC 11-25 H 0-1 /HPF Urine Bacteria RARE None Seen /HPF Total Creatine Kinase 96 21-232 U/L Troponin I High Sensitivity 28.8 4-75 ng/L Lipase 17 16-77 U/L Current Medications Medications (Trade) Dose Ordered Sig/Lashonda Route PRN Reason Start Time Stop Time Status Last Admin Dose Admin Acetaminophen (TYLenol 325MG TAB) 650 mg Q6H PRN PO TEMPERATURE GREATER THAN 101.5 04/19/25 03:30 05/19/25 03:29 Apixaban (EliquIS) 5 mg BID PO 04/19/25 09:00 05/19/25 08:59 04/19/25 08:58 5 MG Dextrose 1,000 ml @ 75 mls/hr [id number] IV 04/19/25 08:30 05/19/25 08:29 04/19/25 09:00 75 MLS/HR Enoxaparin Sodium (Lovenox) 30 mg DAILY SQ 04/19/25 09:00 04/19/25 03:24 DC Famotidine (Pepcid 20mg Tab) 20 mg Q48H PO 04/19/25 09:00 05/19/25 08:59 04/19/25 08:58 20 MG Hydralazine HCl (APRESOLine 20MG INJ) 10 mg Q6H PRN IV For:SBP above 160;DBP above 90 04/19/25 03:30 05/19/25 03:29 04/19/25 11:25 10 MG Insulin Human Regular (humuLIN R 100 UNIT/ML 3ML) INSULIN SLIDING SCAL... ACHS SQ 04/19/25 07:30 05/19/25 07:29 Lactulose (Constulose 20gm/ 30ml Udcup) 20 gm BID PO 04/19/25 09:00 05/19/25 08:59 04/19/25 08:58 20 GM Magnesium Sulfate 50 ml @ 0 mls/hr PROTOCOL PRN IV MAGNESIUM PROTOCOL 04/19/25 08:30 05/19/25 08:29 04/19/25 11:15 50 MLS/HR Metoprolol Tartrate (loprESSOR) 5 mg Q5M PRN IV AFIB RVR HR > 120 BPM 04/19/25 03:30 Metoprolol Tartrate (loprESSOR) 12.5 mg BID PO 04/19/25 09:00 05/19/25 08:59 04/19/25 08:58 12.5 MG Morphine Sulfate (morPHINE 4MG SYG) 2 mg Q4H PRN IVP SEVERE PAIN (7-10) 04/19/25 03:30 04/26/25 03:29 Ondansetron HCl (zoFRAN 4MG INJ) 4 mg Q6H PRN IV NAUSEA/VOMITING 04/19/25 03:30 05/19/25 03:29 Pharmacy Profile Note (Pharmacy Communication) 1 each ONCE MISC 04/19/25 03:30 04/26/25 03:29 Potassium Chloride 100 ml @ 50 mls/hr AD PRN IV POTASSIUM PROTOCOL 04/19/25 08:30 05/19/25 08:29 Potassium Chloride 100 ml @ 100 mls/hr AD PRN IV POTASSIUM PROTOCOL 04/19/25 08:30 05/19/25 08:29 Potassium Chloride (K-Dur/Klor-Con 20meq) 20 meq AD PRN PO POTASSIUM PROTOCOL 04/19/25 08:30 05/19/25 08:29 Potassium Chloride (KCl 10% Elixir 20meq/15ml) 20 meq AD PRN PO POTASSIUM PROTOCOL 04/19/25 08:30 05/19/25 08:29 04/19/25 11:13 20 [facility]IOLOGY: [facility] [address] [place] [address] IMAGING REPORT Signed PATIENT: EKTA BRICEÑO MR#: [id number] : 1940 SEX: M AGE: 84 LOCATION: [facility] ORDER 5 STATUS: ADM IN REPORT#: [id number] SERVICE 4 REASON: increasing confusion ORDERING PHYSICIAN: GAGANDEEP MORTENSEN MD PROCEDURE: HEAD WO - CT HEAD/BRAIN W/O CONTRAST EXAM: Non-contrast CT examination of the Brain CLINICAL HISTORY: Increasing confusion. TECHNIQUE: Thin collimated axial CT images of the brain were obtained, with sagittal and coronal reformatted images also submitted. A CT scan is done according to ALARA (As Low as Reasonably Achievable). CONTRAST USED: None. COMPARISON: Prior CT brain dated December 31, 2024. FINDINGS: Mild age-related degenerative change with prominent sulci and basilar cisterns. Diffuse hypoattenuation in the deep periventricular white matter and yu radiata sequela of chronic microvascular ischemic change. No acute intracranial abnormality is present. No acute cortical infarction, hemorrhage, mass or mass effect. No hydrocephalus or abnormal extra-axial fluid collections. The posterior fossa is unremarkable. The skull base and calvarium are intact. Mild S-shaped deviation of the nasal septum. Minimal mucosal thickening along the floor of the bilateral maxillary sinuses. The remainder of the paranasal sinuses are clear. IMPRESSION: Age-related degenerative change. Changes of chronic microvascular ischemic disease. No acute intracranial abnormality. Early changes of stroke may not be detected on a CT scan. If strong clinical suspicion, then suggest MRI with diffusion-weighted imaging. Compared with the prior study, there is no significant change in the interval. /[place] DICTATED BY: JO ANN SAHNI Jr., MD DATE: 04/19/25424 ELECTRONICALLY SIGNED BY: JO ANN SAHNI Jr., MD DATE: 04/19/25424 ASSESSMENT: Hepatic encephalopathy, POA CKD stage IIIB, POA Left lower extremity anterior tibial wound, POA Dementia Atrial fibrillation CHF with LVEF 55-60% by 2D echo on 10/08/2024 Diabetes mellitius type2 Hypertension Liver parenchymal disease by CT on 03/17/2024] PLAN: Hepatic encephalopathy, POA: * Patient drowsy and confused when 1st admitted in the ED, ammonia levels around 108, now at 52 * Patient is started on lactulose 20 mg b.i.d. which has been increased to 20 mg t.i.d. * Patient head CT was negative * Patient much improved by afternoon, awake alert x3 CKD stage IIIB, POA : * Patient's creatinine at admission at 1.7, baseline unknown * Creatinine improved to 1.5 after hydrating NS Hypertension: * Patient's blood pressure high at 168/78 on admission going as high as 180/87 * Patient received hydralazine 10 mg IV * Patient on metoprolol tartrate 12.5 mg p.o. b.i.d. Diabetes mellitius type2: * Patient's blood glucose at 148 * Patient on insulin sliding scale GI prophylaxis, famotidine DVT prophylaxis, resume patient's DOAC, Eliquis as stated above ATTESTATION BY PHYSICIAN I have seen and examined the patient. I reviewed the documentation, medical decision making, and treatment plan as noted by the resident physician above. I agree with the findings and plan of care. Masood Abraham IV, MD, ABHINAV MD Apr 19, 2025 15:40
[2025-04-19 16:00] VITALS: BP 157/69; PULSE 65; RESP 12; TEMP 97.6
--- NOTE | 2025-04-19 18:50 | NUR ---
BEDSIDE SWALLOW EVAL COMPLETED. No s/s of aspiration. RECOMMEND: minced and moist solids, thin liquids and pills crushed with pureed as tolerated. COMPENSATORY STRATEGIES: 1. sit upright during oral intake 2. small bites/sips 3. slow oral intake 4. ORAL CARE AFTER MEALS CD STORAGE AND MATERIALS MAKE UP HELPER reviewed results and recommendations with patient and nurse Aldo. CD STORAGE AND MATERIALS MAKE UP HELPER educated patient on risks and consequences of aspiration. Speech therapy not warranted at this time. All questions answered. Addendum: 04/20/[address] ERIC LEE Amended: Links added.
[2025-04-19 19:41] VITALS: BP 172/80; PULSE 68; RESP 18; TEMP 97.8
--- NOTE | 2025-04-19 20:00 | NUR ---
Paged hospitalist concrete bucket loader to report 2nd degree block reported by telemetry, pending call back.
[2025-04-19 20:18] VITALS: O2SAT 99
--- NOTE | 2025-04-19 20:24 | NUR ---
Received call back from Rob Baez EXPRESSIVE ART THERAPIST made aware of 2nd degree block reported by telemetry that has been happening since patient arrived. New order given to consult cardiology and print strip.
--- NOTE | 2025-04-19 23:25 | NUR ---
Paged hospitalist recreation superintendent Rob CROW made aware patient has rash to chest and lower extremities, New order given for Benadryl 25mg PO x1 dose.
[2025-04-20] VITALS (9 sets, daily range): BP systolic 97–176; BP diastolic 44–95; PULSE 66–85; RESP 16–20; TEMP 97.6–98.4; O2SAT 98
--- NOTE | 2025-04-20 04:20 | NUR ---
BEHAVIOR PATIENT AGITATED AT THIS TIME TRYING TO PULL OFF HIS IV AND TRYING TO GET OUT OF BED SITTER IS AT BEDSIDE. WHEN ATTEMPTING TO REDIRECT PATIENT AND ASK HIM TO NOT PULL AT HIS IV HE BEGINS TO CRY OUT STATING, "IT'S MINE PLEASE DON'T TAKE WHAT IS MINE I'M GOING TO CRY PLEASE PLEASE DON'T TAKE WHAT IS MINE." PATIENT HAS ALSO REMOVED TELEMETRY LEADS AND WILL NOT ALLOW STAFF TO REPLACE THEM. BED IS LOCKED AND IN LOW POSITION SITTER REMAINS AT BEDSIDE.
[2025-04-20 05:32] LABS: IMMATURE GRANULOCYTE ABSOLUTE 0.01 K/uL (0-1); NUCLEATED RED BLOOD CELLS 0.0 % (0.0-0.19); PLATELET COUNT (AUTO) 181 K/uL (130-400); RED BLOOD CELL COUNT(AUTO) 3.54 MIL/uL (4.50-6.20); RED CELL DISTRIBUTION WIDTH 15.4 % (11.0-15.5); WHITE BLOOD COUNT (AUTO) 6.1 K/uL (4.8-10.8)
[2025-04-20 05:47] LABS: ASPARTATE AMINOTRANSFERASE 28.0 U/L (10-37); CREATININE 1.8 mg/dL (0.5-1.3); GLOMERULAR FILTR. RATE CALC 36.0 mL/min (>90); GLUCOSE,RANDOM 118.0 mg/dL (70-105); PHOSPHORUS 3.0 mg/dL (2.5-4.9); SODIUM SERUM 142.0 mmol/L (136-145); TOTAL PROTEIN, SERUM 7.2 g/dL (6.0-8.3); UREA NITROGEN, BLOOD 18.0 mg/dL (7-18)
--- NOTE | 2025-04-20 13:53 | EKG ---
[facility] Test Date: 2025-04-20 Test Time: 12:37:13 Pat Name: EKTA BRICEÑO Department: [facility] Room: 407 1 Gender: M Liner Inserter: Katina TRACEY : 1940 Requested By: DEMETRIUS PIERSON Order Number: [id number] Reading MD: Santana Rodriguez Measurements Intervals Cora Rate: 75 P: 29 [place]: 332 QRS: 23 QRSD: 52 T: 248 QT: 128 QTc: 192 Interpretive Statements Normal Sinus Rhythm Indeterminate axis Low voltage QRS Cannot rule out Anterior infarct , age undetermined Electronically Signed On 04-22-2025 09:22:32 REFERENCE AND INSTRUCTION LIBRARIAN by Santana Rodriguez Please click the below link to view image of tracing.
[2025-04-20] MEDS ORDERED: INDA2.5T5 PO ×2 (14:17)
--- NOTE | 2025-04-20 14:20 | NUR ---
CARDIOLOGY CONSULT: CALLED [facility] OFFICE [phone], NO ANSWER. LEFT A MESSAGE WITH CALLBACK NUMBER. CHARGE MADE AWARE.
--- NOTE | 2025-04-20 15:37 | PN ---
[facility] PROGRESS NOTE Date of Service: Apr 20, 2025 Time of Service: 15:36 SUBJECTIVE: Mr. Montgomery is an 84-year-old male that was seen and examined today on 04/19/2025. Patient is a poor historian and personal health. There was no family member at bedside. The following was obtained from a combination of emergency room physician report and previous medical records available to me f rom prior admissions lastly in January of 2025. According to emergency room physician: This is an 84-year-old male who was brought in to the emergency room by his daughter Christina for evaluation of worsening altered mental status over the past 2 days. Patient used to live in [facility] however patient's daughter indicated that she took him out of the a few weeks ago as he was more depressed and dwindling down. Since his discharge from the intermediate she has not been able to get any of his medications that were routinely given and he has been off of lactulose for more than 3 weeks. She did finally get the lactulose prescription and resumed it the past 2 days. He stated that he has been extremely sleepy and has very interrupted sleep. No fever chills or rigors. No nausea vomitings diarrhea. He does have a history of drinking alcohol 40 years ago when he was young. No history of any falls no fever chills or rigors. Temperature 98.9 pulse 105 respirations 20 blood pressure 189/96 with a pulse oximetry of 100% on room air Chronic medical problems include diabetes mellitus, hypertension, CKD, history of colitis, history of UTIs, congestive heart failure and dementia history of atrial fibrillation on Eliquis I obtained most of the information from the daughter and medical records Today in the emergency department creatinine 1.7, no urinalysis has been annelise ected and sent to lab, CT of head is pending radiology report, ammonia level is elevated at 108. Emergency room physician recommended patient be admitted with a diagnosis of hepatic encephalopathy. 04/19/2025: Patient is seen in room 407 with out family present. Patient is awake, alert x3, much better than when I saw him in the morning in the ED. Patient has no complaints at this time. His ammonium levels have improved to 52 from 108 on admission. Ordered a bedside swallow evaluation change the lactulose to 20 g p.o. t.i.d. also ordered an ultrasound with the AFP tumor marker for hepatocellular carcinoma screening. Patient also got magnesium 4 g IV. 04/20/2025: Patient is seen in room 407 with out family present. Patient's ammonia increased to 134 last night came back to within normal levels at 68 today. Abdominal ultrasound performed but no report yet. Patient's creatinine has increased to 1.8 from 1.5 yesterday. Case management spoke to the patient regarding placement post discharge, patient decided he wants to go home. Patient had a rash on his chest overnight which subsided after getting Benadryl. Per nursing staff the patient was active overnight fell asleep early in the morning. REVIEW OF SYSTEMS CONSTITUTIONAL: Denies fevers, chills, or night sweats. No unintentional weight loss reported. NEUROLOGICAL: Denies headache, motor weakness, sensory deficit, vertigo/spinning sensation, gait abnormalities, or tremors. ENT: No hearing loss, rhinitis, rhinorrhea, hoarseness, or sore throat. CARDIOVASCULAR: Denies any exertional angina, dyspnea on exertion, orthopnea, paroxysmal nocturnal dyspnea, palpitations PULMONARY: Denies any shortness of breath, cough, phlegm/sputum, hemoptysis, pleuritic chest pain. GASTROINTESTINAL: Denies any type of dysphagia to either liquids or solids. Denies nausea, vomiting, abdominal pain, diarrhea, constipation, or changes in stool consistency or caliber. GENITOURINARY: Denies frequency, urgency, nocturia, hematuria or incontinence. ENDOCRINOLOGIC: Denies polyuria, polydipsia, polyphagia or heat/cold intolerances. DERMATOLOGIC: Rash on the chest area overnight, now resolved PHYSICAL EXAM GENERAL APPEARANCE: The patient is awake, but a bit confused, in no acute cardiopulmonary distress. NEUROLOGICAL: No sensory deficits. HEENT: Face is symmetric. Pupils are equal and reactive. Extraocular movements are intact. NECK: Supple. No JVD. No thyromegaly. No lymphadenopathy. CHEST: Normal chest expansion. No Telemetry. LUNGS: Absence of any rales, rhonchi or any wheezing. CARDIOVASCULAR: Regular. S1 and S2 normal. No appreciable rubs, murmurs or gallops. ABDOMEN: Soft, nontender, and nondistended. There is no rebound, voluntary guarding, or rigidity. : Deferred. No Mcdermott. EXTREMITIES: Non-edematous and not cyanotic. Asterixis noted SKIN: No skin breakdown. Vital Signs (last 8hr) Date Time Temp Pulse Resp B/P (MAP) Pulse Ox O2 Delivery O2 Flow Rate FiO2 04/20/25 11:33 97.7 67 16 110/44 97 Room Air 04/20/25 09:14 97.5 85 16 176/95 98 Room Air LABS: Laboratory: Test 04/20/25 10:40 04/20/25 05:20 04/19/25 07:19 04/19/25 05:07 Range/Units Whole Blood Glucose 102 70-110 MG/DL White Blood Count 6.1 4.8-10.8 K/uL Red Blood Count 3.54 L 4.50-6.20 MIL/uL Hemoglobin 11.2 L 14.0-18.0 g/dL Hematocrit 33.2 L 42-54 % Mean Corpuscular Volume 93.8 79-99 fL Mean Corpuscular Hemoglobin 31.6 27.0-33.0 pg Mean Corpuscular Hemoglobin Concent 33.7 32.0-36.0 g/dL Red Cell Distribution Width 15.4 11.0-15.5 % Platelet Count 181 130-400 K/uL Mean Platelet Volume 10.1 7.5-10.5 fL Immature Granulocyte % (Auto) 0.2 0-1 % Neutrophils (%) (Auto) 66.6 40.0-77.0 % Lymphocytes (%) (Auto) 13.8 L 21.0-51.0 % Monocytes (%) (Auto) 8.9 3.0-13.0 % Eosinophils (%) (Auto) 9.5 H 0.0-8.0 % Basophils (%) (Auto) 1.0 0.0-5.0 % Neutrophils # (Auto) 4.1 1.8-7.7 K/uL Lymphocytes # (Auto) 0.8 L 1.0-4.8 K/uL Monocytes # (Auto) 0.5 0.1-1.0 K/uL Eosinophils # (Auto) 0.58 0.00-0.70 K/uL Basophils # (Auto) 0.06 0.00-0.20 K/uL Absolute Immature Granulocyte (auto 0.01 0-1 K/uL Nucleated Red Blood Cells 0.0 0.0-0.19 % Sodium Level 142 136-145 mmol/L Potassium Level 3.6 3.5-5.1 mmol/L Chloride Level 108 101-111 mmol/L Carbon Dioxide Level 21 21-32 mmol/L Blood Urea Nitrogen 18 7-18 mg/dL Creatinine 1.8 H 0.5-1.3 mg/dL Glomerular Filtration Rate Calc 36 >90 mL/min Random Glucose 118 H 70-105 mg/dL Total Calcium 8.3 L 8.5-10.1 mg/dL Phosphorus Level 3.0 2.5-4.9 mg/dL Magnesium Level 2.00 1.80-2.40 mg/dL Total Bilirubin 0.8 # 0.2-1.0 mg/dL Direct Bilirubin 0.3 0.0-0.3 mg/dL Aspartate Amino Transf (AST/SGOT) 28 10-37 U/L Alanine Aminotransferase (ALT/SGPT) 14 12-78 U/L Alkaline Phosphatase 124 50-136 U/L Ammonia 68 H 11-32 umol/L Total Protein 7.2 6.0-8.3 g/dL Albumin 2.3 L 3.5-5.0 g/dL Hemoglobin A1c 4.8 4.0-6.0 % Estimated Average Glucose (eAG) 91 70-126 mg/dL Lactic Acid Level 2.0 0.8-2.5 mmol/L Lactate Dehydrogenase 316 H 81-234 U/L Procalcitonin 0.07 0.05-0.5 ng/mL Thyroid Stimulating Hormone (TSH) 3.65 # 0.36-3.74 uIU/mL Urine Color COLORLESS YELLOW Urine Appearance CLEAR CLEAR Urine pH 7.5 5.0-8.0 Urine Specific [place] 1.005 1.001-1.031 Urine Protein 10 H NEGATIVE mg/dL Urine Glucose (UA) 200 H NEGATIVE mg/dL Urine Ketones NEGATIVE NEGATIVE mg/dL Urine Occult Blood NEGATIVE NEGATIVE Urine Nitrate NEGATIVE NEGATIVE Urine Bilirubin NEGATIVE NEGATIVE mg/dL Urine Urobilinogen 0.2 0.2-1.0 mg/dL Urine Leukocyte Esterase 25 H NEGATIVE Yobany/uL Urine RBC 0-1 0-1 /HPF Urine WBC 11-25 H 0-1 /HPF Urine Bacteria RARE None Seen /HPF Test 04/19/25 00:51 Range/Units Total Creatine Kinase 96 21-232 U/L Troponin I High Sensitivity 28.8 4-75 ng/L Lipase 17 16-77 U/L Current Medications Medications (Trade) Dose Ordered Sig/Lashonda Route PRN Reason Start Time Stop Time Status Last Admin Dose Admin Acetaminophen (TYLenol 325MG TAB) 650 mg Q6H PRN PO TEMPERATURE GREATER THAN 101.5 04/19/25 03:30 05/19/25 03:29 Apixaban (EliquIS 2.5 mg) 2.5 mg BID PO 04/20/25 09:00 05/20/25 08:59 04/20/25 09:10 2.5 MG Apixaban (EliquIS) 5 mg BID PO 04/19/25 09:00 04/20/25 08:22 DC 04/19/25 21:30 5 MG Clonidine HCl (CATApres 0.1 mg TAB) 0.1 mg HS PO 04/20/25 21:00 04/20/25 08:10 DC Dextrose 1,000 ml @ 75 mls/hr [id number] IV 04/19/25 08:30 04/20/25 13:23 DC 04/19/25 09:00 75 MLS/HR Donepezil HCl (ARIcept 5MG TAB) 10 mg HS PO 04/20/25 21:00 05/20/25 20:59 Enoxaparin Sodium (Lovenox) 30 mg DAILY SQ 04/19/25 09:00 04/19/25 03:24 DC Famotidine (Pepcid 20mg Tab) 20 mg Q48H PO 04/19/25 09:00 05/19/25 08:59 04/19/25 08:58 20 MG Hydralazine HCl (APRESOLine 20MG INJ) 10 mg Q6H PRN IV For:SBP above 160;DBP above 90 04/19/25 03:30 05/19/25 03:29 04/20/25 00:58 10 MG Insulin Human Regular (humuLIN R 100 UNIT/ML 3ML) INSULIN SLIDING SCAL... ACHS SQ 04/19/25 07:30 05/19/25 07:29 Lactulose (Constulose 20gm/ 30ml Udcup) 20 gm BID PO 04/19/25 09:00 04/19/25 15:19 DC 04/19/25 08:58 20 GM Lactulose (Constulose 20gm/ 30ml Udcup) 20 gm TID PO 04/19/25 15:30 05/19/25 08:59 04/20/25 14:31 20 GM Magnesium Sulfate 50 ml @ 0 mls/hr PROTOCOL PRN IV MAGNESIUM PROTOCOL 04/19/25 08:30 05/19/25 08:29 04/19/25 11:15 50 MLS/HR Metoprolol Tartrate (loprESSOR) 5 mg Q5M PRN IV AFIB RVR HR > 120 BPM 04/19/25 03:30 Metoprolol Tartrate (loprESSOR) 12.5 mg BID PO 04/19/25 09:00 05/19/25 08:59 04/20/25 09:11 12.5 MG Morphine Sulfate (morPHINE 4MG SYG) 2 mg Q4H PRN IVP SEVERE PAIN (7-10) 04/19/25 03:30 04/26/25 03:29 Nifedipine (adALAT 30MG) 60 mg BID PO 04/20/25 09:00 05/20/25 08:59 04/20/25 09:10 60 MG Ondansetron HCl (zoFRAN 4MG INJ) 4 mg Q6H PRN IV NAUSEA/VOMITING 04/19/25 03:30 05/19/25 03:29 Pharmacy Profile Note (Pharmacy Communication) 1 each ONCE MISC 04/19/25 03:30 04/20/25 08:24 DC Potassium Chloride 100 ml @ 50 mls/hr AD PRN IV POTASSIUM PROTOCOL 04/19/25 08:30 05/19/25 08:29 Potassium Chloride 100 ml @ 100 mls/hr AD PRN IV POTASSIUM PROTOCOL 04/19/25 08:30 05/19/25 08:29 Potassium Chloride (K-Dur/Klor-Con 20meq) 20 meq AD PRN PO POTASSIUM PROTOCOL 04/19/25 08:30 05/19/25 08:29 Potassium Chloride (KCl 10% Elixir 20meq/15ml) 20 meq AD PRN PO POTASSIUM PROTOCOL 04/19/25 08:30 05/19/25 08:29 04/19/25 11:13 20 MEQ DIAGNOSTICS / RADIOLOGY: [ ] ASSESSMENT: Hepatic encephalopathy, POA CKD stage IIIB, POA Left lower extremity anterior tibial wound, POA Dementia Atrial fibrillation CHF with LVEF 55-60% by 2D echo on 10/08/2024 Diabetes mellitius type2 Hypertension Liver parenchymal disease by CT on 03/17/2024] PLAN: Hepatic encephalopathy, POA: * Patient drowsy and confused when 1st admitted in the ED, ammonia levels now at 68 * Patient is started on lactulose 20 mg b.i.d. which has been increased to 20 mg t.i.d. * Patient head CT was negative CKD stage IIIB, POA : * Patient's creatinine at admission at 1.7, from previous records baseline looks like around 1.5-2.0 * Creatinine today at 1.8 Hypertension: * Patient's blood pressure high at 168/78 on admission going as high as 180/87 * Patient received hydralazine 10 mg IV * Patient on metoprolol tartrate 12.5 mg p.o. b.i.d. Diabetes mellitius type2: * Patient's blood glucose at 148 * Patient on insulin sliding scale GI prophylaxis, famotidine DVT prophylaxis, resume patient's DOAC, Eliquis as stated above ATTESTATION BY PHYSICIAN I have seen and examined the patient. I reviewed the documentation, medical decision making, and treatment plan as noted by the resident physician above. I agree with the findings and plan of care. Masood Abraham IV, MD, ABHINAV MD Apr 20, 2025 15:37
--- NOTE | 2025-04-21 02:03 | HMCIMG ---
RUQ Abdominal Ultrasound Clinical Indication: Hepatocellular carcinoma screening. Technique: Real-time grayscale ultrasound of the right upper quadrant was performed. The examination was limited due to patient inability to follow breathing instructions and overlying bowel gas. Comparison: CT 03/17/2024. Findings: Liver: The liver measures approximately 14.5 cm in craniocaudal dimension. Hepatic echotexture is diffusely coarse, compatible with chronic parenchymal disease. No focal hepatic mass is identified on the provided views. Evaluation is limited. Gallbladder: The gallbladder is partially visualized. The wall measures approximately 2 mm in thickness on limited views. No definite gallstones or pericholecystic fluid is identified. Biliary Tree: The common bile duct measures approximately 4 mm in diameter, within normal limits. No intrahepatic biliary ductal dilatation is seen. Pancreas: The pancreas is partially visualized due to overlying bowel gas. The visualized portions are grossly unremarkable. Right Kidney: The right kidney measures approximately 9.3 x 4.1 x 4.0 cm. Renal cortical echogenicity is increased, compatible with medical renal disease. A simple cyst measuring approximately 1.0 x 1.0 x 1.0 cm is noted. No hydronephrosis is identified. Additional Findings Evaluation is limited by increased intestinal air. Impression: 1. No sonographically visible focal hepatic lesion on this limited examination performed for hepatocellular carcinoma screening. Given the history of chronic liver disease and limited visualization, this corresponds to a negative screening ultrasound. Per ACR LI-RADS Ultrasound Surveillance recommendations, routine surveillance ultrasound is recommended in 6 months if the patient remains at risk. 2. Diffusely coarse hepatic echotexture, compatible with chronic liver disease. 3. Increased echogenicity of the right kidney, compatible with medical renal disease. 4. Small simple right renal cyst. Per ACR incidental renal mass guidelines, no imaging follow-up is required. 5. Limited examination due to patient cooperation and overlying bowel gas, which may decrease sensitivity for detection of small lesions. /Nicholas
[2025-04-21 04:00] VITALS: BP 156/75; PULSE 80; RESP 20; TEMP 98
[2025-04-21 06:54] LABS: NUCLEATED RED BLOOD CELLS 0.0 % (0.0-0.19); PLATELET COUNT (AUTO) 201.0 K/uL (130-400); RED BLOOD CELL COUNT(AUTO) 3.75 MIL/uL (4.50-6.20); RED CELL DISTRIBUTION WIDTH 16.0 % (11.0-15.5); WHITE BLOOD COUNT (AUTO) 6.9 K/uL (4.8-10.8)
[2025-04-21 07:12] LABS: ASPARTATE AMINOTRANSFERASE 38.0 U/L (10-37); CREATININE 2.2 mg/dL (0.5-1.3); GLOMERULAR FILTR. RATE CALC 28.0 mL/min (>90); GLUCOSE,RANDOM 98.0 mg/dL (70-105); PHOSPHORUS 3.6 mg/dL (2.5-4.9); SODIUM SERUM 144.0 mmol/L (136-145); TOTAL PROTEIN, SERUM 8.2 g/dL (6.0-8.3); UREA NITROGEN, BLOOD 26.0 mg/dL (7-18)
[2025-04-21 08:00] VITALS: O2SAT 100
[2025-04-21 08:06] VITALS: BP 151/74; PULSE 88; RESP 18; TEMP 98.1
--- NOTE | 2025-04-21 08:30 | NUR ---
REFUSAL FORM attempted to give pt medications crushed as ordered, daughter refused and asked for them to be given whole due to him refusing them in the past when crushed. she states he takes them whole at home with no problem. Education was provided on the risk of aspiration, refusal form was signed and placed in chart.
[2025-04-21 12:00] VITALS: BP 164/84; PULSE 78; RESP 18; TEMP 98.2
--- NOTE | 2025-04-21 12:44 | CONS ---
Cardiac Consult Note CONSULT NOTE DATE OF SERVICE: Apr 19, 2025 at 00:13 REFERRING PROVIDER: UMA WORTHY REASON FOR CONSULT: 2nd degree AV block HPI: Patient is an 84 year old male with past medical history of paroxysmal atrial fibrillation on Eliquis, congestive heart failure, hypertension, diabetes, CKD, dementia, chronic liver disease who was brought in by family member to the ER for altered mental status and confusion. He was previously staying at [facility], but his daughter took him out as he seemed more depressed living there. He now lives at home with his daughter who is his main caregiver, she is also giving most of the history today. Patient was out of his lactulose for about 2 weeks prior to this admission. He was found to have elevated ammonia level of 108, and patient was recommended admission for acute hepatic encephalopathy. Patient underwent CT of the head which was negative for acute findings, chronic changes noted. EKG upon admission showed sinus rhythm with 1st degree AVB, no acute ischemia. Labs in the ER revealed Hgb 10.7, Hct 32.4, WBC 6.2, Plt 182, soidum 143, potassium 3.6, creatinine 1.7, GFR 39, ammonia 108, troponin I 28. UA negative. Cardiology was consulted for possible second degree AVB noted on telemetry. Patient follows with outbound sales executive Dr. Rockwell in the outpatient setting. Daughter denies any history of CABG or coronary intervention. She states he was diagnosed with heart failure but does not recall EF and patient does not have defibrillator in place. He does have history of atrial fibrillation which he is on Eliquis for. This has been decreased to 2.5mg BID given patient's age, weight and kidney function. Patient has not complained of any chest pain or SOB. No dizziness or syncopal episode noted. Vital signs have been stable without severe bradycardia or tachycardia. Repeat labs show Hgb 11.7, Hct 36, plt 201, sodium 144, potassium 3.6, creatinine 2.2, BUN 26, ammonia 52. No smoking, alcohol consumption or illicit drug use. Surgical history includes umbilical hernia repair. ROS: Unable to obtain given patient's mental status, daughter provides most history PHYSICAL EXAMINATION: GENERAL: No acute distress. HEENT: Normocephalic, atraumatic. CARDIAC: Regular rate and rhythm, No murmurs. LUNGS: Clear to auscultation bilaterally. ABDOMEN: Bowel sounds present, soft, nontender. EXTREMITIES: No edema bilaterally, hyperpigmentation of lower legs NEUROLOGIC: Cranial nerves 2-12 grossly intact. PSYCHIATRIC: Calm. 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 He was found to have elevated ammonia levels due to not taking his lactulose for about [address] of the head was negative and patient's confusion persists. He does have dementia at baseline, but daughter relays a rather rapid change in his mental status prior to admission. When evaluated today, patient seems to be in no acute distress. He does have history of atrial fibrillation and is compliant with anticoagulation. I agree with continuing on reduced dose at 2.5mg BID given patient's age and weight. We have reviewed EKGs and telemetry strips and find that there is no clear 2nd degree AVB present. Patient seems to be maintaining sinus rhythm with a first degree AVB with a very prolonged OH interval. At this time, I do not believe further cardiac workup is indicated as I do not believe his symptoms are cardiac in origin. He has not complained of any dizziness, no syncopal episode noted. His daughter states that he does tell her when he is symptomatic. If confusion persists, consider neurology consult. At this time, no further recommendation from cardiology. Vital Signs 04/20/25 04/20/25 04/20/25 04/20/25 16:18 19:31 19:55 23:35 Temp 98.2 98.4 97.9 Pulse 66 82 80 Resp 16 20 20 B/P (MAP) 97/45 134/66 130/57 Pulse Ox 95 98 98 97 O2 Delivery Room Air Room Air Room Air* Room Air O2 Flow Rate 0 FiO2 21 04/21/25 04/21/25 04:00 08:06 Temp 98.1 98.1 Pulse 80 88 Resp 20 18 B/P (MAP) 156/75 151/74 Pulse Ox 99 100 O2 Delivery Room Air Room Air Laboratory Tests Test 04/20/25 16:11 04/20/25 19:59 04/21/25 05:17 04/21/25 06:47 Whole Blood Glucose 155 MG/DL (70-110) 123 MG/DL (70-110) 108 MG/DL (70-110) White Blood Count 6.9 K/uL (4.8-10.8) Red Blood Count 3.75 MIL/uL (4.50-6.20) Hemoglobin 11.7 g/dL (14.0-18.0) Hematocrit 36.0 % (42-54) Mean Corpuscular Volume 96.0 fL (79-99) Mean Corpuscular Hemoglobin 31.2 pg (27.0-33.0) Mean Corpuscular Hemoglobin Concent 32.5 g/dL (32.0-36.0) Red Cell Distribution Width 16.0 % (11.0-15.5) Platelet Count 201 K/uL (130-400) Mean Platelet Volume 9.2 fL (7.5-10.5) Nucleated Red Blood Cells 0.0 % (0.0-0.19) Sodium Level 144 mmol/L (136-145) Potassium Level 3.6 mmol/L (3.5-5.1) Chloride Level 109 mmol/L (101-111) Carbon Dioxide Level 23 mmol/L (21-32) Blood Urea Nitrogen 26 mg/dL (7-18) Creatinine 2.2 mg/dL (0.5-1.3) Glomerular Filtration Rate Calc 28 mL/min (>90) Random Glucose 98 mg/dL (70-105) Total Calcium 8.6 mg/dL (8.5-10.1) Phosphorus Level 3.6 mg/dL (2.5-4.9) Magnesium Level 2.00 mg/dL (1.80-2.40) Total Bilirubin 0.7 mg/dL (0.2-1.0) Direct Bilirubin 0.2 mg/dL (0.0-0.3) Aspartate Amino Transf (AST/SGOT) 38 U/L (10-37) Alanine Aminotransferase (ALT/SGPT) 17 U/L (12-78) Alkaline Phosphatase 135 U/L (50-136) Total Protein 8.2 g/dL (6.0-8.3) Albumin 2.7 g/dL (3.5-5.0) Current Medications Medications Dose Ordered Sig/Lashonda Route PRN Reason Start Time Stop Time Status Last Admin Sodium Chloride 1,000 ml @ 125 mls/hr ONCE ONCE IV 04/19/25 00:30 04/19/25 08:23 DC 04/19/25 01:32 Acetaminophen 650 mg ONCE ONCE PO 04/19/25 01:30 04/19/25 01:31 DC 04/19/25 01:33 Metoprolol Tartrate 12.5 mg BID PO 04/19/25 09:00 05/19/25 08:59 04/21/25 08:31 Pharmacy Profile Note 1 each ONCE MISC 04/19/25 03:30 04/20/25 08:24 DC Insulin Human Regular INSULIN SLIDING SCAL... ACHS SQ 04/19/25 07:30 05/19/25 07:29 Enoxaparin Sodium 30 mg DAILY SQ 04/19/25 09:00 04/19/25 03:24 DC Famotidine 20 mg Q48H PO 04/19/25 09:00 05/19/25 08:59 04/21/25 08:30 Lactulose 20 gm BID PO 04/19/25 09:00 04/19/25 15:19 DC 04/19/25 08:58 Apixaban 5 mg BID PO 04/19/25 09:00 04/20/25 08:22 [place] 04/19/25 21:30 Dextrose 1,000 ml @ 75 mls/hr [id number] IV 04/19/25 08:30 04/20/25 13:23 DC 04/19/25 09:00 Magnesium Sulfate 4 gm AD ONCE IV 04/19/25 11:00 04/19/25 11:01 DC Lactulose 20 gm TID PO 04/19/25 15:30 05/19/25 08:59 04/21/25 08:30 Diphenhydramine HCl 25 mg ONCE ONCE PO 04/19/25 23:30 04/19/25 23:31 DC 04/19/25 23:38 Clonidine HCl 0.1 mg HS PO 04/20/25 21:00 04/20/25 08:10 DC Donepezil HCl 10 mg HS PO 04/20/25 21:00 05/20/25 20:59 04/20/25 19:59 Nifedipine 60 mg BID PO 04/20/25 09:00 04/20/25 18:51 DC 04/20/25 09:10 Apixaban 2.5 mg BID PO 04/20/25 09:00 05/20/25 08:59 04/21/25 08:33 Nifedipine 60 mg DAILY PO 04/21/25 09:00 05/20/25 08:59 04/21/25 08:32 Olanzapine 5 mg ONCE ONCE IM 04/21/25 03:00 04/21/25 03:01 DC 04/21/25 03:03 Reported Medications Indapamide (Indapamide) 2.5 Mg Tablet, 2.5 MG PO DAILY, TAB 04/20/25 Dapagliflozin Propanediol (Farxiga) 10 Mg Tablet, 1 TAB PO DAILY for 30 Days, #30 TAB 0 Refills 04/19/25 [cholecalciferol d3] No Conflict Check, 1 TAB PO DAILY 01/08/25 Pantoprazole Sodium (Protonix) 40 Mg Tablet.dr, 1 TAB PO BID for 30 Days, #30 TAB 0 Refills 01/08/25 Ondansetron HCl (Ondansetron HCl) 4 Mg Tablet, 1 TAB PO Q6HPRN PRN for nausea/vomiting, #10 TAB 0 Refills 01/08/25 Nifedipine (Nifedipine ER) 60 Mg Tab.er.24, 1 TAB PO BID for 30 Days, #30 TAB 0 Refills 01/08/25 Multivitamins,Therapeutic (Multivitamin Tablet) 400 Mcg Tab, 1 TAB PO DAILY for 30 Days, #30 TAB 0 Refills 01/08/25 Loperamide HCl (Loperamide) 2 Mg Tablet, 1 TAB PO Q6HPRN PRN for diarrhea for 30 Days, #180 TAB 0 Refills 01/08/25 [lactulose] No Conflict Check, 20 GM PO BID 01/08/25 Tamsulosin HCl (Flomax) 0.4 Mg Cap.er.24h, 1 CAP PO HS for 30 Days, #30 CAP 0 Refills 01/08/25 Ferrous Sulfate (Ferrous Sulfate) 325 Mg (65 Mg Iron) Ectab, 1 TAB PO DAILY for 30 Days, #60 TAB 0 Refills 01/08/25 Docusate Sodium (Docusate Sodium) 100 Mg Capsule, 1 CAP PO BID for constipation for 7 Days, #14 CAP 0 Refills 01/08/25 Clonidine HCl (Clonidine HCl) 0.1 Mg Tablet, 1 TAB PO HS for 30 Days, #30 TAB 0 Refills 01/08/25 Donepezil HCl (Aricept) 10 Mg Tablet, 1 TAB PO HS for 30 Days, #30 TAB 0 Refills 01/08/25 Acetaminophen (Acetaminophen) 325 Mg Tablet, 2 TAB PO Q4HPRN PRN for pain or fever for 30 Days, #30 TAB 0 Refills 01/08/25 Apixaban (Eliquis) 2.5 Mg Tablet, 2.5 MG PO BID, TAB 07/27/24 Discontinued Reported Medications Indapamide (Indapamide) 2.5 Mg Tablet, 2.5 MG PO DAILY, TAB 04/20/25 Melatonin (Melatonin) 5 Mg Tab.rapdis, 1 TAB PO HS for sleep for 30 Days, #30 TAB 0 Refills 01/08/25 Dapagliflozin Propanediol (Farxiga) 10 Mg Tablet, 1 TAB PO DAILY for 30 Days, #30 TAB 0 Refills 01/08/25 MATHEUS TORRES Apr 21, 2025 12:44
[2025-04-21 14:00] VITALS: BP 172/82; PULSE 76; RESP 17; TEMP 98
[2025-04-21] MEDS ORDERED: RIFAXIMIN 550 MG TABLET PO SCH (14:30)
--- NOTE | 2025-04-21 17:55 | PN ---
[facility] PROGRESS NOTE Date of Service: Apr 21, 2025 Time of Service: 17:55 SUBJECTIVE: Mr. Briceño is an 84-year-old male that was seen and examined today on 04/19/2025. Patient is a poor historian and personal health. There was no family member at bedside. The following was obtained from a combination of emergency room physician report and previous medical records available to me f rom prior admissions lastly in January of 2025. According to emergency room physician: This is an 84-year-old male who was brought in to the emergency room by his daughter Christina for evaluation of worsening altered mental status over the past 2 days. Patient used to live in [facility] however patient's daughter indicated that she took him out of the a few weeks ago as he was more depressed and dwindling down. Since his discharge from the care home she has not been able to get any of his medications that were routinely given and he has been off of lactulose for more than 3 weeks. She did finally get the lactulose prescription and resumed it the past 2 days. He stated that he has been extremely sleepy and has very interrupted sleep. No fever chills or rigors. No nausea vomitings diarrhea. He does have a history of drinking alcohol 40 years ago when he was young. No history of any falls no fever chills or rigors. Temperature 98.9 pulse 105 respirations 20 blood pressure 189/96 with a pulse oximetry of 100% on room air Chronic medical problems include diabetes mellitus, hypertension, CKD, history of colitis, history of UTIs, congestive heart failure and dementia history of atrial fibrillation on Eliquis I obtained most of the information from the daughter and medical records Today in the emergency department creatinine 1.7, no urinalysis has been annelise ected and sent to lab, CT of head is pending radiology report, ammonia level is elevated at 108. Emergency room physician recommended patient be admitted with a diagnosis of hepatic encephalopathy. 04/19/2025: Patient is seen in room 407 with out family present. Patient is awake, alert x3, much better than when I saw him in the morning in the ED. Patient has no complaints at this time. His ammonium levels have improved to 52 from 108 on admission. Ordered a bedside swallow evaluation change the lactulose to 20 g p.o. t.i.d. also ordered an ultrasound with the AFP tumor marker for hepatocellular carcinoma screening. Patient also got magnesium 4 g IV. 04/20/2025: Patient is seen in room 407 with out family present. Patient's ammonia increased to 134 last night came back to within normal levels at 68 today. Abdominal ultrasound performed but no report yet. Patient's creatinine has increased to 1.8 from 1.5 yesterday. Case management spoke to the patient regarding placement post discharge, patient decided he wants to go home. Patient had a rash on his chest overnight which subsided after getting Benadryl. Per nursing staff the patient was active overnight fell asleep early in the morning. 04/21/2025: Patient is seen in room 407 with family present. Patient's abdominal ultrasound did not show any signs of a hepatocellular carcinoma but recommended imaging every [address] of the head was negative, ammonia levels much improved and patient's confusion persists. He does have dementia at baseline, but daughter relays a rather rapid change in his mental status prior to admission. So we ordered a MRI to rule out stroke. We also started the patient on rifaximin 550 mg b.i.d. Patient's creatinine has also increased to 2.2 From 1.8 But per previous records his creatinine fluctuates between 1.8 To 2.5. We will keep an eye on his kidney function. Patient's blood pressure did go high in the evening but he got a dose of hydralazine 10 mg IV which seemed to bring the blood pressure back within normal limits. Patient seen by cardiology today regarding his second-degree heart block. Per Cardiology the patient does have a history of atrial fibrillation and is compliant with anticoagulation and upon reviewing of the patient's EKG and telemetry strips cardiology found that there is no clear second-degree AVB present and at this time they do not believe further cardiac workup is indicated as they think the symptoms are not cardiac in origin. REVIEW OF SYSTEMS Review of systems could not be obtained because of altered mental status PHYSICAL EXAM GENERAL APPEARANCE: The patient is awake, but a bit confused, in no acute cardiopulmonary distress. NEUROLOGICAL: No sensory deficits. HEENT: Face is symmetric. Pupils are equal and reactive. Extraocular movements are intact. NECK: Supple. No JVD. No thyromegaly. No lymphadenopathy. CHEST: Normal chest expansion. No Telemetry. LUNGS: Absence of any rales, rhonchi or any wheezing. CARDIOVASCULAR: Regular. S1 and S2 normal. No appreciable rubs, murmurs or gallops. ABDOMEN: Soft, nontender, and nondistended. There is no rebound, voluntary guarding, or rigidity. : Deferred. No Mcdermott. EXTREMITIES: Non-edematous and not cyanotic. Asterixis noted SKIN: No skin breakdown. Vital Signs (last 8hr) Date Time Temp Pulse Resp B/P (MAP) Pulse Ox O2 Delivery O2 Flow Rate FiO2 04/21/25 16:22 76 172/82 04/21/25 14:00 98.1 76 17 172/82 94 Room Air 04/21/25 12:00 98.2 78 18 164/84 100 Room Air LABS: Laboratory: Test 04/21/25 15:48 04/21/25 06:47 04/20/25 05:20 Range/Units Whole Blood Glucose 105 70-110 MG/DL White Blood Count 6.9 4.8-10.8 K/uL Red Blood Count 3.75 L 4.50-6.20 MIL/uL Hemoglobin 11.7 L 14.0-18.0 g/dL Hematocrit 36.0 L 42-54 % Mean Corpuscular Volume 96.0 79-99 fL Mean Corpuscular Hemoglobin 31.2 27.0-33.0 pg Mean Corpuscular Hemoglobin Concent 32.5 32.0-36.0 g/dL Red Cell Distribution Width 16.0 H 11.0-15.5 % Platelet Count 201 130-400 K/uL Mean Platelet Volume 9.2 7.5-10.5 fL Nucleated Red Blood Cells 0.0 0.0-0.19 % Sodium Level 144 136-145 mmol/L Potassium Level 3.6 3.5-5.1 mmol/L Chloride Level 109 101-111 mmol/L Carbon Dioxide Level 23 21-32 mmol/L Blood Urea Nitrogen 26 H 7-18 mg/dL Creatinine 2.2 H 0.5-1.3 mg/dL Glomerular Filtration Rate Calc 28 >90 mL/min Random Glucose 98 70-105 mg/dL Total Calcium 8.6 8.5-10.1 mg/dL Phosphorus Level 3.6 2.5-4.9 mg/dL Magnesium Level 2.00 1.80-2.40 mg/dL Total Bilirubin 0.7 0.2-1.0 mg/dL Direct Bilirubin 0.2 0.0-0.3 mg/dL Aspartate Amino Transf (AST/SGOT) 38 H 10-37 U/L Alanine Aminotransferase (ALT/SGPT) 17 12-78 U/L Alkaline Phosphatase 135 50-136 U/L Total Protein 8.2 6.0-8.3 g/dL Albumin 2.7 L 3.5-5.0 g/dL Immature Granulocyte % (Auto) 0.2 0-1 % Neutrophils (%) (Auto) 66.6 40.0-77.0 % Lymphocytes (%) (Auto) 13.8 L 21.0-51.0 % Monocytes (%) (Auto) 8.9 3.0-13.0 % Eosinophils (%) (Auto) 9.5 H 0.0-8.0 % Basophils (%) (Auto) 1.0 0.0-5.0 % Neutrophils # (Auto) 4.1 1.8-7.7 K/uL Lymphocytes # (Auto) 0.8 L 1.0-4.8 K/uL Monocytes # (Auto) 0.5 0.1-1.0 K/uL Eosinophils # (Auto) 0.58 0.00-0.70 K/uL Basophils # (Auto) 0.06 0.00-0.20 K/uL Absolute Immature Granulocyte (auto 0.01 0-1 K/uL Ammonia 68 H 11-32 umol/L Tumor Marker Alpha Fetoprotein 1.9 0.0-6.4 ng/mL Current Medications Medications (Trade) Dose Ordered Sig/Lashonda Route PRN Reason Start Time Stop Time Status Last Admin Dose Admin Acetaminophen (TYLenol 325MG TAB) 650 mg Q6H PRN PO TEMPERATURE GREATER THAN 101.5 04/19/25 03:30 05/19/25 03:29 Apixaban (EliquIS 2.5 mg) 2.5 mg BID PO 04/20/25 09:00 05/20/25 08:59 04/21/25 08:33 2.5 MG Apixaban (EliquIS) 5 mg BID PO 04/19/25 09:00 04/20/25 08:22 DC 04/19/25 21:30 5 MG Clonidine HCl (CATApres 0.1 mg TAB) 0.1 mg HS PO 04/20/25 21:00 04/20/25 08:10 DC Dextrose 1,000 ml @ 75 mls/hr [id number] IV 04/19/25 08:30 04/20/25 13:23 DC 04/19/25 09:00 75 MLS/HR Donepezil HCl (ARIcept 5MG TAB) 10 mg HS PO 04/20/25 21:00 05/20/25 20:59 04/20/25 19:59 10 MG Enoxaparin Sodium (Lovenox) 30 mg DAILY SQ 04/19/25 09:00 04/19/25 03:24 DC Famotidine (Pepcid 20mg Tab) 20 mg Q48H PO 04/19/25 09:00 05/19/25 08:59 04/21/25 08:30 20 MG Hydralazine HCl (APRESOLine 20MG INJ) 10 mg Q6H PRN IV For:SBP above 160;DBP above 90 04/19/25 03:30 05/19/25 03:29 04/21/25 16:22 10 MG Insulin Human Regular (humuLIN R 100 UNIT/ML 3ML) INSULIN SLIDING SCAL... ACHS SQ 04/19/25 07:30 05/19/25 07:29 Lactulose (Constulose 20gm/ 30ml Udcup) 20 gm BID PO 04/19/25 09:00 04/19/25 15:19 DC 04/19/25 08:58 20 GM Lactulose (Constulose 20gm/ 30ml Udcup) 20 gm TID PO 04/19/25 15:30 05/19/25 08:59 04/21/25 13:26 20 GM Magnesium Sulfate 50 ml @ 0 mls/hr PROTOCOL PRN IV MAGNESIUM PROTOCOL 04/19/25 08:30 05/19/25 08:29 04/19/25 11:15 50 MLS/HR Metoprolol Tartrate (loprESSOR) 5 mg Q5M PRN IV AFIB RVR HR > 120 BPM 04/19/25 03:30 Metoprolol Tartrate (loprESSOR) 12.5 mg BID PO 04/19/25 09:00 05/19/25 08:59 04/21/25 08:31 12.5 MG Morphine Sulfate (morPHINE 4MG SYG) 2 mg Q4H PRN IVP SEVERE PAIN (7-10) 04/19/25 03:30 04/26/25 03:29 Nifedipine (adALAT 30MG) 60 mg BID PO 04/20/25 09:00 04/20/25 18:51 DC 04/20/25 09:10 60 MG Nifedipine (adALAT 30MG) 60 mg DAILY PO 04/21/25 09:00 05/20/25 08:59 04/21/25 08:32 60 MG Ondansetron HCl (zoFRAN 4MG INJ) 4 mg Q6H PRN IV NAUSEA/VOMITING 04/19/25 03:30 05/19/25 03:29 Pharmacy Profile Note (Pharmacy Communication) 1 each ONCE MISC 04/19/25 03:30 04/20/25 08:24 DC Potassium Chloride 100 ml @ 50 mls/hr AD PRN IV POTASSIUM PROTOCOL 04/19/25 08:30 05/19/25 08:29 Potassium Chloride 100 ml @ 100 mls/hr AD PRN IV POTASSIUM PROTOCOL 04/19/25 08:30 05/19/25 08:29 Potassium Chloride (K-Dur/Klor-Con 20meq) 20 meq AD PRN PO POTASSIUM PROTOCOL 04/19/25 08:30 05/19/25 08:29 Potassium Chloride (KCl 10% Elixir 20meq/15ml) 20 meq AD PRN PO POTASSIUM PROTOCOL 04/19/25 08:30 05/19/25 08:29 04/21/25 13:26 20 MEQ Rifaximin (Xifaxan) 550 mg BID PO 04/21/25 14:30 04/21/25 14:19 DC Rifaximin (Xifaxan) 550 mg BID PO 04/21/25 21:00 05/21/25 20:59 DIAGNOSTICS / RADIOLOGY: [facility] [address] [place] [address] IMAGING REPORT Signed PATIENT: EKTA BRICEÑO MR#: [id number] : 1940 SEX: M AGE: 84 LOCATION: 4BH ORDER 58 STATUS: ADM IN REPORT#: [id number] SERVICE 57 REASON: Hepatocellular carcinoma screening ORDERING PHYSICIAN: CAROLYN RANKIN MD PROCEDURE: [id number] - US ABDOMINAL RUQ\LTD RUQ Abdominal Ultrasound Clinical Indication: Hepatocellular carcinoma screening. Technique: Real-time grayscale ultrasound of the right upper quadrant was performed. The examination was limited due to patient inability to follow breathing instructions and overlying bowel gas. Comparison: CT 03/17/2024. Findings: Liver: The liver measures approximately 14.5 cm in craniocaudal dimension. Hepatic echotexture is diffusely coarse, compatible with chronic parenchymal disease. No focal hepatic mass is identified on the provided views. Evaluation is limited. Gallbladder: The gallbladder is partially visualized. The wall measures approximately 2 mm in thickness on limited views. No definite gallstones or pericholecystic fluid is identified. Biliary Tree: The common bile duct measures approximately 4 mm in diameter, within normal limits. No intrahepatic biliary ductal dilatation is seen. Pancreas: The pancreas is partially visualized due to overlying bowel gas. The visualized portions are grossly unremarkable. Right Kidney: The right kidney measures approximately 9.3 x 4.1 x 4.0 cm. Renal cortical echogenicity is increased, compatible with medical renal disease. A simple cyst measuring approximately 1.0 x 1.0 x 1.0 cm is noted. No hydronephrosis is identified. Additional Findings Evaluation is limited by increased intestinal air. Impression: 1. No sonographically visible focal hepatic lesion on this limited examination performed for hepatocellular carcinoma screening. Given the history of chronic liver disease and limited visualization, this corresponds to a negative screening ultrasound. Per ACR LI-RADS Ultrasound Surveillance recommendations, routine surveillance ultrasound is recommended in 6 months if the patient remains at risk. 2. Diffusely coarse hepatic echotexture, compatible with chronic liver disease. 3. Increased echogenicity of the right kidney, compatible with medical renal disease. 4. Small simple right renal cyst. Per ACR incidental renal mass guidelines, no imaging follow-up is required. 5. Limited examination due to patient cooperation and overlying bowel gas, which may decrease sensitivity for detection of small lesions. /[place] DICTATED BY: SARITA GRESHAM MD DATE: 04/21/25301 ELECTRONICALLY SIGNED BY: SARITA GRESHAM MD DATE: 12/13/25 0302 ASSESSMENT: Hepatic encephalopathy, POA CKD stage IIIB, POA Left lower extremity anterior tibial wound, POA Dementia Atrial fibrillation CHF with LVEF 55-60% by 2D echo on 10/08/2024 Diabetes mellitius type2 Hypertension Liver parenchymal disease by CT on 03/17/2024] PLAN: Hepatic encephalopathy, POA: * Patient drowsy and confused when 1st admitted in the ED, ammonia levels now at 68 * Patient is started on lactulose 20 mg b.i.d. which has been increased to 20 mg t.i.d. * Patient head CT was negative * MRI has been ordered CKD stage IIIB, POA : * Patient's creatinine at admission at 1.7, from previous records baseline looks like around 1.5-2.0 * Creatinine today at 1.8 Hypertension: * Patient's blood pressure high at 168/78 on admission going as high as 180/87 * Patient received hydralazine 10 mg IV * Patient on metoprolol tartrate 12.5 mg p.o. b.i.d. Diabetes mellitius type2: * Patient's blood glucose at 148 * Patient on insulin sliding scale GI prophylaxis, famotidine DVT prophylaxis, resume patient's DOAC, Eliquis as stated above ATTESTATION BY PHYSICIAN I have seen and examined the patient. I reviewed the documentation, medical decision making, and treatment plan as noted by the resident physician above. I agree with the findings and plan of care. Masood Abraham IV, MD, ABHINAV MD Apr 21, 2025 17:55
[2025-04-21 20:00] VITALS: BP 114/47; PULSE 88; RESP 18; TEMP 97.6
[2025-04-21] MEDS: RIFAXIMIN 550 MG TABLET PO SCH (21:14)
[2025-04-22] VITALS (12 sets, daily range): BP systolic 108–181; BP diastolic 59–84; PULSE 90–114; RESP 16–21; TEMP 97.4–103.1; O2SAT 95–98
[2025-04-22 03:41] LABS: NUCLEATED RED BLOOD CELLS 0.0 % (0.0-0.19); PLATELET COUNT (AUTO) 177.0 K/uL (130-400); RED BLOOD CELL COUNT(AUTO) 3.35 MIL/uL (4.50-6.20); RED CELL DISTRIBUTION WIDTH 16.3 % (11.0-15.5); WHITE BLOOD COUNT (AUTO) 10.0 K/uL (4.8-10.8)
[2025-04-22 04:08] LABS: ASPARTATE AMINOTRANSFERASE 30.0 U/L (10-37); CREATININE 2.1 mg/dL (0.5-1.3); GLOMERULAR FILTR. RATE CALC 30.0 mL/min (>90); GLUCOSE,RANDOM 88.0 mg/dL (70-105); SODIUM SERUM 145.0 mmol/L (136-145); TOTAL PROTEIN, SERUM 7.2 g/dL (6.0-8.3); UREA NITROGEN, BLOOD 28.0 mg/dL (7-18)
--- NOTE | 2025-04-22 10:41 | PN ---
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 Blood pressure slightly elevated. Heart rate adequately controlled. REVIEW OF SYSTEMS: No fever, headache, chest pain, abdominal pain, nausea, vomiting, or diarrhea. VITAL SIGNS Vital Signs Date Time Temp Pulse Resp B/P (MAP) Pulse Ox O2 Delivery O2 Flow Rate FiO2 04/22/25 07:10 98.2 93 16 158/62 98 Room Air 04/21/25 20:00 0 21 Laboratory Tests 04/22/25 03:20 LABS/MEDS Laboratory Tests Test 04/21/25 15:48 04/21/25 19:24 04/22/25 03:20 04/22/25 05:06 Whole Blood Glucose 105 MG/DL (70-110) 122 MG/DL (70-110) H 83 MG/DL (70-110) White Blood Count 10.0 K/uL (4.8-10.8) # Red Blood Count 3.35 MIL/uL (4.50-6.20) L Hemoglobin 10.8 g/dL (14.0-18.0) L Hematocrit 32.0 % (42-54) L Mean Corpuscular Volume 95.5 fL (79-99) Mean Corpuscular Hemoglobin 32.2 pg (27.0-33.0) Mean Corpuscular Hemoglobin Concent 33.8 g/dL (32.0-36.0) Red Cell Distribution Width 16.3 % (11.0-15.5) H Platelet Count 177 K/uL (130-400) Mean Platelet Volume 9.1 fL (7.5-10.5) Nucleated Red Blood Cells 0.0 % (0.0-0.19) Sodium Level 145 mmol/L (136-145) Potassium Level 3.8 mmol/L (3.5-5.1) Chloride Level 113 mmol/L (101-111) H Carbon Dioxide Level 22 mmol/L (21-32) Blood Urea Nitrogen 28 mg/dL (7-18) H Creatinine 2.1 mg/dL (0.5-1.3) H Glomerular Filtration Rate Calc 30 mL/min (>90) Random Glucose 88 mg/dL (70-105) Total Calcium 8.3 mg/dL (8.5-10.1) L Total Bilirubin 0.8 mg/dL (0.2-1.0) Direct Bilirubin 0.3 mg/dL (0.0-0.3) # Aspartate Amino Transf (AST/SGOT) 30 U/L (10-37) Alanine Aminotransferase (ALT/SGPT) 13 U/L (12-78) # Alkaline Phosphatase 111 U/L (50-136) Total Protein 7.2 g/dL (6.0-8.3) Albumin 2.3 g/dL (3.5-5.0) L Current Medications Sodium Chloride 1,000 ml @ 125 mls/hr ONCE ONCE IV Last administered on 04/19/25at 01:32; Start 04/19/25 at 00:30; Stop 04/19/25 at 08:23; Status DC Acetaminophen 650 mg ONCE ONCE PO Last administered on 04/19/25at 01:33; Start 04/19/25 at 01:30; Stop 04/19/25 at 01:31; Status DC Acetaminophen 650 mg Q6H PRN PO; Start 04/19/25 at 03:30; Stop 05/19/25 at 03:29 Metoprolol Tartrate 12.5 mg BID PO Last administered on 04/21/25at 08:31; Start 04/19/25 at 09:00; Stop 05/19/25 at 08:59 Pharmacy Profile Note 1 each ONCE MISC; Start 04/19/25 at 03:30; Stop 04/20/25 at 08:24; Status DC Insulin Human Regular INSULIN SLIDING SCAL... ACHS SQ; Start 04/19/25 at 07:30; Stop 05/19/25 at 07:29 Enoxaparin Sodium 30 mg DAILY SQ; Start 04/19/25 at 09:00; Stop 04/19/25 at 03:24; Status DC Famotidine 20 mg Q48H PO Last administered on 04/21/25at 08:30; Start 04/19/25 at 09:00; Stop 05/19/25 at 08:59 Hydralazine HCl 10 mg Q6H PRN IV Last administered on 04/21/25at 16:22; Start 04/19/25 at 03:30; Stop 05/19/25 at 03:29 Lactulose 20 gm BID PO Last administered on 04/19/25at 08:58; Start 04/19/25 at 09:00; Stop 04/19/25 at 15:19; Status DC Morphine Sulfate 2 mg Q4H PRN IVP; Start 04/19/25 at 03:30; Stop 04/26/25 at 03:29 Ondansetron HCl 4 mg Q6H PRN IV; Start 04/19/25 at 03:30; Stop 05/19/25 at 03:29 Apixaban 5 mg BID PO Last administered on 04/19/25at 21:30; Start 04/19/25 at 09:00; Stop 04/20/25 at 08:22; Status DC Metoprolol Tartrate 5 mg Q5M PRN IV; Start 04/19/25 at 03:30 Potassium Chloride 100 ml @ 100 mls/hr AD PRN IV; Start 04/19/25 at 08:30; Stop 05/19/25 at 08:29 Potassium Chloride 20 meq AD PRN PO Last administered on 04/21/25at 13:26; Start 04/19/25 at 08:30; Stop 05/19/25 at 08:29 Potassium Chloride 20 meq AD PRN PO; Start 04/19/25 at 08:30; Stop 05/19/25 at 08:29 Potassium Chloride 100 ml @ 50 mls/hr AD PRN IV; Start 04/19/25 at 08:30; Stop 05/19/25 at 08:29 Magnesium Sulfate 50 ml @ 0 mls/hr PROTOCOL PRN IV Last administered on 04/19/25at 11:15; Start 04/19/25 at 08:30; Stop 05/19/25 at 08:29 Dextrose 1,000 ml @ 75 mls/hr [id number] IV Last administered on 04/19/25at 09:00; Start 04/19/25 at 08:30; Stop 04/20/25 at 13:23; Status DC Magnesium Sulfate 4 gm AD ONCE IV; Start 04/19/25 at 11:00; Stop 04/19/25 at 11:01; Status DC Lactulose 20 gm TID PO Last administered on 04/21/25at 21:14; Start 04/19/25 at 15:30; Stop 05/19/25 at 08:59 Diphenhydramine HCl 25 mg ONCE ONCE PO Last administered on 04/19/25at 23:38; Start 04/19/25 at 23:30; Stop 04/19/25 at 23:31; Status DC Clonidine HCl 0.1 mg HS PO; Start 04/20/25 at 21:00; Stop 04/20/25 at 08:10; Status DC Donepezil HCl 10 mg HS PO Last administered on 04/21/25at 21:14; Start 04/20/25 at 21:00; Stop 05/20/25 at 20:59 Nifedipine 60 mg BID PO Last administered on 04/20/25at 09:10; Start 04/20/25 at 09:00; Stop 04/20/25 at 18:51; Status DC Apixaban 2.5 mg BID PO Last administered on 04/21/25at 21:14; Start 04/20/25 at 09:00; Stop 05/20/25 at 08:59 Nifedipine 60 mg DAILY PO Last administered on 04/21/25at 08:32; Start 04/21/25 at 09:00; Stop 05/20/25 at 08:59 Olanzapine 5 mg ONCE ONCE IM Last administered on 04/21/25at 03:03; Start 04/21/25 at 03:00; Stop 04/21/25 at 03:01; Status DC Rifaximin 550 mg BID PO Last administered on 04/21/25at 21:14; Start 04/21/25 at 21:00; Stop 05/21/25 at 20:59 Rifaximin 550 mg BID PO; Start 04/21/25 at 14:30; Stop 04/21/25 at 14:19; Status DC PHYSICAL EXAMINATION: GENERAL: No acute distress. PSYCHIATRIC: Calm. 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 Other medications will remain the same. No further cardiac recommendations. Call with questions. We will sign off thank you MELISSA DE LA O MD Apr 22, 2025 10:41
--- NOTE | 2025-04-22 15:44 | NUR ---
MEDICATIONS attempted to administer pts medications at this time. pt refusing by clenching jaw, not allowing to give meds and water
[2025-04-22] MEDS: LACTULOSE 20 GM/30 ML UDCUP PR ONE (16:46)
--- NOTE | 2025-04-22 19:00 | PN ---
[facility] PROGRESS NOTE Date of Service: Apr 22, 2025 Time of Service: 18:50 SUBJECTIVE: Mr. Montgomery is an 84-year-old male that was seen and examined today on 04/19/2025. Patient is a poor historian and personal health. There was no family member at bedside. The following was obtained from a combination of emergency room physician report and previous medical records available to me f rom prior admissions lastly in January of 2025. According to emergency room physician: This is an 84-year-old male who was brought in to the emergency room by his daughter Christina for evaluation of worsening altered mental status over the past 2 days. Patient used to live in [facility] however patient's daughter indicated that she took him out of the a few weeks ago as he was more depressed and dwindling down. Since his discharge from the retirement she has not been able to get any of his medications that were routinely given and he has been off of lactulose for more than 3 weeks. She did finally get the lactulose prescription and resumed it the past 2 days. He stated that he has been extremely sleepy and has very interrupted sleep. No fever chills or rigors. No nausea vomitings diarrhea. He does have a history of drinking alcohol 40 years ago when he was young. No history of any falls no fever chills or rigors. Temperature 98.9 pulse 105 respirations 20 blood pressure 189/96 with a pulse oximetry of 100% on room air Chronic medical problems include diabetes mellitus, hypertension, CKD, history of colitis, history of UTIs, congestive heart failure and dementia history of atrial fibrillation on Eliquis I obtained most of the information from the daughter and medical records Today in the emergency department creatinine 1.7, no urinalysis has been annelise ected and sent to lab, CT of head is pending radiology report, ammonia level is elevated at 108. Emergency room physician recommended patient be admitted with a diagnosis of hepatic encephalopathy. 04/19/2025: Patient is seen in room 407 with out family present. Patient is awake, alert x3, much better than when I saw him in the morning in the ED. Patient has no complaints at this time. His ammonium levels have improved to 52 from 108 on admission. Ordered a bedside swallow evaluation change the lactulose to 20 g p.o. t.i.d. also ordered an ultrasound with the AFP tumor marker for hepatocellular carcinoma screening. Patient also got magnesium 4 g IV. 04/20/2025: Patient is seen in room 407 with out family present. Patient's ammonia increased to 134 last night came back to within normal levels at 68 today. Abdominal ultrasound performed but no report yet. Patient's creatinine has increased to 1.8 from 1.5 yesterday. Case management spoke to the patient regarding placement post discharge, patient decided he wants to go home. Patient had a rash on his chest overnight which subsided after getting Benadryl. Per nursing staff the patient was active overnight fell asleep early in the morning. 04/21/2025: Patient is seen in room 407 with family present. Patient's abdominal ultrasound did not show any signs of a hepatocellular carcinoma but recommended imaging every [address] of the head was negative, ammonia levels much improved and patient's confusion persists. He does have dementia at baseline, but daughter relays a rather rapid change in his mental status prior to admission. So we ordered a MRI to rule out stroke. We also started the patient on rifaximin 550 mg b.i.d. Patient's creatinine has also increased to 2.2 From 1.8 But per previous records his creatinine fluctuates between 1.8 To 2.5. We will keep an eye on his kidney function. Patient's blood pressure did go high in the evening but he got a dose of hydralazine 10 mg IV which seemed to bring the blood pressure back within normal limits. Patient seen by cardiology today regarding his second-degree heart block. Per Cardiology the patient does have a history of atrial fibrillation and is compliant with anticoagulation and upon reviewing of the patient's EKG and telemetry strips cardiology found that there is no clear second-degree AVB present and at this time they do not believe further cardiac workup is indicated as they think the symptoms are not cardiac in origin. 04/22/2025: Patient is seen and evaluated in the room 407. He is confused and disoriented. His vital signs are in the normal range except for blood pressure is 178/80. His labs are in the normal range except for hemoglobin 10.8, chloride is 113, BUN is 28, creatinine is 2.1. Cardiology was consulted for second degree AV block but they recommended no further workup. He is refusing all medications. So we rechecked his ammonia level and its 44. So we gave lactulose enema and we will check his ammonia level tomorrow. We are also awaiting the results of MRI. We changed the dose of metoprolol 12.5mg BID to metoprolol 25mg BID today. We also ordered US doppler of upper extremities to rule out DVT as his upper limb is swollen. REVIEW OF SYSTEMS Review of systems could not be obtained because of altered mental status PHYSICAL EXAM GENERAL APPEARANCE: The patient is awake, but a bit confused, in no acute cardiopulmonary distress. NEUROLOGICAL: No sensory deficits. HEENT: Face is symmetric. Pupils are equal and reactive. Extraocular movements are intact. NECK: Supple. No JVD. No thyromegaly. No lymphadenopathy. CHEST: Normal chest expansion. No Telemetry. LUNGS: Absence of any rales, rhonchi or any wheezing. CARDIOVASCULAR: Regular. S1 and S2 normal. No appreciable rubs, murmurs or gallops. ABDOMEN: Soft, nontender, and nondistended. There is no rebound, voluntary guarding, or rigidity. : Deferred. No Mcdermott. EXTREMITIES: Non-edematous and not cyanotic. Asterixis noted SKIN: No skin breakdown. Vital Signs (last 8hr) Date Time Temp Pulse Resp B/P (MAP) Pulse Ox O2 Delivery O2 Flow Rate FiO2 04/22/25 17:23 97.7 04/22/25 16:48 101 181/72 04/22/25 15:50 101 16 181/72 100 Room Air 04/22/25 11:02 98.1 99 16 178/80 98 Room Air LABS: Laboratory: Test 04/22/25 16:30 04/22/25 13:46 04/22/25 03:20 04/21/25 06:47 Range/Units Whole Blood Glucose 97 70-110 MG/DL Ammonia 44 H 11-32 umol/L White Blood Count 10.0 # 4.8-10.8 K/uL Red Blood Count 3.35 L 4.50-6.20 MIL/uL Hemoglobin 10.8 L 14.0-18.0 g/dL Hematocrit 32.0 L 42-54 % Mean Corpuscular Volume 95.5 79-99 fL Mean Corpuscular Hemoglobin 32.2 27.0-33.0 pg Mean Corpuscular Hemoglobin Concent 33.8 32.0-36.0 g/dL Red Cell Distribution Width 16.3 H 11.0-15.5 % Platelet Count 177 130-400 K/uL Mean Platelet Volume 9.1 7.5-10.5 fL Nucleated Red Blood Cells 0.0 0.0-0.19 % Sodium Level 145 136-145 mmol/L Potassium Level 3.8 3.5-5.1 mmol/L Chloride Level 113 H 101-111 mmol/L Carbon Dioxide Level 22 21-32 mmol/L Blood Urea Nitrogen 28 H 7-18 mg/dL Creatinine 2.1 H 0.5-1.3 mg/dL Glomerular Filtration Rate Calc 30 >90 mL/min Random Glucose 88 70-105 mg/dL Total Calcium 8.3 L 8.5-10.1 mg/dL Total Bilirubin 0.8 0.2-1.0 mg/dL Direct Bilirubin 0.3 # 0.0-0.3 mg/dL Aspartate Amino Transf (AST/SGOT) 30 10-37 U/L Alanine Aminotransferase (ALT/SGPT) 13 # 12-78 U/L Alkaline Phosphatase 111 50-136 U/L Total Protein 7.2 6.0-8.3 g/dL Albumin 2.3 L 3.5-5.0 g/dL Phosphorus Level 3.6 2.5-4.9 mg/dL Magnesium Level 2.00 1.80-2.40 mg/dL Current Medications Medications (Trade) Dose Ordered Sig/Lashonda Route PRN Reason Start Time Stop Time Status Last Admin Dose Admin Acetaminophen (TYLenol 325MG TAB) 650 mg Q6H PRN PO TEMPERATURE GREATER THAN 101.5 04/19/25 03:30 05/19/25 03:29 Apixaban (EliquIS 2.5 mg) 2.5 mg BID PO 04/20/25 09:00 05/20/25 08:59 04/21/25 21:14 2.5 MG Apixaban (EliquIS) 5 mg BID PO 04/19/25 09:00 04/20/25 08:22 DC 04/19/25 21:30 5 MG Clonidine HCl (CATApres 0.1 mg TAB) 0.1 mg HS PO 04/20/25 21:00 04/20/25 08:10 DC Dextrose 1,000 ml @ 75 mls/hr [id number] IV 04/19/25 08:30 04/20/25 13:23 DC 04/19/25 09:00 75 MLS/HR Donepezil HCl (ARIcept 5MG TAB) 10 mg HS PO 04/20/25 21:00 05/20/25 20:59 04/21/25 21:14 10 MG Enoxaparin Sodium (Lovenox) 30 mg DAILY SQ 04/19/25 09:00 04/19/25 03:24 DC Famotidine (Pepcid 20mg Tab) 20 mg Q48H PO 04/19/25 09:00 05/19/25 08:59 04/21/25 08:30 20 MG Hydralazine HCl (APRESOLine 20MG INJ) 10 mg Q6H PRN IV For:SBP above 160;DBP above 90 04/19/25 03:30 05/19/25 03:29 04/22/25 16:48 10 MG Insulin Human Regular (humuLIN R 100 UNIT/ML 3ML) INSULIN SLIDING SCAL... ACHS SQ 04/19/25 07:30 05/19/25 07:29 Lactulose (Constulose 20gm/ 30ml Udcup) 20 gm BID PO 04/19/25 09:00 04/19/25 15:19 DC 04/19/25 08:58 20 GM Lactulose (Constulose 20gm/ 30ml Udcup) 20 gm TID PO 04/19/25 15:30 05/19/25 08:59 04/21/25 21:14 20 GM Magnesium Sulfate 50 ml @ 0 mls/hr PROTOCOL PRN IV MAGNESIUM PROTOCOL 04/19/25 08:30 05/19/25 08:29 04/19/25 11:15 50 MLS/HR Metoprolol Tartrate (loprESSOR) 5 mg Q5M PRN IV AFIB RVR HR > 120 BPM 04/19/25 03:30 04/22/25 12:13 DC Metoprolol Tartrate (loprESSOR) 12.5 mg BID PO 04/19/25 09:00 04/22/25 10:23 DC 04/21/25 08:31 12.5 MG Metoprolol Tartrate (loprESSOR) 25 mg BID PO 04/22/25 21:00 05/22/25 20:59 Morphine Sulfate (morPHINE 4MG SYG) 2 mg Q4H PRN IVP SEVERE PAIN (7-10) 04/19/25 03:30 04/26/25 03:29 Nifedipine (adALAT 30MG) 60 mg BID PO 04/20/25 09:00 04/20/25 18:51 DC 04/20/25 09:10 60 MG Nifedipine (adALAT 30MG) 60 mg DAILY PO 04/21/25 09:00 05/20/25 08:59 04/21/25 08:32 60 MG Ondansetron HCl (zoFRAN 4MG INJ) 4 mg Q6H PRN IV NAUSEA/VOMITING 04/19/25 03:30 05/19/25 03:29 Pharmacy Profile Note (Pharmacy Communication) 1 each ONCE MISC 04/19/25 03:30 04/20/25 08:24 DC Potassium Chloride 100 ml @ 50 mls/hr AD PRN IV POTASSIUM PROTOCOL 04/19/25 08:30 04/22/25 13:27 DC Potassium Chloride 100 ml @ 100 mls/hr AD PRN IV POTASSIUM PROTOCOL 04/19/25 08:30 05/19/25 08:29 Potassium Chloride (K-Dur/Klor-Con 20meq) 20 meq AD PRN PO POTASSIUM PROTOCOL 04/19/25 08:30 05/19/25 08:29 Potassium Chloride (KCl 10% Elixir 20meq/15ml) 20 meq AD PRN PO POTASSIUM PROTOCOL 04/19/25 08:30 05/19/25 08:29 04/21/25 13:26 20 MEQ Rifaximin (Xifaxan) 550 mg BID PO 04/21/25 14:30 04/21/25 14:19 DC Rifaximin (Xifaxan) 550 mg BID PO 04/21/25 21:00 05/21/25 20:59 04/21/25 21:14 550 MG DIAGNOSTICS / RADIOLOGY: [ ] ASSESSMENT: Hepatic encephalopathy, POA CKD stage IIIB, POA Left lower extremity anterior tibial wound, POA Rule out DVT Dementia Atrial fibrillation CHF with LVEF 55-60% by 2D echo on 10/08/2024 Diabetes mellitius type2 Hypertension Liver parenchymal disease by CT on 03/17/2024] PLAN: Hepatic encephalopathy, POA: * Patient drowsy and confused when 1st admitted in the ED, ammonia levels now at 68 * Patient is started on lactulose 20 mg b.i.d. which has been increased to 20 mg t.i.d. * Patient head CT was negative * MRI has been ordered * He is refusing all medications. So we rechecked his ammonia level and its 44. So we gave lactulose enema and we will check his ammonia level tomorrow. CKD stage IIIB, POA : * Patient's creatinine at admission at 1.7, from previous records baseline looks like around 1.5-2.0 * Creatinine today at 1.8 Hypertension: * Patient's blood pressure high at 168/78 on admission going as high as 180/87 * Patient received hydralazine 10 mg IV * Patient on metoprolol tartrate 12.5 mg p.o. b.i.d. * Cardiology was consulted for second degree AV block but they recommended no further workup. * We changed the dose of metoprolol 12.5mg BID to metoprolol 25mg BID today. Diabetes mellitius type2: * Patient's blood glucose at 88 * Patient on insulin sliding scale Rule out DVT: * The nurse noticed that the patient's upper limbs are swollen. * We ordered a US doppler of upper limbs. GI prophylaxis, famotidine DVT prophylaxis, resume patient's DOAC, Eliquis as stated above ATTESTATION BY PHYSICIAN I have seen and examined the patient. I reviewed the documentation, medical decision making, and treatment plan as noted by the resident physician above. I agree with the findings and plan of care. MOY Martinez IV, MD, MD Apr 22, 2025 19:00
--- NOTE | 2025-04-22 19:10 | NUR ---
Daughter Christina called, is requesting for donepezil and lactulose not to be given and to be held. Refusal form will be provided at next visit, [facility] shift notified of familuy Addendum: 04/22/25 at 1919 by HAYLEY JACOB RN RN NURSING NOTE continue to trend ammonia levels, pt lethargic through most of shift. Arouses to light touch and voice, physicians aware, update provided to family. Loan Vasquez is requesting for donepezil and lactulose not to be given. Refusal form of recommended treatment will be provided to daughter at her next visit, police shift commander notified of family request.
--- NOTE | 2025-04-22 22:08 | NUR ---
REFUSAL FORM DAUGHTER DUDLEY BEAVER AT BEDSIDE SHE SIGNED REFUSAL FORM FOR DONEPEZIL 10MG HS DAUGHTER WINIFRED ON THE PHONE REQUESTING BLOOD CULTURES, URINE CULTURES, CHEST X-RAY, AND A NEPHROLOGY CONSULT. ACCORDING TO DAUGHTERS, THE PATIENT HAS A PAST MEDICAL HISTORY OF SEVERAL DIALYSIS TREATMENTS. NOTIFIED RHYS MCFARLANE NP. NEW ORDERS RECEIVED.
[2025-04-23] VITALS (19 sets, daily range): BP systolic 139–189; BP diastolic 51–121; PULSE 58–101; RESP 11–39; TEMP 97.7–102.1; O2SAT 97–100
[2025-04-23 05:37] LABS: NUCLEATED RED BLOOD CELLS 0.0 % (0.0-0.19); PLATELET COUNT (AUTO) 145.0 K/uL (130-400); RED BLOOD CELL COUNT(AUTO) 3.73 MIL/uL (4.50-6.20); RED CELL DISTRIBUTION WIDTH 16.8 % (11.0-15.5); WHITE BLOOD COUNT (AUTO) 17.0 K/uL (4.8-10.8)
[2025-04-23 06:15] LABS: ASPARTATE AMINOTRANSFERASE 36.0 U/L (10-37); CREATININE 2.2 mg/dL (0.5-1.3); GLOMERULAR FILTR. RATE CALC 28.0 mL/min (>90); GLUCOSE,RANDOM 100.0 mg/dL (70-105); SODIUM SERUM 148.0 mmol/L (136-145); TOTAL PROTEIN, SERUM 7.1 g/dL (6.0-8.3); UREA NITROGEN, BLOOD 33.0 mg/dL (7-18)
--- NOTE | 2025-04-23 09:18 | NUR ---
DAUGHTER AT BEDSIDE. REFUSED THE MORNING MEDICATIONS NOT ADMINISTERED TO PATIENT.
[2025-04-23] MEDS: RIFAXIMIN 550 MG TABLET PO SCH (10:00)
--- NOTE | 2025-04-23 10:28 | PN ---
[facility] PROGRESS NOTE Date of Service: Apr 23, 2025 Time of Service: 10:28 SUBJECTIVE: Mr. Briceño is an 84-year-old male that was seen and examined today on 04/19/2025. Patient is a poor historian and personal health. There was no family member at bedside. The following was obtained from a combination of emergency room physician report and previous medical records available to me f rom prior admissions lastly in January of 2025. According to emergency room physician: This is an 84-year-old male who was brought in to the emergency room by his daughter Christina for evaluation of worsening altered mental status over the past 2 days. Patient used to live in [facility] however patient's daughter indicated that she took him out of the a few weeks ago as he was more depressed and dwindling down. [facility] she has not been able to get any of his medications that were routinely given and he has been off of lactulose for more than 3 weeks. She did finally get the lactulose prescription and resumed it the past 2 days. He stated that he has been extremely sleepy and has very interrupted sleep. No fever chills or rigors. No nausea vomitings diarrhea. He does have a history of drinking alcohol 40 years ago when he was young. No history of any falls no fever chills or rigors. Temperature 98.9 pulse 105 respirations 20 blood pressure 189/96 with a pulse oximetry of 100% on room air Chronic medical problems include diabetes mellitus, hypertension, CKD, history of colitis, history of UTIs, congestive heart failure and dementia history of atrial fibrillation on Eliquis I obtained most of the information from the daughter and medical records Today in the emergency department creatinine 1.7, no urinalysis has been annelise ected and sent to lab, CT of head is pending radiology report, ammonia level is elevated at 108. Emergency room physician recommended patient be admitted with a diagnosis of hepatic encephalopathy. 04/19/2025: Patient is seen in room 407 with out family present. Patient is awake, alert x3, much better than when I saw him in the morning in the ED. Patient has no complaints at this time. His ammonium levels have improved to 52 from 108 on admission. Ordered a bedside swallow evaluation change the lactulose to 20 g p.o. t.i.d. also ordered an ultrasound with the AFP tumor marker for hepatocellular carcinoma screening. Patient also got magnesium 4 g IV. 04/20/2025: Patient is seen in room 407 with out family present. Patient's ammonia increased to 134 last night came back to within normal levels at 68 today. Abdominal ultrasound performed but no report yet. Patient's creatinine has increased to 1.8 from 1.5 yesterday. Case management spoke to the patient regarding placement post discharge, patient decided he wants to go home. Patient had a rash on his chest overnight which subsided after getting Benadryl. Per nursing staff the patient was active overnight fell asleep early in the morning. 04/21/2025: Patient is seen in room 407 with family present. Patient's abdominal ultrasound did not show any signs of a hepatocellular carcinoma but recommended imaging every [address] of the head was negative, ammonia levels much improved and patient's confusion persists. He does have dementia at baseline, but daughter relays a rather rapid change in his mental status prior to admission. So we ordered a MRI to rule out stroke. We also started the patient on rifaximin 550 mg b.i.d. Patient's creatinine has also increased to 2.2 From 1.8 But per previous records his creatinine fluctuates between 1.8 To 2.5. We will keep an eye on his kidney function. Patient's blood pressure did go high in the evening but he got a dose of hydralazine 10 mg IV which seemed to bring the blood pressure back within normal limits. Patient seen by cardiology today regarding his second-degree heart block. Per Cardiology the patient does have a history of atrial fibrillation and is compliant with anticoagulation and upon reviewing of the patient's EKG and telemetry strips cardiology found that there is no clear second-degree AVB present and at this time they do not believe further cardiac workup is indicated as they think the symptoms are not cardiac in origin. 04/22/2025: Patient is seen and evaluated in the room 407. He is confused and disoriented. His vital signs are in the normal range except for blood pressure is 178/80. His labs are in the normal range except for hemoglobin 10.8, chloride is 113, BUN is 28, creatinine is 2.1. Cardiology was consulted for second degree AV block but they recommended no further workup. He is refusing all medications. So we rechecked his ammonia level and its 44. So we gave lactulose enema and we will check his ammonia level tomorrow. We are also awaiting the results of MRI. We changed the dose of metoprolol 12.5mg BID to metoprolol 25mg BID today. We also ordered US doppler of upper extremities to rule out DVT as his upper limb is swollen. 04/23/2025: Patient seen and evaluated in room 407. Patient in the morning seen with family present was having breakfast. Patient overnight had fevers reaching up to 103.1 [place] [address]. Patient has been started on Zosyn and placed an order for repeat urinalysis and culture along with blood culture. Also ordered a chest x-ray, pending report. Cardiology saw him yesterday and increase his metoprolol to 25 mg twice daily. We also stopped the donepezil since the patient has been drowsy. We are still waiting on MRI, so ordered a stat CT. When we visited the patient again during rounds, we were unable to arouse the patient even with sternal rubbing, so we called rapid response. We also ordered a blood glucose level, ABG, troponin, CMP, ammonia, CBC and placed critical care consult, also started stroke response which included CT angio head and neck, Neurology consult, protein at transfer to ICU, EEG. Patient initially unresponsive even when blood drawing but then patient has suddenly woke up. He still appeared confused but had no focal deficits. Patient's lab work returned with elevated troponin at 1166, so ordered an EKG, echo, Cardiology consult. We also started a heparin drip once the head CT came back negative. Further treatment based on Cardiology, Neurology recommendations, lab results and imaging results. REVIEW OF SYSTEMS Review of systems could not be obtained because of altered mental status PHYSICAL EXAM GENERAL APPEARANCE: Patient does not respond to verbal stimulus. NEUROLOGICAL: No sensory deficits. HEENT: Face is symmetric. NECK: Supple No lymphadenopathy. CHEST: Normal chest expansion. On Telemetry. LUNGS: Absence of any rales, rhonchi or any wheezing. CARDIOVASCULAR: Regular. S1 and S2 normal. No appreciable rubs, murmurs or gallops. ABDOMEN: Soft, nontender, and nondistended. There is no rebound, voluntary guarding, or rigidity. : Deferred. No Mcdermott. EXTREMITIES: Non-edematous and not cyanotic. SKIN: No skin breakdown. Vital Signs (last 8hr) Date Time Temp Pulse Resp B/P (MAP) Pulse Ox O2 Delivery O2 Flow Rate FiO2 04/23/25 09:28 97 Room Air* 0 21 04/23/25 07:28 97.7 77 16 154/82 97 Room Air 04/23/25 05:04 93 162/79 04/23/25 03:41 98.1 95 19 178/85 97 Room Air 04/23/25 03:38 95 178/85 LABS: Laboratory: Test 04/23/25 05:14 04/23/25 05:06 Range/Units White Blood Count 17.0 H 4.8-10.8 K/uL Red Blood Count 3.73 L 4.50-6.20 MIL/uL Hemoglobin 11.9 L 14.0-18.0 g/dL Hematocrit 36.0 L 42-54 % Mean Corpuscular Volume 96.5 79-99 fL Mean Corpuscular Hemoglobin 31.9 27.0-33.0 pg Mean Corpuscular Hemoglobin Concent 33.1 32.0-36.0 g/dL Red Cell Distribution Width 16.8 H 11.0-15.5 % Platelet Count 145 130-400 K/uL Mean Platelet Volume 10.0 7.5-10.5 fL Nucleated Red Blood Cells 0.0 0.0-0.19 % Sodium Level 148 H 136-145 mmol/L Potassium Level 3.4 L 3.5-5.1 mmol/L Chloride Level 114 H 101-111 mmol/L Carbon Dioxide Level 21 21-32 mmol/L Blood Urea Nitrogen 33 H 7-18 mg/dL Creatinine 2.2 H 0.5-1.3 mg/dL Glomerular Filtration Rate Calc 28 >90 mL/min Random Glucose 100 70-105 mg/dL Total Calcium 8.1 L 8.5-10.1 mg/dL Total Bilirubin 0.9 0.2-1.0 mg/dL Direct Bilirubin 0.2 0.0-0.3 mg/dL Aspartate Amino Transf (AST/SGOT) 36 10-37 U/L Alanine Aminotransferase (ALT/SGPT) 10 L 12-78 U/L Alkaline Phosphatase 100 50-136 U/L Ammonia 37 H 11-32 umol/L Total Protein 7.1 6.0-8.3 g/dL Albumin 2.1 L 3.5-5.0 g/dL Whole Blood Glucose 94 70-110 MG/DL Current Medications Medications (Trade) Dose Ordered Sig/Lashonda Route PRN Reason Start Time Stop Time Status Last Admin Dose Admin Acetaminophen (TYLenol 325MG TAB) 650 mg Q6H PRN PO TEMPERATURE GREATER THAN 101.5 04/19/25 03:30 05/19/25 03:29 Apixaban (EliquIS 2.5 mg) 2.5 mg BID PO 04/20/25 09:00 05/20/25 08:59 04/23/25 09:15 2.5 MG Apixaban (EliquIS) 5 mg BID PO 04/19/25 09:00 04/20/25 08:22 DC 04/19/25 21:30 5 MG Clonidine HCl (CATApres 0.1 mg TAB) 0.1 mg HS PO 04/20/25 21:00 04/20/25 08:10 DC Dextrose 1,000 ml @ 75 mls/hr [id number] IV 04/19/25 08:30 04/20/25 13:23 DC 04/19/25 09:00 75 MLS/HR Donepezil HCl (ARIcept 5MG TAB) 10 mg HS PO 04/20/25 21:00 04/23/25 10:05 DC 04/21/25 21:14 10 MG Enoxaparin Sodium (Lovenox) 30 mg DAILY SQ 04/19/25 09:00 04/19/25 03:24 DC Famotidine (Pepcid 20mg Tab) 20 mg Q48H PO 04/19/25 09:00 05/19/25 08:59 04/23/25 09:15 20 MG Hydralazine HCl (APRESOLine 20MG INJ) 10 mg Q6H PRN IV For:SBP above 160;DBP above 90 04/19/25 03:30 05/19/25 03:29 04/23/25 03:38 10 MG Insulin Human Regular (humuLIN R 100 UNIT/ML 3ML) INSULIN SLIDING SCAL... ACHS SQ 04/19/25 07:30 05/19/25 07:29 Lactulose (Constulose 20gm/ 30ml Udcup) 20 gm BID PO 04/19/25 09:00 04/19/25 15:19 DC 04/19/25 08:58 20 GM Lactulose (Constulose 20gm/ 30ml Udcup) 20 gm TID PO 04/19/25 15:30 05/19/25 08:59 04/21/25 21:14 20 GM Magnesium Sulfate 50 ml @ 0 mls/hr PROTOCOL PRN IV MAGNESIUM PROTOCOL 04/19/25 08:30 05/19/25 08:29 04/19/25 11:15 50 MLS/HR Metoprolol Tartrate (loprESSOR) 5 mg Q5M PRN IV AFIB RVR HR > 120 BPM 04/19/25 03:30 04/22/25 12:13 DC Metoprolol Tartrate (loprESSOR) 12.5 mg BID PO 04/19/25 09:00 04/22/25 10:23 DC 04/21/25 08:31 12.5 MG Metoprolol Tartrate (loprESSOR) 25 mg BID PO 04/22/25 21:00 05/22/25 20:59 04/23/25 09:15 25 MG Morphine Sulfate (morPHINE 4MG SYG) 2 mg Q4H PRN IVP SEVERE PAIN (7-10) 04/19/25 03:30 04/26/25 03:29 Nifedipine (adALAT 30MG) 60 mg BID PO 04/20/25 09:00 04/20/25 18:51 DC 04/20/25 09:10 60 MG Nifedipine (adALAT 30MG) 60 mg DAILY PO 04/21/25 09:00 05/20/25 08:59 04/21/25 08:32 60 MG Ondansetron HCl (zoFRAN 4MG INJ) 4 mg Q6H PRN IV NAUSEA/VOMITING 04/19/25 03:30 05/19/25 03:29 Pharmacy Profile Note (Pharmacy Communication) 1 each ONCE MISC 04/19/25 03:30 04/20/25 08:24 DC Piperacillin Sod/ Tazobactam Sod (Zosyn 3.375gm+NS 50ml) 3.375 gm Q12H IV 04/23/25 10:00 05/03/25 09:59 Potassium Chloride 100 ml @ 50 mls/hr AD PRN IV POTASSIUM PROTOCOL 04/19/25 08:30 04/22/25 13:27 DC Potassium Chloride 100 ml @ 100 mls/hr AD PRN IV POTASSIUM PROTOCOL 04/19/25 08:30 05/19/25 08:29 Potassium Chloride (K-Dur/Klor-Con 20meq) 20 meq AD PRN PO POTASSIUM PROTOCOL 04/19/25 08:30 05/19/25 08:29 Potassium Chloride (KCl 10% Elixir 20meq/15ml) 20 meq AD PRN PO POTASSIUM PROTOCOL 04/19/25 08:30 05/19/25 08:29 04/23/25 09:15 20 MEQ Rifaximin (Xifaxan) 550 mg BID PO 04/21/25 14:30 04/21/25 14:19 DC Rifaximin (Xifaxan) 550 mg BID PO 04/21/25 21:00 04/23/25 09:44 DC 04/21/25 21:14 550 MG Rifaximin (Xifaxan) 550 mg BID PO 04/23/25 10:00 05/23/25 09:59 DIAGNOSTICS / RADIOLOGY: [place] [address] IMAGING REPORT Addendum PATIENT: EKTA BRICEÑO MR#: [id number] : 1940 SEX: M AGE: 84 LOCATION: [facility] ORDER 100 STATUS: ADM IN REPORT#: [id number] SERVICE 1005 REASON: stroke ORDERING PHYSICIAN: BERNARD RANKIN MD PROCEDURE: HEAD WO - CT HEAD/BRAIN W/O CONTRAST ADDENDUM REPORT ADDENDUM: Results were shared by telephone at 03:48 PM EST on 04-23-2025 and acknowledged by Bernard Aguilar. /Hall STUDY CT head without intravenous contrast. HISTORY Stroke. TECHNIQUE Axial computed tomography images of the head/brain were obtained without intravenous contrast. COMPARISON CT head/brain without contrast dated 04/19/2025 01:53 EST. FINDINGS Brain Diffuse cerebral volume loss is present with corresponding prominence of the ventricles and cortical sulci. Scattered small hypodense foci within the bilateral frontoparietal white matter are compatible with chronic small vessel ischemic changes. No evidence of acute intracranial hemorrhage, mass lesion, territorial infarct, midline shift, or extra-axial collection is identified. Overall appearance is unchanged compared with the prior examination. Ventricles The ventricles are mildly prominent in keeping with diffuse cerebral volume loss and show no evidence of hydrocephalus. Orbits The orbits are unremarkable. Sinuses and Mastoids The visualized paranasal sinuses and mastoid air cells are clear. Bones No calvarial or skull base fracture is identified. Soft Tissues The visualized extracranial soft tissues are unremarkable. IMPRESSION * Diffuse cerebral volume loss with chronic small vessel ischemic changes in the bilateral frontoparietal white matter. * No acute intracranial abnormality identified. * No significant interval change compared with CT head/brain without contrast dated 04/19/2025. /Hall DICTATED BY: JO ANN SAHNI Jr., MD DATE: 04/23/25 1550 ELECTRONICALLY SIGNED BY: DATE: STUDY CT head without intravenous contrast. HISTORY Stroke. TECHNIQUE Axial computed tomography images of the head/brain were obtained without intravenous contrast. COMPARISON CT head/brain without contrast dated 04/19/2025 01:53 EST. FINDINGS Brain Diffuse cerebral volume loss is present with corresponding prominence of the ventricles and cortical sulci. Scattered small hypodense foci within the bilateral frontoparietal white matter are compatible with chronic small vessel ischemic changes. No evidence of acute intracranial hemorrhage, mass lesion, territorial infarct, midline shift, or extra-axial collection is identified. Overall appearance is unchanged compared with the prior examination. Ventricles The ventricles are mildly prominent in keeping with diffuse cerebral volume loss and show no evidence of hydrocephalus. Orbits The orbits are unremarkable. Sinuses and Mastoids The visualized paranasal sinuses and mastoid air cells are clear. Bones No calvarial or skull base fracture is identified. Soft Tissues The visualized extracranial soft tissues are unremarkable. IMPRESSION * Diffuse cerebral volume loss with chronic small vessel ischemic changes in the bilateral frontoparietal white matter. * No acute intracranial abnormality identified. * No significant interval change compared with CT head/brain without contrast dated 04/19/2025. /Hall DICTATED BY: JO ANN SAHNI Jr., MD DATE: 04/23/251513 ELECTRONICALLY SIGNED BY: JO ANN SAHNI Jr., MD DATE: 04/23/251513 ASSESSMENT: Hepatic encephalopathy, POA Suspected sepsis, NPOA, unknown source of infection CKD stage IIIB, POA Left lower extremity anterior tibial wound, POA Rule out DVT Dementia Atrial fibrillation CHF with LVEF 55-60% by 2D echo on 10/08/2024 Diabetes mellitius type2 Hypertension Liver parenchymal disease by CT on 03/17/2024] PLAN: Hepatic encephalopathy, POA: * Patient drowsy and confused when 1st admitted in the ED, ammonia levels now at 68 * Patient is started on lactulose 20 mg b.i.d. which has been increased to 20 mg t.i.d. * Patient head CT was negative, repeat head CT also negative * MRI has been ordered * He is refusing all medications. So we rechecked his ammonia level and its 44. So we gave lactulose enema and we will check his ammonia level tomorrow. Suspected Sepsis NPOA, unknown source of infection: * Patient had a temperature of 103.1 last night, WBC went up as high as 17,000, heart rate at 114 and respiratory rate at 21. His lactic acid has also gone up to 3.4. * Patient is started on Zosyn * Source of infection unknown CKD stage IIIB, POA : * Patient's creatinine at admission at 1.7, from previous records baseline looks like around 1.5-2.0 * Creatinine today at 1.8 Hypertension: * Patient's blood pressure high at 168/78 on admission going as high as 180/87 * Patient received hydralazine 10 mg IV * Patient on metoprolol tartrate 12.5 mg p.o. b.i.d. * Cardiology was consulted for second degree AV block but they recommended no further workup. * We changed the dose of metoprolol 12.5mg BID to metoprolol 25mg BID today. Diabetes mellitius type2: * Patient's blood glucose at 88 * Patient on insulin sliding scale Rule out DVT: * The nurse noticed that the patient's upper limbs are swollen. * We ordered a US doppler of upper limbs. GI prophylaxis, famotidine DVT prophylaxis, resume patient's DOAC, Eliquis as stated above ATTESTATION BY PHYSICIAN I have seen and examined the patient. I reviewed the documentation, medical decision making, and treatment plan as noted by the resident physician above. I agree with the findings and plan of care. Masood Abraham IV, MD, ABHINAV MD Apr 23, 2025 10:28
--- NOTE | 2025-04-23 11:37 | NUR ---
RAPID RESPONSE WAS CALLED. PATIENT WAS LETHARGIC, HARD TO AROUSE WITH STIMULATION/STERNAL RUB. VS: 154/65, 70BPM, 94% SP02 ON RA. BLOOD SUGAR 122. ABG, LACTIC ACID, TROPONIN, CBC, CMP, AMMONIA, EKG, CT OF THE HEAD WITHOUT CONTRAST AND CT ANGIO OF HEAD AND NECK, CARDIOLOGY WAS CONSULTED AND NEUROLOGY STAT. PATIENT WAS TRANSFERRED TO PCCU PER DR. RUBI MON AT BEDSIDE.
[2025-04-23 11:45] LABS: ABG BASE EXCESS -5.2 mmol/L (-2.0-3.0); ABG HCO3 18.9 mmol/L (21.0-28.0); ABG OXYGEN SATURATION 96.7 % (94.0-98.0); ABG PCO2 32 mmHg (35-48); ABG PH 7.387 (7.350-7.450); CARBON MONOXIDE 0.3 % (0.5-1.5); DEVICE COMMENT LR; PO2, ARTERIAL BG 95.4 mmHg (83.0-108.0); TEMPERATURE, CELSIUS BG 37.0 CELSIUS (35.5-37.0); VENT MODE, BG RA (ROOM AIR)
--- NOTE | 2025-04-23 11:51 | NUR ---
RAPID RESPONSE ALL CLEAR.
[2025-04-23 11:59] LABS: NUCLEATED RED BLOOD CELLS 0.0 % (0.0-0.19); PLATELET COUNT (AUTO) 135 K/uL (130-400); RED BLOOD CELL COUNT(AUTO) 3.61 MIL/uL (4.50-6.20); RED CELL DISTRIBUTION WIDTH 17.1 % (11.0-15.5); WHITE BLOOD COUNT (AUTO) 13.0 K/uL (4.8-10.8)
[2025-04-23 12:13] LABS: CREATININE 2.3 mg/dL (0.5-1.3); GLOMERULAR FILTR. RATE CALC 27.0 mL/min (>90); GLUCOSE,RANDOM 130.0 mg/dL (70-105); SODIUM SERUM 145.0 mmol/L (136-145); UREA NITROGEN, BLOOD 33.0 mg/dL (7-18)
[2025-04-23] MEDS: ZOSYN 3.375GM +NS 50ML IV SCH (12:13)
[2025-04-23 12:14] LABS: IMMATURE GRANULOCYTE ABSOLUTE 0.14 K/uL (0-1)
[2025-04-23 12:17] LABS: ASPARTATE AMINOTRANSFERASE 29.0 U/L (10-37); TOTAL PROTEIN, SERUM 6.6 g/dL (6.0-8.3)
--- NOTE | 2025-04-23 12:48 | NUR ---
MRI is on hold till the patients daughter can review and sign the MRI prescreen form due to pt mental status.
--- NOTE | 2025-04-23 13:30 | CONS ---
[facility] CONSULTATION NOTE Date Patient Seen: Apr 23, 2025 Time of Visit: 13:22 Supervising Physician: Dr Yuri Hogan Reason for Consultation: ICU medical management Primary Care Physician: [ ] Outpatient Specialists: [ ] Inpatient Consults: [ ] PROBLEM LIST: Elevated troponins Hepatic encephalopathy, POA CKD stage IIIB, POA Left lower extremity anterior tibial wound, POA Dementia Atrial fibrillation CHF with LVEF 55-60% by 2D echo on 10/08/2024 Diabetes mellitius type2 Hypertension Liver parenchymal disease by CT on 03/17/2024] HPI: Patient is a 84-year-old male admitted to the hospitalist service, he was initially brought in to the emergency department by his daughter due to declining mental status. Patient is a resident at [facility]. She was concerned about his ammonia levels. States that he takes lactulose and they had not been giving it to him for several weeks. Patient was admitted for hepatic encephalopathy, CKD, earlier today rapid response was called as patient unresponsive. Ammonia level was checked and found to be in the 30s. I saw and examined the patient patient is unresponsive even to pain. Patient's vitals how ever were stable. Patient was taken down for a code stroke. CT imaging has been performed. And patient is being transferred to the ICU. Imaging is pending. However labs have returned. Patient with a troponin greater than a 1000. He is pending a heparin drip and a Cardiology consult, we are holding initiation of this until head imaging is available for review. Admitted under the hospitalist service critical Care consulted for ICU medical management. Addendum: After examination hospitalist states patient has awake, moving all extremities, no new deficits, he remains confused, Confirmed full code status PAST MEDICAL HX: see above PAST SURGICAL HX: noncontributory SOCIAL HISTORY: No tobacco, ETOH, or illicit drug use Coded Allergies: No Known Drug Allergies (Unverified Allergy, Unknown, 08/21/22) REVIEW OF SYSTEMS: 12 point ROS reviewed with patient. Pertinent positives mentioned above. Otherwise negative. PHYSICAL EXAM: GENERAL: Obtunded HEENT: EOMI, Sclera non icteric, moist mucosa NECK: Supple, no JVD, trachea midline LUNGS: Clear breath sounds bilaterally. No wheezes HEART: Regular rate and rhythm. Normal S1 and S2, without murmurs ABD: Abdomen soft, nontender. Bowel sounds present EXT: No clubbing cyanosis or edema NEURO: Obtunded Vital Signs (last 8hr) Date Time Temp Pulse Resp B/P (MAP) Pulse Ox O2 Delivery O2 Flow Rate FiO2 04/23/25 12:00 98.2 71 16 154/65 94 Room Air 04/23/25 09:28 97 Room Air* 0 21 04/23/25 07:28 97.7 77 16 154/82 97 Room Air LABS: Hematology Labs: Test 04/23/25 11:47 Range/Units White Blood Count 13.0 H 4.8-10.8 K/uL Red Blood Count 3.61 L 4.50-6.20 MIL/uL Hemoglobin 11.7 L 14.0-18.0 g/dL Hematocrit 35.9 L 42-54 % Mean Corpuscular Volume 99.4 H 79-99 fL Mean Corpuscular Hemoglobin 32.4 27.0-33.0 pg Mean Corpuscular Hemoglobin Concent 32.6 32.0-36.0 g/dL Red Cell Distribution Width 17.1 H 11.0-15.5 % Platelet Count 135 130-400 K/uL Mean Platelet Volume 10.2 7.5-10.5 fL Immature Granulocyte % (Auto) 1.1 H 0-1 % Neutrophils (%) (Auto) 89.8 H 40.0-77.0 % Lymphocytes (%) (Auto) 4.0 L 21.0-51.0 % Monocytes (%) (Auto) 4.4 3.0-13.0 % Eosinophils (%) (Auto) 0.2 0.0-8.0 % Basophils (%) (Auto) 0.5 0.0-5.0 % Neutrophils # (Auto) 11.6 H 1.8-7.7 K/uL Lymphocytes # (Auto) 0.5 L 1.0-4.8 K/uL Monocytes # (Auto) 0.6 0.1-1.0 K/uL Eosinophils # (Auto) 0.03 0.00-0.70 K/uL Basophils # (Auto) 0.06 0.00-0.20 K/uL Absolute Immature Granulocyte (auto 0.14 0-1 K/uL Nucleated Red Blood Cells 0.0 0.0-0.19 % White Cell Morphology Comment See comments Chemistry Labs: Test 04/23/25 11:47 04/23/25 11:35 04/23/25 05:14 Range/Units Sodium Level 145 136-145 mmol/L Potassium Level 3.7 3.5-5.1 mmol/L Chloride Level 113 H 101-111 mmol/L Carbon Dioxide Level 23 21-32 mmol/L Blood Urea Nitrogen 33 H 7-18 mg/dL Creatinine 2.3 H 0.5-1.3 mg/dL Glomerular Filtration Rate Calc 27 >90 mL/min Random Glucose 130 H 70-105 mg/dL Lactic Acid Level 3.4 H 0.8-2.5 mmol/L Total Calcium 7.6 L 8.5-10.1 mg/dL Total Bilirubin 0.5 # 0.2-1.0 mg/dL Aspartate Amino Transf (AST/SGOT) 29 10-37 U/L Alanine Aminotransferase (ALT/SGPT) 11 L 12-78 U/L Alkaline Phosphatase 88 50-136 U/L Ammonia 65 H 11-32 umol/L Troponin I High Sensitivity 1166 *H 4-75 ng/L Total Protein 6.6 6.0-8.3 g/dL Albumin 1.8 L 3.5-5.0 g/dL Whole Blood Glucose 122 H 70-110 MG/DL Direct Bilirubin 0.2 0.0-0.3 mg/dL DIAGNOSTICS / RADIOLOGY RESULTS: [ ] PLAN Transfer patient to ICU Review head imaging Possible heparin drip, post had imaging Cardiology consultation Review pending labs and imaging NEURO: Minimize central acting medications as possible. Fall Precautions. Well lighted room through the day and minimize interruptions through the night to prevent acute delirium. PULMONARY: Supplemental 02 as needed Titrate Fio2 to keep Spo2 > or = 90% DuoNebs and CPT as needed IS hourly while awake for pulmonary hygiene Out of bed to chair as tolerated VAP Bundle Vent/BIPAP Settings: [ ] Driving pressure: [ ] P Plat: [ ] Static C: [ ] Static R: [ ] P/F Ratio: [ ] CARDIOVASCULAR: Follow hemodynamics. Titrate vasopressor to keep MAP >65 or systolic blood pressure >95mmHg DIPS: [ ] LINES: [ ] GI & NUTRITION: Continue nutritional support Aspirations precautions Prokinetic agents and laxatives as needed KIDNEYS & ELECTROLYTES: Strict monitoring of intake and output Daily weights Avoid nephrotoxic agents Monitor electrolytes and replace as needed Goal urine output of 30mL/hr or 0.5mL/kg/hr Urine output: [ ] Fluid Balance: [ ] ENDOCRINE: Maintain blood glucose between 100-180 at all times. Insulin sliding scale for blood glucose management INFECTIOUS DISEASE: Trend temperature. Chatman-culture if febrile. Micro: [ ] Antibiotics: [ ] HEMATOLOGY & COAGULATION: Monitor H&H. Keep Hgb > 7 Transfuse 1 unit of PRBC for Hgb < 7 Transfuse 1 pack of platelets of platelets < 20, 000 Watch for any signs and symptoms of bleeding SKIN: Pressure ulcer prevention per facility protocol Rehab: PT/OT Prophylaxis: GI: [ ] DVT: [ ] Code Status: Full Resuscitation Disposition: [ ] Case was discussed and seen with my supervising physician. The above plan was formulated and agreed upon. MIRIAM BEARDEN PAC Apr 23, 2025 13:30
--- NOTE | 2025-04-23 13:53 | NUR ---
REPORT GIVEN TO SAMANTHA FROM ICU.
--- NOTE | 2025-04-23 14:15 | HMCIMG ---
STUDY CT head without intravenous contrast. HISTORY Stroke. TECHNIQUE Axial computed tomography images of the head/brain were obtained without intravenous contrast. COMPARISON CT head/brain without contrast dated 04/19/2025 01:53 EST. FINDINGS Brain Diffuse cerebral volume loss is present with corresponding prominence of the ventricles and cortical sulci. Scattered small hypodense foci within the bilateral frontoparietal white matter are compatible with chronic small vessel ischemic changes. No evidence of acute intracranial hemorrhage, mass lesion, territorial infarct, midline shift, or extra-axial collection is identified. Overall appearance is unchanged compared with the prior examination. Ventricles The ventricles are mildly prominent in keeping with diffuse cerebral volume loss and show no evidence of hydrocephalus. Orbits The orbits are unremarkable. Sinuses and Mastoids The visualized paranasal sinuses and mastoid air cells are clear. Bones No calvarial or skull base fracture is identified. Soft Tissues The visualized extracranial soft tissues are unremarkable. IMPRESSION * Diffuse cerebral volume loss with chronic small vessel ischemic changes in the bilateral frontoparietal white matter. * No acute intracranial abnormality identified. * No significant interval change compared with CT head/brain without contrast dated 04/19/2025. /[place]
--- NOTE | 2025-04-23 16:05 | PN ---
To re-evaluate the patient who became obtunded and had labs drawn. Among these labs is an elevated troponin. Patient experienced elevation of troponin in a previous hospitalization as well, also without chest pain or chest pressure or any cardiac event associated (according to the daughter), and the family was advised the patient had suffered an infarct. So far there is no evidence of an infarct, apart from this elevation of troponin, which is associated with a leukocytosis as well. Patient is an 84 year old male with past medical history of paroxysmal atrial fibrillation on Eliquis, congestive heart failure, hypertension, diabetes, CKD, dementia, chronic liver disease who was brought in by family member to the ER for altered mental status and confusion. He was previously staying at [facility], but his daughter took him out as he seemed more depressed living there. He now lives at home with his daughter who is his main caregiver, she is also giving most of the history today. Patient was out of his lactulose for about 2 weeks prior to this admission. He was found to have elevated ammonia level of 108, and patient was recommended admission for acute hepatic encephalopathy. Patient underwent CT of the head which was negative for acute findings, chronic changes noted. EKG upon admission showed sinus rhythm with 1st degree AVB, no acute ischemia Patient does not respond to verbal stimulus. Neck veins are distended but the patient is in a supine position. Chest is clear. Nonlabored respiration. Regular rhythm with normal S1 and S2, no murmur, no S3. Bowel sounds present. Extremities currently free of edema. Impression and recommendation: I see no evidence of a myocardial infarct at this time but we will get an ECG and if there is evidence of acute ischemic event our treatment will not likely change any way; this is an elderly gentleman with recurrent hepatic encephalitis, dementia, advanced cirrhosis who requires lactulose to avoid hyperammonemia, difficult balance between diarrhea and mental status changes using lactulose, with stage 4 chronic kidney disease, atrial fibrillation, and anticoagulation despite advanced GI pathology. This patient is not a candidate for any form of invasive evaluation in the patient family does not desire aggressive measures. He is already treated with beta-blockers for his atrial fibrillation and there is nothing else I would add. My recommendation is quit drawing troponins. Impact his treatment, are not a reliable measure of presence or absence of ischemia in this case because of his renal disease and many other metabolic factors, and they serve no purpose in his evaluation. In terms of constructive recommendations for evaluation of his obtundation, consider the leukocytosis. Vitals/Labs Vital Signs Date Time Temp Pulse Resp B/P (MAP) Pulse Ox O2 Delivery O2 Flow Rate FiO2 04/23/25 14:37 80 11 174/69 100 Room Air 04/23/25 14:00 0 21 04/23/25 13:37 99.1 Laboratory Tests 04/23/25 05:14 04/23/25 11:47 Medications Current Medications Sodium Chloride 1,000 ml @ 125 mls/hr ONCE ONCE IV Last administered on 04/19/25at 01:32; Start 04/19/25 at 00:30; Stop 04/19/25 at 08:23; Status DC Acetaminophen 650 mg ONCE ONCE PO Last administered on 04/19/25at 01:33; Start 04/19/25 at 01:30; Stop 04/19/25 at 01:31; Status DC Acetaminophen 650 mg Q6H PRN PO; Start 04/19/25 at 03:30; Stop 05/19/25 at 03:29 Metoprolol Tartrate 12.5 mg BID PO Last administered on 04/21/25at 08:31; Start 04/19/25 at 09:00; Stop 04/22/25 at 10:23; Status DC Pharmacy Profile Note 1 each ONCE MISC; Start 04/19/25 at 03:30; Stop 04/20/25 at 08:24; Status DC Insulin Human Regular INSULIN SLIDING SCAL... ACHS SQ; Start 04/19/25 at 07:30; Stop 05/19/25 at 07:29 Enoxaparin Sodium 30 mg DAILY SQ; Start 04/19/25 at 09:00; Stop 04/19/25 at 03:24; Status DC Famotidine 20 mg Q48H PO Last administered on 04/23/25at 09:15; Start 04/19/25 at 09:00; Stop 05/19/25 at 08:59 Hydralazine HCl 10 mg Q6H PRN IV Last administered on 04/23/25at 03:38; Start 04/19/25 at 03:30; Stop 05/19/25 at 03:29 Lactulose 20 gm BID PO Last administered on 04/19/25at 08:58; Start 04/19/25 at 09:00; Stop 04/19/25 at 15:19; Status DC Morphine Sulfate 2 mg Q4H PRN IVP; Start 04/19/25 at 03:30; Stop 04/26/25 at 03:29 Ondansetron HCl 4 mg Q6H PRN IV; Start 04/19/25 at 03:30; Stop 05/19/25 at 03:29 Apixaban 5 mg BID PO Last administered on 04/19/25at 21:30; Start 04/19/25 at 09:00; Stop 04/20/25 at 08:22; Status DC Metoprolol Tartrate 5 mg Q5M PRN IV; Start 04/19/25 at 03:30; Stop 04/22/25 at 12:13; Status DC Potassium Chloride 100 ml @ 100 mls/hr AD PRN IV; Start 04/19/25 at 08:30; Stop 05/19/25 at 08:29 Potassium Chloride 20 meq AD PRN PO Last administered on 04/23/25at 09:15; Start 04/19/25 at 08:30; Stop 05/19/25 at 08:29 Potassium Chloride 20 meq AD PRN PO; Start 04/19/25 at 08:30; Stop 05/19/25 at 08:29 Potassium Chloride 100 ml @ 50 mls/hr AD PRN IV; Start 04/19/25 at 08:30; Stop 04/22/25 at 13:27; Status DC Magnesium Sulfate 50 ml @ 0 mls/hr PROTOCOL PRN IV Last administered on 04/19/25at 11:15; Start 04/19/25 at 08:30; Stop 05/19/25 at 08:29 Dextrose 1,000 ml @ 75 mls/hr [id number] IV Last administered on 04/19/25at 09:00; Start 04/19/25 at 08:30; Stop 04/20/25 at 13:23; Status DC Magnesium Sulfate 4 gm AD ONCE IV; Start 04/19/25 at 11:00; Stop 04/19/25 at 11:01; Status DC Lactulose 20 gm TID PO Last administered on 04/21/25at 21:14; Start 04/19/25 at 15:30; Stop 05/19/25 at 08:59 Diphenhydramine HCl 25 mg ONCE ONCE PO Last administered on 04/19/25at 23:38; Start 04/19/25 at 23:30; Stop 04/19/25 at 23:31; Status DC Clonidine HCl 0.1 mg HS PO; Start 04/20/25 at 21:00; Stop 04/20/25 at 08:10; Status DC Donepezil HCl 10 mg HS PO Last administered on 04/21/25at 21:14; Start 04/20/25 at 21:00; Stop 04/23/25 at 10:05; Status DC Nifedipine 60 mg BID PO Last administered on 04/20/25at 09:10; Start 04/20/25 at 09:00; Stop 04/20/25 at 18:51; Status DC Apixaban 2.5 mg BID PO Last administered on 04/23/25at 09:15; Start 04/20/25 at 09:00; Stop 04/23/25 at 13:28; Status DC Nifedipine 60 mg DAILY PO Last administered on 04/21/25at 08:32; Start 04/21/25 at 09:00; Stop 05/20/25 at 08:59 Olanzapine 5 mg ONCE ONCE IM Last administered on 04/21/25at 03:03; Start 04/21/25 at 03:00; Stop 04/21/25 at 03:01; Status DC Rifaximin 550 mg BID PO Last administered on 04/21/25at 21:14; Start 04/21/25 at 21:00; Stop 04/23/25 at 09:44; Status DC Rifaximin 550 mg BID PO; Start 04/21/25 at 14:30; Stop 04/21/25 at 14:19; Status DC Metoprolol Tartrate 25 mg BID PO Last administered on 04/23/25at 09:15; Start 04/22/25 at 21:00; Stop 05/22/25 at 20:59 Lactulose 200 gm ONCE ONCE MS; Start 04/22/25 at 16:30; Stop 04/22/25 at 16:31; Status DC Acetaminophen 650 mg ONCE ONCE RC Last administered on 04/22/25at 21:00; Start 04/22/25 at 21:00; Stop 04/22/25 at 21:01; Status DC Rifaximin 550 mg BID PO; Start 04/23/25 at 10:00; Stop 05/23/25 at 09:59 Piperacillin Sod/ Tazobactam Sod 3.375 gm Q12H IV Last administered on 04/23/25at 12:13; Start 04/23/25 at 10:00; Stop 05/03/25 at 09:59 Lactated Ringer's 615 ml @ 205 mls/hr ONCE ONCE IV Last administered on 04/23/25at 12:13; Start 04/23/25 at 10:00; Stop 04/23/25 at 12:59; Status DC Heparin Sodium (Porcine) *calculation based on ACTUAL B... AD PRN IV; Start 04/23/25 at 21:00; Stop 05/23/25 at 20:59 Heparin Sodium/ Dextrose 250 ml @ 0 mls/hr Q6H IV; Start 04/23/25 at 21:00; Stop 05/23/25 at 20:59 SONAL FREEMAN MD Apr 23, 2025 16:05
[2025-04-23 19:38] LABS: APPEARANCE,URINE CLOUDY (CLEAR); GLUCOSE, URINE (UA) NEGATIVE (NEGATIVE); LEUKOCYTE ESTERASE ,URINE 500 Leu/uL (NEGATIVE); NITRATE,URINE NEGATIVE (NEGATIVE); OCCULT BLOOD,URINE MODERATE (NEGATIVE)
[2025-04-23 19:41] LABS: ADD UA MICROSCOPIC YES
[2025-04-23 19:43] LABS: SQUAMOUS EPITHELIAL CELL,UR RARE /HPF (0-2); WBC CLUMP MOD /HPF (0-1); YEAST,URINE BUDDING FEW /HPF (None Seen)
--- NOTE | 2025-04-23 20:25 | CONS ---
CONSULTATION NOTE Date of Service: Apr 23, 2025 Reason for Consultation: Evaluation of weakness and change of mental status Requesting Physician: hospitalist HISTORY OF PRESENT ILLNESS: Mr. Bang Laguna is an 84-year-old male with a history of hypertension, diabetes type 2, colitis, UTIs, congestive heart failure, atrial fibrillation, and dementia who was admitted on April 19 and is being evaluated for altered mental status concerning for stroke. The patient normally resides at [facility] but had been staying with his daughter for a couple of weeks prior to admission. Over this period, he became more obtunded and less energetic than his baseline. He had been off lactulose for more than 3 weeks prior to admission. His ammonia level on arrival was 108. During his hospital stay, he developed fevers with his temperature reaching 103.1F yesterday. His white blood cell count was elevated at 17, indicating an infection. He was found to have a urinary tract infection with white blood cells present in his urine. Today he became more comatose and less responsive, prompting activation of a stroke alert, which led to the current neurological consultation. He is not responding to verbal stimulation and his eyes remain closed. He is able to move all extremities and is not hemiplegic. His current vital signs show a heart rate of 88, blood pressure of 176/74, and oxygen saturation of 97% on room air. Medical History - Dementia - Atrial fibrillation - Congestive heart failure - Urinary tract infections - Colitis - Type 2 diabetes mellitus - Hypertension Medications and Supplements - Lactulose - Was off for more than 3 weeks - Zosyn (piperacillin-tazobactam) - Started today for infection Social History - Living Situation: Resides at [facility], recently staying with daughter for approximately two weeks REVIEW OF SYSTEMS CONSTITUTIONAL: Positive for fever (temperature up to 103.1F), decreased energy levels. HEAD/FACE: No signs of trauma. EENT: Denies eye pain, blurred vision, double vision, or light sensitivity. RESPIRATORY: Denies shortness of breath, cough, wheezing CARDIOVASCULAR: Denies chest pain, palpitation, syncope GASTROINTESTINAL/ABDOMINAL: Denies abdominal pain, constipation, diarrhea, nausea or vomiting GENITOURINARY: Denies dysuria or hematuria. MUSCULOSKELETAL: Denies joint pain, tenderness, or trauma. INTEGUMENTARY: Denies rash or itchiness NEUROLOGICAL/PSYCH: change in mental status. Denies anxiety, depression, heat or cold intolerance. PAST MEDICAL HISTORY: as above PAST SURGICAL HISTORY: as above PAST SOCIAL HISTORY: none FAMILY HISTORY: None Coded Allergies: No Known Drug Allergies (Unverified Allergy, Unknown, 08/21/22) PHYSICAL EXAM EYES: obtunded HENT: No oral thrush seen, moist Oral mucosa NECK: Supple, no JVD or thyromegaly. LUNGS: Good air entry. No rales, no rhonchi. CARDIOVASCULAR: S1, S2 regular. No murmur heard. ABDOMEN: Soft, non tender, bowel sounds present, no organomegaly CENTRAL NERVOUS SYSTEM: Confusion SKIN: No rashes, no swelling. LYMPHATICS: No peripheral lymphadenopathy MUSCULOSKELETAL: Weakness lethargy. EXTREMITIES: No cyanosis or clubbing BACK: No deformity, no pressure ulcer. GENITOURINARY: No dysuria or hematuria Vital Sign (Last 24 Hours) 04/23/25 04/23/25 04/23/25 14:00 17:37 20:15 Temp 102.4 Pulse 87 Resp 15 B/P (MAP) 167/74 Pulse Ox 99 O2 Delivery Room Air O2 Flow Rate 0 FiO2 21 Intake & Output (last 24hrs) 04/22/25 04/22/25 04/23/25 15:00 23:00 07:00 Intake Total 0 ml Balance 0 ml LABS: Laboratory: Test 04/23/25 19:43 04/23/25 17:50 04/23/25 16:45 04/23/25 11:47 Range/Units Whole Blood Glucose 104 70-110 MG/DL Lactic Acid Level 2.7 H 0.8-2.5 mmol/L Urine Color YELLOW YELLOW Urine Appearance CLOUDY H CLEAR Urine pH 5.5 5.0-8.0 Urine Specific [place] 1.017 1.001-1.031 Urine Protein 100 H NEGATIVE mg/dL Urine Glucose (UA) NEGATIVE NEGATIVE mg/dL Urine Ketones NEGATIVE NEGATIVE mg/dL Urine Occult Blood MODERATE H NEGATIVE Urine Nitrate NEGATIVE NEGATIVE Urine Bilirubin NEGATIVE NEGATIVE mg/dL Urine Urobilinogen 0.2 0.2-1.0 mg/dL Urine Leukocyte Esterase 500 H NEGATIVE [place]/uL Urine RBC 11-25 H 0-1 /HPF Urine WBC TNTC H 0-1 /HPF Urine WBC Clumps (Auto) MOD 0-1 /HPF Urine Squamous Epithelial Cells RARE 0-2 /HPF Urine Bacteria None None Seen /HPF Urine Yeast FEW None Seen /HPF White Blood Count 13.0 H 4.8-10.8 K/uL Red Blood Count 3.61 L 4.50-6.20 MIL/uL Hemoglobin 11.7 L 14.0-18.0 g/dL Hematocrit 35.9 L 42-54 % Mean Corpuscular Volume 99.4 H 79-99 fL Mean Corpuscular Hemoglobin 32.4 27.0-33.0 pg Mean Corpuscular Hemoglobin Concent 32.6 32.0-36.0 g/dL Red Cell Distribution Width 17.1 H 11.0-15.5 % Platelet Count 135 130-400 K/uL Mean Platelet Volume 10.2 7.5-10.5 fL Immature Granulocyte % (Auto) 1.1 H 0-1 % Neutrophils (%) (Auto) 89.8 H 40.0-77.0 % Lymphocytes (%) (Auto) 4.0 L 21.0-51.0 % Monocytes (%) (Auto) 4.4 3.0-13.0 % Eosinophils (%) (Auto) 0.2 0.0-8.0 % Basophils (%) (Auto) 0.5 0.0-5.0 % Neutrophils # (Auto) 11.6 H 1.8-7.7 K/uL Lymphocytes # (Auto) 0.5 L 1.0-4.8 K/uL Monocytes # (Auto) 0.6 0.1-1.0 K/uL Eosinophils # (Auto) 0.03 0.00-0.70 K/uL Basophils # (Auto) 0.06 0.00-0.20 K/uL Absolute Immature Granulocyte (auto 0.14 0-1 K/uL Nucleated Red Blood Cells 0.0 0.0-0.19 % White Cell Morphology Comment See comments Sodium Level 145 136-145 mmol/L Potassium Level 3.7 3.5-5.1 mmol/L Chloride Level 113 H 101-111 mmol/L Carbon Dioxide Level 23 21-32 mmol/L Blood Urea Nitrogen 33 H 7-18 mg/dL Creatinine 2.3 H 0.5-1.3 mg/dL Glomerular Filtration Rate Calc 27 >90 mL/min Random Glucose 130 H 70-105 mg/dL Total Calcium 7.6 L 8.5-10.1 mg/dL Total Bilirubin 0.5 # 0.2-1.0 mg/dL Aspartate Amino Transf (AST/SGOT) 29 10-37 U/L Alanine Aminotransferase (ALT/SGPT) 11 L 12-78 U/L Alkaline Phosphatase 88 50-136 U/L Ammonia 65 H 11-32 umol/L Troponin I High Sensitivity 1166 *H 4-75 ng/L Total Protein 6.6 6.0-8.3 g/dL Albumin 1.8 L 3.5-5.0 g/dL Test 04/23/25 11:43 04/23/25 11:40 04/23/25 05:14 Range/Units Blood Gas Specimen Type Arterial Arterial Blood pH 7.387 7.350-7.450 Arterial Blood Partial Pressure CO2 32 L 35-48 mmHg Arterial Blood Partial Pressure O2 95.4 83.0-108.0 mmHg Arterial Blood HCO3 18.9 L 21.0-28.0 mmol/L Arterial Blood Oxygen Saturation 96.7 94.0-98.0 % Arterial Blood Base Excess -5.2 L -2.0-3.0 mmol/L Hemoglobin (Blood Gas) 12.1 L 13.5-17.5 g/dL Sodium (Blood Gas) 141 136-145 MMOL/L Bedside Potassium (Blood Gas) 3.6 3.4-4.5 MMOL/L Bedside Chloride (Blood Gas) 113 H 98-107 MMOL/L Bedside Glucose (Blood Gas) 132 H 65-95 MG/DL Bedside Ionized Calcium (Blood Gas) 1.14 L 1.15-1.33 MMOL/L Bedside Lactic Acid (Blood Gas) 3.04 *H 0.36-0.75 MMOL/L Blood Gas Temperature 37.0 35.5-37.0 CELSIUS Blood Gas Vent Mode RA ROOM AIR FiO2 21.0 % Blood Gas Specimen Comment LR Activated Partial Thromboplast Time 40.7 H 26.3-35.5 SEC Direct Bilirubin 0.2 0.0-0.3 mg/dL DIAGNOSTICS / RADIOLOGY: CTH: cortical atrophy ASSESSMENT / PLAN: Mr. Bang Laguna is an 84-year-old male with a history of hypertension, diabetes type 2, congestive heart failure, atrial fibrillation, and dementia presenting with altered mental status and decreased responsiveness. Acute metabolic encephalopathy Assessment: Patient presents with hypoactive delirium secondary to acute metabolic encephalopathy. Contributing factors include elevated ammonia level (initially 108, most recent 69), urinary tract infection with elevated white blood cell count of 17, and recent discontinuation of lactulose for over 3 weeks. The combination of hyperammonemia and UTI in the setting of underlying dementia has resulted in significant altered mental status with decreased responsiveness to verbal stimulation and obtundation. CT scan of the head shows cortical atrophy consistent with underlying dementia. Pupils are sluggishly reactive bilaterally. Patient is moving all extremities without focal neurologic deficits, making stroke less likely despite initial stroke alert activation. Plan: - Continue lactulose therapy for hyperammonemia management - Continue antibiotic therapy with Zosyn for urinary tract infection - Continue IV fluid therapy - Monitor mental status for gradual improvement as metabolic derangements resolve - Continue monitoring ammonia levels Urinary tract infection Assessment: Patient has confirmed urinary tract infection with elevated white blood cell count and positive urine culture. UTI is contributing to acute delirium in this elderly patient with dementia. Plan: - Continue Zosyn antibiotic therapy Thank you for your consultation. RICK TURNER MD Apr 23, 2025 20:25
--- NOTE | 2025-04-23 22:26 | HMCIMG ---
EXAM: CR Chest, 1 View. CLINICAL HISTORY: Fever COMPARISON: Compared with the previous radiograph dated 01/07/2025. FINDINGS: LUNGS: Pulmonary vascular markings are increased in the right hilar region. There is no mass, infiltrate, or acute pulmonary abnormality. PLEURAL SPACES: No pleural effusion or pneumothorax. MEDIASTINUM: Cardiomegaly with cardiothoracic ratio of 0.61. BONES: No acute osseous abnormality. IMPRESSION: 1. No acute cardiopulmonary findings. 2. Cardiomegaly with cardiothoracic ratio of 0.61. 3. As compared to the previous radiographs dated 01/07/2025, no interval change in the findings. /[place]
[2025-04-23] MEDS ORDERED: VANCOMYCIN PROTOCOL PER PHARMACY IV SCH (22:30)
[2025-04-23] MEDS: VANCOMYCIN 1.5 GM/250 ML BAG 250 ML IV ONE (23:03)
[2025-04-24] VITALS (9 sets, daily range): BP systolic 147–199; BP diastolic 70–93; PULSE 65–86; RESP 16–21; TEMP 97.7–99.1; O2SAT 97–98
--- NOTE | 2025-04-24 01:00 | NUR ---
Pt transferred to PCCU 231 Handoff report given KRISTIN Onofre. Plan of care reviewed; questions and concerns were addressed. Pt transferred via bed on 2L NC. Pt's belonging were accounted for with KRISTIN Lucas and transferred to new room, including clothes, jackets, shoes, hat, glasses, hedis manager cable, and walker. Pt tolerated transfer well.
--- NOTE | 2025-04-24 01:04 | NUR ---
RECEIVED REPORT FROM MANISHA FOSTER. PATIENT TRANSFERRED TO ROOM 231. PCCU STATUS. PATIENT [id number] TO NAME ONLY. ABLE TO SAY NAME BUT GARBLED. RESPONSIVE TO SOUND. PUPILS EQUAL AND SLUGGISH. OBSERVED PATIENT MOVING UPPER EXTREMITIES. PER REPORT RECEIVED THIS IS IMPROVEMENT FROM DATE OF ADMISSION. PATINET ON TELE PACK. PER TELE BIOFUELS RESEARCH SCIENTIST SINUS RHYTHM 70s WITH 1ST DEGREE BLOCK.
[2025-04-24 06:06] LABS: IMMATURE GRANULOCYTE ABSOLUTE 0.08 K/uL (0-1); NUCLEATED RED BLOOD CELLS 0.0 % (0.0-0.19); PLATELET COUNT (AUTO) 140 K/uL (130-400); RED BLOOD CELL COUNT(AUTO) 3.71 MIL/uL (4.50-6.20); RED CELL DISTRIBUTION WIDTH 16.8 % (11.0-15.5); WHITE BLOOD COUNT (AUTO) 10.8 K/uL (4.8-10.8)
--- NOTE | 2025-04-24 06:08 | HMCIMG ---
EXAMINATION: SPECTRAL DOPPLER ULTRASOUND EXAMINATION OF THE BILATERAL UPPER EXTREMITY VEINS. CLINICAL HISTORY: To rule out DVT. COMPARISON: Prior ultrasound dated 10/07/2024. TECHNIQUE: Grayscale, color, and spectral Doppler images of the bilateral upper extremity veins are submitted. FINDINGS: The internal jugular, visualized aspects of the subclavian, axillary, brachial, radial, ulnar, basilic, and cephalic veins are patent. These veins show normal flow with physiological changes of phasicity and augmentation. The right subclavian vein is not seen due to patient not co-operating and bed ridden. IMPRESSION: There is no deep vein thrombosis within the bilateral upper extremity. /[place]
[2025-04-24 06:20] LABS: ASPARTATE AMINOTRANSFERASE 34.0 U/L (10-37); CREATININE 2.4 mg/dL (0.5-1.3); GLOMERULAR FILTR. RATE CALC 26.0 mL/min (>90); GLUCOSE,RANDOM 95.0 mg/dL (70-105); SODIUM SERUM 146.0 mmol/L (136-145); TOTAL PROTEIN, SERUM 6.5 g/dL (6.0-8.3); UREA NITROGEN, BLOOD 43.0 mg/dL (7-18)
[2025-04-24 06:22] LABS: BAND NEUTROPHILS % (MANUAL) 7 % (0-2); EOSINOPHILS % (MANUAL) 1 % (1-6); LYMPHOCYTES % (MANUAL) 6 % (22-44); MAN.DIFF COMMENT-IMPRESSION MANUAL DIFFERENTIAL; MONOCYTES % (MANUAL) 3 % (2-9); SEGMENTED NEUTROPHILS % 83 % (40-70)
--- NOTE | 2025-04-24 08:34 | EKG ---
[facility] Test Date: 2025-04-23 Test Time: 12:56:21 Pat Name: EKTA BRICEÑO Department: [facility] Room: 231 1 Gender: M Network Support: ROAUL : 1940 Requested By: RUBI MON Order Number: [id number] Reading MD: Rafael Donato Measurements Intervals [place] Rate: 65 P: 33 TN: 316 QRS: -47 QRSD: 102 T: 88 QT: 470 QTc: 488 Interpretive Statements Sinus rhythm with marked sinus arrhythmia with 1st degree AV block with ventricular escape complexes Left axis deviation Inferior infarct , age undetermined Cannot rule out Anterior infarct , age undetermined Compared to ECG 04/23/2025 12:55:17 Ventricular escape complex(es) now present First degree AV block now present Myocardial infarct finding now present Sinus bradycardia no longer present Ventricular premature complex(es) no longer present Electronically Signed On 04-24-2025 23:41:54 SHRIMP POND LABORER by Rafael Donato Please click the below link to view image of tracing.
--- NOTE | 2025-04-24 08:34 | EKG ---
[facility] Test Date: 2025-04-23 Test Time: 12:55:17 Pat Name: EKTA BRICEÑO Department: [facility] Room: 231 1 Gender: M Heel Splitter: RAOUL : 1940 Requested By: CAROLYN RANKIN Order Number: [id number] Reading MD: Rafael Donato Measurements Intervals [place] Rate: 50 P: 67 ME: 100 QRS: -63 QRSD: 122 T: 117 QT: 562 QTc: 512 Interpretive Statements Sinus bradycardia with short ME with frequent premature ventricular complexes in a pattern of bigeminy Left axis deviation Left bundle branch block Compared to ECG 04/20/2025 12:37:13 Ventricular premature complex(es) now present Short ME interval now present Left-axis deviation now present Left bundle-branch block now present Sinus rhythm no longer present Myocardial infarct finding no longer present Electronically Signed On 04-24-2025 23:40:52 GEOTHERMAL ELECTRICAL ENGINEER by Rafael Donato Please click the below link to view image of tracing.
--- NOTE | 2025-04-24 08:54 | NUR ---
CT ON HOLD AT THIS TIME, KRISTIN BOWER WILL CONTACT ORDERING PROVIDER DUE TO ELEVATED CREATININE. WILL CALL BACK IF ANY CHANGES.
--- NOTE | 2025-04-24 11:22 | PN ---
[facility] PROGRESS NOTE Date Patient Seen: Apr 24, 2025 Time of Visit: 11:18 Supervising Physician: Dr Yuri Hogan Primary Care Physician: [ ] Outpatient Specialists: [ ] Inpatient Consults: [ ] PROBLEM LIST: Elevated troponins Hepatic encephalopathy, POA Elevated ammonia levels CKD stage IIIB, POA Left lower extremity anterior tibial wound, POA Dementia Atrial fibrillation CHF with LVEF 55-60% by 2D echo on 10/08/2024 Diabetes mellitius type2 Hypertension Liver parenchymal disease by CT on 03/17/2024] INTERVAL HISTORY: Patient seen and examined, patient is more alert, following commands, no longer need sitter at bedside Multiple family members at bedside, updated on patient's status Ammonia levels downtrending Patient was seen and evaluated by Neurology, believes to be more metabolic We will follow neurology recs Good saturations room air Plan: Patient to be downgraded back to medical, Continue lactulose, follow ammonia levels Follow neurology recs Critical care will sign off, thank you for allowing us to participate in the care of your patient REVIEW OF SYSTEMS: 12 point ROS reviewed with patient. Pertinent positives mentioned above. O therwise negative. PHYSICAL EXAM: GENERAL: Obtunded HEENT: EOMI, Sclera non icteric, moist mucosa NECK: Supple, no JVD, trachea midline LUNGS: Clear breath sounds bilaterally. No wheezes HEART: Regular rate and rhythm. Normal S1 and S2, without murmurs ABD: Abdomen soft, nontender. Bowel sounds present EXT: No clubbing cyanosis or edema NEURO: Obtunded Vital Signs (last 8hr) Date Time Temp Pulse Resp B/P (MAP) Pulse Ox O2 Delivery O2 Flow Rate FiO2 04/24/25 07:09 98.1 85 18 156/75 98 Room Air 04/24/25 05:45 164/93 04/24/25 03:47 98.6 86 20 164/93 100 Room Air LABS: Hematology Labs: Test 04/24/25 05:47 Range/Units White Blood Count 10.8 4.8-10.8 K/uL Red Blood Count 3.71 L 4.50-6.20 MIL/uL Hemoglobin 11.7 L 14.0-18.0 g/dL Hematocrit 36.3 L 42-54 % Mean Corpuscular Volume 97.8 79-99 fL Mean Corpuscular Hemoglobin 31.5 27.0-33.0 pg Mean Corpuscular Hemoglobin Concent 32.2 32.0-36.0 g/dL Red Cell Distribution Width 16.8 H 11.0-15.5 % Platelet Count 140 130-400 K/uL Mean Platelet Volume 10.7 H 7.5-10.5 fL Immature Granulocyte % (Auto) 0.7 0-1 % Neutrophils (%) (Auto) 80.9 H 40.0-77.0 % Lymphocytes (%) (Auto) 5.7 L 21.0-51.0 % Monocytes (%) (Auto) 11.7 3.0-13.0 % Eosinophils (%) (Auto) 0.4 0.0-8.0 % Basophils (%) (Auto) 0.6 0.0-5.0 % Neutrophils # (Auto) 8.7 H 1.8-7.7 K/uL Lymphocytes # (Auto) 0.6 L 1.0-4.8 K/uL Monocytes # (Auto) 1.3 H 0.1-1.0 K/uL Eosinophils # (Auto) 0.04 0.00-0.70 K/uL Basophils # (Auto) 0.06 0.00-0.20 K/uL Absolute Immature Granulocyte (auto 0.08 0-1 K/uL Segmented Neutrophils % 83 H 40-70 % Band Neutrophils % 7 H 0-2 % Lymphocytes % (Manual) 6 L 22-44 % Monocytes % (Manual) 3 2-9 % Eosinophils % (Manual) 1 1-6 % Nucleated Red Blood Cells 0.0 0.0-0.19 % Differential Comment MANUAL DIFFERENTIAL White Cell Morphology Comment Platelet Morphology Comment See comments Red Blood Cell Morphology ANISO 1+ Chemistry Labs: Test 04/24/25 10:18 04/24/25 05:47 04/24/25 05:28 04/23/25 11:47 Range/Units Lactic Acid Level 2.8 H 0.8-2.5 mmol/L Sodium Level 146 H 136-145 mmol/L Potassium Level 3.7 3.5-5.1 mmol/L Chloride Level 114 H 101-111 mmol/L Carbon Dioxide Level 22 21-32 mmol/L Blood Urea Nitrogen 43 H 7-18 mg/dL Creatinine 2.4 H 0.5-1.3 mg/dL Glomerular Filtration Rate Calc 26 >90 mL/min Random Glucose 95 70-105 mg/dL Total Calcium 8.0 L 8.5-10.1 mg/dL Total Bilirubin 0.8 # 0.2-1.0 mg/dL Direct Bilirubin 0.3 0.0-0.3 mg/dL Aspartate Amino Transf (AST/SGOT) 34 10-37 U/L Alanine Aminotransferase (ALT/SGPT) 12 12-78 U/L Alkaline Phosphatase 81 50-136 U/L Ammonia 22 # 11-32 umol/L Total Protein 6.5 6.0-8.3 g/dL Albumin 1.9 L 3.5-5.0 g/dL Whole Blood Glucose 84 70-110 MG/DL Troponin I High Sensitivity 1166 *H 4-75 ng/L Coagulation Labs: Test 04/23/25 11:40 Range/Units Activated Partial Thromboplast Time 40.7 H 26.3-35.5 SEC DIAGNOSTICS / RADIOLOGY RESULTS: [ ] PLAN NEURO: Minimize central acting medications as possible. Maintain fall precautions, adequate lighting during the day PULMONARY: Supplemental 02 as needed. Maintain aspiration precautions at all times CARDIOVASCULAR: Follow hemodynamics. Vital signs per facility protocol GI & NUTRITION: Continue with nutritional support. Continue stool softeners and laxatives as needed. KIDNEYS & ELECTROLYTES: Strict monitoring of intake, output and overall fluid balance. Avoid nephrotoxic medications to the extent possible. Medications to be dosed according to renal function. Monitor electrolytes and replace as needed ENDOCRINE: Maintain blood glucose between 100-180 at all times. Hypoglycemia protocol in place INFECTIOUS DISEASE: Trend temperature, WBC and procalcitonin level Follow cultures, deescalate antibiotics as soon as possible. Panculture if new onset fever ONCOLOGY/HEMATOLOGY/COAGULATION: Monitor for s/s of bleeding Monitor hemoglobin, coagulation studies as needed SKIN: Pressure ulcer prevention per facility protocol Specialty mattress ORTHO/REHAB: Continue PT/OT Prophylaxis: Continue GI and DVT prophylaxis Code Status: Full Resuscitation Disposition: MIRIAM ANDERSON PAC Apr 24, 2025 11:22
--- NOTE | 2025-04-24 12:15 | PN ---
[facility] PROGRESS NOTE Date of Service: Apr 24, 2025 Time of Service: 12:15 SUBJECTIVE: Mr. Montgomery is an 84-year-old male that was seen and examined today on 04/19/2025. Patient is a poor historian and personal health. There was no family member at bedside. The following was obtained from a combination of emergency room physician report and previous medical records available to me f rom prior admissions lastly in January of 2025. According to emergency room physician: This is an 84-year-old male who was brought in to the emergency room by his daughter Christina for evaluation of worsening altered mental status over the past 2 days. Patient used to live in [facility] however patient's daughter indicated that she took him out of the a few weeks ago as he was more depressed and dwindling down. Since his discharge from the senior care she has not been able to get any of his medications that were routinely given and he has been off of lactulose for more than 3 weeks. She did finally get the lactulose prescription and resumed it the past 2 days. He stated that he has been extremely sleepy and has very interrupted sleep. No fever chills or rigors. No nausea vomitings diarrhea. He does have a history of drinking alcohol 40 years ago when he was young. No history of any falls no fever chills or rigors. Temperature 98.9 pulse 105 respirations 20 blood pressure 189/96 with a pulse oximetry of 100% on room air Chronic medical problems include diabetes mellitus, hypertension, CKD, history of colitis, history of UTIs, congestive heart failure and dementia history of atrial fibrillation on Eliquis I obtained most of the information from the daughter and medical records Today in the emergency department creatinine 1.7, no urinalysis has been annelise ected and sent to lab, CT of head is pending radiology report, ammonia level is elevated at 108. Emergency room physician recommended patient be admitted with a diagnosis of hepatic encephalopathy. 04/19/2025: Patient is seen in room 407 with out family present. Patient is awake, alert x3, much better than when I saw him in the morning in the ED. Patient has no complaints at this time. His ammonium levels have improved to 52 from 108 on admission. Ordered a bedside swallow evaluation change the lactulose to 20 g p.o. t.i.d. also ordered an ultrasound with the AFP tumor marker for hepatocellular carcinoma screening. Patient also got magnesium 4 g IV. 04/20/2025: Patient is seen in room 407 with out family present. Patient's ammonia increased to 134 last night came back to within normal levels at 68 today. Abdominal ultrasound performed but no report yet. Patient's creatinine has increased to 1.8 from 1.5 yesterday. Case management spoke to the patient regarding placement post discharge, patient decided he wants to go home. Patient had a rash on his chest overnight which subsided after getting Benadryl. Per nursing staff the patient was active overnight fell asleep early in the morning. 04/21/2025: Patient is seen in room 407 with family present. Patient's abdominal ultrasound did not show any signs of a hepatocellular carcinoma but recommended imaging every [address] of the head was negative, ammonia levels much improved and patient's confusion persists. He does have dementia at baseline, but daughter relays a rather rapid change in his mental status prior to admission. So we ordered a MRI to rule out stroke. We also started the patient on rifaximin 550 mg b.i.d. Patient's creatinine has also increased to 2.2 From 1.8 But per previous records his creatinine fluctuates between 1.8 To 2.5. We will keep an eye on his kidney function. Patient's blood pressure did go high in the evening but he got a dose of hydralazine 10 mg IV which seemed to bring the blood pressure back within normal limits. Patient seen by cardiology today regarding his second-degree heart block. Per Cardiology the patient does have a history of atrial fibrillation and is compliant with anticoagulation and upon reviewing of the patient's EKG and telemetry strips cardiology found that there is no clear second-degree AVB present and at this time they do not believe further cardiac workup is indicated as they think the symptoms are not cardiac in origin. 04/22/2025: Patient is seen and evaluated in the room 407. He is confused and disoriented. His vital signs are in the normal range except for blood pressure is 178/80. His labs are in the normal range except for hemoglobin 10.8, chloride is 113, BUN is 28, creatinine is 2.1. Cardiology was consulted for second degree AV block but they recommended no further workup. He is refusing all medications. So we rechecked his ammonia level and its 44. So we gave lactulose enema and we will check his ammonia level tomorrow. We are also awaiting the results of MRI. We changed the dose of metoprolol 12.5mg BID to metoprolol 25mg BID today. We also ordered US doppler of upper extremities to rule out DVT as his upper limb is swollen. 04/23/2025: Patient seen and evaluated in room 407. Patient in the morning seen with family present was having breakfast. Patient overnight had fevers reaching up to 103.1 [place] [id number]. Patient has been started on Zosyn and placed an order for repeat urinalysis and culture along with blood culture. Also ordered a chest x-ray, pending report. Cardiology saw him yesterday and increase his metoprolol to 25 mg twice daily. We also stopped the donepezil since the patient has been drowsy. We are still waiting on MRI, so ordered a stat CT. When we visited the patient again during rounds, we were unable to arouse the patient even with sternal rubbing, so we called rapid response. We also ordered a blood glucose level, ABG, troponin, CMP, ammonia, CBC and placed critical care consult, also started stroke response which included CT angio head and neck, Neurology consult, protein at transfer to ICU, EEG. Patient initially unresponsive even when blood drawing but then patient has suddenly woke up. He still appeared confused but had no focal deficits. Patient's lab work returned with elevated troponin at 1166, so ordered an EKG, echo, Cardiology consult. We also started a heparin drip once the head CT came back negative. Further treatment based on Cardiology, Neurology recommendations, lab results and imaging results. 04/24/2025: Patient is seen and evaluated in room 231 with family present. He is awake but confused. He had episodes of fever last night with temperature going as high as 102.4. His WBCs have improved and today they are at 10.8. Patient's blood culture came back positive for Staph aureus, waiting on sensitivity and susceptibility. ID has been consulted who started the patient on linezolid. Cardiology saw the patient yesterday and recommended that we quit drawing troponins, they believe that it is not a reliable measure of presents or absence of ischemia in his case because of his renal disease and many other metabolic factors and they do not serve any purpose in his evaluation. They saw no evidence of a myocardial infarct at the time and believes that even if there is evidence of acute ischemic event their treatment will not likely change. They believe the patient is not a candidate for any form of invasive evaluation and the patient's family also does not desire aggressive measures. Urology also saw the patient and recommended to continue lactulose therapy for hyperammonemia management, continue antibiotic therapy with Zosyn for urinary tract infection, continue IV fluid therapy, monitor mental status for gradual improvement as metabolic derangements resolve, continue monitoring ammonia levels. They believe that the UTI is contributing to acute delirium in this elderly patient with dementia. His creatinine increased from 2.3-2.4 And BUN From 33-44, we placed a consult for his jail guard. Further treatment based on above recommendations. Ordered an abdomen/pelvis CT as he has been having hip pain. Still waiting on echo report. REVIEW OF SYSTEMS Review of systems could not be obtained because of altered mental status PHYSICAL EXAM GENERAL APPEARANCE: Patient does not respond to verbal stimulus. NEUROLOGICAL: Confused but now talking HEENT: Face is symmetric. NECK: Supple No lymphadenopathy. CHEST: Normal chest expansion. On Telemetry. LUNGS: Absence of any rales, rhonchi or any wheezing. CARDIOVASCULAR: Regular. S1 and S2 normal. No appreciable rubs, murmurs or gallops. ABDOMEN: Soft, nontender, and nondistended. There is no rebound, voluntary guarding, or rigidity. : Deferred. No Mcdermott. EXTREMITIES: Non-edematous and not cyanotic. SKIN: No skin breakdown. Vital Signs (last 8hr) Date Time Temp Pulse Resp B/P (MAP) Pulse Ox O2 Delivery O2 Flow Rate FiO2 04/24/25 12:08 67 190/70 04/24/25 11:55 99.1 67 16 190/70 100 Room Air 04/24/25 07:09 98.1 85 18 156/75 98 Room Air 04/24/25 05:45 164/93 LABS: Laboratory: Test 04/24/25 11:43 04/24/25 10:18 04/24/25 05:47 04/23/25 16:45 Range/Units Whole Blood Glucose 96 70-110 MG/DL Lactic Acid Level 2.8 H 0.8-2.5 mmol/L White Blood Count 10.8 4.8-10.8 K/uL Red Blood Count 3.71 L 4.50-6.20 MIL/uL Hemoglobin 11.7 L 14.0-18.0 g/dL Hematocrit 36.3 L 42-54 % Mean Corpuscular Volume 97.8 79-99 fL Mean Corpuscular Hemoglobin 31.5 27.0-33.0 pg Mean Corpuscular Hemoglobin Concent 32.2 32.0-36.0 g/dL Red Cell Distribution Width 16.8 H 11.0-15.5 % Platelet Count 140 130-400 K/uL Mean Platelet Volume 10.7 H 7.5-10.5 fL Immature Granulocyte % (Auto) 0.7 0-1 % Neutrophils (%) (Auto) 80.9 H 40.0-77.0 % Lymphocytes (%) (Auto) 5.7 L 21.0-51.0 % Monocytes (%) (Auto) 11.7 3.0-13.0 % Eosinophils (%) (Auto) 0.4 0.0-8.0 % Basophils (%) (Auto) 0.6 0.0-5.0 % Neutrophils # (Auto) 8.7 H 1.8-7.7 K/uL Lymphocytes # (Auto) 0.6 L 1.0-4.8 K/uL Monocytes # (Auto) 1.3 H 0.1-1.0 K/uL Eosinophils # (Auto) 0.04 0.00-0.70 K/uL Basophils # (Auto) 0.06 0.00-0.20 K/uL Absolute Immature Granulocyte (auto 0.08 0-1 K/uL Segmented Neutrophils % 83 H 40-70 % Band Neutrophils % 7 H 0-2 % Lymphocytes % (Manual) 6 L 22-44 % Monocytes % (Manual) 3 2-9 % Eosinophils % (Manual) 1 1-6 % Nucleated Red Blood Cells 0.0 0.0-0.19 % Differential Comment MANUAL DIFFERENTIAL White Cell Morphology Comment Platelet Morphology Comment See comments Red Blood Cell Morphology ANISO 1+ Sodium Level 146 H 136-145 mmol/L Potassium Level 3.7 3.5-5.1 mmol/L Chloride Level 114 H 101-111 mmol/L Carbon Dioxide Level 22 21-32 mmol/L Blood Urea Nitrogen 43 H 7-18 mg/dL Creatinine 2.4 H 0.5-1.3 mg/dL Glomerular Filtration Rate Calc 26 >90 mL/min Random Glucose 95 70-105 mg/dL Total Calcium 8.0 L 8.5-10.1 mg/dL Total Bilirubin 0.8 # 0.2-1.0 mg/dL Direct Bilirubin 0.3 0.0-0.3 mg/dL Aspartate Amino Transf (AST/SGOT) 34 10-37 U/L Alanine Aminotransferase (ALT/SGPT) 12 12-78 U/L Alkaline Phosphatase 81 50-136 U/L Ammonia 22 # 11-32 umol/L Total Protein 6.5 6.0-8.3 g/dL Albumin 1.9 L 3.5-5.0 g/dL Urine Color YELLOW YELLOW Urine Appearance CLOUDY H CLEAR Urine pH 5.5 5.0-8.0 Urine Specific Mcbrides 1.017 1.001-1.031 Urine Protein 100 H NEGATIVE mg/dL Urine Glucose (UA) NEGATIVE NEGATIVE mg/dL Urine Ketones NEGATIVE NEGATIVE mg/dL Urine Occult Blood MODERATE H NEGATIVE Urine Nitrate NEGATIVE NEGATIVE Urine Bilirubin NEGATIVE NEGATIVE mg/dL Urine Urobilinogen 0.2 0.2-1.0 mg/dL Urine Leukocyte Esterase 500 H NEGATIVE Yobany/uL Urine RBC 11-25 H 0-1 /HPF Urine WBC TNTC H 0-1 /HPF Urine WBC Clumps (Auto) MOD 0-1 /HPF Urine Squamous Epithelial Cells RARE 0-2 /HPF Urine Bacteria None None Seen /HPF Urine Yeast FEW None Seen /HPF Test 04/23/25 11:47 04/23/25 11:43 04/23/25 11:40 Range/Units Troponin I High Sensitivity 1166 *H 4-75 ng/L Blood Gas Specimen Type Arterial Arterial Blood pH 7.387 7.350-7.450 Arterial Blood Partial Pressure CO2 32 L 35-48 mmHg Arterial Blood Partial Pressure O2 95.4 83.0-108.0 mmHg Arterial Blood HCO3 18.9 L 21.0-28.0 mmol/L Arterial Blood Oxygen Saturation 96.7 94.0-98.0 % Arterial Blood Base Excess -5.2 L -2.0-3.0 mmol/L Hemoglobin (Blood Gas) 12.1 L 13.5-17.5 g/dL Sodium (Blood Gas) 141 136-145 MMOL/L Bedside Potassium (Blood Gas) 3.6 3.4-4.5 MMOL/L Bedside Chloride (Blood Gas) 113 H 98-107 MMOL/L Bedside Glucose (Blood Gas) 132 H 65-95 MG/DL Bedside Ionized Calcium (Blood Gas) 1.14 L 1.15-1.33 MMOL/L Bedside Lactic Acid (Blood Gas) 3.04 *H 0.36-0.75 MMOL/L Blood Gas Temperature 37.0 35.5-37.0 CELSIUS Blood Gas Vent Mode RA ROOM AIR FiO2 21.0 % Blood Gas Specimen Comment LR Activated Partial Thromboplast Time 40.7 H 26.3-35.5 SEC Current Medications Medications (Trade) Dose Ordered Sig/Lashonda Route PRN Reason Start Time Stop Time Status Last Admin Dose Admin Acetaminophen (TYLenol 325MG ELIXIR) 650 mg Q8H PO 04/24/25 11:30 05/24/25 11:29 04/24/25 11:38 650 MG Acetaminophen (TYLenol 325MG TAB) 650 mg Q6H PRN PO TEMPERATURE GREATER THAN 101.5 04/19/25 03:30 04/23/25 19:24 DC Acetaminophen (TYLenol 650MG SUPPOSITORY) 650 mg Q6H PRN RC TEMPERATURE GREATER THAN 101.5 04/23/25 19:30 05/23/25 19:29 04/23/25 20:15 650 MG Acetaminophen (acetaMINOPHEN 1,000MG/100ML) 1,000 mg Q8H6 IVPB 04/24/25 14:00 04/24/25 10:56 DC Apixaban (EliquIS 2.5 mg) 2.5 mg BID PO 04/20/25 09:00 04/23/25 13:28 DC 04/23/25 09:15 2.5 MG Apixaban (EliquIS) 5 mg BID PO 04/19/25 09:00 04/20/25 08:22 DC 04/19/25 21:30 5 MG Clonidine HCl (CATApres 0.1 mg TAB) 0.1 mg HS PO 04/20/25 21:00 04/20/25 08:10 DC Dextrose 1,000 ml @ 75 mls/hr [id number] IV 04/19/25 08:30 04/20/25 13:23 DC 04/19/25 09:00 75 MLS/HR Donepezil HCl (ARIcept 5MG TAB) 10 mg HS PO 04/20/25 21:00 04/23/25 10:05 DC 04/21/25 21:14 10 MG Enoxaparin Sodium (Lovenox) 30 mg DAILY SQ 04/19/25 09:00 04/19/25 03:24 DC Famotidine (Pepcid 20mg Tab) 20 mg Q48H PO 04/19/25 09:00 05/19/25 08:59 04/23/25 09:15 20 MG Heparin Sodium (Porcine) (HEParin 5,000 UNIT VIAL) *calculation based on ACTUAL B... AD PRN IV HEPARIN PROTOCOL 04/23/25 21:00 04/23/25 19:28 DC Heparin Sodium/ Dextrose 250 ml @ 0 mls/hr Q6H IV 04/23/25 21:00 04/23/25 19:28 DC Hydralazine HCl (APRESOLine 20MG INJ) 10 mg Q6H PRN IV For:SBP above 160;DBP above 90 04/19/25 03:30 05/19/25 03:29 04/24/25 12:08 10 MG Insulin Human Regular (humuLIN R 100 UNIT/ML 3ML) INSULIN SLIDING SCAL... ACHS SQ 04/19/25 07:30 05/19/25 07:29 Lactulose (Constulose 20gm/ 30ml Udcup) 20 gm BID PO 04/19/25 09:00 04/19/25 15:19 DC 04/19/25 08:58 20 GM Lactulose (Constulose 20gm/ 30ml Udcup) 20 gm TID PO 04/19/25 15:30 05/19/25 08:59 04/24/25 09:42 20 GM Magnesium Sulfate 50 ml @ 0 mls/hr PROTOCOL PRN IV MAGNESIUM PROTOCOL 04/19/25 08:30 05/19/25 08:29 04/19/25 11:15 50 MLS/HR Metoprolol Tartrate (loprESSOR) 5 mg Q5M PRN IV AFIB RVR HR > 120 BPM 04/19/25 03:30 04/22/25 12:13 DC Metoprolol Tartrate (loprESSOR) 12.5 mg BID PO 04/19/25 09:00 04/22/25 10:23 DC 04/21/25 08:31 12.5 MG Metoprolol Tartrate (loprESSOR) 25 mg BID PO 04/22/25 21:00 05/22/25 20:59 04/24/25 09:43 25 MG Morphine Sulfate (morPHINE 4MG SYG) 2 mg Q4H PRN IVP SEVERE PAIN (7-10) 04/19/25 03:30 04/24/25 06:29 DC 04/23/25 23:48 2 MG Nifedipine (adALAT 30MG) 60 mg BID PO 04/20/25 09:00 04/20/25 18:51 DC 04/20/25 09:10 60 MG Nifedipine (adALAT 30MG) 60 mg DAILY PO 04/21/25 09:00 05/20/25 08:59 04/24/25 09:43 60 MG Ondansetron HCl (zoFRAN 4MG INJ) 4 mg Q6H PRN IV NAUSEA/VOMITING 04/19/25 03:30 05/19/25 03:29 Pharmacy Profile Note (Pharmacy Communication) 1 each ONCE MISC 04/19/25 03:30 04/20/25 08:24 DC Piperacillin Sod/ Tazobactam Sod (Zosyn 3.375gm+NS 50ml) 3.375 gm Q12H IV 04/23/25 10:00 05/03/25 09:59 04/24/25 09:43 3.375 GM Potassium Chloride 100 ml @ 50 mls/hr AD PRN IV POTASSIUM PROTOCOL 04/19/25 08:30 04/22/25 13:27 DC Potassium Chloride 100 ml @ 100 mls/hr AD PRN IV POTASSIUM PROTOCOL 04/19/25 08:30 05/19/25 08:29 Potassium Chloride (K-Dur/Klor-Con 20meq) 20 meq AD PRN PO POTASSIUM PROTOCOL 04/19/25 08:30 05/19/25 08:29 Potassium Chloride (KCl 10% Elixir 20meq/15ml) 20 meq AD PRN PO POTASSIUM PROTOCOL 04/19/25 08:30 05/19/25 08:29 04/23/25 09:15 20 MEQ Rifaximin (Xifaxan) 550 mg BID PO 04/21/25 14:30 04/21/25 14:19 DC Rifaximin (Xifaxan) 550 mg BID PO 04/21/25 21:00 04/23/25 09:44 DC 04/21/25 21:14 550 MG Rifaximin (Xifaxan) 550 mg BID PO 04/23/25 10:00 05/23/25 09:59 04/24/25 09:42 550 MG Vancomycin HCl 100 ml @ 100 mls/hr Q24H IV 04/24/25 23:00 05/04/25 22:59 Vancomycin HCl (Vancomycin Protocol) 1 each AD IV 04/23/25 22:30 05/07/25 22:29 DIAGNOSTICS / RADIOLOGY: [ ] ASSESSMENT: Hepatic encephalopathy, POA Suspected sepsis, NPOA, unknown source of infection CKD stage IIIB, POA Left lower extremity anterior tibial wound, POA Rule out DVT Dementia Atrial fibrillation CHF with LVEF 55-60% by 2D echo on 10/08/2024 Diabetes mellitius type2 Hypertension Liver parenchymal disease by CT on 03/17/2024] PLAN: Hepatic encephalopathy, POA: * Patient drowsy and confused when 1st admitted in the ED, ammonia levels now at 68 * Patient is started on lactulose 20 mg b.i.d. which has been increased to 20 mg t.i.d. * Patient head CT was negative, repeat head CT also negative * MRI has been ordered * Current ammonia level at 22 Suspected Sepsis NPOA, unknown source of infection: * Patient had a temperature of 103.1 last night, WBC went up as high as 17,000, heart rate at 114 and respiratory rate at 21. His lactic acid has also gone up to 3.4. * Continue patient on Zosyn * Source of infection unknown * Blood culture came back positive for staph aureus * Infectious disease consulted * Started the patient on linezolid CKD stage IIIB, POA : * Patient's creatinine at admission at 1.7, from previous records baseline looks like around 1.5-2.0 * Creatinine today at 2.4 * Nephrology consulted Hypertension: * Patient's blood pressure high at 168/78 on admission going as high as 180/87 * Patient received hydralazine 10 mg IV * Patient on metoprolol tartrate 12.5 mg p.o. b.i.d. * Cardiology was consulted for second degree AV block but they recommended no further workup. * We changed the dose of metoprolol 12.5mg BID to metoprolol 25mg BID today. Diabetes mellitius type2: * Patient's blood glucose at 88 * Patient on insulin sliding scale Rule out DVT: * The nurse noticed that the patient's upper limbs are swollen. * We ordered a US doppler of upper limbs. GI prophylaxis, famotidine DVT prophylaxis, resume patient's DOAC, Eliquis as stated above ATTESTATION BY PHYSICIAN I have seen and examined the patient. I reviewed the documentation, medical decision making, and treatment plan as noted by the resident physician above. I agree with the findings and plan of care. Masood Abraham IV, MD, ABHINAV MD Apr 24, 2025 12:15
--- NOTE | 2025-04-24 15:09 | CONS ---
INFECTIOUS DISEASE CONSULTATION DATE OF SERVICE: 04/24/2025 REQUESTING PHYSICIAN: Dr. Walden. REASON FOR CONSULTATION: Gram positive bacteremia. HISTORY OF PRESENT ILLNESS: An 84-year-old male with a history of dementia, atrial fibrillation, seizure, diabetes mellitus and chronic kidney disease, who presented to the hospital with altered mental status. The patient's symptoms started 2 days prior to presentation. The patient also found with decreased ____. The patient initially admitted to ICU. The patient found with UTI. Blood culture is growing gram positive cocci in clusters. The patient has been started on vancomycin and Zosyn. No documented fever. The patient was known to me from previous admission in the past. The patient previously was at one point on dialysis, which was later discontinued. PAST MEDICAL HISTORY: * Dementia. * Atrial fibrillation. * CHF. * Diabetes mellitus. * Hypertension. * Chronic kidney disease. * UTI. PAST SURGICAL HISTORY: Jimmy catheter placement and removal. ALLERGIES: No known drug allergies. CURRENT MEDICATIONS: * Vancomycin. * Zosyn. * Insulin. * Aspirin. * Tylenol. SOCIAL HISTORY: Lives with family. No alcohol, tobacco or illicit drug use. FAMILY HISTORY: Positive for diabetes mellitus. REVIEW OF SYSTEMS: History was obtained from medical record. The patient is confused, unable to give any history. PHYSICAL EXAMINATION: GENERAL: Elderly male, awake, not in distress. VITAL SIGNS: 98.9 EYES: No icterus. Pupils equal and reactive. HENT: No oral thrush seen. Moist oral mucosa. NECK: Supple. No JVD or thyromegaly. LUNGS: Good air entry. No rales, no rhonchi. CARDIOVASCULAR: S1 and S2. Regular. No murmur heard. ABDOMEN: Full, soft, nontender. Bowel sound is present. CENTRAL NERVOUS SYSTEM: The patient is awake, confused. SKIN: No rashes, no itchiness. MUSCULOSKELETAL: Tenderness to the right hip. LABORATORY DATA: Sodium ____, potassium 3.7, BUN 43, creatinine 2.4. WBC ____, hemoglobin 9.7, platelets ____. Blood culture growing gram positive cocci in clusters. ASSESSMENT: An 84-year-old male admitted with confusion: * Altered mental status. * gram positive bacteremia, sepsis. * Urinary tract infection. * Renal failure * Multifactorial encephalopathy. * Diabetes mellitus. * Anemia. PLAN: * Obtain CT of the pelvis to rule out fracture. * Discontinue vancomycin. * Continue Zosyn. * Start patient on linezolid * Continue current management. * Continue antiemetics. * The patient will be followed up closely. TID: [id number] RECEIPT: [id number] MTDD
[2025-04-24] MEDS: LINEZOLID 600 MG/ISO-OSM 300 ML IV SCH (15:20)
[2025-04-24] MEDS: LACTATED RINGERS 1000ML IV ONE (15:34)
[2025-04-24] MEDS: DEXTROSE 5 % AND 0.9 % NACL 1,000 ML IV SCH (20:24)
[2025-04-24] MEDS ORDERED: VANCOMYCIN 500MG+NS 100ML 100 ML IV SCH (23:00)
--- NOTE | 2025-04-24 23:20 | HMCSR ---
APPROVED REPORT EXAM: Two-dimensional and M-mode echocardiogram with Doppler and color Doppler. INDICATION ICD: elevated troponin of 1166 2D Dimensions RVDd 3.5 cm LVEF(%) 60.2 (>50%) LVED Vol(simp.) 94.3 mL IVSd 1.6 (0.7-1.1cm) FS(%) 31 % LVES Vol(simp.) 42.5 mL LVDd 3.5 (3.8-5.6cm) LA (2D) 3.4 (1.6-4.0cm) LVEF(%, simp.) 55 % PWd 1.5 (0.7-1.1cm) Ao Root(2D) 3.1 (2.0-3.7cm) LA ESV INDEX (BP) 23.84 mL/m2 LVDs 2.4 (2.5-4.0cm) LVOT diam 2.0 (1.8-2.4cm) IVC diam 1.9 cm Deformation Strain Apical 4 -13.6 % Apical 2 -10.6 % Apical 3 -10.7 % Global Strain -11.6 % M-Mode Dimensions EPSS 0.8 cm LA (MM) 3.0 (1.6-4.0cm) Ao Root(MM) 3.3 (2.0-3.7cm) Aortic Valve AoV Vmax 2.1 m/s Ao Peak GR 17.2 mmHg LVOT Vmax 1.1 m/s AoV VTI 0.4 m Ao Mean GR 8.3 mmHg LVOT VTI 0.23 m CHERIE (VMAX) 1.74 cm2 Al P1/2T 703 ms CHERIE (VTI) 1.9 cm2 Mitral Valve MV E Vmax 51.4 cm/s DECEL Time 192 ms MV A Vmax 84.0 cm/s P 1/2 T 62 ms E/A ratio 0.6 MVA (PHT) 3.5 cm2 TDI E/E' Medial 14.0 E/E' Lateral 8.4 Medial E' Peak V 3.67 cm/s Lateral E' Peak V 6.13 cm/s Pulmonary Valve PV Vmax 1.5 m/s PV VTI 0.25 m PV Mean GR 3.9 mmHg PV Peak GR 8.9 mmHg Tricuspid Valve TR Vmax 2.5 m/s RVSP 25.7 mmHg TR Peak GR 26.4 mmHg Left Ventricle The left ventricle is normal size. Apical septal and anteroapical hypokinesis. GLS is -12%. Moderate concentric left ventricular hypertrophy. LVEF is 50-55%. Grade I diastolic dysfunction. Right Ventricle The right ventricle is normal size. The right ventricular systolic function is normal. Atria The left atrium size is normal. The right atrium size is normal. Aortic Valve The aortic valve is trileaflet, with shaggy sclerosis, and diffuse leaflet thickening. Mild to moderate aortic regurgitation. There is mild valvular aortic stenosis. Highest mean aortic valve gradient is 10mmHg. Mitral Valve The mitral valve is normal in structure. There is no evidence of significant mitral regurgitation. There is no mitral valve stenosis. Tricuspid Valve The tricuspid valve is normal in structure. There is mild tricuspid valve regurgitation noted. Pulmonic Valve The pulmonary valve is normal in structure. There is no pulmonic valvular regurgitation. Great Vessels The aortic root is normal in size. The IVC is normal in size and collapses >50% with inspiration. Pericardium There is trace pericardial effusion. Conclusion The left atrium size is normal. Moderate concentric left ventricular hypertrophy. Apical septal and anteroapical hypokinesis. GLS is -12%. LVEF is 50-55%. Grade I diastolic dysfunction. The aortic valve is trileaflet, with shaggy sclerosis, and diffuse leaflet thickening. There is mild valvular aortic stenosis. Highest mean aortic valve gradient is 10mmHg. Mild to moderate aortic regurgitation. There is no evidence of significant mitral regurgitation. There is trace pericardial effusion.
--- NOTE | 2025-04-24 23:41 | NUR ---
Report patient pain to right hip to rob yarbrough kiln loader. Pain states alot of pain to hip. Unable to state pain scale. Complains of pain when patient is turned or repositioned. CT already done today. Previously patient was taking morphin iv prn. As per Rob yarbrough kiln loader. dilaudid 0.2mg iv x1 for pain managment.
[2025-04-25] VITALS (7 sets, daily range): BP systolic 130–168; BP diastolic 64–73; PULSE 57–75; RESP 16–20; TEMP 97.4–98.4; O2SAT 98
--- NOTE | 2025-04-25 01:31 | HMCIMG ---
STUDY CT Abdomen and Pelvis without IV contrast. HISTORY Right hip pain. TECHNIQUE Axial computed tomography images of the abdomen and pelvis were obtained without intravenous contrast. COMPARISON Right upper quadrant ultrasound dated 04/20/[address] abdomen and pelvis without contrast dated 03/17/2024. FINDINGS LUNG BASES AND PLEURA There is a small left pleural effusion measuring up to approximately 1.5 cm in maximal thickness. Chronic lung changes with basilar atelectasis are present in the bilateral lower lobes, left greater than right. HEART AND PERICARDIUM Minimal pericardial effusion is present with maximal thickness of approximately 1.5 cm. LIVER The liver contains multiple calcified granulomata measuring up to approximately 1 cm. No focal hepatic mass is identified. GALLBLADDER AND BILE DUCTS Cholelithiasis is present with gallstones measuring up to approximately 0.4 cm, without CT evidence of acute cholecystitis. No biliary ductal dilatation is evident. SPLEEN Calcified splenic granulomata measuring up to approximately 1 cm are present. No splenomegaly is seen. ADRENAL GLANDS Adrenal glands are unremarkable. KIDNEYS, URETERS, AND BLADDER There is a left upper pole renal cortical cyst measuring approximately 5 cm and a right lower pole renal cortical cyst measuring approximately 1.5 cm. No hydronephrosis or hydroureter is present. A vesical calculus measuring approximately 2.5 cm is noted within the urinary bladder. No ureteral calculi are identified. STOMACH AND BOWEL There is fecal impaction within the colon and rectum. No evidence of bowel obstruction or acute inflammatory bowel process is identified. PERITONEUM No intraperitoneal free air or free fluid is seen. LYMPH NODES No pathologically enlarged abdominal or pelvic lymph nodes are identified. REPRODUCTIVE ORGANS The prostate is enlarged with an estimated volume of approximately 40 cc. VASCULATURE No abdominal aortic aneurysm is identified. Visualized vascular structures are otherwise unremarkable for a noncontrast study. BONES AND SOFT TISSUES There is severe right hip osteoarthritis characterized by diffuse chondral thinning and prominent periarticular osteophytosis. An intramedullary nail with dynamic hip screw fixation is present traversing the right femoral neck, without evidence of hardware complication or acute periprosthetic fracture. No aggressive osseous lesion or other acute osseous abnormality is identified. IMPRESSION * Severe right hip osteoarthritis with prior right femoral neck fixation, without acute hardware complication or periprosthetic fracture, correlating with the reported right hip pain. * Cholelithiasis without CT evidence of acute cholecystitis, 2.5 cm vesical calculus, bilateral renal cortical cysts, enlarged prostate, and calcified hepatic and splenic granulomata compatible with prior granulomatous disease. /[place]
[2025-04-25 05:39] LABS: IMMATURE GRANULOCYTE ABSOLUTE 0.03 K/uL (0-1); NUCLEATED RED BLOOD CELLS 0.0 % (0.0-0.19); PLATELET COUNT (AUTO) 125 K/uL (130-400); RED BLOOD CELL COUNT(AUTO) 3.59 MIL/uL (4.50-6.20); RED CELL DISTRIBUTION WIDTH 16.4 % (11.0-15.5); WHITE BLOOD COUNT (AUTO) 9.5 K/uL (4.8-10.8)
--- NOTE | 2025-04-25 05:56 | CONS ---
NEPHROLOGY CONSULTATION REQUESTING PHYSICIAN: Dr. Stewart Neff. REASON FOR CONSULTATION: Evaluation of the patient with abnormal kidney function. HISTORY OF PRESENT ILLNESS: The patient is an 84-year-old male, who is known to my service. He has history of chronic kidney disease stage IIIB, diabetic mellitus type 2, chronic liver disease and anemia of chronic disease. The patient was admitted on 04/19/2026 as he was confused. The patient spent some time in the correction, but subsequently, he went home under the care of the daughter. The patient is with confusional state. He was found to have hepatic encephalopathy. He was given lactulose and his mental condition improved somehow, but not completely. CT scan of the head was reported without any acute events. The ammonia level was 108, and initially, the patient had creatinine of 1.7 mg/dL. The patient is known to have dementia, atrial fibrillation, congestive heart failure with chronic systolic dysfunction with ejection fraction about 50-60%. He also has stage 2 diastolic dysfunction. At the time of examination, the patient is asleep, but he is arousable. He does not talk much. Discussed the patient's condition with the nurse in-charge. Informed me that the patient had developed a bacteremia with Gram-negative cocci. Final identification is being awaited. The patient is already into antimicrobials. The infectious diseases specialist has also been requested to visit him. PAST MEDICAL HISTORY: As outlined in the history of present illness. FAMILY HISTORY: There is a history of hypertension and diabetes. SOCIAL HISTORY: No history of alcohol abuse and smoking. CURRENT MEDICATIONS: Reviewed. ALLERGIES: No history of drug allergies. REVIEW OF SYSTEMS: Confusional state and generalized body weakness. Otherwise, no other complaints in the review of systems. PHYSICAL EXAMINATION: GENERAL: Reveals an acutely ill male in no major acute distress. He does not talk much. VITAL SIGNS: Blood pressure 147/82, respirations 16, pulse 16 and temperature 98.2. HEENT: The head is normocephalic. NECK: Supple. No JVD. Trachea is central. LUNGS: Clear on auscultation and inspection. HEART: Normal cardiac sound. No gallops. ABDOMEN: Soft, nondistended. EXTREMITIES: Right lower extremity shows no edema or cyanosis. Left lower extremity - No edema or cyanosis. SKIN: No rashes or ecchymosis. PSYCHIATRIC: The patient is confused and disoriented to time, person and place. NEUROLOGICAL: No focal motor or sensory deficits. LABORATORY DATA: WBC count 10.8 and hemoglobin 11.7. Sodium 146, potassium 3.7, BUN 43 and creatinine of 2.4. Ammonia level is . ASSESSMENT: * Acute kidney injury on top of chronic kidney disease stage 3B. The likely etiology of the acute decline of kidney function is hepatorenal syndrome. On day of admission, the patient had a serum creatinine of 1.7 with the current level of 2.4 mg/dL. * Hepatic encephalopathy. * Chronic liver disease. * Diabetes mellitus type 2. * Hypoalbuminemia due to liver disease. PLAN: Recommend the patient requires hydration. He has poor oral intake. Start the patient on D5W with normal saline at 45 mL/hr in order to maintain euvolemia. Avoid nephrotoxic agents. The patient required nutritional support. Issue of bacteremia still needs to be determined as final identification of bacteria is not available yet. Antimicrobials if any needs to be adjusted according to GFR. We will continue monitoring renal function and electrolytes. TID: [id number] RECEIPT: [id number]
[2025-04-25 05:58] LABS: ASPARTATE AMINOTRANSFERASE 28.0 U/L (10-37); CREATININE 2.2 mg/dL (0.5-1.3); GLOMERULAR FILTR. RATE CALC 28.0 mL/min (>90); GLUCOSE,RANDOM 147.0 mg/dL (70-105); SODIUM SERUM 144.0 mmol/L (136-145); TOTAL PROTEIN, SERUM 6.1 g/dL (6.0-8.3); UREA NITROGEN, BLOOD 44.0 mg/dL (7-18)
--- NOTE | 2025-04-25 09:24 | PN ---
INFECTIOUS DISEASE PROGRESS NOTE Date of Service: Apr 25, 2025 SUBJECTIVE: This is an 84-year-old male patient who remains with altered mental status. The final blood culture results came back positive for methicillin susceptible Staphylococcus aureus, and a urinalysis was positive and pending final culture results. Currently continues on Zosyn, linezolid and rifampin. Some improvement on the renal function and the WBC has trended down to 9.5. Continues with severe pain to the right hip. A CT of the pelvis was obtained and showed severe right hip osteoarthritis but no hardware complication or periprosthetic fracture. We will start patient on acetaminophen 1 g IV every 12 hours and apply lidocaine patch to the right hip. PHYSICAL EXAM EYES: Anicteric. Pupils equal and reactive. HENT: No oral thrush seen, moist Oral mucosa NECK: Supple, no JVD or thyromegaly. LUNGS: Good air entry. No rales, no rhonchi. CARDIOVASCULAR: S1, S2 regular. No murmur heard. ABDOMEN: Soft, non tender, bowel sounds present. CENTRAL NERVOUS SYSTEM: Awake, alert, oriented x 1. SKIN: No rashes, no swelling. LYMPHATICS: No peripheral lymphadenopathy MUSCULOSKELETAL: No joint swelling, erythema or tenderness. EXTREMITIES: No cyanosis or clubbing BACK: No deformity, no pressure ulcer. GENITOURINARY: No dysuria or hematuria Vital Sign (Last 12 Hours) 04/24/25 04/24/25 04/25/25 04/25/25 23:09 23:48 00:02 04:00 Temp 97.7 98.4 Pulse 65 57 Resp 20 20 B/P (MAP) 199/92 199/92 161/67 168/73 Pulse Ox 98 97 O2 Delivery Room Air Room Air 04/25/25 04/25/25 05:40 07:46 Temp 97.9 Pulse 69 Resp 16 B/P (MAP) 170/80 164/68 Pulse Ox 98 O2 Delivery Room Air Intake & Output (last 24hrs) 04/24/25 04/24/25 04/25/25 15:00 23:00 07:00 Intake Total 120 ml Output Total 200 ml 0 ml 300 ml Balance -80 ml 0 ml -300 ml LABS: Laboratory: Test 04/25/25 07:44 04/25/25 05:32 04/25/25 05:14 04/24/25 05:47 Range/Units Lactic Acid Level 2.0 0.8-2.5 mmol/L White Blood Count 9.5 4.8-10.8 K/uL Red Blood Count 3.59 L 4.50-6.20 MIL/uL Hemoglobin 11.2 L 14.0-18.0 g/dL Hematocrit 34.3 L 42-54 % Mean Corpuscular Volume 95.5 79-99 fL Mean Corpuscular Hemoglobin 31.2 27.0-33.0 pg Mean Corpuscular Hemoglobin Concent 32.7 32.0-36.0 g/dL Red Cell Distribution Width 16.4 H 11.0-15.5 % Platelet Count 125 L 130-400 K/uL Mean Platelet Volume 10.1 7.5-10.5 fL Immature Granulocyte % (Auto) 0.3 0-1 % Neutrophils (%) (Auto) 70.1 40.0-77.0 % Lymphocytes (%) (Auto) 13.4 L 21.0-51.0 % Monocytes (%) (Auto) 11.7 3.0-13.0 % Eosinophils (%) (Auto) 4.0 0.0-8.0 % Basophils (%) (Auto) 0.5 0.0-5.0 % Neutrophils # (Auto) 6.6 1.8-7.7 K/uL Lymphocytes # (Auto) 1.3 1.0-4.8 K/uL Monocytes # (Auto) 1.1 H 0.1-1.0 K/uL Eosinophils # (Auto) 0.38 0.00-0.70 K/uL Basophils # (Auto) 0.05 0.00-0.20 K/uL Absolute Immature Granulocyte (auto 0.03 0-1 K/uL Nucleated Red Blood Cells 0.0 0.0-0.19 % White Cell Morphology Comment See comments Sodium Level 144 136-145 mmol/L Potassium Level 3.5 3.5-5.1 mmol/L Chloride Level 113 H 101-111 mmol/L Carbon Dioxide Level 23 21-32 mmol/L Blood Urea Nitrogen 44 H 7-18 mg/dL Creatinine 2.2 H 0.5-1.3 mg/dL Glomerular Filtration Rate Calc 28 >90 mL/min Random Glucose 147 #H 70-105 mg/dL Total Calcium 7.8 L 8.5-10.1 mg/dL Total Bilirubin 0.8 0.2-1.0 mg/dL Direct Bilirubin 0.3 0.0-0.3 mg/dL Aspartate Amino Transf (AST/SGOT) 28 10-37 U/L Alanine Aminotransferase (ALT/SGPT) 8 L 12-78 U/L Alkaline Phosphatase 64 50-136 U/L Ammonia 19 11-32 umol/L Total Protein 6.1 6.0-8.3 g/dL Albumin 1.6 L 3.5-5.0 g/dL Whole Blood Glucose 132 H 70-110 MG/DL Segmented Neutrophils % 83 H 40-70 % Band Neutrophils % 7 H 0-2 % Lymphocytes % (Manual) 6 L 22-44 % Monocytes % (Manual) 3 2-9 % Eosinophils % (Manual) 1 1-6 % Differential Comment MANUAL DIFFERENTIAL Platelet Morphology Comment See comments Red Blood Cell Morphology ANISO 1+ Test 04/23/25 16:45 04/23/25 11:47 04/23/25 11:43 04/23/25 11:40 Range/Units Urine Color YELLOW YELLOW Urine Appearance CLOUDY H CLEAR Urine pH 5.5 5.0-8.0 Urine Specific [place] 1.017 1.001-1.031 Urine Protein 100 H NEGATIVE mg/dL Urine Glucose (UA) NEGATIVE NEGATIVE mg/dL Urine Ketones NEGATIVE NEGATIVE mg/dL Urine Occult Blood MODERATE H NEGATIVE Urine Nitrate NEGATIVE NEGATIVE Urine Bilirubin NEGATIVE NEGATIVE mg/dL Urine Urobilinogen 0.2 0.2-1.0 mg/dL Urine Leukocyte Esterase 500 H NEGATIVE Yobany/uL Urine RBC 11-25 H 0-1 /HPF Urine WBC TNTC H 0-1 /HPF Urine WBC Clumps (Auto) MOD 0-1 /HPF Urine Squamous Epithelial Cells RARE 0-2 /HPF Urine Bacteria None None Seen /HPF Urine Yeast FEW None Seen /HPF Troponin I High Sensitivity 1166 *H 4-75 ng/L Blood Gas Specimen Type Arterial Arterial Blood pH 7.387 7.350-7.450 Arterial Blood Partial Pressure CO2 32 L 35-48 mmHg Arterial Blood Partial Pressure O2 95.4 83.0-108.0 mmHg Arterial Blood HCO3 18.9 L 21.0-28.0 mmol/L Arterial Blood Oxygen Saturation 96.7 94.0-98.0 % Arterial Blood Base Excess -5.2 L -2.0-3.0 mmol/L Hemoglobin (Blood Gas) 12.1 L 13.5-17.5 g/dL Sodium (Blood Gas) 141 136-145 MMOL/L Bedside Potassium (Blood Gas) 3.6 3.4-4.5 MMOL/L Bedside Chloride (Blood Gas) 113 H 98-107 MMOL/L Bedside Glucose (Blood Gas) 132 H 65-95 MG/DL Bedside Ionized Calcium (Blood Gas) 1.14 L 1.15-1.33 MMOL/L Bedside Lactic Acid (Blood Gas) 3.04 *H 0.36-0.75 MMOL/L Blood Gas Temperature 37.0 35.5-37.0 CELSIUS Blood Gas Vent Mode RA ROOM AIR FiO2 21.0 % Blood Gas Specimen Comment LR Activated Partial Thromboplast Time 40.7 H 26.3-35.5 SEC DIAGNOSTICS / RADIOLOGY: PATIENT: EKTA BRICEÑO ACCT: [id number] LOC: [facility] U: [id number] AGE/SX: 84/M ROOM: [facility] RE04/19/[address]: RANDOLPH MARTELL MD : 1940 BED: 1 DIS: STATUS: ADM IN TLOC: SPEC: [id number] CARLOS: 04/22/25 STATUS: COMP REQ: [id number] RECD: 04/23/[address]: RHYS MCFARLANE [employer] SOURCE: BLOOD ENTR: 04/23/[address] [facility] [address]: RANDOLPH MARTELL MD [facility]: MELISSA REYES MD, EUGENE F MD ORDERED: AERO ID & SENS Procedure Result [place] Date-Time AEROBIC ID & SENSITIVITIES Final 04/25/25-0555 [facility] DESCRIPTION: DAY 1: GRAM POSITIVE COCCI IN CLUSTERS STAPHYLOCOCCUS AUREUS SENSITIVITY TO FOLLOW AEROBIC BOTTLE STAPHYLOCOCCUS AUREUS S. AUREUS M.I.C. RX --------- ---- ERYTHROMYCIN <=0.5 S GENTAMICIN <=4 S LEVOFLOXACIN <=1 S VANCOMYCIN 1 S OXACILLIN ANDRE 1 S RIFAMPIN <=1 S PENICILLIN >8 Raz TRIMETHOPRIM/SUFLAMETHOXAZOLE <=0.5/9.5 S ASSESSMENT: Methicillin-susceptible Staphylococcus aureus bacteremia. Leukocytosis POA, resolving. Severe right hip pain. Urinary tract infection. Chronic kidney disease. Encephalopathy. Diabetes mellitus. PLAN: Continue linezolid. Continue Zosyn. Continue rifampin. Start acetaminophen 1 g IV every 12 hours for pain to the right hip. Apply lidocaine patch to the right hip Continue antidiabetics. We will follow up on the final culture results. Pending speech therapy evaluation. This case was reviewed and discussed with my supervising physician Dr. Blackman and the above assessment and plan was formulated and agreed upon. ATTESTATION BY PHYSICIAN I have seen and examined the patient. I reviewed the documentation, medical decision making, and treatment plan as noted by the mid-level provider above. I agree with the findings and plan of care. TANNA BLACKMAN MD, MIRTA L [facility] Apr 25, 2025 09:24
--- NOTE | 2025-04-25 10:56 | PN ---
[facility] PROGRESS NOTE Date Patient Seen: Apr 25, 2025 Time of Visit: 10:51 Supervising Physician: [Dr. Hogan ] Primary Care Physician: [ ] Outpatient Specialists: [ ] Inpatient Consults: [ ] PROBLEM LIST: Elevated troponins Hepatic encephalopathy, POA Elevated ammonia levels CKD stage IIIB, POA Left lower extremity anterior tibial wound, POA Dementia Atrial fibrillation CHF with LVEF 55-60% by 2D echo on 10/08/2024 Diabetes mellitius type2 Hypertension Liver parenchymal disease by CT on 03/17/2024] INTERVAL HISTORY: Patient seen and examined all labs and imaging reviewed. Patient is alert following commands. Family member at bedside. Patient was seen and evaluated by Neurology, neurology believes confusion was metabolic. Good saturations room air Patient downgraded to Medical yesterday Plan: Critical care will sign off, thank you for allowing us to participate in the care of your patient. REVIEW OF SYSTEMS: 12 point ROS reviewed with patient. Pertinent positives mentioned above. Otherwise negative. PHYSICAL EXAM: GENERAL: Obtunded HEENT: EOMI, Sclera non icteric, moist mucosa NECK: Supple, no JVD, trachea midline LUNGS: Clear breath sounds bilaterally. No wheezes HEART: Regular rate and rhythm. Normal S1 and S2, without murmurs ABD: Abdomen soft, nontender. Bowel sounds present EXT: No clubbing cyanosis or edema NEURO: Obtunded Vital Signs (last 8hr) Date Time Temp Pulse Resp B/P (MAP) Pulse Ox O2 Delivery O2 Flow Rate FiO2 04/25/25 07:46 97.9 69 16 164/68 98 Room Air 04/25/25 05:40 170/80 04/25/25 04:00 98.4 57 20 168/73 97 Room Air LABS: Hematology Labs: Test 04/25/25 05:32 04/24/25 05:47 Range/Units White Blood Count 9.5 4.8-10.8 K/uL Red Blood Count 3.59 L 4.50-6.20 MIL/uL Hemoglobin 11.2 L 14.0-18.0 g/dL Hematocrit 34.3 L 42-54 % Mean Corpuscular Volume 95.5 79-99 fL Mean Corpuscular Hemoglobin 31.2 27.0-33.0 pg Mean Corpuscular Hemoglobin Concent 32.7 32.0-36.0 g/dL Red Cell Distribution Width 16.4 H 11.0-15.5 % Platelet Count 125 L 130-400 K/uL Mean Platelet Volume 10.1 7.5-10.5 fL Immature Granulocyte % (Auto) 0.3 0-1 % Neutrophils (%) (Auto) 70.1 40.0-77.0 % Lymphocytes (%) (Auto) 13.4 L 21.0-51.0 % Monocytes (%) (Auto) 11.7 3.0-13.0 % Eosinophils (%) (Auto) 4.0 0.0-8.0 % Basophils (%) (Auto) 0.5 0.0-5.0 % Neutrophils # (Auto) 6.6 1.8-7.7 K/uL Lymphocytes # (Auto) 1.3 1.0-4.8 K/uL Monocytes # (Auto) 1.1 H 0.1-1.0 K/uL Eosinophils # (Auto) 0.38 0.00-0.70 K/uL Basophils # (Auto) 0.05 0.00-0.20 K/uL Absolute Immature Granulocyte (auto 0.03 0-1 K/uL Nucleated Red Blood Cells 0.0 0.0-0.19 % White Cell Morphology Comment See comments Segmented Neutrophils % 83 H 40-70 % Band Neutrophils % 7 H 0-2 % Lymphocytes % (Manual) 6 L 22-44 % Monocytes % (Manual) 3 2-9 % Eosinophils % (Manual) 1 1-6 % Differential Comment MANUAL DIFFERENTIAL Platelet Morphology Comment See comments Red Blood Cell Morphology ANISO 1+ Chemistry Labs: Test 04/25/25 07:44 04/25/25 05:32 04/25/25 05:14 04/23/25 11:47 Range/Units Lactic Acid Level 2.0 0.8-2.5 mmol/L Sodium Level 144 136-145 mmol/L Potassium Level 3.5 3.5-5.1 mmol/L Chloride Level 113 H 101-111 mmol/L Carbon Dioxide Level 23 21-32 mmol/L Blood Urea Nitrogen 44 H 7-18 mg/dL Creatinine 2.2 H 0.5-1.3 mg/dL Glomerular Filtration Rate Calc 28 >90 mL/min Random Glucose 147 #H 70-105 mg/dL Total Calcium 7.8 L 8.5-10.1 mg/dL Total Bilirubin 0.8 0.2-1.0 mg/dL Direct Bilirubin 0.3 0.0-0.3 mg/dL Aspartate Amino Transf (AST/SGOT) 28 10-37 U/L Alanine Aminotransferase (ALT/SGPT) 8 L 12-78 U/L Alkaline Phosphatase 64 50-136 U/L Ammonia 19 11-32 umol/L Total Protein 6.1 6.0-8.3 g/dL Albumin 1.6 L 3.5-5.0 g/dL Whole Blood Glucose 132 H 70-110 MG/DL Troponin I High Sensitivity 1166 *H 4-75 ng/L Coagulation Labs: Test 04/23/25 11:40 Range/Units Activated Partial Thromboplast Time 40.7 H 26.3-35.5 SEC DIAGNOSTICS / RADIOLOGY RESULTS: [ ] PLAN NEURO: Minimize central acting medications as possible. Maintain fall precautions, adequate lighting during the day PULMONARY: Supplemental 02 as needed. Maintain aspiration precautions at all times CARDIOVASCULAR: Follow hemodynamics. Vital signs per facility protocol GI & NUTRITION: Continue with nutritional support. Continue stool softeners and laxatives as needed. KIDNEYS & ELECTROLYTES: Strict monitoring of intake, output and overall fluid balance. Avoid nephrotoxic medications to the extent possible. Medications to be dosed according to renal function. Monitor electrolytes and replace as needed ENDOCRINE: Maintain blood glucose between 100-180 at all times. Hypoglycemia protocol in place INFECTIOUS DISEASE: Trend temperature, WBC and procalcitonin level Follow cultures, deescalate antibiotics as soon as possible. Panculture if new onset fever ONCOLOGY/HEMATOLOGY/COAGULATION: Monitor for s/s of bleeding Monitor hemoglobin, coagulation studies as needed SKIN: Pressure ulcer prevention per facility protocol Specialty mattress ORTHO/REHAB: Continue PT/OT Prophylaxis: Continue GI and DVT prophylaxis Code Status: Full Resuscitation Disposition: TITUS EDWARDS AGACNP Apr 25, 2025 10:55
[2025-04-25] MEDS: LIDOCAINE 4% ADH..PATCH TP SCH (13:45)
--- NOTE | 2025-04-25 13:56 | PN ---
[facility] PROGRESS NOTE Date of Service: Apr 25, 2025 Time of Service: 13:55 SUBJECTIVE: Mr. Briceño is an 84-year-old male that was seen and examined today on 04/19/2025. Patient is a poor historian and personal health. There was no family member at bedside. The following was obtained from a combination of emergency room physician report and previous medical records available to me f rom prior admissions lastly in January of 2025. According to emergency room physician: This is an 84-year-old male who was brought in to the emergency room by his daughter Christina for evaluation of worsening altered mental status over the past 2 days. Patient used to live in [facility] however patient's daughter indicated that she took him out of the a few weeks ago as he was more depressed and dwindling down. Since his discharge from the longterm she has not been able to get any of his medications that were routinely given and he has been off of lactulose for more than 3 weeks. She did finally get the lactulose prescription and resumed it the past 2 days. He stated that he has been extremely sleepy and has very interrupted sleep. No fever chills or rigors. No nausea vomitings diarrhea. He does have a history of drinking alcohol 40 years ago when he was young. No history of any falls no fever chills or rigors. Temperature 98.9 pulse 105 respirations 20 blood pressure 189/96 with a pulse oximetry of 100% on room air Chronic medical problems include diabetes mellitus, hypertension, CKD, history of colitis, history of UTIs, congestive heart failure and dementia history of atrial fibrillation on Eliquis I obtained most of the information from the daughter and medical records Today in the emergency department creatinine 1.7, no urinalysis has been annelise ected and sent to lab, CT of head is pending radiology report, ammonia level is elevated at 108. Emergency room physician recommended patient be admitted with a diagnosis of hepatic encephalopathy. 04/19/2025: Patient is seen in room 407 with out family present. Patient is awake, alert x3, much better than when I saw him in the morning in the ED. Patient has no complaints at this time. His ammonium levels have improved to 52 from 108 on admission. Ordered a bedside swallow evaluation change the lactulose to 20 g p.o. t.i.d. also ordered an ultrasound with the AFP tumor marker for hepatocellular carcinoma screening. Patient also got magnesium 4 g IV. 04/20/2025: Patient is seen in room 407 with out family present. Patient's ammonia increased to 134 last night came back to within normal levels at 68 today. Abdominal ultrasound performed but no report yet. Patient's creatinine has increased to 1.8 from 1.5 yesterday. Case management spoke to the patient regarding placement post discharge, patient decided he wants to go home. Patient had a rash on his chest overnight which subsided after getting Benadryl. Per nursing staff the patient was active overnight fell asleep early in the morning. 04/21/2025: Patient is seen in room 407 with family present. Patient's abdominal ultrasound did not show any signs of a hepatocellular carcinoma but recommended imaging every [address] of the head was negative, ammonia levels much improved and patient's confusion persists. He does have dementia at baseline, but daughter relays a rather rapid change in his mental status prior to admission. So we ordered a MRI to rule out stroke. We also started the patient on rifaximin 550 mg b.i.d. Patient's creatinine has also increased to 2.2 From 1.8 But per previous records his creatinine fluctuates between 1.8 To 2.5. We will keep an eye on his kidney function. Patient's blood pressure did go high in the evening but he got a dose of hydralazine 10 mg IV which seemed to bring the blood pressure back within normal limits. Patient seen by cardiology today regarding his second-degree heart block. Per Cardiology the patient does have a history of atrial fibrillation and is compliant with anticoagulation and upon reviewing of the patient's EKG and telemetry strips cardiology found that there is no clear second-degree AVB present and at this time they do not believe further cardiac workup is indicated as they think the symptoms are not cardiac in origin. 04/22/2025: Patient is seen and evaluated in the room 407. He is confused and disoriented. His vital signs are in the normal range except for blood pressure is 178/80. His labs are in the normal range except for hemoglobin 10.8, chloride is 113, BUN is 28, creatinine is 2.1. Cardiology was consulted for second degree AV block but they recommended no further workup. He is refusing all medications. So we rechecked his ammonia level and its 44. So we gave lactulose enema and we will check his ammonia level tomorrow. We are also awaiting the results of MRI. We changed the dose of metoprolol 12.5mg BID to metoprolol 25mg BID today. We also ordered US doppler of upper extremities to rule out DVT as his upper limb is swollen. 04/23/2025: Patient seen and evaluated in room 407. Patient in the morning seen with family present was having breakfast. Patient overnight had fevers reaching up to 103.1 [place] [address]. Patient has been started on Zosyn and placed an order for repeat urinalysis and culture along with blood culture. Also ordered a chest x-ray, pending report. Cardiology saw him yesterday and increase his metoprolol to 25 mg twice daily. We also stopped the donepezil since the patient has been drowsy. We are still waiting on MRI, so ordered a stat CT. When we visited the patient again during rounds, we were unable to arouse the patient even with sternal rubbing, so we called rapid response. We also ordered a blood glucose level, ABG, troponin, CMP, ammonia, CBC and placed critical care consult, also started stroke response which included CT angio head and neck, Neurology consult, protein at transfer to ICU, EEG. Patient initially unresponsive even when blood drawing but then patient has suddenly woke up. He still appeared confused but had no focal deficits. Patient's lab work returned with elevated troponin at 1166, so ordered an EKG, echo, Cardiology consult. We also started a heparin drip once the head CT came back negative. Further treatment based on Cardiology, Neurology recommendations, lab results and imaging results. 04/24/2025: Patient is seen and evaluated in room 231 with family present. He is awake but confused. He had episodes of fever last night with temperature going as high as 102.4. His WBCs have improved and today they are at 10.8. Patient's blood culture came back positive for Staph aureus, waiting on sensitivity and susceptibility. ID has been consulted who started the patient on linezolid. Cardiology saw the patient yesterday and recommended that we quit drawing troponins, they believe that it is not a reliable measure of presents or absence of ischemia in his case because of his renal disease and many other metabolic factors and they do not serve any purpose in his evaluation. They saw no evidence of a myocardial infarct at the time and believes that even if there is evidence of acute ischemic event their treatment will not likely change. They believe the patient is not a candidate for any form of invasive evaluation and the patient's family also does not desire aggressive measures. Urology also saw the patient and recommended to continue lactulose therapy for hyperammonemia management, continue antibiotic therapy with Zosyn for urinary tract infection, continue IV fluid therapy, monitor mental status for gradual improvement as metabolic derangements resolve, continue monitoring ammonia levels. They believe that the UTI is contributing to acute delirium in this elderly patient with dementia. His creatinine increased from 2.3-2.4 And BUN From 33-44, we placed a consult for his household chores. Further treatment based on above recommendations. Ordered an abdomen/pelvis CT as he has been having hip pain. Still waiting on echo report. 04/25/2025: Patient is seen and evaluated in room 231 with family present. He is awake but confused. No febrile events overnight. His WBCs have improved and today they are at 9.5. Patient's blood culture came back positive for staph aureus which is pansensitive. ID added rifampin and now the patient is on Zosyn, linezolid and rifampin. Pulmonology/critical care has signed off. Appraiser Art Dr. Pena saw the patient last night and started the patient on D5W with normal saline at 45 mL/hr in order to maintain euvolemia. Patient's creatinine has improved to 2.2 from 2.4 yesterday. His lactic acid also improved to 2.0 and ammonia is at 19. His echo showed LVEF of 50-55% with grade 1 diastolic dysfunction and the abdomen pelvis CT showed severe right hip osteoarthritis with prior right femoral neck fixation, without acute hardware complication or periprosthetic fracture, correlating with the reported right hip pain. Given patient 1 g IV Tylenol for the pain along with lidocaine patch. Patient to have a speech study this morning. REVIEW OF SYSTEMS Review of systems could not be obtained because of altered mental status PHYSICAL EXAM GENERAL APPEARANCE: Patient does not respond to verbal stimulus. NEUROLOGICAL: Confused but now talking HEENT: Face is symmetric. NECK: Supple No lymphadenopathy. CHEST: Normal chest expansion. On Telemetry. LUNGS: Absence of any rales, rhonchi or any wheezing. CARDIOVASCULAR: Regular. S1 and S2 normal. No appreciable rubs, murmurs or gallops. ABDOMEN: Soft, nontender, and nondistended. There is no rebound, voluntary guarding, or rigidity. : Deferred. No Mcdermott. EXTREMITIES: Non-edematous and not cyanotic. SKIN: No skin breakdown. Vital Signs (last 8hr) Date Time Temp Pulse Resp B/P (MAP) Pulse Ox O2 Delivery O2 Flow Rate FiO2 04/25/25 12:17 97.9 67 16 130/64 99 Room Air 04/25/25 07:46 97.9 69 16 164/68 98 Room Air LABS: Laboratory: Test 04/25/25 12:05 04/25/25 07:44 04/25/25 05:32 04/24/25 05:47 Range/Units Whole Blood Glucose 115 H 70-110 MG/DL Lactic Acid Level 2.0 0.8-2.5 mmol/L White Blood Count 9.5 4.8-10.8 K/uL Red Blood Count 3.59 L 4.50-6.20 MIL/uL Hemoglobin 11.2 L 14.0-18.0 g/dL Hematocrit 34.3 L 42-54 % Mean Corpuscular Volume 95.5 79-99 fL Mean Corpuscular Hemoglobin 31.2 27.0-33.0 pg Mean Corpuscular Hemoglobin Concent 32.7 32.0-36.0 g/dL Red Cell Distribution Width 16.4 H 11.0-15.5 % Platelet Count 125 L 130-400 K/uL Mean Platelet Volume 10.1 7.5-10.5 fL Immature Granulocyte % (Auto) 0.3 0-1 % Neutrophils (%) (Auto) 70.1 40.0-77.0 % Lymphocytes (%) (Auto) 13.4 L 21.0-51.0 % Monocytes (%) (Auto) 11.7 3.0-13.0 % Eosinophils (%) (Auto) 4.0 0.0-8.0 % Basophils (%) (Auto) 0.5 0.0-5.0 % Neutrophils # (Auto) 6.6 1.8-7.7 K/uL Lymphocytes # (Auto) 1.3 1.0-4.8 K/uL Monocytes # (Auto) 1.1 H 0.1-1.0 K/uL Eosinophils # (Auto) 0.38 0.00-0.70 K/uL Basophils # (Auto) 0.05 0.00-0.20 K/uL Absolute Immature Granulocyte (auto 0.03 0-1 K/uL Nucleated Red Blood Cells 0.0 0.0-0.19 % White Cell Morphology Comment See comments Sodium Level 144 136-145 mmol/L Potassium Level 3.5 3.5-5.1 mmol/L Chloride Level 113 H 101-111 mmol/L Carbon Dioxide Level 23 21-32 mmol/L Blood Urea Nitrogen 44 H 7-18 mg/dL Creatinine 2.2 H 0.5-1.3 mg/dL Glomerular Filtration Rate Calc 28 >90 mL/min Random Glucose 147 #H 70-105 mg/dL Total Calcium 7.8 L 8.5-10.1 mg/dL Total Bilirubin 0.8 0.2-1.0 mg/dL Direct Bilirubin 0.3 0.0-0.3 mg/dL Aspartate Amino Transf (AST/SGOT) 28 10-37 U/L Alanine Aminotransferase (ALT/SGPT) 8 L 12-78 U/L Alkaline Phosphatase 64 50-136 U/L Ammonia 19 11-32 umol/L Total Protein 6.1 6.0-8.3 g/dL Albumin 1.6 L 3.5-5.0 g/dL Segmented Neutrophils % 83 H 40-70 % Band Neutrophils % 7 H 0-2 % Lymphocytes % (Manual) 6 L 22-44 % Monocytes % (Manual) 3 2-9 % Eosinophils % (Manual) 1 1-6 % Differential Comment MANUAL DIFFERENTIAL Platelet Morphology Comment See comments Red Blood Cell Morphology ANISO 1+ Test 04/23/25 16:45 Range/Units Urine Color YELLOW YELLOW Urine Appearance CLOUDY H CLEAR Urine pH 5.5 5.0-8.0 Urine Specific [place] 1.017 1.001-1.031 Urine Protein 100 H NEGATIVE mg/dL Urine Glucose (UA) NEGATIVE NEGATIVE mg/dL Urine Ketones NEGATIVE NEGATIVE mg/dL Urine Occult Blood MODERATE H NEGATIVE Urine Nitrate NEGATIVE NEGATIVE Urine Bilirubin NEGATIVE NEGATIVE mg/dL Urine Urobilinogen 0.2 0.2-1.0 mg/dL Urine Leukocyte Esterase 500 H NEGATIVE Yobany/uL Urine RBC 11-25 H 0-1 /HPF Urine WBC TNTC H 0-1 /HPF Urine WBC Clumps (Auto) MOD 0-1 /HPF Urine Squamous Epithelial Cells RARE 0-2 /HPF Urine Bacteria None None Seen /HPF Urine Yeast FEW None Seen /HPF Current Medications Medications (Trade) Dose Ordered Sig/Lashonda Route PRN Reason Start Time Stop Time Status Last Admin Dose Admin Acetaminophen (TYLenol 325MG ELIXIR) 650 mg Q8H PO 04/24/25 11:30 05/24/25 11:29 04/24/25 11:38 650 MG Acetaminophen (TYLenol 325MG TAB) 650 mg Q6H PRN PO TEMPERATURE GREATER THAN 101.5 04/19/25 03:30 04/23/25 19:24 DC Acetaminophen (TYLenol 650MG SUPPOSITORY) 650 mg Q6H PRN RC TEMPERATURE GREATER THAN 101.5 04/23/25 19:30 05/23/25 19:29 04/23/25 20:15 650 MG Acetaminophen (TYLenol 650MG SUPPOSITORY) 650 mg Q6H PRN RC MILD PAIN (1-3) 04/24/25 22:00 05/24/25 21:59 04/24/25 21:49 650 MG Acetaminophen (acetaMINOPHEN 1,000MG/100ML) 1,000 mg Q12H9 IVPB 04/25/25 13:00 05/25/25 12:59 04/25/25 13:45 1,000 MG Acetaminophen (acetaMINOPHEN 1,000MG/100ML) 1,000 mg Q12H9 IVPB 04/25/25 14:00 04/25/25 13:54 DC Acetaminophen (acetaMINOPHEN 1,000MG/100ML) 1,000 mg Q8H6 IVPB 04/24/25 14:00 04/24/25 10:56 DC Apixaban (EliquIS 2.5 mg) 2.5 mg BID PO 04/20/25 09:00 04/23/25 13:28 DC 04/23/25 09:15 2.5 MG Apixaban (EliquIS) 5 mg BID PO 04/19/25 09:00 04/20/25 08:22 DC 04/19/25 21:30 5 MG Clonidine HCl (CATApres 0.1 mg TAB) 0.1 mg HS PO 04/20/25 21:00 04/20/25 08:10 DC Dextrose 1,000 ml @ 75 mls/hr [id number] IV 04/19/25 08:30 04/20/25 13:23 DC 04/19/25 09:00 75 MLS/HR Dextrose/Sodium Chloride 1,000 ml @ 45 mls/hr [id number] IV 04/24/25 20:00 05/24/25 19:59 04/24/25 20:24 45 MLS/HR Donepezil HCl (ARIcept 5MG TAB) 10 mg HS PO 04/20/25 21:00 04/23/25 10:05 DC 04/21/25 21:14 10 MG Enoxaparin Sodium (Lovenox) 30 mg DAILY SQ 04/19/25 09:00 04/19/25 03:24 DC Famotidine (Pepcid 20mg Tab) 20 mg Q48H PO 04/19/25 09:00 05/19/25 08:59 04/23/25 09:15 20 MG Heparin Sodium (Porcine) (HEParin 5,000 UNIT VIAL) *calculation based on ACTUAL B... AD PRN IV HEPARIN PROTOCOL 04/23/25 21:00 04/23/25 19:28 DC Heparin Sodium/ Dextrose 250 ml @ 0 mls/hr Q6H IV 04/23/25 21:00 04/23/25 19:28 DC Hydralazine HCl (APRESOLine 20MG INJ) 10 mg Q6H PRN IV For:SBP above 160;DBP above 90 04/19/25 03:30 05/19/25 03:29 04/25/25 05:40 10 MG Insulin Human Regular (humuLIN R 100 UNIT/ML 3ML) INSULIN SLIDING SCAL... ACHS SQ 04/19/25 07:30 05/19/25 07:29 Lactulose (Constulose 20gm/ 30ml Udcup) 20 gm BID PO 04/19/25 09:00 04/19/25 15:19 DC 04/19/25 08:58 20 GM Lactulose (Constulose 20gm/ 30ml Udcup) 20 gm TID PO 04/19/25 15:30 05/19/25 08:59 04/24/25 15:20 20 GM Lidocaine (Lidocaine Patch 4%) 1 each DAILY TP 04/25/25 13:00 05/25/25 12:59 04/25/25 13:45 1 EACH Lidocaine (Lidoderm Patch 5%) 1 patch DAILY TP 04/25/25 14:00 04/25/25 13:55 DC Linezolid 300 ml @ 150 mls/hr Q12H IV 04/24/25 14:30 05/04/25 14:29 04/25/25 03:39 150 MLS/HR Magnesium Sulfate 50 ml @ 0 mls/hr PROTOCOL PRN IV MAGNESIUM PROTOCOL 04/19/25 08:30 05/19/25 08:29 04/19/25 11:15 50 MLS/HR Metoprolol Tartrate (loprESSOR) 5 mg Q5M PRN IV AFIB RVR HR > 120 BPM 04/19/25 03:30 04/22/25 12:13 DC Metoprolol Tartrate (loprESSOR) 12.5 mg BID PO 04/19/25 09:00 04/22/25 10:23 DC 04/21/25 08:31 12.5 MG Metoprolol Tartrate (loprESSOR) 25 mg BID PO 04/22/25 21:00 05/22/25 20:59 04/24/25 20:25 25 MG Morphine Sulfate (morPHINE 4MG SYG) 2 mg Q4H PRN IVP SEVERE PAIN (7-10) 04/19/25 03:30 04/24/25 06:29 DC 04/23/25 23:48 2 MG Nifedipine (adALAT 30MG) 60 mg BID PO 04/20/25 09:00 04/20/25 18:51 DC 04/20/25 09:10 60 MG Nifedipine (adALAT 30MG) 60 mg DAILY PO 04/21/25 09:00 05/20/25 08:59 04/24/25 09:43 60 MG Ondansetron HCl (zoFRAN 4MG INJ) 4 mg Q6H PRN IV NAUSEA/VOMITING 04/19/25 03:30 05/19/25 03:29 Pharmacy Profile Note (Pharmacy Communication) 1 each ONCE MISC 04/19/25 03:30 04/20/25 08:24 DC Piperacillin Sod/ Tazobactam Sod (Zosyn 3.375gm+NS 50ml) 3.375 gm Q12H IV 04/23/25 10:00 05/03/25 09:59 04/25/25 12:38 3.375 GM Potassium Chloride 100 ml @ 50 mls/hr AD PRN IV POTASSIUM PROTOCOL 04/19/25 08:30 04/22/25 13:27 DC Potassium Chloride 100 ml @ 100 mls/hr AD PRN IV POTASSIUM PROTOCOL 04/19/25 08:30 05/19/25 08:29 Potassium Chloride (K-Dur/Klor-Con 20meq) 20 meq AD PRN PO POTASSIUM PROTOCOL 04/19/25 08:30 05/19/25 08:29 Potassium Chloride (KCl 10% Elixir 20meq/15ml) 20 meq AD PRN PO POTASSIUM PROTOCOL 04/19/25 08:30 05/19/25 08:29 04/23/25 09:15 20 MEQ Rifaximin (Xifaxan) 550 mg BID PO 04/21/25 14:30 04/21/25 14:19 DC Rifaximin (Xifaxan) 550 mg BID PO 04/21/25 21:00 04/23/25 09:44 DC 04/21/25 21:14 550 MG Rifaximin (Xifaxan) 550 mg BID PO 04/23/25 10:00 05/23/25 09:59 04/24/25 20:24 550 MG Vancomycin HCl 100 ml @ 100 mls/hr Q24H IV 04/24/25 23:00 04/24/25 14:15 DC Vancomycin HCl (Vancomycin Protocol) 1 each AD IV 04/23/25 22:30 04/24/25 14:15 DC DIAGNOSTICS / RADIOLOGY: [place] [address] IMAGING REPORT Signed PATIENT: EKTA BRICEÑO MR#: [id number] : 1940 SEX: M AGE: 84 LOCATION: 2AH ORDER 07 STATUS: ADM IN REPORT#: [id number] SERVICE 05 REASON: RIGHT HIP PAIN ORDERING PHYSICIAN: TANNA BLACKMAN MD PROCEDURE: ABD PEL WO - CT ABDOMEN/PELVIS W/O CONTRAST STUDY CT Abdomen and Pelvis without IV contrast. HISTORY Right hip pain. TECHNIQUE Axial computed tomography images of the abdomen and pelvis were obtained without intravenous contrast. COMPARISON Right upper quadrant ultrasound dated 04/20/[address] abdomen and pelvis without contrast dated 03/17/2024. FINDINGS LUNG BASES AND PLEURA There is a small left pleural effusion measuring up to approximately 1.5 cm in maximal thickness. Chronic lung changes with basilar atelectasis are present in the bilateral lower lobes, left greater than right. HEART AND PERICARDIUM Minimal pericardial effusion is present with maximal thickness of approximately 1.5 cm. LIVER The liver contains multiple calcified granulomata measuring up to approximately 1 cm. No focal hepatic mass is identified. GALLBLADDER AND BILE DUCTS Cholelithiasis is present with gallstones measuring up to approximately 0.4 cm, without CT evidence of acute cholecystitis. No biliary ductal dilatation is evident. SPLEEN Calcified splenic granulomata measuring up to approximately 1 cm are present. No splenomegaly is seen. ADRENAL GLANDS Adrenal glands are unremarkable. KIDNEYS, URETERS, AND BLADDER There is a left upper pole renal cortical cyst measuring approximately 5 cm and a right lower pole renal cortical cyst measuring approximately 1.5 cm. No hydronephrosis or hydroureter is present. A vesical calculus measuring approximately 2.5 cm is noted within the urinary bladder. No ureteral calculi are identified. STOMACH AND BOWEL There is fecal impaction within the colon and rectum. No evidence of bowel obstruction or acute inflammatory bowel process is identified. PERITONEUM No intraperitoneal free air or free fluid is seen. LYMPH NODES No pathologically enlarged abdominal or pelvic lymph nodes are identified. REPRODUCTIVE ORGANS The prostate is enlarged with an estimated volume of approximately 40 cc. VASCULATURE No abdominal aortic aneurysm is identified. Visualized vascular structures are otherwise unremarkable for a noncontrast study. BONES AND SOFT TISSUES There is severe right hip osteoarthritis characterized by diffuse chondral thinning and prominent periarticular osteophytosis. An intramedullary nail with dynamic hip screw fixation is present traversing the right femoral neck, without evidence of hardware complication or acute periprosthetic fracture. No aggressive osseous lesion or other acute osseous abnormality is identified. IMPRESSION * Severe right hip osteoarthritis with prior right femoral neck fixation, without acute hardware complication or periprosthetic fracture, correlating with the reported right hip pain. * Cholelithiasis without CT evidence of acute cholecystitis, 2.5 cm vesical calculus, bilateral renal cortical cysts, enlarged prostate, and calcified hepatic and splenic granulomata compatible with prior granulomatous disease. /Otis DICTATED BY: SARITA GRESHAM MD DATE: 04/25/25229 ELECTRONICALLY SIGNED BY: SARITA GRESHAM MD DATE: 04/25/25229 ASSESSMENT: Hepatic encephalopathy, POA Suspected sepsis, NPOA, unknown source of infection CKD stage IIIB, POA Left lower extremity anterior tibial wound, POA Rule out DVT Dementia Atrial fibrillation CHF with LVEF 55-60% by 2D echo on 10/08/2024 Diabetes mellitius type2 Hypertension Liver parenchymal disease by CT on 03/17/2024 PLAN: Hepatic encephalopathy, POA: * Patient drowsy and confused when 1st admitted in the ED, ammonia levels now at 68 * Patient is started on lactulose 20 mg b.i.d. which has been increased to 20 mg t.i.d. * Patient head CT was negative, repeat head CT also negative * MRI has been ordered * Current ammonia level at 19 Suspected Sepsis NPOA, unknown source of infection: * Patient had a temperature of 103.1 last night, WBC went up as high as 17,000, heart rate at 114 and respiratory rate at 21. His lactic acid has also gone up to 3.4. * Continue patient on Zosyn * Source of infection unknown * Blood culture came back positive for staph aureus * Infectious disease consulted * Started the patient on Zosyn, linezolid and rifampin CKD stage IIIB, POA : * Patient's creatinine at admission at 1.7, from previous records baseline looks like around 1.5-2.0 * Creatinine today at 2.2 * Nephrology consulted, who recommended that the patient be placed on D5W with normal saline at 45 mL/hr in order to maintain euvolemia. Hypertension: * Patient's blood pressure high at 168/78 on admission going as high as 180/87 * Patient receiving hydralazine 10 mg IV if systolic pressure goes higher than 160 * We changed the dose of metoprolol 12.5mg BID to metoprolol 25mg BID today. Rule out DVT: * The nurse noticed that the patient's upper limbs are swollen. * We ordered a US doppler of upper limbs. Which showed no deep vein thrombosis within the bilateral upper extremity GI prophylaxis, famotidine DVT prophylaxis, resume patient's DOAC, Eliquis as stated above ATTESTATION BY PHYSICIAN I have seen and examined the patient. I reviewed the documentation, medical decision making, and treatment plan as noted by the resident physician above. I agree with the findings and plan of care. Masood Abraham IV, MD, ABHINAV MD Apr 25, 2025 13:56
[2025-04-25] MEDS ORDERED: LIDOCAINE 5% TOPICAL PATCH TP SCH (14:00)
--- NOTE | 2025-04-25 14:51 | NUR ---
BEDSIDE SWALLOW EVAL COMPLETED. No s/s of aspiration. RECOMMEND: minced and moist solids, thin liquids and pills crushed with pureed as tolerated. COMPENSATORY STRATEGIES: 1. sit upright during oral intake 2. small bites/sips 3. slow oral intake 4. ORAL CARE AFTER MEALS ELECTRIC METER REPAIRER reviewed results and recommendations with patient, dauther, granddaughter, and nurse Melania. ELECTRIC METER REPAIRER educated patient on risks and consequences of aspiration. Speech therapy not warranted at this time. All questions answered. Addendum: 04/25/25 at 1546 by ARLETTE JACKSON [facility] Amended: Links added.
[2025-04-26] VITALS (9 sets, daily range): BP systolic 90–187; BP diastolic 41–92; PULSE 52–64; RESP 18–20; TEMP 97.3–98.1; O2SAT 98–99
[2025-04-26 03:54] LABS: NUCLEATED RED BLOOD CELLS 0.0 % (0.0-0.19); PLATELET COUNT (AUTO) 118.0 K/uL (130-400); RED BLOOD CELL COUNT(AUTO) 3.64 MIL/uL (4.50-6.20); RED CELL DISTRIBUTION WIDTH 15.9 % (11.0-15.5); WHITE BLOOD COUNT (AUTO) 8.4 K/uL (4.8-10.8)
[2025-04-26 04:08] LABS: ASPARTATE AMINOTRANSFERASE 28 U/L (10-37); CREATININE 2.2 mg/dL (0.5-1.3); GLOMERULAR FILTR. RATE CALC 28 mL/min (>90); GLUCOSE,RANDOM 118 mg/dL (70-105); SODIUM SERUM 145 mmol/L (136-145); TOTAL PROTEIN, SERUM 6.0 g/dL (6.0-8.3); UREA NITROGEN, BLOOD 41 mg/dL (7-18)
--- NOTE | 2025-04-26 10:16 | NUR ---
[facility] Care [facility] Discussed dc planning needs. Patient is not service connected for SNF and will need to use Medicare.
--- NOTE | 2025-04-26 10:37 | PN ---
[facility] PROGRESS NOTE Date of Service: Apr 26, 2025 Time of Service: 10:36 SUBJECTIVE: Mr. Montgoemry is an 84-year-old male that was seen and examined today on 04/19/2025. Patient is a poor historian and personal health. There was no family member at bedside. The following was obtained from a combination of emergency room physician report and previous medical records available to me f rom prior admissions lastly in January of 2025. According to emergency room physician: This is an 84-year-old male who was brought in to the emergency room by his daughter Christina for evaluation of worsening altered mental status over the past 2 days. Patient used to live in [facility] however patient's daughter indicated that she took him out of the a few weeks ago as he was more depressed and dwindling down. Since his discharge from the halfway she has not been able to get any of his medications that were routinely given and he has been off of lactulose for more than 3 weeks. She did finally get the lactulose prescription and resumed it the past 2 days. He stated that he has been extremely sleepy and has very interrupted sleep. No fever chills or rigors. No nausea vomitings diarrhea. He does have a history of drinking alcohol 40 years ago when he was young. No history of any falls no fever chills or rigors. Temperature 98.9 pulse 105 respirations 20 blood pressure 189/96 with a pulse oximetry of 100% on room air Chronic medical problems include diabetes mellitus, hypertension, CKD, history of colitis, history of UTIs, congestive heart failure and dementia history of atrial fibrillation on Eliquis I obtained most of the information from the daughter and medical records Today in the emergency department creatinine 1.7, no urinalysis has been annelise ected and sent to lab, CT of head is pending radiology report, ammonia level is elevated at 108. Emergency room physician recommended patient be admitted with a diagnosis of hepatic encephalopathy. 04/19/2025: Patient is seen in room 407 with out family present. Patient is awake, alert x3, much better than when I saw him in the morning in the ED. Patient has no complaints at this time. His ammonium levels have improved to 52 from 108 on admission. Ordered a bedside swallow evaluation change the lactulose to 20 g p.o. t.i.d. also ordered an ultrasound with the AFP tumor marker for hepatocellular carcinoma screening. Patient also got magnesium 4 g IV. 04/20/2025: Patient is seen in room 407 with out family present. Patient's ammonia increased to 134 last night came back to within normal levels at 68 today. Abdominal ultrasound performed but no report yet. Patient's creatinine has increased to 1.8 from 1.5 yesterday. Case management spoke to the patient regarding placement post discharge, patient decided he wants to go home. Patient had a rash on his chest overnight which subsided after getting Benadryl. Per nursing staff the patient was active overnight fell asleep early in the morning. 04/21/2025: Patient is seen in room 407 with family present. Patient's abdominal ultrasound did not show any signs of a hepatocellular carcinoma but recommended imaging every [address] of the head was negative, ammonia levels much improved and patient's confusion persists. He does have dementia at baseline, but daughter relays a rather rapid change in his mental status prior to admission. So we ordered a MRI to rule out stroke. We also started the patient on rifaximin 550 mg b.i.d. Patient's creatinine has also increased to 2.2 From 1.8 But per previous records his creatinine fluctuates between 1.8 To 2.5. We will keep an eye on his kidney function. Patient's blood pressure did go high in the evening but he got a dose of hydralazine 10 mg IV which seemed to bring the blood pressure back within normal limits. Patient seen by cardiology today regarding his second-degree heart block. Per Cardiology the patient does have a history of atrial fibrillation and is compliant with anticoagulation and upon reviewing of the patient's EKG and telemetry strips cardiology found that there is no clear second-degree AVB present and at this time they do not believe further cardiac workup is indicated as they think the symptoms are not cardiac in origin. 04/22/2025: Patient is seen and evaluated in the room 407. He is confused and disoriented. His vital signs are in the normal range except for blood pressure is 178/80. His labs are in the normal range except for hemoglobin 10.8, chloride is 113, BUN is 28, creatinine is 2.1. Cardiology was consulted for second degree AV block but they recommended no further workup. He is refusing all medications. So we rechecked his ammonia level and its 44. So we gave lactulose enema and we will check his ammonia level tomorrow. We are also awaiting the results of MRI. We changed the dose of metoprolol 12.5mg BID to metoprolol 25mg BID today. We also ordered US doppler of upper extremities to rule out DVT as his upper limb is swollen. 04/23/2025: Patient seen and evaluated in room 407. Patient in the morning seen with family present was having breakfast. Patient overnight had fevers reaching up to 103.1 [place] [address]. Patient has been started on Zosyn and placed an order for repeat urinalysis and culture along with blood culture. Also ordered a chest x-ray, pending report. Cardiology saw him yesterday and increase his metoprolol to 25 mg twice daily. We also stopped the donepezil since the patient has been drowsy. We are still waiting on MRI, so ordered a stat CT. When we visited the patient again during rounds, we were unable to arouse the patient even with sternal rubbing, so we called rapid response. We also ordered a blood glucose level, ABG, troponin, CMP, ammonia, CBC and placed critical care consult, also started stroke response which included CT angio head and neck, Neurology consult, protein at transfer to ICU, EEG. Patient initially unresponsive even when blood drawing but then patient has suddenly woke up. He still appeared confused but had no focal deficits. Patient's lab work returned with elevated troponin at 1166, so ordered an EKG, echo, Cardiology consult. We also started a heparin drip once the head CT came back negative. Further treatment based on Cardiology, Neurology recommendations, lab results and imaging results. 04/24/2025: Patient is seen and evaluated in room 231 with family present. He is awake but confused. He had episodes of fever last night with temperature going as high as 102.4. His WBCs have improved and today they are at 10.8. Patient's blood culture came back positive for Staph aureus, waiting on sensitivity and susceptibility. ID has been consulted who started the patient on linezolid. Cardiology saw the patient yesterday and recommended that we quit drawing troponins, they believe that it is not a reliable measure of presents or absence of ischemia in his case because of his renal disease and many other metabolic factors and they do not serve any purpose in his evaluation. They saw no evidence of a myocardial infarct at the time and believes that even if there is evidence of acute ischemic event their treatment will not likely change. They believe the patient is not a candidate for any form of invasive evaluation and the patient's family also does not desire aggressive measures. Urology also saw the patient and recommended to continue lactulose therapy for hyperammonemia management, continue antibiotic therapy with Zosyn for urinary tract infection, continue IV fluid therapy, monitor mental status for gradual improvement as metabolic derangements resolve, continue monitoring ammonia levels. They believe that the UTI is contributing to acute delirium in this elderly patient with dementia. 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 Further treatment based on above recommendations. Ordered an abdomen/pelvis CT as he has been having hip pain. Still waiting on echo report. 04/25/2025: Patient is seen and evaluated in room 231 with family present. He is awake but confused. No febrile events overnight. His WBCs have improved and today they are at 9.5. Patient's blood culture came back positive for staph aureus which is pansensitive. ID added rifampin and now the patient is on Zosyn, linezolid and rifampin. Pulmonology/critical care has signed off. Air[employer] Attendants Supervisor Dr. Pena saw the patient last night and started the patient on D5W with normal saline at 45 mL/hr in order to maintain euvolemia. Patient's creatinine has improved to 2.2 from 2.4 yesterday. His lactic acid also improved to 2.0 and ammonia is at 19. His echo showed LVEF of 50-55% with grade 1 diastolic dysfunction and the abdomen pelvis CT showed severe right hip osteoarthritis with prior right femoral neck fixation, without acute hardware complication or periprosthetic fracture, correlating with the reported right hip pain. Given patient 1 g IV Tylenol for the pain along with lidocaine patch. Patient to have a speech study this morning. 04/26/2025: Patient is seen and evaluated in room 231 with family present. He is awake but confused. No febrile events overnight. His WBCs have improved and today they are at 8.4. Patient's ammonia improved to less than 10 today. [facility] and now he is in room 315. Patient found relief with the Tylenol 1 mg IV and the lidocaine patch yesterday so much so that he actually got off the bed and was sitting in his chair. We will continue with this medication today so that he could get some PT. Dr. Martha Merlos repeat blood culture. Bedside swallow study was performed and they recommended recommended minced and moist solids, thin liquids and pills cru shed with pureed as tolerated. Patient has also been referred to [facility] which is a [facility] facility for further management. Patient's urine culture came back positive for yeast. REVIEW OF SYSTEMS Review of systems could not be obtained because of altered mental status PHYSICAL EXAM GENERAL APPEARANCE: Patient does not respond to verbal stimulus. NEUROLOGICAL: Confused but now talking HEENT: Face is symmetric. NECK: Supple No lymphadenopathy. CHEST: Normal chest expansion. On Telemetry. LUNGS: Absence of any rales, rhonchi or any wheezing. CARDIOVASCULAR: Regular. S1 and S2 normal. No appreciable rubs, murmurs or gallops. ABDOMEN: Soft, nontender, and nondistended. There is no rebound, voluntary guarding, or rigidity. : Deferred. No Mcdermott. EXTREMITIES: Non-edematous and not cyanotic. SKIN: No skin breakdown. Vital Signs (last 8hr) Date Time Temp Pulse Resp B/P (MAP) Pulse Ox O2 Delivery O2 Flow Rate FiO2 04/26/25 07:00 97.3 63 18 150/80 100 Room Air 04/26/25 05:09 60 145/54 Room Air 04/26/25 04:27 62 187/75 04/26/25 03:30 97.9 62 18 187/75 100 Room Air LABS: Laboratory: Test 04/26/25 03:41 04/25/25 20:52 04/25/25 07:44 04/25/25 05:32 Range/Units White Blood Count 8.4 4.8-10.8 K/uL Red Blood Count 3.64 L 4.50-6.20 MIL/uL Hemoglobin 11.4 L 14.0-18.0 g/dL Hematocrit 34.7 L 42-54 % Mean Corpuscular Volume 95.3 79-99 fL Mean Corpuscular Hemoglobin 31.3 27.0-33.0 pg Mean Corpuscular Hemoglobin Concent 32.9 32.0-36.0 g/dL Red Cell Distribution Width 15.9 H 11.0-15.5 % Platelet Count 118 L 130-400 K/uL Mean Platelet Volume 9.8 7.5-10.5 fL Nucleated Red Blood Cells 0.0 0.0-0.19 % Sodium Level 145 136-145 mmol/L Potassium Level 3.5 3.5-5.1 mmol/L Chloride Level 113 H 101-111 mmol/L Carbon Dioxide Level 23 21-32 mmol/L Blood Urea Nitrogen 41 H 7-18 mg/dL Creatinine 2.2 H 0.5-1.3 mg/dL Glomerular Filtration Rate Calc 28 >90 mL/min Random Glucose 118 H 70-105 mg/dL Total Calcium 7.9 L 8.5-10.1 mg/dL Total Bilirubin 1.0 # 0.2-1.0 mg/dL Direct Bilirubin 0.4 #H 0.0-0.3 mg/dL Aspartate Amino Transf (AST/SGOT) 28 10-37 U/L Alanine Aminotransferase (ALT/SGPT) 9 L 12-78 U/L Alkaline Phosphatase 63 50-136 U/L Ammonia < 10 L 11-32 umol/L Total Protein 6.0 6.0-8.3 g/dL Albumin 1.6 L 3.5-5.0 g/dL Whole Blood Glucose 148 H 70-110 MG/DL Lactic Acid Level 2.0 0.8-2.5 mmol/L Immature Granulocyte % (Auto) 0.3 0-1 % Neutrophils (%) (Auto) 70.1 40.0-77.0 % Lymphocytes (%) (Auto) 13.4 L 21.0-51.0 % Monocytes (%) (Auto) 11.7 3.0-13.0 % Eosinophils (%) (Auto) 4.0 0.0-8.0 % Basophils (%) (Auto) 0.5 0.0-5.0 % Neutrophils # (Auto) 6.6 1.8-7.7 K/uL Lymphocytes # (Auto) 1.3 1.0-4.8 K/uL Monocytes # (Auto) 1.1 H 0.1-1.0 K/uL Eosinophils # (Auto) 0.38 0.00-0.70 K/uL Basophils # (Auto) 0.05 0.00-0.20 K/uL Absolute Immature Granulocyte (auto 0.03 0-1 K/uL White Cell Morphology Comment See comments Current Medications Medications (Trade) Dose Ordered Sig/Lashonda Route PRN Reason Start Time Stop Time Status Last Admin Dose Admin Acetaminophen (TYLenol 325MG ELIXIR) 650 mg Q8H PO 04/24/25 11:30 05/24/25 11:29 04/24/25 11:38 650 MG Acetaminophen (TYLenol 325MG TAB) 650 mg Q6H PRN PO TEMPERATURE GREATER THAN 101.5 04/19/25 03:30 04/23/25 19:24 DC Acetaminophen (TYLenol 650MG SUPPOSITORY) 650 mg Q6H PRN RC TEMPERATURE GREATER THAN 101.5 04/23/25 19:30 05/23/25 19:29 04/23/25 20:15 650 MG Acetaminophen (TYLenol 650MG SUPPOSITORY) 650 mg Q6H PRN RC MILD PAIN (1-3) 04/24/25 22:00 05/24/25 21:59 04/24/25 21:49 650 MG Acetaminophen (acetaMINOPHEN 1,000MG/100ML) 1,000 mg Q12H9 IVPB 04/25/25 13:00 05/25/25 12:59 04/26/25 08:33 1,000 MG Acetaminophen (acetaMINOPHEN 1,000MG/100ML) 1,000 mg Q12H9 IVPB 04/25/25 14:00 04/25/25 13:54 DC Acetaminophen (acetaMINOPHEN 1,000MG/100ML) 1,000 mg Q8H6 IVPB 04/24/25 14:00 04/24/25 10:56 DC Apixaban (EliquIS 2.5 mg) 2.5 mg BID PO 04/20/25 09:00 04/23/25 13:28 DC 04/23/25 09:15 2.5 MG Apixaban (EliquIS) 5 mg BID PO 04/19/25 09:00 04/20/25 08:22 DC 04/19/25 21:30 5 MG Clonidine HCl (CATApres 0.1 mg TAB) 0.1 mg HS PO 04/20/25 21:00 04/20/25 08:10 DC Dextrose 1,000 ml @ 75 mls/hr [id number] IV 04/19/25 08:30 04/20/25 13:23 DC 04/19/25 09:00 75 MLS/HR Dextrose/Sodium Chloride 1,000 ml @ 45 mls/hr [id number] IV 04/24/25 20:00 05/24/25 19:59 04/25/25 21:39 45 MLS/HR Donepezil HCl (ARIcept 5MG TAB) 10 mg HS PO 04/20/25 21:00 04/23/25 10:05 DC 04/21/25 21:14 10 MG Enoxaparin Sodium (Lovenox) 30 mg DAILY SQ 04/19/25 09:00 04/19/25 03:24 DC Famotidine (Pepcid 20mg Tab) 20 mg Q48H PO 04/19/25 09:00 05/19/25 08:59 04/23/25 09:15 20 MG Heparin Sodium (Porcine) (HEParin 5,000 UNIT VIAL) *calculation based on ACTUAL B... AD PRN IV HEPARIN PROTOCOL 04/23/25 21:00 04/23/25 19:28 DC Heparin Sodium/ Dextrose 250 ml @ 0 mls/hr Q6H IV 04/23/25 21:00 04/23/25 19:28 DC Hydralazine HCl (APRESOLine 20MG INJ) 10 mg Q6H PRN IV For:SBP above 160;DBP above 90 04/19/25 03:30 05/19/25 03:29 04/26/25 04:27 10 MG Insulin Human Regular (humuLIN R 100 UNIT/ML 3ML) INSULIN SLIDING SCAL... ACHS SQ 04/19/25 07:30 05/19/25 07:29 Lactulose (Constulose 20gm/ 30ml Udcup) 20 gm BID PO 04/19/25 09:00 04/19/25 15:19 DC 04/19/25 08:58 20 GM Lactulose (Constulose 20gm/ 30ml Udcup) 20 gm TID PO 04/19/25 15:30 05/19/25 08:59 04/26/25 08:33 20 GM Lidocaine (Lidocaine Patch 4%) 1 each DAILY TP 04/25/25 13:00 05/25/25 12:59 04/26/25 08:33 1 EACH Lidocaine (Lidoderm Patch 5%) 1 patch DAILY TP 04/25/25 14:00 04/25/25 13:55 DC Linezolid 300 ml @ 150 mls/hr Q12H IV 04/24/25 14:30 05/04/25 14:29 04/26/25 02:53 150 MLS/HR Magnesium Sulfate 50 ml @ 0 mls/hr PROTOCOL PRN IV MAGNESIUM PROTOCOL 04/19/25 08:30 05/19/25 08:29 04/19/25 11:15 50 MLS/HR Metoprolol Tartrate (loprESSOR) 5 mg Q5M PRN IV AFIB RVR HR > 120 BPM 04/19/25 03:30 04/22/25 12:13 DC Metoprolol Tartrate (loprESSOR) 12.5 mg BID PO 04/19/25 09:00 04/22/25 10:23 DC 04/21/25 08:31 12.5 MG Metoprolol Tartrate (loprESSOR) 25 mg BID PO 04/22/25 21:00 05/22/25 20:59 04/26/25 08:33 25 MG Morphine Sulfate (morPHINE 4MG SYG) 2 mg Q4H PRN IVP SEVERE PAIN (7-10) 04/19/25 03:30 04/24/25 06:29 DC 04/23/25 23:48 2 MG Nifedipine (adALAT 30MG) 60 mg BID PO 04/20/25 09:00 04/20/25 18:51 DC 04/20/25 09:10 60 MG Nifedipine (adALAT 30MG) 60 mg DAILY PO 04/21/25 09:00 05/20/25 08:59 04/26/25 08:33 60 MG Ondansetron HCl (zoFRAN 4MG INJ) 4 mg Q6H PRN IV NAUSEA/VOMITING 04/19/25 03:30 05/19/25 03:29 Pharmacy Profile Note (Pharmacy Communication) 1 each ONCE MISC 04/19/25 03:30 04/20/25 08:24 DC Piperacillin Sod/ Tazobactam Sod (Zosyn 3.375gm+NS 50ml) 3.375 gm Q12H IV 04/23/25 10:00 05/03/25 09:59 04/26/25 09:38 3.375 GM Potassium Chloride 100 ml @ 50 mls/hr AD PRN IV POTASSIUM PROTOCOL 04/19/25 08:30 04/22/25 13:27 DC Potassium Chloride 100 ml @ 100 mls/hr AD PRN IV POTASSIUM PROTOCOL 04/19/25 08:30 05/19/25 08:29 Potassium Chloride (K-Dur/Klor-Con 20meq) 20 meq AD PRN PO POTASSIUM PROTOCOL 04/19/25 08:30 05/19/25 08:29 Potassium Chloride (KCl 10% Elixir 20meq/15ml) 20 meq AD PRN PO POTASSIUM PROTOCOL 04/19/25 08:30 05/19/25 08:29 04/23/25 09:15 20 MEQ Rifaximin (Xifaxan) 550 mg BID PO 04/21/25 14:30 04/21/25 14:19 DC Rifaximin (Xifaxan) 550 mg BID PO 04/21/25 21:00 04/23/25 09:44 DC 04/21/25 21:14 550 MG Rifaximin (Xifaxan) 550 mg BID PO 04/23/25 10:00 05/23/25 09:59 04/26/25 08:33 550 MG Vancomycin HCl 100 ml @ 100 mls/hr Q24H IV 04/24/25 23:00 04/24/25 14:15 DC Vancomycin HCl (Vancomycin Protocol) 1 each AD IV 04/23/25 22:30 04/24/25 14:15 DC DIAGNOSTICS / RADIOLOGY: [ ] ASSESSMENT: Metabolic encephalopathy, POA Hepatic encephalopathy, POA, ruled out Suspected sepsis, NPOA, unknown source of infection CKD stage IIIB, POA Left lower extremity anterior tibial wound, POA Rule out DVT Dementia Atrial fibrillation CHF with LVEF 55-60% by 2D echo on 10/08/2024 Diabetes mellitius type2 Hypertension Liver parenchymal disease by CT on 03/17/2024 PLAN: Metabolic encephalopathy, POA: * Patient drowsy and confused when 1st admitted in the ED, ammonia levels now at 68 * Patient is started on lactulose 20 mg b.i.d. which has been increased to 20 mg t.i.d. * Patient head CT was negative, repeat head CT also negative * MRI has been ordered * Current ammonia level at less than 10 * Referral to SNF been placed Suspected Sepsis NPOA, unknown source of infection: * Patient had a temperature of 103.1 last night, WBC went up as high as 17,000, heart rate at 114 and respiratory rate at 21. His lactic acid has also gone up to 3.4. * Continue patient on Zosyn * Source of infection unknown * Blood culture came back positive for staph aureus * Patient's urine culture came back positive for yeast * Infectious disease consulted * Continue the patient on Zosyn, linezolid and rifampin CKD stage IIIB, POA : * Patient's creatinine at admission at 1.7, from previous records baseline looks like around 1.5-2.0 * Creatinine today at 2.2 * Nephrology consulted, who recommended that the patient be placed on D5W with normal saline at 45 mL/hr in order to maintain euvolemia. Hypertension: * Patient's blood pressure high at 168/78 on admission going as high as 180/87 * Patient receiving hydralazine 10 mg IV if systolic pressure goes higher than 160 * We changed the dose of metoprolol 12.5mg BID to metoprolol 25mg BID today. Rule out DVT: * The nurse noticed that the patient's upper limbs are swollen. * We ordered a US doppler of upper limbs. Which showed no deep vein thrombosis within the bilateral upper extremity GI prophylaxis, famotidine DVT prophylaxis, resume patient's DOAC, Eliquis as stated above ATTESTATION BY PHYSICIAN I have seen and examined the patient. I reviewed the documentation, medical decision making, and treatment plan as noted by the resident physician above. I agree with the findings and plan of care. Masood Abraham IV, MD, ABHINAV MD Apr 26, 2025 10:37
--- NOTE | 2025-04-26 11:30 | PN ---
INFECTIOUS DISEASE PROGRESS NOTE Date of Service: Apr 26, 2025 SUBJECTIVE: Patient who was seen at bedside in room 231. Per nursing report patient was able to participate with physical therapy yesterday after administration of the IV Tylenol and placement of lidocaine patch. Remains with altered mental status bed oriented to name. The final urine culture results came back positive for yeast species. Remaining afebrile. Continues on Zosyn, linezolid and rifampin. We will continue on acetaminophen IV and lidocaine patch to the right hip. PHYSICAL EXAM EYES: Anicteric. Pupils equal and reactive. HENT: No oral thrush seen, moist Oral mucosa NECK: Supple, no JVD or thyromegaly. LUNGS: Good air entry. No rales, no rhonchi. CARDIOVASCULAR: S1, S2 regular. No murmur heard. ABDOMEN: Soft, non tender, bowel sounds present. CENTRAL NERVOUS SYSTEM: Awake, alert, oriented x 1. SKIN: No rashes, no swelling. LYMPHATICS: No peripheral lymphadenopathy MUSCULOSKELETAL: No joint swelling, erythema or tenderness. EXTREMITIES: No cyanosis or clubbing BACK: No deformity, no pressure ulcer. GENITOURINARY: No dysuria or hematuria Vital Sign (Last 12 Hours) 04/26/25 04/26/25 04/26/25 04/26/25 00:00 03:30 04:27 05:09 Temp 98.1 97.9 Pulse 64 62 62 60 Resp 18 18 B/P (MAP) 124/92 187/75 187/75 145/54 Pulse Ox 96 100 O2 Delivery Room Air Room Air Room Air 04/26/25 07:00 Temp 97.3 Pulse 63 Resp 18 B/P (MAP) 150/80 Pulse Ox 100 O2 Delivery Room Air Intake & Output (last 24hrs) 04/25/25 04/25/25 04/26/25 15:00 23:00 07:00 Intake Total 750.0 ml 750.0 ml Output Total 150 ml Balance 600.0 ml 750.0 ml LABS: Laboratory: Test 04/26/25 03:41 04/25/25 20:52 04/25/25 07:44 04/25/25 05:32 Range/Units White Blood Count 8.4 4.8-10.8 K/uL Red Blood Count 3.64 L 4.50-6.20 MIL/uL Hemoglobin 11.4 L 14.0-18.0 g/dL Hematocrit 34.7 L 42-54 % Mean Corpuscular Volume 95.3 79-99 fL Mean Corpuscular Hemoglobin 31.3 27.0-33.0 pg Mean Corpuscular Hemoglobin Concent 32.9 32.0-36.0 g/dL Red Cell Distribution Width 15.9 H 11.0-15.5 % Platelet Count 118 L 130-400 K/uL Mean Platelet Volume 9.8 7.5-10.5 fL Nucleated Red Blood Cells 0.0 0.0-0.19 % Sodium Level 145 136-145 mmol/L Potassium Level 3.5 3.5-5.1 mmol/L Chloride Level 113 H 101-111 mmol/L Carbon Dioxide Level 23 21-32 mmol/L Blood Urea Nitrogen 41 H 7-18 mg/dL Creatinine 2.2 H 0.5-1.3 mg/dL Glomerular Filtration Rate Calc 28 >90 mL/min Random Glucose 118 H 70-105 mg/dL Total Calcium 7.9 L 8.5-10.1 mg/dL Total Bilirubin 1.0 # 0.2-1.0 mg/dL Direct Bilirubin 0.4 #H 0.0-0.3 mg/dL Aspartate Amino Transf (AST/SGOT) 28 10-37 U/L Alanine Aminotransferase (ALT/SGPT) 9 L 12-78 U/L Alkaline Phosphatase 63 50-136 U/L Ammonia < 10 L 11-32 umol/L Total Protein 6.0 6.0-8.3 g/dL Albumin 1.6 L 3.5-5.0 g/dL Whole Blood Glucose 148 H 70-110 MG/DL Lactic Acid Level 2.0 0.8-2.5 mmol/L Immature Granulocyte % (Auto) 0.3 0-1 % Neutrophils (%) (Auto) 70.1 40.0-77.0 % Lymphocytes (%) (Auto) 13.4 L 21.0-51.0 % Monocytes (%) (Auto) 11.7 3.0-13.0 % Eosinophils (%) (Auto) 4.0 0.0-8.0 % Basophils (%) (Auto) 0.5 0.0-5.0 % Neutrophils # (Auto) 6.6 1.8-7.7 K/uL Lymphocytes # (Auto) 1.3 1.0-4.8 K/uL Monocytes # (Auto) 1.1 H 0.1-1.0 K/uL Eosinophils # (Auto) 0.38 0.00-0.70 K/uL Basophils # (Auto) 0.05 0.00-0.20 K/uL Absolute Immature Granulocyte (auto 0.03 0-1 K/uL White Cell Morphology Comment See comments DIAGNOSTICS / RADIOLOGY: PATIENT: EKTA BRICEÑO ACCT: [id number] LOC: [facility] U: [id number] AGE/SX: 84/M ROOM: [facility] RE04/19/[address]: RANDOLPH MARTELL MD : 1940 BED: 1 DIS: STATUS: ADM IN TLOC: SPEC: [id number] CARLOS: 04/20/25 STATUS: COMP REQ: [id number] RECD: 04/25/[address] [facility] [address]: RHYS [facility] SOURCE: [facility] [place] ENTR: 04/25/[address] [facility] [address]: RANDOLPH MARTELL MD SPDESC: TIA DE LA O,MELISSA KHAN,ANDRES Capellan MD ORDERED: AERO ID & SENS Procedure Result Brooke Date-Time AEROBIC ID & SENSITIVITIES Final 04/26/25-1008 MRL COLONY DESCRIPTION: DAY 1: COLONY COUNT: 20,000 - 50,000 CFU/ML YEAST SPECIES; NOT JANA ALBICANS NO FURTHER WORK-UP DONE YEAST SPECIES ASSESSMENT: Methicillin-susceptible Staphylococcus aureus bacteremia. Leukocytosis POA, resolved. Severe right hip pain. Urinary tract infection with yeast species. Chronic kidney disease. Encephalopathy. Diabetes mellitus. PLAN: Continue linezolid. Continue Zosyn. Continue rifampin. Start acetaminophen 1 g IV every 12 hours for pain to the right hip. Apply lidocaine patch to the right hip Continue antidiabetics. We will follow up on the final culture results. Pending speech therapy evaluation. This case was reviewed and discussed with my supervising physician Dr. Blackman and the above assessment and plan was formulated and agreed upon. ATTESTATION BY PHYSICIAN I have seen and examined the patient. I reviewed the documentation, medical decision making, and treatment plan as noted by the mid-level provider above. I agree with the findings and plan of care. TANNA BLACKMAN MD, [facility] Apr 26, 2025 11:30
[2025-04-26] MEDS: LACTULOSE 20 GM/30 ML UDCUP PO SCH (12:30)
[2025-04-27] VITALS (8 sets, daily range): BP systolic 104–174; BP diastolic 48–88; PULSE 63–77; RESP 17–18; TEMP 97.3–98.4; O2SAT 98–100
[2025-04-27 04:58] LABS: IMMATURE GRANULOCYTE ABSOLUTE 0.03 K/uL (0-1); NUCLEATED RED BLOOD CELLS 0.0 % (0.0-0.19); PLATELET COUNT (AUTO) 111 K/uL (130-400); RED BLOOD CELL COUNT(AUTO) 3.18 MIL/uL (4.50-6.20); RED CELL DISTRIBUTION WIDTH 15.9 % (11.0-15.5); WHITE BLOOD COUNT (AUTO) 5.6 K/uL (4.8-10.8)
[2025-04-27 05:12] LABS: CREATININE 2.6 mg/dL (0.5-1.3); GLOMERULAR FILTR. RATE CALC 23 mL/min (>90); GLUCOSE,RANDOM 107 mg/dL (70-105); SODIUM SERUM 142 mmol/L (136-145); UREA NITROGEN, BLOOD 44 mg/dL (7-18)
--- NOTE | 2025-04-27 09:00 | NUR ---
HELD TODAY'S NIFEDIPINE A.M. MED PER
--- NOTE | 2025-04-27 11:30 | NUR ---
PT DAUGHTER REFUSED BS CHECK FOR PT
[2025-04-27] MEDS ORDERED: PoTASSium chloRIDE 20MEQ ER 20 MEQ ERTAB PO PRN (12:30)
[2025-04-27] MEDS ORDERED: PoTASSium chl 10% ELIXIR 20MEQ 20 MEQ/15 ML UDCUP PO PRN (12:30)
--- NOTE | 2025-04-27 14:25 | PN ---
INFECTIOUS DISEASE PROGRESS NOTE Date of Service: Apr 27, 2025 SUBJECTIVE: This 84-year-old male patient is being seen today at bedside. Patient is more awake, alert and oriented. No chest pain or palpitations. He is in no respiratory stress, his sitting in chair. Patient continues on Zosyn, Zyvox and rifampin. No nausea or vomiting being reported. Repeat blood cultures have been negative for x 24 hours. Patient is awaiting placement for continuation of antibiotics. PHYSICAL EXAM EYES: Anicteric. Pupils equal and reactive. HENT: No oral thrush seen, moist Oral mucosa NECK: Supple, no JVD or thyromegaly. LUNGS: Good air entry. No rales, no rhonchi. CARDIOVASCULAR: S1, S2 regular. No murmur heard. ABDOMEN: Soft, non tender, bowel sounds present. CENTRAL NERVOUS SYSTEM: Awake, alert, oriented x 2. SKIN: No rashes, no swelling. LYMPHATICS: No peripheral lymphadenopathy MUSCULOSKELETAL: No joint swelling, erythema or tenderness. EXTREMITIES: No cyanosis or clubbing BACK: No deformity, no pressure ulcer. GENITOURINARY: No dysuria or hematuria Vital Sign (Last 12 Hours) 04/27/25 04/27/25 03:58 08:00 Temp 97.5 98.2 Pulse 65 66 Resp 18 18 B/P (MAP) 118/52 130/65 Pulse Ox 99 98 O2 Delivery Room Air Room Air Intake & Output (last 24hrs) 04/26/25 04/26/25 04/27/25 15:00 23:00 07:00 Intake Total 150.0 ml 450.0 ml 750.0 ml Output Total 200 ml 0 ml Balance 150.0 ml 250.0 ml 750.0 ml LABS: Laboratory: Test 04/27/25 06:44 04/27/25 04:49 04/26/25 16:01 04/26/25 03:41 Range/Units Whole Blood Glucose 103 # 70-110 MG/DL White Blood Count 5.6 4.8-10.8 K/uL Red Blood Count 3.18 L 4.50-6.20 MIL/uL Hemoglobin 10.1 L 14.0-18.0 g/dL Hematocrit 30.3 L 42-54 % Mean Corpuscular Volume 95.3 79-99 fL Mean Corpuscular Hemoglobin 31.8 27.0-33.0 pg Mean Corpuscular Hemoglobin Concent 33.3 32.0-36.0 g/dL Red Cell Distribution Width 15.9 H 11.0-15.5 % Platelet Count 111 L 130-400 K/uL Mean Platelet Volume 10.5 7.5-10.5 fL Immature Granulocyte % (Auto) 0.5 0-1 % Neutrophils (%) (Auto) 63.1 40.0-77.0 % Lymphocytes (%) (Auto) 19.2 L 21.0-51.0 % Monocytes (%) (Auto) 12.2 3.0-13.0 % Eosinophils (%) (Auto) 4.3 0.0-8.0 % Basophils (%) (Auto) 0.7 0.0-5.0 % Neutrophils # (Auto) 3.5 1.8-7.7 K/uL Lymphocytes # (Auto) 1.1 1.0-4.8 K/uL Monocytes # (Auto) 0.7 0.1-1.0 K/uL Eosinophils # (Auto) 0.24 0.00-0.70 K/uL Basophils # (Auto) 0.04 0.00-0.20 K/uL Absolute Immature Granulocyte (auto 0.03 0-1 K/uL Nucleated Red Blood Cells 0.0 0.0-0.19 % Sodium Level 142 136-145 mmol/L Potassium Level 3.0 *L 3.5-5.1 mmol/L Chloride Level 112 H 101-111 mmol/L Carbon Dioxide Level 22 21-32 mmol/L Blood Urea Nitrogen 44 H 7-18 mg/dL Creatinine 2.6 H 0.5-1.3 mg/dL Glomerular Filtration Rate Calc 23 >90 mL/min Random Glucose 107 H 70-105 mg/dL Total Calcium 7.2 L 8.5-10.1 mg/dL Ammonia < 10 L 11-32 umol/L Bedside Glucose Comment Notified Nurse Total Bilirubin 1.0 # 0.2-1.0 mg/dL Direct Bilirubin 0.4 #H 0.0-0.3 mg/dL Aspartate Amino Transf (AST/SGOT) 28 10-37 U/L Alanine Aminotransferase (ALT/SGPT) 9 L 12-78 U/L Alkaline Phosphatase 63 50-136 U/L Total Protein 6.0 6.0-8.3 g/dL Albumin 1.6 L 3.5-5.0 g/dL DIAGNOSTICS / RADIOLOGY: PATIENT: EKTA BRICEÑO ACCT: [id number] LOC: [facility] U: [id number] AGE/SX: 84/M ROOM: 231 RE04/19/[address]: RANDOLPH MARTELL MD : 1940 BED: 1 DIS: STATUS: ADM IN TLOC: SPEC: [id number] CARLOS: 04/20/25 STATUS: COMP REQ: [id number] RECD: 04/25/[address] [facility] [address]: RHYS [facility] [place] [facility] [place] 04/25/[address] [facility] [address]: RANDOLPH MARTELL MD SPDESC: CLEAN CAT MELISSA DE LA O MD, EUGENE F MD ORDERED: AERO ID & SENS Procedure Result Brooke Date-Time AEROBIC ID & SENSITIVITIES Final 04/26/25-1008 MRL COLONY DESCRIPTION: DAY 1: COLONY COUNT: 20,000 - 50,000 CFU/ML YEAST SPECIES; NOT JANA ALBICANS NO FURTHER WORK-UP DONE YEAST SPECIES ASSESSMENT: Methicillin-susceptible Staphylococcus aureus bacteremia. Leukocytosis POA, resolved. Severe right hip pain. Urinary tract infection with yeast species. Chronic kidney disease. Encephalopathy. Diabetes mellitus. PLAN: Continue linezolid. Continue Zosyn. Continue rifampin. Continue acetaminophen 1 g IV every 12 hours for pain to the right hip. Apply lidocaine patch to the right hip Continue antidiabetics. We will follow up on the final culture results. Pending placement This case was reviewed and discussed with my supervising physician Dr. Thomas and the above assessment and plan was formulated and agreed upon. [facility] Apr 27, 2025 14:25
[2025-04-27] MEDS: PoTASSium chloRIDE 20MEQ ER 20 MEQ ERTAB PO PRN (16:45)
--- NOTE | 2025-04-27 17:04 | PN ---
[facility] PROGRESS NOTE Date of Service: Apr 27, 2025 Time of Service: 16:24 SUBJECTIVE: Mr. Montgomery is an 84-year-old male that was seen and examined today on 04/19/2025. Patient is a poor historian and personal health. There was no family member at bedside. The following was obtained from a combination of emergency room physician report and previous medical records available to me f rom prior admissions lastly in January of 2025. According to emergency room physician: This is an 84-year-old male who was brought in to the emergency room by his daughter Christina for evaluation of worsening altered mental status over the past 2 days. Patient used to live in [facility] however patient's daughter indicated that she took him out of the a few weeks ago as he was more depressed and dwindling down. Since his discharge from the [facility] she has not been able to get any of his medications that were routinely given and he has been off of lactulose for more than 3 weeks. She did finally get the lactulose prescription and resumed it the past 2 days. He stated that he has been extremely sleepy and has very interrupted sleep. No fever chills or rigors. No nausea vomitings diarrhea. He does have a history of drinking alcohol 40 years ago when he was young. No history of any falls no fever chills or rigors. Temperature 98.9 pulse 105 respirations 20 blood pressure 189/96 with a pulse oximetry of 100% on room air Chronic medical problems include diabetes mellitus, hypertension, CKD, history of colitis, history of UTIs, congestive heart failure and dementia history of atrial fibrillation on Eliquis I obtained most of the information from the daughter and medical records Today in the emergency department creatinine 1.7, no urinalysis has been annelise ected and sent to lab, CT of head is pending radiology report, ammonia level is elevated at 108. Emergency room physician recommended patient be admitted with a diagnosis of hepatic encephalopathy. 04/19/2025: Patient is seen in room 407 with out family present. Patient is awake, alert x3, much better than when I saw him in the morning in the ED. Patient has no complaints at this time. His ammonium levels have improved to 52 from 108 on admission. Ordered a bedside swallow evaluation change the lactulose to 20 g p.o. t.i.d. also ordered an ultrasound with the AFP tumor marker for hepatocellular carcinoma screening. Patient also got magnesium 4 g IV. 04/20/2025: Patient is seen in room 407 with out family present. Patient's ammonia increased to 134 last night came back to within normal levels at 68 today. Abdominal ultrasound performed but no report yet. Patient's creatinine has increased to 1.8 from 1.5 yesterday. Case management spoke to the patient regarding placement post discharge, patient decided he wants to go home. Patient had a rash on his chest overnight which subsided after getting Benadryl. Per nursing staff the patient was active overnight fell asleep early in the morning. 04/21/2025: Patient is seen in room 407 with family present. Patient's abdominal ultrasound did not show any signs of a hepatocellular carcinoma but recommended imaging every [address] of the head was negative, ammonia levels much improved and patient's confusion persists. He does have dementia at baseline, but daughter relays a rather rapid change in his mental status prior to admission. So we ordered a MRI to rule out stroke. We also started the patient on rifaximin 550 mg b.i.d. Patient's creatinine has also increased to 2.2 From 1.8 But per previous records his creatinine fluctuates between 1.8 To 2.5. We will keep an eye on his kidney function. Patient's blood pressure did go high in the evening but he got a dose of hydralazine 10 mg IV which seemed to bring the blood pressure back within normal limits. Patient seen by cardiology today regarding his second-degree heart block. Per Cardiology the patient does have a history of atrial fibrillation and is compliant with anticoagulation and upon reviewing of the patient's EKG and telemetry strips cardiology found that there is no clear second-degree AVB present and at this time they do not believe further cardiac workup is indicated as they think the symptoms are not cardiac in origin. 04/22/2025: Patient is seen and evaluated in the room 407. He is confused and disoriented. His vital signs are in the normal range except for blood pressure is 178/80. His labs are in the normal range except for hemoglobin 10.8, chloride is 113, BUN is 28, creatinine is 2.1. Cardiology was consulted for second degree AV block but they recommended no further workup. He is refusing all medications. So we rechecked his ammonia level and its 44. So we gave lactulose enema and we will check his ammonia level tomorrow. We are also awaiting the results of MRI. We changed the dose of metoprolol 12.5mg BID to metoprolol 25mg BID today. We also ordered US doppler of upper extremities to rule out DVT as his upper limb is swollen. 04/23/2025: Patient seen and evaluated in room 407. Patient in the morning seen with family present was having breakfast. Patient overnight had fevers reaching up to 103.1 [place] [address]. Patient has been started on Zosyn and placed an order for repeat urinalysis and culture along with blood culture. Also ordered a chest x-ray, pending report. Cardiology saw him yesterday and increase his metoprolol to 25 mg twice daily. We also stopped the donepezil since the patient has been drowsy. We are still waiting on MRI, so ordered a stat CT. When we visited the patient again during rounds, we were unable to arouse the patient even with sternal rubbing, so we called rapid response. We also ordered a blood glucose level, ABG, troponin, CMP, ammonia, CBC and placed critical care consult, also started stroke response which included CT angio head and neck, Neurology consult, protein at transfer to ICU, EEG. Patient initially unresponsive even when blood drawing but then patient has suddenly woke up. He still appeared confused but had no focal deficits. Patient's lab work returned with elevated troponin at 1166, so ordered an EKG, echo, Cardiology consult. We also started a heparin drip once the head CT came back negative. Further treatment based on Cardiology, Neurology recommendations, lab results and imaging results. 04/24/2025: Patient is seen and evaluated in room 231 with family present. He is awake but confused. He had episodes of fever last night with temperature going as high as 102.4. His WBCs have improved and today they are at 10.8. Patient's blood culture came back positive for Staph aureus, waiting on sensitivity and susceptibility. ID has been consulted who started the patient on linezolid. Cardiology saw the patient yesterday and recommended that we quit drawing troponins, they believe that it is not a reliable measure of presents or absence of ischemia in his case because of his renal disease and many other metabolic factors and they do not serve any purpose in his evaluation. They saw no evidence of a myocardial infarct at the time and believes that even if there is evidence of acute ischemic event their treatment will not likely change. They believe the patient is not a candidate for any form of invasive evaluation and the patient's family also does not desire aggressive measures. Urology also saw the patient and recommended to continue lactulose therapy for hyperammonemia management, continue antibiotic therapy with Zosyn for urinary tract infection, continue IV fluid therapy, monitor mental status for gradual improvement as metabolic derangements resolve, continue monitoring ammonia levels. They believe that the UTI is contributing to acute delirium in this elderly patient with dementia. His creatinine increased from 2.3-2.4 And BUN From 33-44, we placed a consult for his through freight engineer. Further treatment based on above recommendations. Ordered an abdomen/pelvis CT as he has been having hip pain. Still waiting on echo report. 04/25/2025: Patient is seen and evaluated in room 231 with family present. He is awake but confused. No febrile events overnight. His WBCs have improved and today they are at 9.5. Patient's blood culture came back positive for staph aureus which is pansensitive. ID added rifampin and now the patient is on Zosyn, linezolid and rifampin. Pulmonology/critical care has signed off. Pararescue Manager Dr. Pena saw the patient last night and started the patient on D5W with normal saline at 45 mL/hr in order to maintain euvolemia. Patient's creatinine has improved to 2.2 from 2.4 yesterday. His lactic acid also improved to 2.0 and ammonia is at 19. His echo showed LVEF of 50-55% with grade 1 diastolic dysfunction and the abdomen pelvis CT showed severe right hip osteoarthritis with prior right femoral neck fixation, without acute hardware complication or periprosthetic fracture, correlating with the reported right hip pain. Given patient 1 g IV Tylenol for the pain along with lidocaine patch. Patient to have a speech study this morning. 04/26/2025: Patient is seen and evaluated in room 231 with family present. He is awake but confused. No febrile events overnight. His WBCs have improved and today they are at 8.4. Patient's ammonia improved to less than 10 today. [facility] to [facility] and now he is in room 315. Patient found relief with the Tylenol 1 mg IV and the lidocaine patch yesterday so much so that he actually got off the bed and was sitting in his chair. We will continue with this medication today so that he could get some PT. Dr. Martha Merlos repeat blood culture. Bedside swallow study was performed and they recommended recommended minced and moist solids, thin liquids and pills cru shed with pureed as tolerated. Patient has also been referred to [facility] which is a [facility] facility for further management. Patient's urine culture came back positive for yeast. 04/27/2025: Patient is seen and evaluated in room 231 with family present. He is awake but confused. No febrile events overnight. Patient's creatinine has increased to 2.6 with the patient still is on gentle hydration. We started the patient on tamsulosin 0.4 as we noticed a stone on the abdomen/pelvis CT. We also ordered a bladder scan contacted through freight engineer Dr. Pena. Patient also low potassium at 3.0 but since the patient has CKD we are replacing it cautiously. We have also restarted his Eliquis 2.5 B.i.d. REVIEW OF SYSTEMS Review of systems could not be obtained because of altered mental status PHYSICAL EXAM GENERAL APPEARANCE: Patient does not respond to verbal stimulus. NEUROLOGICAL: Confused but now talking HEENT: Face is symmetric. NECK: Supple No lymphadenopathy. CHEST: Normal chest expansion. On Telemetry. LUNGS: Absence of any rales, rhonchi or any wheezing. CARDIOVASCULAR: Regular. S1 and S2 normal. No appreciable rubs, murmurs or gallops. ABDOMEN: Soft, nontender, and nondistended. There is no rebound, voluntary guarding, or rigidity. : Deferred. No Mcdermott. EXTREMITIES: Non-edematous and not cyanotic. SKIN: No skin breakdown. Vital Signs Date Time Temp Pulse Resp B/P (MAP) Pulse Ox O2 Delivery O2 Flow Rate FiO2 04/27/25 08:00 98.2 66 18 130/65 98 Room Air 04/26/25 19:45 0 21 LABS: Laboratory: Test 04/27/25 06:44 04/27/25 04:49 04/26/25 16:01 04/26/25 03:41 Range/Units Whole Blood Glucose 103 # 70-110 MG/DL White Blood Count 5.6 4.8-10.8 K/uL Red Blood Count 3.18 L 4.50-6.20 MIL/uL Hemoglobin 10.1 L 14.0-18.0 g/dL Hematocrit 30.3 L 42-54 % Mean Corpuscular Volume 95.3 79-99 fL Mean Corpuscular Hemoglobin 31.8 27.0-33.0 pg Mean Corpuscular Hemoglobin Concent 33.3 32.0-36.0 g/dL Red Cell Distribution Width 15.9 H 11.0-15.5 % Platelet Count 111 L 130-400 K/uL Mean Platelet Volume 10.5 7.5-10.5 fL Immature Granulocyte % (Auto) 0.5 0-1 % Neutrophils (%) (Auto) 63.1 40.0-77.0 % Lymphocytes (%) (Auto) 19.2 L 21.0-51.0 % Monocytes (%) (Auto) 12.2 3.0-13.0 % Eosinophils (%) (Auto) 4.3 0.0-8.0 % Basophils (%) (Auto) 0.7 0.0-5.0 % Neutrophils # (Auto) 3.5 1.8-7.7 K/uL Lymphocytes # (Auto) 1.1 1.0-4.8 K/uL Monocytes # (Auto) 0.7 0.1-1.0 K/uL Eosinophils # (Auto) 0.24 0.00-0.70 K/uL Basophils # (Auto) 0.04 0.00-0.20 K/uL Absolute Immature Granulocyte (auto 0.03 0-1 K/uL Nucleated Red Blood Cells 0.0 0.0-0.19 % Sodium Level 142 136-145 mmol/L Potassium Level 3.0 *L 3.5-5.1 mmol/L Chloride Level 112 H 101-111 mmol/L Carbon Dioxide Level 22 21-32 mmol/L Blood Urea Nitrogen 44 H 7-18 mg/dL Creatinine 2.6 H 0.5-1.3 mg/dL Glomerular Filtration Rate Calc 23 >90 mL/min Random Glucose 107 H 70-105 mg/dL Total Calcium 7.2 L 8.5-10.1 mg/dL Ammonia < 10 L 11-32 umol/L Bedside Glucose Comment Notified Nurse Total Bilirubin 1.0 # 0.2-1.0 mg/dL Direct Bilirubin 0.4 #H 0.0-0.3 mg/dL Aspartate Amino Transf (AST/SGOT) 28 10-37 U/L Alanine Aminotransferase (ALT/SGPT) 9 L 12-78 U/L Alkaline Phosphatase 63 50-136 U/L Total Protein 6.0 6.0-8.3 g/dL Albumin 1.6 L 3.5-5.0 g/dL Current Medications Medications (Trade) Dose Ordered Sig/Lashonda Route PRN Reason Start Time Stop Time Status Last Admin Dose Admin Acetaminophen (TYLenol 325MG ELIXIR) 650 mg Q8H PO 04/24/25 11:30 05/24/25 11:29 04/24/25 11:38 650 MG Acetaminophen (TYLenol 325MG TAB) 650 mg Q6H PRN PO TEMPERATURE GREATER THAN 101.5 04/19/25 03:30 04/23/25 19:24 DC Acetaminophen (TYLenol 650MG SUPPOSITORY) 650 mg Q6H PRN RC TEMPERATURE GREATER THAN 101.5 04/23/25 19:30 05/23/25 19:29 04/23/25 20:15 650 MG Acetaminophen (TYLenol 650MG SUPPOSITORY) 650 mg Q6H PRN RC MILD PAIN (1-3) 04/24/25 22:00 05/24/25 21:59 04/24/25 21:49 650 MG Acetaminophen (acetaMINOPHEN 1,000MG/100ML) 1,000 mg Q12H9 IVPB 04/25/25 13:00 05/25/25 12:59 04/27/25 09:21 1,000 MG Acetaminophen (acetaMINOPHEN 1,000MG/100ML) 1,000 mg Q12H9 IVPB 04/25/25 14:00 04/25/25 13:54 DC Acetaminophen (acetaMINOPHEN 1,000MG/100ML) 1,000 mg Q8H6 IVPB 04/24/25 14:00 04/24/25 10:56 DC Apixaban (EliquIS 2.5 mg) 2.5 mg BID PO 04/20/25 09:00 04/23/25 13:28 DC 04/23/25 09:15 2.5 MG Apixaban (EliquIS 2.5 mg) 2.5 mg BID PO 04/27/25 21:00 05/27/25 20:59 Apixaban (EliquIS) 5 mg BID PO 04/19/25 09:00 04/20/25 08:22 DC 04/19/25 21:30 5 MG Clonidine HCl (CATApres 0.1 mg TAB) 0.1 mg HS PO 04/20/25 21:00 04/20/25 08:10 DC Dextrose 1,000 ml @ 75 mls/hr [id number] IV 04/19/25 08:30 04/20/25 13:23 DC 04/19/25 09:00 75 MLS/HR Dextrose/Sodium Chloride 1,000 ml @ 45 mls/hr [id number] IV 04/24/25 20:00 05/24/25 19:59 04/25/25 21:39 45 MLS/HR Donepezil HCl (ARIcept 5MG TAB) 10 mg HS PO 04/20/25 21:00 04/23/25 10:05 DC 04/21/25 21:14 10 MG Enoxaparin Sodium (Lovenox) 30 mg DAILY SQ 04/19/25 09:00 04/19/25 03:24 DC Famotidine (Pepcid 20mg Tab) 20 mg Q48H PO 04/19/25 09:00 05/19/25 08:59 04/27/25 09:05 20 MG Heparin Sodium (Porcine) (HEParin 5,000 UNIT VIAL) *calculation based on ACTUAL B... AD PRN IV HEPARIN PROTOCOL 04/23/25 21:00 04/23/25 19:28 DC Heparin Sodium/ Dextrose 250 ml @ 0 mls/hr Q6H IV 04/23/25 21:00 04/23/25 19:28 DC Hydralazine HCl (APRESOLine 20MG INJ) 10 mg Q6H PRN IV For:SBP above 160;DBP above 90 04/19/25 03:30 05/19/25 03:29 04/26/25 04:27 10 MG Insulin Human Regular (humuLIN R 100 UNIT/ML 3ML) INSULIN SLIDING SCAL... ACHS SQ 04/19/25 07:30 05/19/25 07:29 04/26/25 16:49 6 UNIT Lactulose (Constulose 20gm/ 30ml Udcup) 20 gm AMNOON PO 04/26/25 12:30 05/19/25 08:59 04/27/25 09:06 20 GM Lactulose (Constulose 20gm/ 30ml Udcup) 20 gm BID PO 04/19/25 09:00 04/19/25 15:19 DC 04/19/25 08:58 20 GM Lactulose (Constulose 20gm/ 30ml Udcup) 20 gm TID PO 04/19/25 15:30 04/26/25 12:30 DC 04/26/25 08:33 20 GM Lidocaine (Lidocaine Patch 4%) 1 each DAILY TP 04/25/25 13:00 05/25/25 12:59 04/27/25 09:06 1 EACH Lidocaine (Lidoderm Patch 5%) 1 patch DAILY TP 04/25/25 14:00 04/25/25 13:55 DC Linezolid 300 ml @ 150 mls/hr Q12H IV 04/24/25 14:30 05/04/25 14:29 04/27/25 03:59 150 MLS/HR Magnesium Sulfate 50 ml @ 0 mls/hr PROTOCOL PRN IV MAGNESIUM PROTOCOL 04/19/25 08:30 05/19/25 08:29 04/19/25 11:15 50 MLS/HR Metoprolol Tartrate (loprESSOR) 5 mg Q5M PRN IV AFIB RVR HR > 120 BPM 04/19/25 03:30 04/22/25 12:13 DC Metoprolol Tartrate (loprESSOR) 12.5 mg BID PO 04/19/25 09:00 04/22/25 10:23 DC 04/21/25 08:31 12.5 MG Metoprolol Tartrate (loprESSOR) 25 mg BID PO 04/22/25 21:00 05/22/25 20:59 04/27/25 09:05 25 MG Morphine Sulfate (morPHINE 4MG SYG) 2 mg Q4H PRN IVP SEVERE PAIN (7-10) 04/19/25 03:30 04/24/25 06:29 DC 04/23/25 23:48 2 MG Nifedipine (adALAT 30MG) 60 mg BID PO 04/20/25 09:00 04/20/25 18:51 DC 04/20/25 09:10 60 MG Nifedipine (adALAT 30MG) 60 mg DAILY PO 04/21/25 09:00 05/20/25 08:59 04/26/25 08:33 60 MG Ondansetron HCl (zoFRAN 4MG INJ) 4 mg Q6H PRN IV NAUSEA/VOMITING 04/19/25 03:30 05/19/25 03:29 Pharmacy Profile Note (Pharmacy Communication) 1 each ONCE MISC 04/19/25 03:30 04/20/25 08:24 DC Piperacillin Sod/ Tazobactam Sod (Zosyn 3.375gm+NS 50ml) 3.375 gm Q12H IV 04/23/25 10:00 05/03/25 09:59 04/27/25 09:21 3.375 GM Potassium Chloride 100 ml @ 50 mls/hr AD PRN IV POTASSIUM PROTOCOL 04/19/25 08:30 04/22/25 13:27 DC Potassium Chloride 100 ml @ 100 mls/hr AD PRN IV POTASSIUM PROTOCOL 04/19/25 08:30 05/19/25 08:29 Potassium Chloride 100 ml @ 100 mls/hr AD PRN IV POTASSIUM PROTOCOL 04/27/25 12:30 05/27/25 12:29 Potassium Chloride (K-Dur/Klor-Con 20meq) 10 meq AD PRN PO POTASSIUM PROTOCOL 04/27/25 12:30 05/27/25 12:29 Potassium Chloride (K-Dur/Klor-Con 20meq) 20 meq AD PRN PO POTASSIUM PROTOCOL 04/19/25 08:30 05/19/25 08:29 Potassium Chloride (KCl 10% Elixir 20meq/15ml) 10 meq AD PRN PO POTASSIUM PROTOCOL 04/27/25 12:30 05/27/25 12:29 Potassium Chloride (KCl 10% Elixir 20meq/15ml) 20 meq AD PRN PO POTASSIUM PROTOCOL 04/19/25 08:30 05/19/25 08:29 04/23/25 09:15 20 MEQ Rifaximin (Xifaxan) 550 mg BID PO 04/21/25 14:30 04/21/25 14:19 DC Rifaximin (Xifaxan) 550 mg BID PO 04/21/25 21:00 04/23/25 09:44 DC 04/21/25 21:14 550 MG Rifaximin (Xifaxan) 550 mg BID PO 04/23/25 10:00 05/23/25 09:59 04/27/25 09:05 550 MG Tamsulosin HCl (FloMAX) 0.4 mg DAILY PO 04/27/25 12:30 05/27/25 12:29 Vancomycin HCl 100 ml @ 100 mls/hr Q24H IV 04/24/25 23:00 04/24/25 14:15 DC Vancomycin HCl (Vancomycin Protocol) 1 each AD IV 04/23/25 22:30 04/24/25 14:15 DC DIAGNOSTICS / RADIOLOGY: [ ] ASSESSMENT: Metabolic encephalopathy, POA Hepatic encephalopathy, POA, ruled out Suspected sepsis, NPOA, likely UTI CKD stage IIIB, POA Left lower extremity anterior tibial wound, POA DVT ruled out Dementia Atrial fibrillation CHF with LVEF 55-60% by 2D echo on 10/08/2024 Diabetes mellitius type2 Hypertension Liver parenchymal disease by CT on 03/17/2024 PLAN: Metabolic encephalopathy, POA: * Patient drowsy and confused when 1st admitted in the ED, ammonia levels now at 68 * Patient is started on lactulose 20 mg b.i.d. which has been increased to 20 mg t.i.d. * Patient head CT was negative, repeat head CT also negative * MRI has been ordered * Current ammonia level at less than 10 * Referral to SNF been placed Suspected Sepsis NPOA, likely UTI: * Patient had a temperature of 103.1 last night, WBC went up as high as 17,000, heart rate at 114 and respiratory rate at 21. His lactic acid has also gone up to 3.4. * Continue patient on Zosyn * Source of infection unknown * Blood culture came back positive for staph aureus * Patient's urine culture came back positive for yeast * Infectious disease consulted * Continue the patient on Zosyn, linezolid and rifampin CKD stage IIIB, POA : * Patient's creatinine at admission at 1.7, from previous records baseline looks like around 1.5-2.0 * Creatinine today at 2.6 * Nephrology consulted, who recommended that the patient be placed on D5W with normal saline at 45 mL/hr in order to maintain euvolemia. Hypertension: * Patient's blood pressure high at 168/78 on admission going as high as 180/87 * Patient receiving hydralazine 10 mg IV if systolic pressure goes higher than 160 * We changed the dose of metoprolol 12.5mg BID to metoprolol 25mg BID today. Rule out DVT: * The nurse noticed that the patient's upper limbs are swollen. * We ordered a US doppler of upper limbs. Which showed no deep vein thrombosis within the bilateral upper extremity GI prophylaxis, famotidine DVT prophylaxis, resume patient's DOAC, Eliquis as stated above ATTESTATION BY PHYSICIAN I have seen and examined the patient. I reviewed the documentation, medical decision making, and treatment plan as noted by the resident physician above. I agree with the findings and plan of care. Masood Abraham IV, MD, ABHINAV MD Apr 27, 2025 17:04
--- NOTE | 2025-04-27 17:06 | NUR ---
BLADDER SCAN: >133 mL, Checked 3x. Pt denies any pain/discomfort.
--- NOTE | 2025-04-27 21:25 | NUR ---
MEDS SHIFT ASSESSMENT DONE, PLEASE REFER TO CHART. PT IS CONFUSED BUT RE-DIRECTED AND WAS ABLE TO STAY IN BED. DUE PO MEDS CRUSHED AND GIVEN WITH APPLE SAUCE, TOLERATED WELL. CONTINUED IVF OF D5NS REGULATED AT 45CC/HR. KEPT COMFORTABLE IN BED. SITTER KEEPING CLOSE WATCH ON PT. KEPT BED ALARM ACTIVATED.
--- NOTE | 2025-04-27 23:06 | NUR ---
MANPOWER PT IS GETTING OUT OF BED AND GETTING COMBATIVE, ALREADY SITTING IN BETWEEN SIDE RAILS. SITTER WITH PT. CODE MANPOWER CALLED IN. PT WAS ABLE TO BE PLACED BACK IN BED. PAGED LOCKER OPERATOR EXTRUDING DEPARTMENT SUPERVISOR VIA ANSWERING SERVICE, TUTU LUONG CALLED BACK AND REFERRED PT'S CONDITION. NEW MED ORDER RECEIVED, PLEASE REFER TO CPOE. WILL MEDICATE PT. KRISTIN ANDERS CALLED PT'S DAUGHTER AND STATED WILL COME IN TO STAY WITH PT.
[2025-04-27] MEDS: HALOPERIDOL INJ 5 MG/ML VIAL IM PRN (23:15)
--- NOTE | 2025-04-27 23:30 | NUR ---
CALM PT'S DAUGHTER IN AND PT CALM DOWN. WAS PLACED IN WHEELCHAIR FOR NOW AND IS BEING WHEELED AROUND THE FLOOR.
[2025-04-28] VITALS (7 sets, daily range): BP systolic 103–166; BP diastolic 52–90; PULSE 52–66; RESP 16–18; TEMP 97–98.2; O2SAT 98–99
--- NOTE | 2025-04-28 01:45 | NUR ---
BED PT ASSISTED BY SITTER BACK TO BED. PT CLAIMS OF PAINS TO RT HIP, WARM PACKS APPLIED TO AREA. KEPT COMFORTABLE WITH HOB ELEVATED. BED ALARM ACTIVATED. SITTER AT BEDSIDE KEEPING CLOSE WATCH. PT'S DAUGHTER DECIDED TO STAY WITH PT FOR NOW.
[2025-04-28 05:05] LABS: NUCLEATED RED BLOOD CELLS 0.0 % (0.0-0.19); PLATELET COUNT (AUTO) 112.0 K/uL (130-400); RED BLOOD CELL COUNT(AUTO) 3.52 MIL/uL (4.50-6.20); RED CELL DISTRIBUTION WIDTH 15.7 % (11.0-15.5); WHITE BLOOD COUNT (AUTO) 6.7 K/uL (4.8-10.8)
[2025-04-28 05:20] LABS: CREATININE 2.3 mg/dL (0.5-1.3); GLOMERULAR FILTR. RATE CALC 27 mL/min (>90); GLUCOSE,RANDOM 119 mg/dL (70-105); SODIUM SERUM 141 mmol/L (136-145); UREA NITROGEN, BLOOD 37 mg/dL (7-18)
--- NOTE | 2025-04-28 14:12 | PN ---
[facility] PROGRESS NOTE Date of Service: Apr 28, 2025 Time of Service: 13:56 SUBJECTIVE: Mr. Montgomery is an 84-year-old male that was seen and examined today on 04/19/2025. Patient is a poor historian and personal health. There was no family member at bedside. The following was obtained from a combination of emergency room physician report and previous medical records available to me f rom prior admissions lastly in January of 2025. According to emergency room physician: This is an 84-year-old male who was brought in to the emergency room by his daughter Christina for evaluation of worsening altered mental status over the past 2 days. Patient used to live in [facility] however patient's daughter indicated that she took him out of the a few weeks ago as he was more depressed and dwindling down. Since his discharge from the senior care she has not been able to get any of his medications that were routinely given and he has been off of lactulose for more than 3 weeks. She did finally get the lactulose p rescription and resumed it the past 2 days. He stated that he has been extremely sleepy and has very interrupted sleep. No fever chills or rigors. No nausea vomitings diarrhea. He does have a history of drinking alcohol 40 years ago when he was young. No history of any falls no fever chills or rigors. Temperature 98.9 pulse 105 respirations 20 blood pressure 189/96 with a pulse oximetry of 100% on room air Chronic medical problems include diabetes mellitus, hypertension, CKD, history of colitis, history of UTIs, congestive heart failure and dementia history of atrial fibrillation on Eliquvenkatesh I obtained most of the information from the daughter and medical records Today in the emergency department creatinine 1.7, no urinalysis has been collected and sent to lab, CT of head is pending radiology report, ammonia level is elevated at 108. Emergency room physician recommended patient be admitted with a diagnosis of hepatic encephalopathy. 04/19/2025: Patient is seen in room 407 with out family present. Patient is awake, alert x3, much better than when I saw him in the morning in the ED. Patient has no complaints at this time. His ammonium levels have improved to 52 from 108 on admission. Ordered a bedside swallow evaluation change the lactulose to 20 g p.o. t.i.d. also ordered an ultrasound with the AFP tumor marker for hepatocellular carcinoma screening. Patient also got magnesium 4 g IV. 04/20/2025: Patient is seen in room 407 with out family present. Patient's ammonia increased to 134 last night came back to within normal levels at 68 today. Abdominal ultrasound performed but no report yet. Patient's creatinine has increased to 1.8 from 1.5 yesterday. Case management spoke to the patient regarding placement post discharge, patient decided he wants to go home. Patient had a rash on his chest overnight which subsided after getting Benadryl. Per nursing staff the patient was active overnight fell asleep early in the morning. 04/21/2025: Patient is seen in room 407 with family present. Patient's abdominal ultrasound did not show any signs of a hepatocellular carcinoma but recommended imaging every [address] of the head was negative, ammonia levels much improved and patient's confusion persists. He does have dementia at baseline, but daughter relays a rather rapid change in his mental status prior to admission. So we ordered a MRI to rule out stroke. We also started the patient on rifaximin 550 mg b.i.d. Patient's creatinine has also increased to 2.2 From 1.8 But per previous records his creatinine fluctuates between 1.8 To 2.5. We will keep an eye on his kidney function. Patient's blood pressure did go high in the evening but he got a dose of hydralazine 10 mg IV which seemed to bring the blood pressure back within normal limits. Patient seen by cardiology today regarding his second-degree heart block. Per Cardiology the patient does have a history of atrial fibrillation and is compliant with anticoagulation and upon reviewing of the patient's EKG and telemetry strips cardiology found that there is no clear second-degree AVB present and at this time they do not believe further cardiac workup is indicated as they think the symptoms are not cardiac in origin. 04/22/2025: Patient is seen and evaluated in the room 407. He is confused and disoriented. His vital signs are in the normal range except for blood pressure is 178/80. His labs are in the normal range except for hemoglobin 10.8, chloride is 113, BUN is 28, creatinine is 2.1. Cardiology was consulted for second degree AV block but they recommended no further workup. He is refusing all medications. So we rechecked his ammonia level and its 44. So we gave lactulose enema and we will check his ammonia level tomorrow. We are also awaiting the results of MRI. We changed the dose of metoprolol 12.5mg BID to metoprolol 25mg BID today. We also ordered US doppler of upper extremities to rule out DVT as his upper limb is swollen. 04/23/2025: Patient seen and evaluated in room 407. Patient in the morning seen with family present was having breakfast. Patient overnight had fevers reaching up to 103.1 [place] [address]. Patient has been started on Zosyn and placed an order for repeat urinalysis and culture along with blood culture. Also ordered a chest x-ray, pending report. Cardiology saw him yesterday and increase his metoprolol to 25 mg twice daily. We also stopped the donepezil since the patient has been drowsy. We are still waiting on MRI, so ordered a stat CT. When we visited the patient again during rounds, we were unable to arouse the patient even with sternal rubbing, so we called rapid response. We also ordered a blood glucose level, ABG, troponin, CMP, ammonia, CBC and placed critical care consult, also started stroke response which included CT angio head and neck, Neurology consult, protein at transfer to ICU, EEG. Patient initially unresponsive even when blood drawing but then patient has suddenly woke up. He still appeared confused but had no focal deficits. Patient's lab work returned with elevated troponin at 1166, so ordered an EKG, echo, Cardiology consult. We also started a heparin drip once the head CT came back negative. Further treatment based on Cardiology, Neurology recommendations, lab results and imaging results. 04/24/2025: Patient is seen and evaluated in room 231 with family present. He is awake but confused. He had episodes of fever last night with temperature going as high as 102.4. His WBCs have improved and today they are at 10.8. Patient's blood culture came back positive for Staph aureus, waiting on sensitivity and susceptibility. ID has been consulted who started the patient on linezolid. Cardiology saw the patient yesterday and recommended that we quit drawing troponins, they believe that it is not a reliable measure of presents or absence of ischemia in his case because of his renal disease and many other metabolic factors and they do not serve any purpose in his evaluation. They saw no evidence of a myocardial infarct at the time and believes that even if there is evidence of acute ischemic event their treatment will not likely change. They believe the patient is not a candidate for any form of invasive evaluation and the patient's family also does not desire aggressive measures. Urology also saw the patient and recommended to continue lactulose therapy for hyperammonemia management, continue antibiotic therapy with Zosyn for urinary tract infection, continue IV fluid therapy, monitor mental status for gradual improvement as metabolic derangements resolve, continue monitoring ammonia levels. They believe that the UTI is contributing to acute delirium in this elderly patient with dementia. His creatinine increased from 2.3-2.4 And BUN From 33-44, we placed a consult for his pet resort concierge. Further treatment based on above recommendations. Ordered an abdomen/pelvis CT as he has been having hip pain. Still waiting on echo report. 04/25/2025: Patient is seen and evaluated in room 231 with family present. He is awake but confused. No febrile events overnight. His WBCs have improved and today they are at 9.5. Patient's blood culture came back positive for staph aureus which is pansensitive. ID added rifampin and now the patient is on Zosyn, linezolid and rifampin. Pulmonology/critical care has signed off. Bioinformatics Software Engineer Dr. Pena saw the patient last night and started the patient on D5W with normal saline at 45 mL/hr in order to maintain euvolemia. Patient's creatinine has improved to 2.2 from 2.4 yesterday. His lactic acid also improved to 2.0 and ammonia is at 19. His echo showed LVEF of 50-55% with grade 1 diastolic dysfunction and the abdomen pelvis CT showed severe right hip osteoarthritis with prior right femoral neck fixation, without acute hardware complication or periprosthetic fracture, correlating with the reported right hip pain. Given patient 1 g IV Tylenol for the pain along with lidocaine patch. Patient to have a speech study this morning. 04/26/2025: Patient is seen and evaluated in room 231 with family present. He is awake but confused. No febrile events overnight. His WBCs have improved and today they are at 8.4. Patient's ammonia improved to less than 10 today. [facility] and now he is in room 315. Patient found relief with the Tylenol 1 mg IV and the lidocaine patch yesterday so much so that he actually got off the bed and was sitting in his chair. We will continue with this medication today so that he could get some PT. Dr. Martha Merlos repeat blood culture. Bedside swallow study was performed and they recommended recommended minced and moist solids, thin liquids and pills cru shed with pureed as tolerated. Patient has also been referred to [facility] which is a [facility] facility for further management. Patient's urine culture came back positive for yeast. 04/27/2025: Patient is seen and evaluated in room 231 with family present. He is awake but confused. No febrile events overnight. Patient's creatinine has increased to 2.6 with the patient still is on gentle hydration. We started the patient on tamsulosin 0.4 as we noticed a stone on the abdomen/pelvis CT. We also ordered a bladder scan contacted pet resort concierge Dr. Pena. Patient also low potassium at 3.0 but since the patient has CKD we are replacing it cautiously. We have also restarted his Eliquis 2.5 B.i.d. 04/28/2025: Patient is seen and evaluated in room 231 with family present. He is awake and having food, responds when asking questions. No febrile events overnight. Patient's creatinine has improved to 2.3 with the patient still is on gentle hydration. Patient's potassium today is back within normal range at 3.8. Patient having sundowning in the evening and getting really agitated at night, he did get a dose of haloperidol last night but we are trying to give him another drug tonight in case he has another episode. Patient's blood pressure got soft at around 90/41 so held his nifedipine but today it has gone up so starting it back. We are still waiting on patient's blood culture results, it shows no growth after 48 hours. Waiting on ID for outpatient antibiotic recommendations. REVIEW OF SYSTEMS Review of systems could not be obtained because of altered mental status PHYSICAL EXAM GENERAL APPEARANCE: Patient is awake, alert x1. Not in cardiopulmonary distress NEUROLOGICAL: There is still confusion HEENT: Face is symmetric. NECK: Supple No lymphadenopathy. CHEST: Normal chest expansion. On Telemetry. LUNGS: Absence of any rales, rhonchi or any wheezing. CARDIOVASCULAR: Regular. S1 and S2 normal. No appreciable rubs, murmurs or gallops. ABDOMEN: Soft, nontender, and nondistended. There is no rebound, voluntary guarding, or rigidity. : Deferred. No Mcdermott. EXTREMITIES: Non-edematous and not cyanotic. SKIN: No skin breakdown. Vital Signs (last 8hr) Date Time Temp Pulse Resp B/P (MAP) Pulse Ox O2 Delivery O2 Flow Rate FiO2 04/28/25 12:00 98.1 52 16 147/58 99 Room Air 21 04/28/25 08:00 97.5 60 16 166/65 98 Room Air 21 LABS: Laboratory: Test 04/28/25 10:54 04/28/25 04:54 04/27/25 04:49 04/26/25 16:01 Range/Units Whole Blood Glucose 161 H 70-110 MG/DL White Blood Count 6.7 4.8-10.8 K/uL Red Blood Count 3.52 L 4.50-6.20 MIL/uL Hemoglobin 11.1 L 14.0-18.0 g/dL Hematocrit 33.2 L 42-54 % Mean Corpuscular Volume 94.3 79-99 fL Mean Corpuscular Hemoglobin 31.5 27.0-33.0 pg Mean Corpuscular Hemoglobin Concent 33.4 32.0-36.0 g/dL Red Cell Distribution Width 15.7 H 11.0-15.5 % Platelet Count 112 L 130-400 K/uL Mean Platelet Volume 10.3 7.5-10.5 fL Nucleated Red Blood Cells 0.0 0.0-0.19 % Sodium Level 141 136-145 mmol/L Potassium Level 3.8 3.5-5.1 mmol/L Chloride Level 111 101-111 mmol/L Carbon Dioxide Level 23 21-32 mmol/L Blood Urea Nitrogen 37 H 7-18 mg/dL Creatinine 2.3 H 0.5-1.3 mg/dL Glomerular Filtration Rate Calc 27 >90 mL/min Random Glucose 119 H 70-105 mg/dL Total Calcium 7.4 L 8.5-10.1 mg/dL Magnesium Level 1.80 1.80-2.40 mg/dL Ammonia < 10 L 11-32 umol/L Immature Granulocyte % (Auto) 0.5 0-1 % Neutrophils (%) (Auto) 63.1 40.0-77.0 % Lymphocytes (%) (Auto) 19.2 L 21.0-51.0 % Monocytes (%) (Auto) 12.2 3.0-13.0 % Eosinophils (%) (Auto) 4.3 0.0-8.0 % Basophils (%) (Auto) 0.7 0.0-5.0 % Neutrophils # (Auto) 3.5 1.8-7.7 K/uL Lymphocytes # (Auto) 1.1 1.0-4.8 K/uL Monocytes # (Auto) 0.7 0.1-1.0 K/uL Eosinophils # (Auto) 0.24 0.00-0.70 K/uL Basophils # (Auto) 0.04 0.00-0.20 K/uL Absolute Immature Granulocyte (auto 0.03 0-1 K/uL Bedside Glucose Comment Notified Nurse Current Medications Medications (Trade) Dose Ordered Sig/Lashonda Route PRN Reason Start Time Stop Time Status Last Admin Dose Admin Acetaminophen (TYLenol 325MG ELIXIR) 650 mg Q8H PO 04/24/25 11:30 04/27/25 19:57 DC 04/24/25 11:38 650 MG Acetaminophen (TYLenol 325MG TAB) 650 mg Q6H PRN PO TEMPERATURE GREATER THAN 101.5 04/19/25 03:30 04/23/25 19:24 DC Acetaminophen (TYLenol 650MG SUPPOSITORY) 650 mg Q6H PRN RC TEMPERATURE GREATER THAN 101.5 04/23/25 19:30 04/27/25 19:57 DC 04/23/25 20:15 650 MG Acetaminophen (TYLenol 650MG SUPPOSITORY) 650 mg Q6H PRN RC MILD PAIN (1-3) 04/24/25 22:00 04/27/25 19:57 DC 04/24/25 21:49 650 MG Acetaminophen (acetaMINOPHEN 1,000MG/100ML) 1,000 mg Q12H9 IVPB 04/25/25 13:00 05/25/25 12:59 04/28/25 09:24 1,000 MG Acetaminophen (acetaMINOPHEN 1,000MG/100ML) 1,000 mg Q12H9 IVPB 04/25/25 14:00 04/25/25 13:54 DC Acetaminophen (acetaMINOPHEN 1,000MG/100ML) 1,000 mg Q8H6 IVPB 04/24/25 14:00 04/24/25 10:56 DC Apixaban (EliquIS 2.5 mg) 2.5 mg BID PO 04/20/25 09:00 04/23/25 13:28 DC 04/23/25 09:15 2.5 MG Apixaban (EliquIS 2.5 mg) 2.5 mg BID PO 04/27/25 21:00 05/27/25 20:59 04/28/25 09:24 2.5 MG Apixaban (EliquIS) 5 mg BID PO 04/19/25 09:00 04/20/25 08:22 DC 04/19/25 21:30 5 MG Clonidine HCl (CATApres 0.1 mg TAB) 0.1 mg HS PO 04/20/25 21:00 04/20/25 08:10 DC Dextrose 1,000 ml @ 75 mls/hr [id number] IV 04/19/25 08:30 04/20/25 13:23 DC 04/19/25 09:00 75 MLS/HR Dextrose/Sodium Chloride 1,000 ml @ 45 mls/hr [id number] IV 04/24/25 20:00 05/24/25 19:59 04/27/25 21:57 45 MLS/HR Donepezil HCl (ARIcept 5MG TAB) 10 mg HS PO 04/20/25 21:00 04/23/25 10:05 DC 04/21/25 21:14 10 MG Enoxaparin Sodium (Lovenox) 30 mg DAILY SQ 04/19/25 09:00 04/19/25 03:24 DC Famotidine (Pepcid 20mg Tab) 20 mg Q48H PO 04/19/25 09:00 05/19/25 08:59 04/27/25 09:05 20 MG Haloperidol Lactate (Haldol Inj) 2.5 mg ONCE PRN IM ANXIETY/AGITATION 04/27/25 23:30 04/28/25 11:17 DC 04/27/25 23:15 2.5 MG Heparin Sodium (Porcine) (HEParin 5,000 UNIT VIAL) *calculation based on ACTUAL B... AD PRN IV HEPARIN PROTOCOL 04/23/25 21:00 04/23/25 19:28 DC Heparin Sodium/ Dextrose 250 ml @ 0 mls/hr Q6H IV 04/23/25 21:00 04/23/25 19:28 DC Hydralazine HCl (APRESOLine 20MG INJ) 10 mg Q6H PRN IV For:SBP above 160;DBP above 90 04/19/25 03:30 05/19/25 03:29 04/26/25 04:27 10 MG Insulin Human Regular (humuLIN R 100 UNIT/ML 3ML) INSULIN SLIDING SCAL... ACHS SQ 04/19/25 07:30 05/19/25 07:29 04/26/25 16:49 6 UNIT Lactulose (Constulose 20gm/ 30ml Udcup) 20 gm AMNOON PO 04/26/25 12:30 05/19/25 08:59 04/28/25 09:25 20 GM Lactulose (Constulose 20gm/ 30ml Udcup) 20 gm BID PO 04/19/25 09:00 04/19/25 15:19 DC 04/19/25 08:58 20 GM Lactulose (Constulose 20gm/ 30ml Udcup) 20 gm TID PO 04/19/25 15:30 04/26/25 12:30 DC 04/26/25 08:33 20 GM Lidocaine (Lidocaine Patch 4%) 1 each DAILY TP 04/25/25 13:00 05/25/25 12:59 04/28/25 09:24 1 EACH Lidocaine (Lidoderm Patch 5%) 1 patch DAILY TP 04/25/25 14:00 04/25/25 13:55 DC Linezolid 300 ml @ 150 mls/hr Q12H IV 04/24/25 14:30 05/04/25 14:29 04/28/25 02:15 150 MLS/HR Magnesium Sulfate 50 ml @ 0 mls/hr PROTOCOL PRN IV MAGNESIUM PROTOCOL 04/19/25 08:30 05/19/25 08:29 04/28/25 06:04 25 MLS/HR Metoprolol Tartrate (loprESSOR) 5 mg Q5M PRN IV AFIB RVR HR > 120 BPM 04/19/25 03:30 04/22/25 12:13 DC Metoprolol Tartrate (loprESSOR) 12.5 mg BID PO 04/19/25 09:00 04/22/25 10:23 DC 04/21/25 08:31 12.5 MG Metoprolol Tartrate (loprESSOR) 25 mg BID PO 04/22/25 21:00 05/22/25 20:59 04/28/25 09:24 25 MG Morphine Sulfate (morPHINE 4MG SYG) 2 mg Q4H PRN IVP SEVERE PAIN (7-10) 04/19/25 03:30 04/24/25 06:29 DC 04/23/25 23:48 2 MG Nifedipine (adALAT 30MG) 60 mg BID PO 04/20/25 09:00 04/20/25 18:51 DC 04/20/25 09:10 60 MG Nifedipine (adALAT 30MG) 60 mg DAILY PO 04/21/25 09:00 05/20/25 08:59 04/28/25 09:24 60 MG Ondansetron HCl (zoFRAN 4MG INJ) 4 mg Q6H PRN IV NAUSEA/VOMITING 04/19/25 03:30 05/19/25 03:29 Pharmacy Profile Note (Pharmacy Communication) 1 each ONCE MISC 04/19/25 03:30 04/20/25 08:24 DC Piperacillin Sod/ Tazobactam Sod (Zosyn 3.375gm+NS 50ml) 3.375 gm Q12H IV 04/23/25 10:00 05/03/25 09:59 04/28/25 11:54 3.375 GM Potassium Chloride 100 ml @ 50 mls/hr AD PRN IV POTASSIUM PROTOCOL 04/19/25 08:30 04/22/25 13:27 DC Potassium Chloride 100 ml @ 100 mls/hr AD PRN IV POTASSIUM PROTOCOL 04/19/25 08:30 05/19/25 08:29 Potassium Chloride 100 ml @ 100 mls/hr AD PRN IV POTASSIUM PROTOCOL 04/27/25 12:30 05/27/25 12:29 04/28/25 02:15 100 MLS/HR Potassium Chloride (K-Dur/Klor-Con 20meq) 10 meq AD PRN PO POTASSIUM PROTOCOL 04/27/25 12:30 05/27/25 12:29 Potassium Chloride (K-Dur/Klor-Con 20meq) 20 meq AD PRN PO POTASSIUM PROTOCOL 04/19/25 08:30 05/19/25 08:29 04/28/25 09:29 20 MEQ Potassium Chloride (KCl 10% Elixir 20meq/15ml) 10 meq AD PRN PO POTASSIUM PROTOCOL 04/27/25 12:30 05/27/25 12:29 Potassium Chloride (KCl 10% Elixir 20meq/15ml) 20 meq AD PRN PO POTASSIUM PROTOCOL 04/19/25 08:30 05/19/25 08:29 04/23/25 09:15 20 MEQ Quetiapine Fumarate (SEROquel 25 mg TAB) 12.5 mg HS PO 04/28/25 21:00 05/28/25 20:59 Future Hold Rifaximin (Xifaxan) 550 mg BID PO 04/21/25 14:30 04/21/25 14:19 DC Rifaximin (Xifaxan) 550 mg BID PO 04/21/25 21:00 04/23/25 09:44 DC 04/21/25 21:14 550 MG Rifaximin (Xifaxan) 550 mg BID PO 04/23/25 10:00 05/23/25 09:59 04/28/25 09:24 550 MG Tamsulosin HCl (FloMAX) 0.4 mg DAILY PO 04/27/25 12:30 05/27/25 12:29 04/28/25 09:23 0.4 MG Vancomycin HCl 100 ml @ 100 mls/hr Q24H IV 04/24/25 23:00 04/24/25 14:15 DC Vancomycin HCl (Vancomycin Protocol) 1 each AD IV 04/23/25 22:30 04/24/25 14:15 DC DIAGNOSTICS / RADIOLOGY: [ ] ASSESSMENT: Metabolic encephalopathy, POA Hepatic encephalopathy, POA, ruled out Suspected sepsis, NPOA, likely UTI CKD stage IIIB, POA Left lower extremity anterior tibial wound, POA DVT ruled out Dementia Atrial fibrillation CHF with LVEF 55-60% by 2D echo on 10/08/2024 Diabetes mellitius type2 Hypertension Liver parenchymal disease by CT on 03/17/2024 PLAN: Metabolic encephalopathy, POA: * Patient drowsy and confused when 1st admitted in the ED, ammonia levels now at 68 * Patient is started on lactulose 20 mg b.i.d. which has been increased to 20 mg t.i.d. but now at 20 mg b.i.d. * Patient head CT was negative, repeat head CT also negative * MRI has been ordered * Current ammonia level at <10 * Referral to SNF been placed and accepted, waiting on ID recommendations for antibiotics Suspected Sepsis NPOA, likely UTI: * Patient had a temperature of 103.1 last night, WBC went up as high as 17,000, heart rate at 114 and respiratory rate at 21. His lactic acid has also gone up to 3.4. * Continue patient on Zosyn, linezolid and rifampin * Source of infection unknown * Blood culture came back positive for staph aureus, repeat blood culture shows no growth in the first 48 hours * Patient's urine culture came back positive for yeast * Infectious disease on the case CKD stage IIIB, POA : * Patient's creatinine at admission at 1.7, from previous records baseline looks like around 1.5-2.0 * Creatinine today at 2.3 * Nephrology consulted, who recommended that the patient be placed on D5W with normal saline at 45 mL/hr in order to maintain euvolemia. Hypertension: * Patient's blood pressure high at 168/78 on admission going as high as 180/87, patient's blood pressure got soft at around 90/41 so held his nifedipine but today it has gone up so starting it back. * Patient receiving hydralazine 10 mg IV if systolic pressure goes higher than 160 * We changed the dose of metoprolol 12.5mg BID to metoprolol 25mg BID today. Rule out DVT: * The nurse noticed that the patient's upper limbs are swollen. * We ordered a US doppler of upper limbs. Which showed no deep vein thrombosis within the bilateral upper extremity GI prophylaxis, famotidine DVT prophylaxis, resume patient's DOAC, Eliquis as stated above ATTESTATION BY PHYSICIAN I have seen and examined the patient. I reviewed the documentation, medical decision making, and treatment plan as noted by the resident physician above. I agree with the findings and plan of care. CORY FOSTER MD, ABHINAV MD Apr 28, 2025 14:12
--- NOTE | 2025-04-28 16:41 | PN ---
INFECTIOUS DISEASE PROGRESS NOTE Date of Service: Apr 28, 2025 SUBJECTIVE: This is a 84-year-old male patient who was seen and examined at bedside in room 315. Patient is awake, alert and oriented to person and family members only. Sitting up on the bedside chair having lunch. Continues on a 1-1 sitter observation. Per sitter report patient has been eating well for breakfast and lunch today. No fever, temperature is 97.5 and a WBC of 6.7. Platelets level is stable at 112. BUN and creatinine improving, BUN is 37 and creatinine of 2.3. We will continue on Zosyn, Zyvox and rifampin. Per report patient has been approved to [facility]. PHYSICAL EXAM EYES: Anicteric. Pupils equal and reactive. HENT: No oral thrush seen, moist Oral mucosa NECK: Supple, no JVD or thyromegaly. LUNGS: Good air entry. No rales, no rhonchi. CARDIOVASCULAR: S1, S2 regular. No murmur heard. ABDOMEN: Soft, non tender, bowel sounds present. CENTRAL NERVOUS SYSTEM: Awake, alert, oriented x 2. SKIN: No rashes, no swelling. LYMPHATICS: No peripheral lymphadenopathy MUSCULOSKELETAL: No joint swelling, erythema or tenderness. EXTREMITIES: No cyanosis or clubbing BACK: No deformity, no pressure ulcer. GENITOURINARY: No dysuria or hematuria Vital Sign (Last 12 Hours) 04/28/25 04/28/25 04/28/25 08:00 08:00 12:00 Temp 97.5 98.1 Pulse 60 52 Resp 16 16 B/P (MAP) 166/65 147/58 Pulse Ox 98 98 99 O2 Delivery Room Air Room Air* Room Air O2 Flow Rate 0 FiO2 21 21 21 Intake & Output (last 24hrs) 04/27/25 04/27/25 04/28/25 15:00 23:00 07:00 Intake Total 150.0 ml 820.0 ml Balance 150.0 ml 820.0 ml LABS: Laboratory: Test 04/28/25 16:02 04/28/25 04:54 04/27/25 04:49 Range/Units Whole Blood Glucose 143 H 70-110 MG/DL White Blood Count 6.7 4.8-10.8 K/uL Red Blood Count 3.52 L 4.50-6.20 MIL/uL Hemoglobin 11.1 L 14.0-18.0 g/dL Hematocrit 33.2 L 42-54 % Mean Corpuscular Volume 94.3 79-99 fL Mean Corpuscular Hemoglobin 31.5 27.0-33.0 pg Mean Corpuscular Hemoglobin Concent 33.4 32.0-36.0 g/dL Red Cell Distribution Width 15.7 H 11.0-15.5 % Platelet Count 112 L 130-400 K/uL Mean Platelet Volume 10.3 7.5-10.5 fL Nucleated Red Blood Cells 0.0 0.0-0.19 % Sodium Level 141 136-145 mmol/L Potassium Level 3.8 3.5-5.1 mmol/L Chloride Level 111 101-111 mmol/L Carbon Dioxide Level 23 21-32 mmol/L Blood Urea Nitrogen 37 H 7-18 mg/dL Creatinine 2.3 H 0.5-1.3 mg/dL Glomerular Filtration Rate Calc 27 >90 mL/min Random Glucose 119 H 70-105 mg/dL Total Calcium 7.4 L 8.5-10.1 mg/dL Magnesium Level 1.80 1.80-2.40 mg/dL Ammonia < 10 L 11-32 umol/L Immature Granulocyte % (Auto) 0.5 0-1 % Neutrophils (%) (Auto) 63.1 40.0-77.0 % Lymphocytes (%) (Auto) 19.2 L 21.0-51.0 % Monocytes (%) (Auto) 12.2 3.0-13.0 % Eosinophils (%) (Auto) 4.3 0.0-8.0 % Basophils (%) (Auto) 0.7 0.0-5.0 % Neutrophils # (Auto) 3.5 1.8-7.7 K/uL Lymphocytes # (Auto) 1.1 1.0-4.8 K/uL Monocytes # (Auto) 0.7 0.1-1.0 K/uL Eosinophils # (Auto) 0.24 0.00-0.70 K/uL Basophils # (Auto) 0.04 0.00-0.20 K/uL Absolute Immature Granulocyte (auto 0.03 0-1 K/uL DIAGNOSTICS / RADIOLOGY: PATIENT: EKTA BRICEÑO ACCT: [id number] LOC: [facility] U: [id number] AGE/SX: 84/M ROOM: 231 RE04/19/[address]: RANDOLPH MARTELL MD : [id number] BED: 1 DIS: STATUS: ADM IN TLOC: SPEC: [id number] CARLOS: 04/20/25 STATUS: COMP REQ: [id number] RECD: 04/25/[address] [facility] [address]: RHYS [address] [facility] [place] [facility] [place]/25 [facility] [address]: RANDOLPH MARTELL MD SPDESC: CLEAN CAT MELISSA DE LA O MD, EUGENE F MD ORDERED: AERO ID & SENS Procedure Result Brooke Date-Time AEROBIC ID & SENSITIVITIES Final 04/26/25-1008 MRL COLONY DESCRIPTION: DAY 1: COLONY COUNT: 20,000 - 50,000 CFU/ML YEAST SPECIES; NOT JANA ALBICANS NO FURTHER WORK-UP DONE YEAST SPECIES ASSESSMENT: Methicillin-susceptible Staphylococcus aureus bacteremia. Urinary tract infection with yeast species. Leukocytosis POA, resolved. Severe right hip pain. Acute on chronic renal failure. Encephalopathy, improving. Diabetes mellitus. PLAN: Continue linezolid. Continue Zosyn. Continue rifampin. Continue acetaminophen 1 g IV every 12 hours for pain to the right hip. Continue with lidocaine patch topical to the right hip. Continue antidiabetics. Per report patient has been approved to [facility]. This case was reviewed and discussed with my supervising physician Dr. Blackman and the above assessment and plan was formulated and agreed upon. ATTESTATION BY PHYSICIAN I have seen and examined the patient. I reviewed the documentation, medical decision making, and treatment plan as noted by the mid-level provider above. I agree with the findings and plan of care. TANNA BLACKMAN MD, MIRTA L [facility] Apr 28, 2025 16:41
[2025-04-29] VITALS (7 sets, daily range): BP systolic 110–139; BP diastolic 49–69; PULSE 54–68; RESP 12–18; TEMP 97.6–98.9; O2SAT 97–99
[2025-04-29 05:35] LABS: NUCLEATED RED BLOOD CELLS 0.0 % (0.0-0.19); PLATELET COUNT (AUTO) 114.0 K/uL (130-400); RED BLOOD CELL COUNT(AUTO) 3.13 MIL/uL (4.50-6.20); RED CELL DISTRIBUTION WIDTH 15.8 % (11.0-15.5); WHITE BLOOD COUNT (AUTO) 5.6 K/uL (4.8-10.8)
[2025-04-29 06:01] LABS: ASPARTATE AMINOTRANSFERASE 34 U/L (10-37); CREATININE 2.1 mg/dL (0.5-1.3); GLOMERULAR FILTR. RATE CALC 30 mL/min (>90); GLUCOSE,RANDOM 154 mg/dL (70-105); SODIUM SERUM 142 mmol/L (136-145); TOTAL PROTEIN, SERUM 5.6 g/dL (6.0-8.3); UREA NITROGEN, BLOOD 35 mg/dL (7-18)
--- NOTE | 2025-04-29 06:57 | NUR ---
PATIENT UPDATE PLEASANTLY CONFUSED OVERNIGHT. FAMILY LEFT BEFORE 2200 LAST NIGHT, REFUSED FOR THE NEW MED- SEROQUEL TO BE GIVEN TO THE PT. SCHEDULED METOPROLOL NOT GIVEN, BLOOD PRESSURE AT 103/63 MMHG WITH THE HR IN THE 50'S. SINUS BRADYCARDIA.CONTINUES WITH THE SLOW HYDRATION WITH D5NS AT 45 CC/HR AND THE IV ANTIBIOTICS ZOSYN AND ZYVOX.NO COMPLAINTS OF ANY MAJOR DISCOMFORT, COMFORTABLE WITH THE IV TYLENOL Q 12 HRS. STILL PENDING TRANSFER TO [facility].
--- NOTE | 2025-04-29 17:10 | PN ---
[facility] PROGRESS NOTE Date of Service: Apr 29, 2025 Time of Service: 17:09 SUBJECTIVE: Mr. Montgomery is an 84-year-old male that was seen and examined today on 04/19/2025. Patient is a poor historian and personal health. There was no family member at bedside. The following was obtained from a combination of emergency room physician report and previous medical records available to me f rom prior admissions lastly in January of 2025. According to emergency room physician: This is an 84-year-old male who was brought in to the emergency room by his daughter Christina for evaluation of worsening altered mental status over the past 2 days. Patient used to live in [facility] however patient's daughter indicated that she took him out of the a few weeks ago as he was more depressed and dwindling down. Since his discharge from the group home she has not been able to get any of his medications that were routinely given and he has been off of lactulose for more than 3 weeks. She did finally get the lactulose p rescription and resumed it the past 2 days. He stated that he has been extremely sleepy and has very interrupted sleep. No fever chills or rigors. No nausea vomitings diarrhea. He does have a history of drinking alcohol 40 years ago when he was young. No history of any falls no fever chills or rigors. Temperature 98.9 pulse 105 respirations 20 blood pressure 189/96 with a pulse oximetry of 100% on room air Chronic medical problems include diabetes mellitus, hypertension, CKD, history of colitis, history of UTIs, congestive heart failure and dementia history of atrial fibrillation on Nathaliequvenkatesh I obtained most of the information from the daughter and medical records Today in the emergency department creatinine 1.7, no urinalysis has been collected and sent to lab, CT of head is pending radiology report, ammonia level is elevated at 108. Emergency room physician recommended patient be admitted with a diagnosis of hepatic encephalopathy. 04/19/2025: Patient is seen in room 407 with out family present. Patient is awake, alert x3, much better than when I saw him in the morning in the ED. Patient has no complaints at this time. His ammonium levels have improved to 52 from 108 on admission. Ordered a bedside swallow evaluation change the lactulose to 20 g p.o. t.i.d. also ordered an ultrasound with the AFP tumor marker for hepatocellular carcinoma screening. Patient also got magnesium 4 g IV. 04/20/2025: Patient is seen in room 407 with out family present. Patient's ammonia increased to 134 last night came back to within normal levels at 68 today. Abdominal ultrasound performed but no report yet. Patient's creatinine has increased to 1.8 from 1.5 yesterday. Case management spoke to the patient regarding placement post discharge, patient decided he wants to go home. Patient had a rash on his chest overnight which subsided after getting Benadryl. Per nursing staff the patient was active overnight fell asleep early in the morning. 04/21/2025: Patient is seen in room 407 with family present. Patient's abdominal ultrasound did not show any signs of a hepatocellular carcinoma but recommended imaging every [address] of the head was negative, ammonia levels much improved and patient's confusion persists. He does have dementia at baseline, but daughter relays a rather rapid change in his mental status prior to admission. So we ordered a MRI to rule out stroke. We also started the patient on rifaximin 550 mg b.i.d. Patient's creatinine has also increased to 2.2 From 1.8 But per previous records his creatinine fluctuates between 1.8 To 2.5. We will keep an eye on his kidney function. Patient's blood pressure did go high in the evening but he got a dose of hydralazine 10 mg IV which seemed to bring the blood pressure back within normal limits. Patient seen by cardiology today regarding his second-degree heart block. Per Cardiology the patient does have a history of atrial fibrillation and is compliant with anticoagulation and upon reviewing of the patient's EKG and telemetry strips cardiology found that there is no clear second-degree AVB present and at this time they do not believe further cardiac workup is indicated as they think the symptoms are not cardiac in origin. 04/22/2025: Patient is seen and evaluated in the room 407. He is confused and disoriented. His vital signs are in the normal range except for blood pressure is 178/80. His labs are in the normal range except for hemoglobin 10.8, chloride is 113, BUN is 28, creatinine is 2.1. Cardiology was consulted for second degree AV block but they recommended no further workup. He is refusing all medications. So we rechecked his ammonia level and its 44. So we gave lactulose enema and we will check his ammonia level tomorrow. We are also awaiting the results of MRI. We changed the dose of metoprolol 12.5mg BID to metoprolol 25mg BID today. We also ordered US doppler of upper extremities to rule out DVT as his upper limb is swollen. 04/23/2025: Patient seen and evaluated in room 407. Patient in the morning seen with family present was having breakfast. Patient overnight had fevers reaching up to 103.1 [place] [address]. Patient has been started on Zosyn and placed an order for repeat urinalysis and culture along with blood culture. Also ordered a chest x-ray, pending report. Cardiology saw him yesterday and increase his metoprolol to 25 mg twice daily. We also stopped the donepezil since the patient has been drowsy. We are still waiting on MRI, so ordered a stat CT. When we visited the patient again during rounds, we were unable to arouse the patient even with sternal rubbing, so we called rapid response. We also ordered a blood glucose level, ABG, troponin, CMP, ammonia, CBC and placed critical care consult, also started stroke response which included CT angio head and neck, Neurology consult, protein at transfer to ICU, EEG. Patient initially unresponsive even when blood drawing but then patient has suddenly woke up. He still appeared confused but had no focal deficits. Patient's lab work returned with elevated troponin at 1166, so ordered an EKG, echo, Cardiology consult. We also started a heparin drip once the head CT came back negative. Further treatment based on Cardiology, Neurology recommendations, lab results and imaging results. 04/24/2025: Patient is seen and evaluated in room 231 with family present. He is awake but confused. He had episodes of fever last night with temperature going as high as 102.4. His WBCs have improved and today they are at 10.8. Patient's blood culture came back positive for Staph aureus, waiting on sensitivity and susceptibility. ID has been consulted who started the patient on linezolid. Cardiology saw the patient yesterday and recommended that we quit drawing troponins, they believe that it is not a reliable measure of presents or absence of ischemia in his case because of his renal disease and many other metabolic factors and they do not serve any purpose in his evaluation. They saw no evidence of a myocardial infarct at the time and believes that even if there is evidence of acute ischemic event their treatment will not likely change. They believe the patient is not a candidate for any form of invasive evaluation and the patient's family also does not desire aggressive measures. Urology also saw the patient and recommended to continue lactulose therapy for hyperammonemia management, continue antibiotic therapy with Zosyn for urinary tract infection, continue IV fluid therapy, monitor mental status for gradual improvement as metabolic derangements resolve, continue monitoring ammonia levels. They believe that the UTI is contributing to acute delirium in this elderly patient with dementia. 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 Further treatment based on above recommendations. Ordered an abdomen/pelvis CT as he has been having hip pain. Still waiting on echo report. 04/25/2025: Patient is seen and evaluated in room 231 with family present. He is awake but confused. No febrile events overnight. His WBCs have improved and today they are at 9.5. Patient's blood culture came back positive for staph aureus which is pansensitive. ID added rifampin and now the patient is on Zosyn, linezolid and rifampin. Pulmonology/critical care has signed off. Precipitator Operator Dr. Pena saw the patient last night and started the patient on D5W with normal saline at 45 mL/hr in order to maintain euvolemia. Patient's creatinine has improved to 2.2 from 2.4 yesterday. His lactic acid also improved to 2.0 and ammonia is at 19. His echo showed LVEF of 50-55% with grade 1 diastolic dysfunction and the abdomen pelvis CT showed severe right hip osteoarthritis with prior right femoral neck fixation, without acute hardware complication or periprosthetic fracture, correlating with the reported right hip pain. Given patient 1 g IV Tylenol for the pain along with lidocaine patch. Patient to have a speech study this morning. 04/26/2025: Patient is seen and evaluated in room 231 with family present. He is awake but confused. No febrile events overnight. His WBCs have improved and today they are at 8.4. Patient's ammonia improved to less than 10 today. [facility] and now he is in room 315. Patient found relief with the Tylenol 1 mg IV and the lidocaine patch yesterday so much so that he actually got off the bed and was sitting in his chair. We will continue with this medication today so that he could get some PT. Dr. Martha Merlos repeat blood culture. Bedside swallow study was performed and they recommended recommended minced and moist solids, thin liquids and pills cru shed with pureed as tolerated. Patient has also been referred to [facility] which is a [facility] facility for further management. Patient's urine culture came back positive for yeast. 04/27/2025: Patient is seen and evaluated in room 231 with family present. He is awake but confused. No febrile events overnight. Patient's creatinine has increased to 2.6 with the patient still is on gentle hydration. We started the patient on tamsulosin 0.4 as we noticed a stone on the abdomen/pelvis CT. We also ordered a bladder scan contacted flower grower Dr. Pena. Patient also low potassium at 3.0 but since the patient has CKD we are replacing it cautiously. We have also restarted his Eliquis 2.5 B.i.d. 04/28/2025: Patient is seen and evaluated in room 231 with family present. He is awake and having food, responds when asking questions. No febrile events overnight. Patient's creatinine has improved to 2.3 with the patient still is on gentle hydration. Patient's potassium today is back within normal range at 3.8. Patient having sundowning in the evening and getting really agitated at night, he did get a dose of haloperidol last night but we are trying to give him another drug tonight in case he has another episode. Patient's blood pressure got soft at around 90/41 so held his nifedipine but today it has gone up so starting it back. We are still waiting on patient's blood culture results, it shows no growth after 48 hours. Waiting on ID for outpatient antibiotic recommendations. 04/29/2025: Patient is seen and evaluated in the room 315. He is awake and havin g food, responds when asking questions. No febrile events overnight. His vitals are in the normal range except for pulse 55. His labs are normal except for hemoglobin 9.5, RDW is 15.8, platelets 114, potassium is 3.4, BUN is 35, creatinine is 2.1, glucose is 152. His blood culture showed no growth after 3 days. Infectious disease saw the patient and they wanted to continue the anti biotics. So they ordered a midline which is to be placed tomorrow. REVIEW OF SYSTEMS Review of systems could not be obtained because of altered mental status PHYSICAL EXAM GENERAL APPEARANCE: Patient is awake, alert x1. Not in cardiopulmonary distress NEUROLOGICAL: There is still confusion HEENT: Face is symmetric. NECK: Supple No lymphadenopathy. CHEST: Normal chest expansion. On Telemetry. LUNGS: Absence of any rales, rhonchi or any wheezing. CARDIOVASCULAR: Regular. S1 and S2 normal. No appreciable rubs, murmurs or gallops. ABDOMEN: Soft, nontender, and nondistended. There is no rebound, voluntary guarding, or rigidity. : Deferred. No Mcdermott. EXTREMITIES: Non-edematous and not cyanotic. SKIN: No skin breakdown. Vital Signs (last 8hr) Date Time Temp Pulse Resp B/P (MAP) Pulse Ox O2 Delivery O2 Flow Rate FiO2 04/29/25 12:00 97.5 55 12 115/61 99 Room Air LABS: Laboratory: Test 04/29/25 16:13 04/29/25 05:15 04/28/25 04:54 Range/Units Whole Blood Glucose 152 H 70-110 MG/DL Bedside Glucose Comment Notified Nurse White Blood Count 5.6 4.8-10.8 K/uL Red Blood Count 3.13 L 4.50-6.20 MIL/uL Hemoglobin 9.8 L 14.0-18.0 g/dL Hematocrit 29.3 L 42-54 % Mean Corpuscular Volume 93.6 79-99 fL Mean Corpuscular Hemoglobin 31.3 27.0-33.0 pg Mean Corpuscular Hemoglobin Concent 33.4 32.0-36.0 g/dL Red Cell Distribution Width 15.8 H 11.0-15.5 % Platelet Count 114 L 130-400 K/uL Mean Platelet Volume 10.4 7.5-10.5 fL Nucleated Red Blood Cells 0.0 0.0-0.19 % Sodium Level 142 136-145 mmol/L Potassium Level 3.4 L 3.5-5.1 mmol/L Chloride Level 111 101-111 mmol/L Carbon Dioxide Level 21 21-32 mmol/L Blood Urea Nitrogen 35 H 7-18 mg/dL Creatinine 2.1 H 0.5-1.3 mg/dL Glomerular Filtration Rate Calc 30 >90 mL/min Random Glucose 154 H 70-105 mg/dL Total Calcium 7.0 L 8.5-10.1 mg/dL Total Bilirubin 0.5 0.2-1.0 mg/dL Direct Bilirubin 0.2 0.0-0.3 mg/dL Aspartate Amino Transf (AST/SGOT) 34 10-37 U/L Alanine Aminotransferase (ALT/SGPT) 12 12-78 U/L Alkaline Phosphatase 127 50-136 U/L Ammonia < 10 L 11-32 umol/L Total Protein 5.6 L 6.0-8.3 g/dL Albumin 1.5 L 3.5-5.0 g/dL Magnesium Level 1.80 1.80-2.40 mg/dL Current Medications Medications (Trade) Dose Ordered Sig/Lashonda Route PRN Reason Start Time Stop Time Status Last Admin Dose Admin Acetaminophen (TYLenol 325MG ELIXIR) 650 mg Q8H PO 04/24/25 11:30 04/27/25 19:57 DC 04/24/25 11:38 650 MG Acetaminophen (TYLenol 325MG TAB) 650 mg Q6H PRN PO TEMPERATURE GREATER THAN 101.5 04/19/25 03:30 04/23/25 19:24 DC Acetaminophen (TYLenol 650MG SUPPOSITORY) 650 mg Q6H PRN RC TEMPERATURE GREATER THAN 101.5 04/23/25 19:30 04/27/25 19:57 DC 04/23/25 20:15 650 MG Acetaminophen (TYLenol 650MG SUPPOSITORY) 650 mg Q6H PRN RC MILD PAIN (1-3) 04/24/25 22:00 04/27/25 19:57 DC 04/24/25 21:49 650 MG Acetaminophen (acetaMINOPHEN 1,000MG/100ML) 1,000 mg Q12H9 IVPB 04/25/25 13:00 05/25/25 12:59 04/29/25 09:01 1,000 MG Acetaminophen (acetaMINOPHEN 1,000MG/100ML) 1,000 mg Q12H9 IVPB 04/25/25 14:00 04/25/25 13:54 DC Acetaminophen (acetaMINOPHEN 1,000MG/100ML) 1,000 mg Q8H6 IVPB 04/24/25 14:00 04/24/25 10:56 DC Apixaban (EliquIS 2.5 mg) 2.5 mg BID PO 04/20/25 09:00 04/23/25 13:28 DC 04/23/25 09:15 2.5 MG Apixaban (EliquIS 2.5 mg) 2.5 mg BID PO 04/27/25 21:00 05/27/25 20:59 04/29/25 09:00 2.5 MG Apixaban (EliquIS) 5 mg BID PO 04/19/25 09:00 04/20/25 08:22 DC 04/19/25 21:30 5 MG Clonidine HCl (CATApres 0.1 mg TAB) 0.1 mg HS PO 04/20/25 21:00 04/20/25 08:10 DC Dextrose 1,000 ml @ 75 mls/hr [id number] IV 04/19/25 08:30 04/20/25 13:23 DC 04/19/25 09:00 75 MLS/HR Dextrose/Sodium Chloride 1,000 ml @ 45 mls/hr [id number] IV 04/24/25 20:00 05/24/25 19:59 04/29/25 00:10 45 MLS/HR Donepezil HCl (ARIcept 5MG TAB) 10 mg HS PO 04/20/25 21:00 04/23/25 10:05 DC 04/21/25 21:14 10 MG Enoxaparin Sodium (Lovenox) 30 mg DAILY SQ 04/19/25 09:00 04/19/25 03:24 DC Famotidine (Pepcid 20mg Tab) 20 mg Q48H PO 04/19/25 09:00 05/19/25 08:59 04/29/25 09:00 20 MG Haloperidol Lactate (Haldol Inj) 2.5 mg ONCE PRN IM ANXIETY/AGITATION 04/27/25 23:30 04/28/25 11:17 DC 04/27/25 23:15 2.5 MG Heparin Sodium (Porcine) (HEParin 5,000 UNIT VIAL) *calculation based on ACTUAL B... AD PRN IV HEPARIN PROTOCOL 04/23/25 21:00 04/23/25 19:28 DC Heparin Sodium/ Dextrose 250 ml @ 0 mls/hr Q6H IV 04/23/25 21:00 04/23/25 19:28 DC Hydralazine HCl (APRESOLine 20MG INJ) 10 mg Q6H PRN IV For:SBP above 160;DBP above 90 04/19/25 03:30 05/19/25 03:29 04/26/25 04:27 10 MG Insulin Human Regular (humuLIN R 100 UNIT/ML 3ML) INSULIN SLIDING SCAL... ACHS SQ 04/19/25 07:30 05/19/25 07:29 04/26/25 16:49 6 UNIT Lactulose (Constulose 20gm/ 30ml Udcup) 20 gm AMNOON PO 04/26/25 12:30 05/19/25 08:59 04/28/25 09:25 20 GM Lactulose (Constulose 20gm/ 30ml Udcup) 20 gm BID PO 04/19/25 09:00 04/19/25 15:19 DC 04/19/25 08:58 20 GM Lactulose (Constulose 20gm/ 30ml Udcup) 20 gm TID PO 04/19/25 15:30 04/26/25 12:30 DC 04/26/25 08:33 20 GM Lidocaine (Lidocaine Patch 4%) 1 each DAILY TP 04/25/25 13:00 05/25/25 12:59 04/29/25 09:01 1 EACH Lidocaine (Lidoderm Patch 5%) 1 patch DAILY TP 04/25/25 14:00 04/25/25 13:55 DC Linezolid 300 ml @ 150 mls/hr Q12H IV 04/24/25 14:30 05/04/25 14:29 04/29/25 14:39 150 MLS/HR Magnesium Sulfate 50 ml @ 0 mls/hr PROTOCOL PRN IV MAGNESIUM PROTOCOL 04/19/25 08:30 05/19/25 08:29 04/28/25 06:04 25 MLS/HR Metoprolol Tartrate (loprESSOR) 5 mg Q5M PRN IV AFIB RVR HR > 120 BPM 04/19/25 03:30 04/22/25 12:13 DC Metoprolol Tartrate (loprESSOR) 12.5 mg BID PO 04/19/25 09:00 04/22/25 10:23 DC 04/21/25 08:31 12.5 MG Metoprolol Tartrate (loprESSOR) 25 mg BID PO 04/22/25 21:00 05/22/25 20:59 04/29/25 09:01 25 MG Morphine Sulfate (morPHINE 4MG SYG) 2 mg Q4H PRN IVP SEVERE PAIN (7-10) 04/19/25 03:30 04/24/25 06:29 DC 04/23/25 23:48 2 MG Nifedipine (adALAT 30MG) 60 mg BID PO 04/20/25 09:00 04/20/25 18:51 DC 04/20/25 09:10 60 MG Nifedipine (adALAT 30MG) 60 mg DAILY PO 04/21/25 09:00 05/20/25 08:59 04/29/25 09:00 60 MG Ondansetron HCl (zoFRAN 4MG INJ) 4 mg Q6H PRN IV NAUSEA/VOMITING 04/19/25 03:30 05/19/25 03:29 Pharmacy Profile Note (Pharmacy Communication) 1 each ONCE MISC 04/19/25 03:30 04/20/25 08:24 DC Piperacillin Sod/ Tazobactam Sod (Zosyn 3.375gm+NS 50ml) 3.375 gm Q12H IV 04/23/25 10:00 05/03/25 09:59 04/29/25 10:00 3.375 GM Potassium Chloride 100 ml @ 50 mls/hr AD PRN IV POTASSIUM PROTOCOL 04/19/25 08:30 04/22/25 13:27 DC Potassium Chloride 100 ml @ 100 mls/hr AD PRN IV POTASSIUM PROTOCOL 04/19/25 08:30 05/19/25 08:29 Potassium Chloride 100 ml @ 100 mls/hr AD PRN IV POTASSIUM PROTOCOL 04/27/25 12:30 05/27/25 12:29 04/28/25 02:15 100 MLS/HR Potassium Chloride (K-Dur/Klor-Con 20meq) 10 meq AD PRN PO POTASSIUM PROTOCOL 04/27/25 12:30 05/27/25 12:29 Potassium Chloride (K-Dur/Klor-Con 20meq) 20 meq AD PRN PO POTASSIUM PROTOCOL 04/19/25 08:30 05/19/25 08:29 04/29/25 14:44 20 MEQ Potassium Chloride (KCl 10% Elixir 20meq/15ml) 10 meq AD PRN PO POTASSIUM PROTOCOL 04/27/25 12:30 05/27/25 12:29 Potassium Chloride (KCl 10% Elixir 20meq/15ml) 20 meq AD PRN PO POTASSIUM PROTOCOL 04/19/25 08:30 05/19/25 08:29 04/23/25 09:15 20 MEQ Quetiapine Fumarate (SEROquel 25 mg TAB) 12.5 mg HS PO 04/28/25 21:00 05/28/25 20:59 Hold Rifaximin (Xifaxan) 550 mg BID PO 04/21/25 14:30 04/21/25 14:19 DC Rifaximin (Xifaxan) 550 mg BID PO 04/21/25 21:00 04/23/25 09:44 DC 04/21/25 21:14 550 MG Rifaximin (Xifaxan) 550 mg BID PO 04/23/25 10:00 05/23/25 09:59 04/29/25 08:59 550 MG Tamsulosin HCl (FloMAX) 0.4 mg DAILY PO 04/27/25 12:30 05/27/25 12:29 04/29/25 09:00 0.4 MG Vancomycin HCl 100 ml @ 100 mls/hr Q24H IV 04/24/25 23:00 04/24/25 14:15 DC Vancomycin HCl (Vancomycin Protocol) 1 each AD IV 04/23/25 22:30 04/24/25 14:15 DC DIAGNOSTICS / RADIOLOGY: [ ] ASSESSMENT: Metabolic encephalopathy, POA Hepatic encephalopathy, POA, ruled out Suspected sepsis, NPOA, likely UTI CKD stage IIIB, POA Left lower extremity anterior tibial wound, POA DVT ruled out Dementia Atrial fibrillation CHF with LVEF 55-60% by 2D echo on 10/08/2024 Diabetes mellitius type2 Hypertension Liver parenchymal disease by CT on 03/17/2024 PLAN: Metabolic encephalopathy, POA: * Patient drowsy and confused when 1st admitted in the ED, ammonia levels now at 68 * Patient is started on lactulose 20 mg b.i.d. which has been increased to 20 mg t.i.d. but now at 20 mg b.i.d. * Patient head CT was negative, repeat head CT also negative * MRI has been ordered * Current ammonia level at <10 * Referral to SNF been placed and accepted. * ID saw the patient and they recommended that they want to continue the antibiotics. They ordered a midline placement for tomorrow. Suspected Sepsis NPOA, likely UTI: * Patient had a temperature of 103.1 last night, WBC went up as high as 17,000, heart rate at 114 and respiratory rate at 21. His lactic acid has also gone up to 3.4. * Continue patient on Zosyn, linezolid and rifampin * Source of infection unknown * Blood culture came back positive for staph aureus, repeat blood culture shows no growth in 3 days. * Patient's urine culture came back positive for yeast * Infectious disease on the case CKD stage IIIB, POA : * Patient's creatinine at admission at 1.7, from previous records baseline looks like around 1.5-2.0 * Creatinine today at 2.1 * Nephrology consulted, who recommended that the patient be placed on D5W with normal saline at 45 mL/hr in order to maintain euvolemia. Hypertension: * Patient's blood pressure high at 168/78 on admission going as high as 180/87, patient's blood pressure got soft at around 90/41 so held his nifedipine but today it has gone up so starting it back. * Patient receiving hydralazine 10 mg IV if systolic pressure goes higher than 160 * We changed the dose of metoprolol 12.5mg BID to metoprolol 25mg BID. Rule out DVT: * The nurse noticed that the patient's upper limbs are swollen. * We ordered a US doppler of upper limbs. Which showed no deep vein thrombosis within the bilateral upper extremity GI prophylaxis, famotidine DVT prophylaxis, resume patient's DOAC, Eliquis as stated above ATTESTATION BY PHYSICIAN I have seen and examined the patient. I reviewed the documentation, medical decision making, and treatment plan as noted by the resident physician above. I agree with the findings and plan of care. CORY FOSTER MD, AKSHAY MD Apr 29, 2025 17:10
--- NOTE | 2025-04-29 19:50 | NUR ---
MEDS SHIFT ASSESSMENT GIVEN, PLEASE REFER TO CHART. PT IS VERY CONFUSED, TRIED TO RE-ORIENT BUT FAILED TO CALM PT DOWN. DUE MEDS ADMINISTERED, TOLERATED WELL. RE-WRAPPED PIV SITE WITH KERLIX TO SECURE SITE. KEPT COMFORTABLE AND OIL AGENT BED. BED ALARM KEPT ACTIVATED. WILL KEEP ON CLOSE WATCH.
--- NOTE | 2025-04-29 21:24 | NUR ---
AGITATION PT IS REALLY GETTING AGITATED, WANTING TO GO HOME. FAILED TO RE-DIRECT PT. CALLED PT'S DAUGHTER DUDLEY TO COME SIT WITH PT. PT'S DAUGHTER SPOKE WITH PT VIA PHONE AND PT CALMED DOWN.
--- NOTE | 2025-04-29 22:38 | PN ---
INFECTIOUS DISEASE FOLLOWUP NOTE DATE OF SERVICE: 04/29/2025 SUBJECTIVE: The patient is seen and examined at bedside today. No fever or chills. No nausea. No vomiting. No abdominal pain. Alert, awake. No cough or shortness of breath. No palpitations, orthopnea. . No bleeding tendency. No rashes. PHYSICAL EXAMINATION: VITAL SIGNS: Temperature today 97.5. EYES: No icterus. Pupils equal and reactive. HENT: No oral thrush seen. Moist oral mucosa. NECK: Supple, no JVD or thyromegaly. LUNGS: Good air entry. No rales, no rhonchi. CARDIOVASCULAR: S1, S2 regular. No murmur heard. ABDOMEN: Obese, soft, nontender. Bowel sound is present. CENTRAL NERVOUS SYSTEM: Awake, alert, and oriented x 3. No focal deficits. SKIN: No rashes, no itchiness. LYMPHATIC: No peripheral lymphadenopathy. BACK: No deformity, no pressure ulcer. ASSESSMENT: An 84-year-old male with multiple problems which include: * MRSA bacteremia and sepsis. * Urinary tract infection. * Encephalopathy. * Acute on chronic renal failure. * Diabetes mellitus. * PLAN: * Continue linezolid. * Continue Zosyn. * Continue * Continue nutritional support. * Monitor electrolyte. * The patient will be followed closely. TID: [id number] RECEIPT: [id number]
--- NOTE | 2025-04-29 23:22 | NUR ---
REQUEST PT'S DAUGHTER DUDLEY INFORMS VICE PRESIDENT OF CONTRACTS THAT SHE COULD NOT STAY WITH PT AND IS REQUESTING FOR SEROQUEL DOSE TO BE GIVEN TONIGHT. 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 AWAITING CALL BACK.
--- NOTE | 2025-04-29 23:29 | NUR ---
FERRIS WHEEL OPERATOR TUTU LUONG CALLED BACK AND REFERRED PT'S DAUGHTER REQUEST FOR SEROQUEL DOSE TONIGHT. EXPLAINED TO FERRIS WHEEL OPERATOR PT'S CONDITION. NEW MED ORDER RECEIVED, PLEASE REFER TO [facility]PO[facility]. WILL MEDICATE PT.
[2025-04-30] VITALS: BP 129/63; PULSE 65; RESP 18; TEMP 98.5
--- NOTE | 2025-04-30 02:45 | NUR ---
CALL PT HASN'T SLEEP YET, CONFUSED AND STILL VERBALIZES WANT TO GO HOME. STAFF ALTERNATELY KEEPING PT COMPANY IN ROOM TO KEEP HIM CALM. PT'S DAUGHTER DUDLEY CALLED TO CHECK ON PT AND WAS INFORMED THAT PT IS STILL VERY CONFUSED AND UNABLE TO SLEEP. PT'S DAUGHTER STATED SHE WILL COME TO THE HOSPITAL AND WATCH PT.
[2025-04-30 04:00] VITALS: BP 131/64; PULSE 50; RESP 18; TEMP 98.6
[2025-04-30 05:02] LABS: IMMATURE GRANULOCYTE ABSOLUTE 0.03 K/uL (0-1); NUCLEATED RED BLOOD CELLS 0.0 % (0.0-0.19); PLATELET COUNT (AUTO) 115 K/uL (130-400); RED BLOOD CELL COUNT(AUTO) 3.16 MIL/uL (4.50-6.20); RED CELL DISTRIBUTION WIDTH 15.9 % (11.0-15.5); WHITE BLOOD COUNT (AUTO) 5.7 K/uL (4.8-10.8)
[2025-04-30 05:23] LABS: INR 1.29 (0.85-1.15)
[2025-04-30 05:24] LABS: ASPARTATE AMINOTRANSFERASE 34 U/L (10-37); CREATININE 2.1 mg/dL (0.5-1.3); GLOMERULAR FILTR. RATE CALC 30 mL/min (>90); GLUCOSE,RANDOM 114 mg/dL (70-105); SODIUM SERUM 138 mmol/L (136-145); TOTAL PROTEIN, SERUM 5.9 g/dL (6.0-8.3); UREA NITROGEN, BLOOD 35 mg/dL (7-18)
--- NOTE | 2025-04-30 05:37 | NUR ---
ROUNDS PT IS FAIRLY ASLEEP AT THIS TIME WITH RESPIRATIONS EVEN AND UNLABORED. NO DISTRESS NOTED. KEPT UNDISTURBED FOR NOW. KEPT BED ALARM ON. SIDE RAILS RAISED. PT'S DAUGHTER ASLEEP AT BEDSIDE.
[2025-04-30] MEDS ORDERED: PoTASSium chloRIDE 10MEQ SR 10 MEQ/TAB TAB.SR.24H PO PRN (07:30)
[2025-04-30 08:00] VITALS: BP 141/76; PULSE 64; RESP 17; TEMP 97.9
[2025-04-30 11:30] VITALS: O2SAT 99
[2025-04-30 12:00] VITALS: BP 142/64; PULSE 53; RESP 17; TEMP 97.5
--- NOTE | 2025-04-30 12:28 | NUR ---
Martha rounded and wants patient on IV abx for 2 weeks. Order placed for midline, faxed and called in to house
[2025-04-30] MEDS ORDERED: SODIUM BICARBONATE 650 MG TAB PO PRN (12:30)
--- NOTE | 2025-04-30 14:30 | NUR ---
PATIENT DISCHARGED PATIENT WAS DISCHARGED TO [facility] WITH FACILTY TRANSPORT. CALLED REPORT TO MIKE, SPOKE TO BENITO KELLY. ALL QUESTIONS ANSWERED. DISCHARGE PAPERWORK WAS SIGNED. PIV WAS TAKEN OUT AND TOLERATED WELL. [facility]INT LEAVING WITH [facility] MIDLINE WITH DRESSING CLEAN DRY AND INTACT. PATIENT IN NO DISTRESS. ALL FAMILY QUESTIONS ANSWERED.
--- NOTE | 2025-04-30 14:56 | DS ---
Discharge Summary Hospital Course Summary: 84-year-old male with past medical history of dementia, AFib on Eliquis, CHF, diabetes, hypertension, CKD stage IIIB, recurrent UTIs chronic liver parenchymal disease who was admitted for worsening altered mental status and somnolence for 2 days after being off home medications including lactulose for about 3 weeks after leaving the [facility]. Patient presented with acute confusion and lethargy. Initial workup showed elevated ammonia and CRISTIAN on CKD. He was started on lactulose with improvement in ammonia in mental status initially. CT head was negative for acute hemorrhage, later repeat CT neurological workup did not show an acute intracranial process. Orthostatics were noncontributory, abdominal ultrasound showed no hepatocellular carcinoma AFP screening was pursued and plan was surveillance imaging every 6 months During hospitalization patient developed high fevers T-max 103.1 and leukocytosis concerning for sepsis. Broad-spectrum antibiotics were initiated. Culture demonstrated Staph aureus bacteremia and ID recommended Zosyn, linezolid, rifampin and repeat cultures cleared cultures ultimately showed no growth. Urine cultures grew yeast and over period of time clinical status improved with downtrending WBC resolution of fevers. Cardiology evaluated patient for concern for second-degree heart block however after review of telemetry no clear evidence was found and recommended no further cardiac workup. Cardiology was consulted for 2nd time for elevated troponins which were nondiagnostic in the setting of CKD and metabolic derangements and family did not desire aggressive or invasive measures at this point. Patient's renal function also fluctuated during hospitalization nephrology recommended gentle hydration to maintain euvolemia and his creatinine improved subsequently prior to discharge. Patient also had right hip pain CT abdomen pelvis showed severe right hip osteoarthritis with prior femoral neck fixation without acute complication and was managed symptomatically. Due to persistent cognitive impairment in the setting of baseline dementia and acute delirium from infection or metabolic derangements, therapy and swallow evaluations were performed. Diet was adjusted to minced, moist solids with thin liquids and pills crushed in puree as tolerated. Given debility and need for ongoing IV antibiotics patient was arranged for SNF placement and a midline was placed prior to discharge. Patient will be discharged to [facility] to continue IV antibiotics, IV linezolid 600 mg q.12 and IV Zosyn 3.375 q.12 for 2 more weeks and was advised to continue metoprolol 25 mg b.i.d., Eliquis 2.5 mg b.i.d., nifedipine 60 mg, lactulose 20 mg b.i.d and other home medications as reconciled. Patient was advised to follow up with primary care physician in 2-3 days after discharge from SNF. Patient was reinforced to take all his medications as prescribed and not to miss lactulose and monitor for symptoms of recurrence of confusion, fever, worsening weakness, chest pain, shortness of breath or decreased urine output. He was advised to maintain hydration avoid NSAIDs and nephrotoxins and dietary recommendations as mentioned above. Aircraft Structural Design Engineer(s): Neurology, Dr. Santana Cardiology, Dr. Wilde and Dr. De La O Nephrology, Dr. Pena Infectious Disease, Dr. Thomas Cardiac Consult Note CONSULT NOTE DATE OF SERVICE: Apr 19, 2025 at 00:13 REFERRING PROVIDER: UMA WORTHY REASON FOR CONSULT: 2nd degree AV block HPI: Patient is an 84 year old male with past medical history of paroxysmal atrial fibrillation on Eliquis, congestive heart failure, hypertension, diabetes, CKD, dementia, chronic liver disease who was brought in by family member to the ER for altered mental status and confusion. He was previously staying at [facility], but his daughter took him out as he seemed more depressed living there. He now lives at home with his daughter who is his main caregiver, she is also giving most of the history today. Patient was out of his lactulose for about 2 weeks prior to this admission. He was found to have elevated ammonia level of 108, and patient was recommended admission for acute hepatic encephalopathy. Patient underwent CT of the head which was negative for acute findings, chronic changes noted. EKG upon admission showed sinus rhythm with 1st degree AVB, no acute ischemia. Labs in the ER revealed Hgb 10.7, Hct 32.4, WBC 6.2, Plt 182, soidum 143, potassium 3.6, creatinine 1.7, GFR 39, ammonia 108, troponin I 28. UA negative. Cardiology was consulted for possible second degree AVB noted on telemetry. Patient follows with skin pass operator Dr. Rockwell in the outpatient setting. Daughter denies any history of CABG or coronary intervention. She states he was diagnosed with heart failure but does not recall EF and patient does not have defibrillator in place. He does have history of atrial fibrillation which he is on Eliquis for. This has been decreased to 2.5mg BID given patient's age, weight and kidney function. Patient has not complained of any chest pain or SOB. No dizziness or syncopal episode noted. Vital signs have been stable without severe bradycardia or tachycardia. Repeat labs show Hgb 11.7, Hct 36, plt 201, sodium 144, potassium 3.6, creatinine 2.2, BUN 26, ammonia 52. No smoking, alcohol consumption or illicit drug use. Surgical history includes umbilical hernia repair. ROS: Unable to obtain given patient's mental status, daughter provides most history PHYSICAL EXAMINATION: GENERAL: No acute distress. HEENT: Normocephalic, atraumatic. CARDIAC: Regular rate and rhythm, No murmurs. LUNGS: Clear to auscultation bilaterally. ABDOMEN: Bowel sounds present, soft, nontender. EXTREMITIES: No edema bilaterally, hyperpigmentation of lower legs NEUROLOGIC: Cranial nerves 2-12 grossly intact. PSYCHIATRIC: Calm. 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 He was found to have elevated ammonia levels due to not taking his lactulose for about [address] of the head was negative and patient's confusion persists. He does have dementia at baseline, but daughter relays a rather rapid change in his mental status prior to admission. When evaluated today, patient seems to be in no acute distress. He does have history of atrial fibrillation and is compliant with anticoagulation. I agree with continuing on reduced dose at 2.5mg BID given patient's age and weight. We have reviewed EKGs and telemetry strips and find that there is no clear 2nd degree AVB present. Patient seems to be maintaining sinus rhythm with a first degree AVB with a very prolonged SC interval. At this time, I do not believe further cardiac workup is indicated as I do not believe his symptoms are cardiac in origin. He has not complained of any dizziness, no syncopal episode noted. His daughter states that he does tell her when he is symptomatic. If confusion persists, consider neurology consult. At this time, no further recommendation from cardiology. Vital Signs 04/20/25 04/20/25 04/20/25 04/20/25 16:18 19:31 19:55 23:35 Temp 98.2 98.4 97.9 Pulse 66 82 80 Resp 16 20 20 B/P (MAP) 97/45 134/66 130/57 Pulse Ox 95 98 98 97 O2 Delivery Room Air Room Air Room Air* Room Air O2 Flow Rate 0 FiO2 21 04/21/25 04/21/25 04:00 08:06 Temp 98.1 98.1 Pulse 80 88 Resp 20 18 B/P (MAP) 156/75 151/74 Pulse Ox 99 100 O2 Delivery Room Air Room Air Laboratory Tests Test 04/20/25 16:11 04/20/25 19:59 04/21/25 05:17 04/21/25 06:47 Whole Blood Glucose 155 MG/DL (70-110) 123 MG/DL (70-110) 108 MG/DL (70-110) White Blood Count 6.9 K/uL (4.8-10.8) Red Blood Count 3.75 MIL/uL (4.50-6.20) Hemoglobin 11.7 g/dL (14.0-18.0) Hematocrit 36.0 % (42-54) Mean Corpuscular Volume 96.0 fL (79-99) Mean Corpuscular Hemoglobin 31.2 pg (27.0-33.0) Mean Corpuscular Hemoglobin Concent 32.5 g/dL (32.0-36.0) Red Cell Distribution Width 16.0 % (11.0-15.5) Platelet Count 201 K/uL (130-400) Mean Platelet Volume 9.2 fL (7.5-10.5) Nucleated Red Blood Cells 0.0 % (0.0-0.19) Sodium Level 144 mmol/L (136-145) Potassium Level 3.6 mmol/L (3.5-5.1) Chloride Level 109 mmol/L (101-111) Carbon Dioxide Level 23 mmol/L (21-32) Blood Urea Nitrogen 26 mg/dL (7-18) Creatinine 2.2 mg/dL (0.5-1.3) Glomerular Filtration Rate Calc 28 mL/min (>90) Random Glucose 98 mg/dL (70-105) Total Calcium 8.6 mg/dL (8.5-10.1) Phosphorus Level 3.6 mg/dL (2.5-4.9) Magnesium Level 2.00 mg/dL (1.80-2.40) Total Bilirubin 0.7 mg/dL (0.2-1.0) Direct Bilirubin 0.2 mg/dL (0.0-0.3) Aspartate Amino Transf (AST/SGOT) 38 U/L (10-37) Alanine Aminotransferase (ALT/SGPT) 17 U/L (12-78) Alkaline Phosphatase 135 U/L (50-136) Total Protein 8.2 g/dL (6.0-8.3) Albumin 2.7 g/dL (3.5-5.0) Current Medications Medications Dose Ordered Sig/Lashonda Route PRN Reason Start Time Stop Time Status Last Admin Sodium Chloride 1,000 ml @ 125 mls/hr ONCE ONCE IV 04/19/25 00:30 04/19/25 08:23 DC 04/19/25 01:32 Acetaminophen 650 mg ONCE ONCE PO 04/19/25 01:30 04/19/25 01:31 DC 04/19/25 01:33 Metoprolol Tartrate 12.5 mg BID PO 04/19/25 09:00 05/19/25 08:59 04/21/25 08:31 Pharmacy Profile Note 1 each ONCE MISC 04/19/25 03:30 04/20/25 08:24 DC Insulin Human Regular INSULIN SLIDING SCAL... ACHS SQ 04/19/25 07:30 05/19/25 07:29 Enoxaparin Sodium 30 mg DAILY SQ 04/19/25 09:00 04/19/25 03:24 DC Famotidine 20 mg Q48H PO 04/19/25 09:00 05/19/25 08:59 04/21/25 08:30 Lactulose 20 gm BID PO 04/19/25 09:00 04/19/25 15:19 DC 04/19/25 08:58 Apixaban 5 mg BID PO 04/19/25 09:00 04/20/25 08:22 DC 04/19/25 21:30 Dextrose 1,000 ml @ 75 mls/hr [id number] IV 04/19/25 08:30 04/20/25 13:23 DC 04/19/25 09:00 Magnesium Sulfate 4 gm AD ONCE IV 04/19/25 11:00 04/19/25 11:01 DC Lactulose 20 gm TID PO 04/19/25 15:30 05/19/25 08:59 04/21/25 08:30 Diphenhydramine HCl 25 mg ONCE ONCE PO 04/19/25 23:30 04/19/25 23:31 DC 04/19/25 23:38 Clonidine HCl 0.1 mg HS PO 04/20/25 21:00 04/20/25 08:10 DC Donepezil HCl 10 mg HS PO 04/20/25 21:00 05/20/25 20:59 04/20/25 19:59 Nifedipine 60 mg BID PO 04/20/25 09:00 04/20/25 18:51 DC 04/20/25 09:10 Apixaban 2.5 mg BID PO 04/20/25 09:00 05/20/25 08:59 04/21/25 08:33 Nifedipine 60 mg DAILY PO 04/21/25 09:00 05/20/25 08:59 04/21/25 08:32 Olanzapine 5 mg ONCE ONCE IM 04/21/25 03:00 04/21/25 03:01 DC 04/21/25 03:03 Reported Medications Indapamide (Indapamide) 2.5 Mg Tablet, 2.5 MG PO DAILY, TAB 04/20/25 Dapagliflozin Propanediol (Farxiga) 10 Mg Tablet, 1 TAB PO DAILY for 30 Days, #30 TAB 0 Refills 04/19/25 [cholecalciferol d3] No Conflict Check, 1 TAB PO DAILY 01/08/25 Pantoprazole Sodium (Protonix) 40 Mg Tablet.dr, 1 TAB PO BID for 30 Days, #30 TAB 0 Refills 01/08/25 Ondansetron HCl (Ondansetron HCl) 4 Mg Tablet, 1 TAB PO Q6HPRN PRN for nausea/vomiting, #10 TAB 0 Refills 01/08/25 Nifedipine (Nifedipine ER) 60 Mg Tab.er.24, 1 TAB PO BID for 30 Days, #30 TAB 0 Refills 01/08/25 Multivitamins,Therapeutic (Multivitamin Tablet) 400 Mcg Tab, 1 TAB PO DAILY for 30 Days, #30 TAB 0 Refills 01/08/25 Loperamide HCl (Loperamide) 2 Mg Tablet, 1 TAB PO Q6HPRN PRN for diarrhea for 30 Days, #180 TAB 0 Refills 01/08/25 [lactulose] No Conflict Check, 20 GM PO BID 01/08/25 Tamsulosin HCl (Flomax) 0.4 Mg Cap.er.24h, 1 CAP PO HS for 30 Days, #30 CAP 0 Refills 01/08/25 Ferrous Sulfate (Ferrous Sulfate) 325 Mg (65 Mg Iron) Ectab, 1 TAB PO DAILY for 30 Days, #60 TAB 0 Refills 01/08/25 Docusate Sodium (Docusate Sodium) 100 Mg Capsule, 1 CAP PO BID for constipation for 7 Days, #14 CAP 0 Refills 01/08/25 Clonidine HCl (Clonidine HCl) 0.1 Mg Tablet, 1 TAB PO HS for 30 Days, #30 TAB 0 Refills 01/08/25 Donepezil HCl (Aricept) 10 Mg Tablet, 1 TAB PO HS for 30 Days, #30 TAB 0 Refills 01/08/25 Acetaminophen (Acetaminophen) 325 Mg Tablet, 2 TAB PO Q4HPRN PRN for pain or fever for 30 Days, #30 TAB 0 Refills 01/08/25 Apixaban (Eliquis) 2.5 Mg Tablet, 2.5 MG PO BID, TAB 07/27/24 Discontinued Reported Medications Indapamide (Indapamide) 2.5 Mg Tablet, 2.5 MG PO DAILY, TAB 04/20/25 Melatonin (Melatonin) 5 Mg Tab.rapdis, 1 TAB PO HS for sleep for 30 Days, #30 TAB 0 Refills 01/08/25 Dapagliflozin Propanediol (Farxiga) 10 Mg Tablet, 1 TAB PO DAILY for 30 Days, #30 TAB 0 Refills 01/08/25 MATHEUS TORRES Apr 21, 2025 12:44 Electronically Signed by: MATHEUS EATON04/21/25 1404 Electronically Co-Signed by: MELISSA DE LA O MD04/22/25 0913 Date of Service: Apr 23, 2025 Reason for Consultation: Evaluation of weakness and change of mental status Requesting Physician: hospitalist HISTORY OF PRESENT ILLNESS: Mr. Ekta Laguna is an 84-year-old male with a history of hypertension, diabetes type 2, colitis, UTIs, congestive heart failure, atrial fibrillation, and dementia who was admitted on April 19 and is being evaluated for altered mental status concerning for stroke. The patient normally resides at [facility] but had been staying with his daughter for a couple of weeks prior to admission. Over this period, he became more obtunded and less energetic than his baseline. He had been off lactulose for more than 3 weeks prior to admission. His ammonia level on arrival was 108. During his hospital stay, he developed fevers with his temperature reaching 103.1F yesterday. His white blood cell count was elevated at 17, indicating an infection. He was found to have a urinary tract infection with white blood cells present in his urine. Today he became more comatose and less responsive, prompting activation of a stroke alert, which led to the current neurological consultation. He is not responding to verbal stimulation and his eyes remain closed. He is able to move all extremities and is not hemiplegic. His current vital signs show a heart rate of 88, blood pressure of 176/74, and oxygen saturation of 97% on room air. Medical History - Dementia - Atrial fibrillation - Congestive heart failure - Urinary tract infections - Colitis - Type 2 diabetes mellitus - Hypertension Medications and Supplements - Lactulose - Was off for more than 3 weeks - Zosyn (piperacillin-tazobactam) - Started today for infection Social History - Living Situation: Resides at [facility], recently staying with daughter for approximately two weeks REVIEW OF SYSTEMS CONSTITUTIONAL: Positive for fever (temperature up to 103.1F), decreased energy levels. HEAD/FACE: No signs of trauma. EENT: Denies eye pain, blurred vision, double vision, or light sensitivity. RESPIRATORY: Denies shortness of breath, cough, wheezing CARDIOVASCULAR: Denies chest pain, palpitation, syncope GASTROINTESTINAL/ABDOMINAL: Denies abdominal pain, constipation, diarrhea, nausea or vomiting GENITOURINARY: Denies dysuria or hematuria. MUSCULOSKELETAL: Denies joint pain, tenderness, or trauma. INTEGUMENTARY: Denies rash or itchiness NEUROLOGICAL/PSYCH: change in mental status. Denies anxiety, depression, heat or cold intolerance. PAST MEDICAL HISTORY: as above PAST SURGICAL HISTORY: as above PAST SOCIAL HISTORY: none FAMILY HISTORY: None Coded Allergies: No Known Drug Allergies (Unverified Allergy, Unknown, 08/21/22) PHYSICAL EXAM EYES: obtunded HENT: No oral thrush seen, moist Oral mucosa NECK: Supple, no JVD or thyromegaly. LUNGS: Good air entry. No rales, no rhonchi. CARDIOVASCULAR: S1, S2 regular. No murmur heard. ABDOMEN: Soft, non tender, bowel sounds present, no organomegaly CENTRAL NERVOUS SYSTEM: Confusion SKIN: No rashes, no swelling. LYMPHATICS: No peripheral lymphadenopathy MUSCULOSKELETAL: Weakness lethargy. EXTREMITIES: No cyanosis or clubbing BACK: No deformity, no pressure ulcer. GENITOURINARY: No dysuria or hematuria Vital Sign (Last 24 Hours) 04/23/25 04/23/25 04/23/25 14:00 17:37 20:15 Temp 102.4 Pulse 87 Resp 15 B/P (MAP) 167/74 Pulse Ox 99 O2 Delivery Room Air O2 Flow Rate 0 FiO2 21 Intake & Output (last 24hrs) 04/22/25 04/22/25 04/23/25 15:00 23:00 07:00 Intake Total 0 ml Balance 0 ml LABS: Laboratory: Test 04/23/25 19:43 04/23/25 17:50 04/23/25 16:45 04/23/25 11:47 Range/Units Whole Blood Glucose 104 70-110 MG/DL Lactic Acid Level 2.7 H 0.8-2.5 mmol/L Urine Color YELLOW YELLOW Urine Appearance CLOUDY H CLEAR Urine pH 5.5 5.0-8.0 Urine Specific [place] 1.017 1.001-1.031 Urine Protein 100 H NEGATIVE mg/dL Urine Glucose (UA) NEGATIVE NEGATIVE mg/dL Urine Ketones NEGATIVE NEGATIVE mg/dL Urine Occult Blood MODERATE H NEGATIVE Urine Nitrate NEGATIVE NEGATIVE Urine Bilirubin NEGATIVE NEGATIVE mg/dL Urine Urobilinogen 0.2 0.2-1.0 mg/dL Urine Leukocyte Esterase 500 H NEGATIVE Yobany/uL Urine RBC 11-25 H 0-1 /HPF Urine WBC TNTC H 0-1 /HPF Urine WBC Clumps (Auto) MOD 0-1 /HPF Urine Squamous Epithelial Cells RARE 0-2 /HPF Urine Bacteria None None Seen /HPF Urine Yeast FEW None Seen /HPF White Blood Count 13.0 H 4.8-10.8 K/uL Red Blood Count 3.61 L 4.50-6.20 MIL/uL Hemoglobin 11.7 L 14.0-18.0 g/dL Hematocrit 35.9 L 42-54 % Mean Corpuscular Volume 99.4 H 79-99 fL Mean Corpuscular Hemoglobin 32.4 27.0-33.0 pg Mean Corpuscular Hemoglobin Concent 32.6 32.0-36.0 g/dL Red Cell Distribution Width 17.1 H 11.0-15.5 % Platelet Count 135 130-400 K/uL Mean Platelet Volume 10.2 7.5-10.5 fL Immature Granulocyte % (Auto) 1.1 H 0-1 % Neutrophils (%) (Auto) 89.8 H 40.0-77.0 % Lymphocytes (%) (Auto) 4.0 L 21.0-51.0 % Monocytes (%) (Auto) 4.4 3.0-13.0 % Eosinophils (%) (Auto) 0.2 0.0-8.0 % Basophils (%) (Auto) 0.5 0.0-5.0 % Neutrophils # (Auto) 11.6 H 1.8-7.7 K/uL Lymphocytes # (Auto) 0.5 L 1.0-4.8 K/uL Monocytes # (Auto) 0.6 0.1-1.0 K/uL Eosinophils # (Auto) 0.03 0.00-0.70 K/uL Basophils # (Auto) 0.06 0.00-0.20 K/uL Absolute Immature Granulocyte (auto 0.14 0-1 K/uL Nucleated Red Blood Cells 0.0 0.0-0.19 % White Cell Morphology Comment See comments Sodium Level 145 136-145 mmol/L Potassium Level 3.7 3.5-5.1 mmol/L Chloride Level 113 H 101-111 mmol/L Carbon Dioxide Level 23 21-32 mmol/L Blood Urea Nitrogen 33 H 7-18 mg/dL Creatinine 2.3 H 0.5-1.3 mg/dL Glomerular Filtration Rate Calc 27 >90 mL/min Random Glucose 130 H 70-105 mg/dL Total Calcium 7.6 L 8.5-10.1 mg/dL Total Bilirubin 0.5 # 0.2-1.0 mg/dL Aspartate Amino Transf (AST/SGOT) 29 10-37 U/L Alanine Aminotransferase (ALT/SGPT) 11 L 12-78 U/L Alkaline Phosphatase 88 50-136 U/L Ammonia 65 H 11-32 umol/L Troponin I High Sensitivity 1166 *H 4-75 ng/L Total Protein 6.6 6.0-8.3 g/dL Albumin 1.8 L 3.5-5.0 g/dL Test 04/23/25 11:43 04/23/25 11:40 04/23/25 05:14 Range/Units Blood Gas Specimen Type Arterial Arterial Blood pH 7.387 7.350-7.450 Arterial Blood Partial Pressure CO2 32 L 35-48 mmHg Arterial Blood Partial Pressure O2 95.4 83.0-108.0 mmHg Arterial Blood HCO3 18.9 L 21.0-28.0 mmol/L Arterial Blood Oxygen Saturation 96.7 94.0-98.0 % Arterial Blood Base Excess -5.2 L -2.0-3.0 mmol/L Hemoglobin (Blood Gas) 12.1 L 13.5-17.5 g/dL Sodium (Blood Gas) 141 136-145 MMOL/L Bedside Potassium (Blood Gas) 3.6 3.4-4.5 MMOL/L Bedside Chloride (Blood Gas) 113 H 98-107 MMOL/L Bedside Glucose (Blood Gas) 132 H 65-95 MG/DL Bedside Ionized Calcium (Blood Gas) 1.14 L 1.15-1.33 MMOL/L Bedside Lactic Acid (Blood Gas) 3.04 *H 0.36-0.75 MMOL/L Blood Gas Temperature 37.0 35.5-37.0 CELSIUS Blood Gas Vent Mode RA ROOM AIR FiO2 21.0 % Blood Gas Specimen Comment LR Activated Partial Thromboplast Time 40.7 H 26.3-35.5 SEC Direct Bilirubin 0.2 0.0-0.3 mg/dL DIAGNOSTICS / RADIOLOGY: CTH: cortical atrophy ASSESSMENT / PLAN: Mr. Ekta Laguna is an 84-year-old male with a history of hypertension, diabetes type 2, congestive heart failure, atrial fibrillation, and dementia presenting with altered mental status and decreased responsiveness. Acute metabolic encephalopathy Assessment: Patient presents with hypoactive delirium secondary to acute metabolic encephalopathy. Contributing factors include elevated ammonia level (initially 108, most recent 69), urinary tract infection with elevated white blood cell count of 17, and recent discontinuation of lactulose for over 3 weeks. The combination of hyperammonemia and UTI in the setting of underlying dementia has resulted in significant altered mental status with decreased responsiveness to verbal stimulation and obtundation. CT scan of the head shows cortical atrophy consistent with underlying dementia. Pupils are sluggishly reactive bilaterally. Patient is moving all extremities without focal neurologic deficits, making stroke less likely despite initial stroke alert activation. Plan: - Continue lactulose therapy for hyperammonemia management - Continue antibiotic therapy with Zosyn for urinary tract infection - Continue IV fluid therapy - Monitor mental status for gradual improvement as metabolic derangements resolve - Continue monitoring ammonia levels Urinary tract infection Assessment: Patient has confirmed urinary tract infection with elevated white blood cell count and positive urine culture. UTI is contributing to acute delirium in this elderly patient with dementia. Plan: - Continue Zosyn antibiotic therapy Thank you for your consultation. RICK TURNER MD Apr 23, 2025 20:25 Electronically Signed by: RICK TURNER MD04/23/252024 Electronically Co-Signed by: To re-evaluate the patient who became obtunded and had labs drawn. Among these labs is an elevated troponin. Patient experienced elevation of troponin in a previous hospitalization as well, also without chest pain or chest pressure or any cardiac event associated (according to the daughter), and the family was advised the patient had suffered an infarct. So far there is no evidence of an infarct, apart from this elevation of troponin, which is associated with a leukocytosis as well. Patient is an 84 year old male with past medical history of paroxysmal atrial fibrillation on Eliquis, congestive heart failure, hypertension, diabetes, CKD, dementia, chronic liver disease who was brought in by family member to the ER for altered mental status and confusion. He was previously staying at [facility] term care [facility], but his daughter took him out as he seemed more depressed living there. He now lives at home with his daughter who is his main caregiver, she is also giving most of the history today. Patient was out of his lactulose for about 2 weeks prior to this admission. He was found to have elevated ammonia level of 108, and patient was recommended admission for acute hepatic encephalopathy. Patient underwent CT of the head which was negative for acute findings, chronic changes noted. EKG upon admission showed sinus rhythm with 1st degree AVB, no acute ischemia Patient does not respond to verbal stimulus. Neck veins are distended but the patient is in a supine position. Chest is clear. Nonlabored respiration. Regular rhythm with normal S1 and S2, no murmur, no S3. Bowel sounds present. Extremities currently free of edema. Impression and recommendation: I see no evidence of a myocardial infarct at this time but we will get an ECG and if there is evidence of acute ischemic event our treatment will not likely change any way; this is an elderly gentleman with recurrent hepatic encephalitis, dementia, advanced cirrhosis who requires lactulose to avoid hyperammonemia, difficult balance between diarrhea and mental status changes using lactulose, with stage 4 chronic kidney disease, atrial fibrillation, and anticoagulation despite advanced GI pathology. This patient is not a candidate for any form of invasive evaluation in the patient family does not desire aggressive measures. He is already treated with beta-blockers for his atrial fibrillation and there is nothing else I would add. My recommendation is quit drawing troponins. Impact his treatment, are not a reliable measure of presence or absence of ischemia in this case because of his renal disease and many other metabolic factors, and they serve no purpose in his evaluation. In terms of constructive recommendations for evaluation of his obtundation, consider the leukocytosis. Vitals/Labs Vital Signs Date Time Temp Pulse Resp B/P (MAP) Pulse Ox O2 Delivery O2 Flow Rate FiO2 04/23/25 14:37 80 11 174/69 100 Room Air 04/23/25 14:00 0 21 04/23/25 13:37 99.1 Laboratory Tests 04/23/25 05:14 04/23/25 11:47 Medications Current Medications Sodium Chloride 1,000 ml @ 125 mls/hr ONCE ONCE IV Last administered on 04/19/25at 01:32; Start 04/19/25 at 00:30; Stop 04/19/25 at 08:23; Status DC Acetaminophen 650 mg ONCE ONCE PO Last administered on 04/19/25at 01:33; Start 04/19/25 at 01:30; Stop 04/19/25 at 01:31; Status DC Acetaminophen 650 mg Q6H PRN PO; Start 04/19/25 at 03:30; Stop 05/19/25 at 03:29 Metoprolol Tartrate 12.5 mg BID PO Last administered on 04/21/25at 08:31; Start 04/19/25 at 09:00; Stop 04/22/25 at 10:23; Status DC Pharmacy Profile Note 1 each ONCE MISC; Start 04/19/25 at 03:30; Stop 04/20/25 at 08:24; Status DC Insulin Human Regular INSULIN SLIDING SCAL... ACHS SQ; Start 04/19/25 at 07:30; Stop 05/19/25 at 07:29 Enoxaparin Sodium 30 mg DAILY SQ; Start 04/19/25 at 09:00; Stop 04/19/25 at 03:24; Status DC Famotidine 20 mg Q48H PO Last administered on 04/23/25at 09:15; Start 04/19/25 at 09:00; Stop 05/19/25 at 08:59 Hydralazine HCl 10 mg Q6H PRN IV Last administered on 04/23/25at 03:38; Start 04/19/25 at 03:30; Stop 05/19/25 at 03:29 Lactulose 20 gm BID PO Last administered on 04/19/25at 08:58; Start 04/19/25 at 09:00; Stop 04/19/25 at 15:19; Status DC Morphine Sulfate 2 mg Q4H PRN IVP; Start 04/19/25 at 03:30; Stop 04/26/25 at 03:29 Ondansetron HCl 4 mg Q6H PRN IV; Start 04/19/25 at 03:30; Stop 05/19/25 at 03:29 Apixaban 5 mg BID PO Last administered on 04/19/25at 21:30; Start 04/19/25 at 09:00; Stop 04/20/25 at 08:22; Status DC Metoprolol Tartrate 5 mg Q5M PRN IV; Start 04/19/25 at 03:30; Stop 04/22/25 at 12:13; Status DC Potassium Chloride 100 ml @ 100 mls/hr AD PRN IV; Start 04/19/25 at 08:30; Stop 05/19/25 at 08:29 Potassium Chloride 20 meq AD PRN PO Last administered on 04/23/25at 09:15; Start 04/19/25 at 08:30; Stop 05/19/25 at 08:29 Potassium Chloride 20 meq AD PRN PO; Start 04/19/25 at 08:30; Stop 05/19/25 at 08:29 Potassium Chloride 100 ml @ 50 mls/hr AD PRN IV; Start 04/19/25 at 08:30; Stop 04/22/25 at 13:27; Status DC Magnesium Sulfate 50 ml @ 0 mls/hr PROTOCOL PRN IV Last administered on 04/19/25at 11:15; Start 04/19/25 at 08:30; Stop 05/19/25 at 08:29 Dextrose 1,000 ml @ 75 mls/hr [id number] IV Last administered on 04/19/25at 09:00; Start 04/19/25 at 08:30; Stop 04/20/25 at 13:23; Status DC Magnesium Sulfate 4 gm AD ONCE IV; Start 04/19/25 at 11:00; Stop 04/19/25 at 11:01; Status DC Lactulose 20 gm TID PO Last administered on 04/21/25at 21:14; Start 04/19/25 at 15:30; Stop 05/19/25 at 08:59 Diphenhydramine HCl 25 mg ONCE ONCE PO Last administered on 04/19/25at 23:38; Start 04/19/25 at 23:30; Stop 04/19/25 at 23:31; Status DC Clonidine HCl 0.1 mg HS PO; Start 04/20/25 at 21:00; Stop 04/20/25 at 08:10; Status DC Donepezil HCl 10 mg HS PO Last administered on 04/21/25at 21:14; Start 04/20/25 at 21:00; Stop 04/23/25 at 10:05; Status DC Nifedipine 60 mg BID PO Last administered on 04/20/25at 09:10; Start 04/20/25 at 09:00; Stop 04/20/25 at 18:51; Status DC Apixaban 2.5 mg BID PO Last administered on 04/23/25at 09:15; Start 04/20/25 at 09:00; Stop 04/23/25 at 13:28; Status DC Nifedipine 60 mg DAILY PO Last administered on 04/21/25at 08:32; Start 04/21/25 at 09:00; Stop 05/20/25 at 08:59 Olanzapine 5 mg ONCE ONCE IM Last administered on 04/21/25at 03:03; Start 04/21/25 at 03:00; Stop 04/21/25 at 03:01; Status DC Rifaximin 550 mg BID PO Last administered on 04/21/25at 21:14; Start 04/21/25 at 21:00; Stop 04/23/25 at 09:44; Status DC Rifaximin 550 mg BID PO; Start 04/21/25 at 14:30; Stop 04/21/25 at 14:19; Status DC Metoprolol Tartrate 25 mg BID PO Last administered on 04/23/25at 09:15; Start 04/22/25 at 21:00; Stop 05/22/25 at 20:59 Lactulose 200 gm ONCE ONCE SC; Start 04/22/25 at 16:30; Stop 04/22/25 at 16:31; Status DC Acetaminophen 650 mg ONCE ONCE RC Last administered on 04/22/25at 21:00; Start 04/22/25 at 21:00; Stop 04/22/25 at 21:01; Status DC Rifaximin 550 mg BID PO; Start 04/23/25 at 10:00; Stop 05/23/25 at 09:59 Piperacillin Sod/ Tazobactam Sod 3.375 gm Q12H IV Last administered on 04/23/25at 12:13; Start 04/23/25 at 10:00; Stop 05/03/25 at 09:59 Lactated Ringer's 615 ml @ 205 mls/hr ONCE ONCE IV Last administered on 04/23/25at 12:13; Start 04/23/25 at 10:00; Stop 04/23/25 at 12:59; Status DC Heparin Sodium (Porcine) *calculation based on ACTUAL B... AD PRN IV; Start 04/23/25 at 21:00; Stop 05/23/25 at 20:59 Heparin Sodium/ Dextrose 250 ml @ 0 mls/hr Q6H IV; Start 04/23/25 at 21:00; Stop 05/23/25 at 20:59 SONAL WILDE MD Apr 23, 2025 16:05 Electronically Signed by: SONAL WILDE MD04/23/25 1605 Electronically Co-Signed by: NEPHROLOGY CONSULTATION REQUESTING PHYSICIAN: Dr. Stewart Neff. REASON FOR CONSULTATION: Evaluation of the patient with abnormal kidney function. HISTORY OF PRESENT ILLNESS: The patient is an 84-year-old male, who is known to my service. He has history of chronic kidney disease stage IIIB, diabetic mellitus type 2, chronic liver disease and anemia of chronic disease. The patient was admitted on 04/19/2026 as he was confused. The patient spent some time in the [facility], but subsequently, he went home under the care of the daughter. The patient is with confusional state. He was found to have hepatic encephalopathy. He was given lactulose and his mental condition improved somehow, but not completely. CT scan of the head was reported without any acute events. The ammonia level was 108, and initially, the patient had creatinine of 1.7 mg/dL. The patient is known to have dementia, atrial fibrillation, congestive heart failure with chronic systolic dysfunction with ejection fraction about 50-60%. He also has stage 2 diastolic dysfunction. At the time of examination, the patient is asleep, but he is arousable. He does not talk much. Discussed the patient's condition with the nurse in-charge. Informed me that the patient had developed a bacteremia with Gram-negative cocci. Final identification is being awaited. The patient is already into antimicrobials. The infectious diseases specialist has also been requested to visit him. PAST MEDICAL HISTORY: As outlined in the history of present illness. FAMILY HISTORY: There is a history of hypertension and diabetes. SOCIAL HISTORY: No history of alcohol abuse and smoking. CURRENT MEDICATIONS: Reviewed. ALLERGIES: No history of drug allergies. REVIEW OF SYSTEMS: Confusional state and generalized body weakness. Otherwise, no other complaints in the review of systems. PHYSICAL EXAMINATION: GENERAL: Reveals an acutely ill male in no major acute distress. He does not talk much. VITAL SIGNS: Blood pressure 147/82, respirations 16, pulse 16 and temperature 98.2. HEENT: The head is normocephalic. NECK: Supple. No JVD. Trachea is central. LUNGS: Clear on auscultation and inspection. HEART: Normal cardiac sound. No gallops. ABDOMEN: Soft, nondistended. EXTREMITIES: Right lower extremity shows no edema or cyanosis. Left lower extremity - No edema or cyanosis. SKIN: No rashes or ecchymosis. PSYCHIATRIC: The patient is confused and disoriented to time, person and place. NEUROLOGICAL: No focal motor or sensory deficits. LABORATORY DATA: WBC count 10.8 and hemoglobin 11.7. Sodium 146, potassium 3.7, BUN 43 and creatinine of 2.4. Ammonia level is . ASSESSMENT: * Acute kidney injury on top of chronic kidney disease stage 3B. The likely etiology of the acute decline of kidney function is hepatorenal syndrome. On day of admission, the patient had a serum creatinine of 1.7 with the current level of 2.4 mg/dL. * Hepatic encephalopathy. * Chronic liver disease. * Diabetes mellitus type 2. * Hypoalbuminemia due to liver disease. PLAN: Recommend the patient requires hydration. He has poor oral intake. Start the patient on D5W with normal saline at 45 mL/hr in order to maintain euvolemia. Avoid nephrotoxic agents. The patient required nutritional support. Issue of bacteremia still needs to be determined as final identification of bacteria is not available yet. Antimicrobials if any needs to be adjusted according to GFR. We will continue monitoring renal function and electrolytes. TID: [id number] RECEIPT: [id number] Electronically Signed by: Electronically Co-Signed by: INFECTIOUS DISEASE CONSULTATION DATE OF SERVICE: 04/24/2025 REQUESTING PHYSICIAN: Dr. Walden. REASON FOR CONSULTATION: Gram positive bacteremia. HISTORY OF PRESENT ILLNESS: An 84-year-old male with a history of dementia, atrial fibrillation, seizure, diabetes mellitus and chronic kidney disease, who presented to the hospital with altered mental status. The patient's symptoms started 2 days prior to presentation. The patient also found with decreased ____. The patient initially admitted to ICU. The patient found with UTI. Blood culture is growing gram positive cocci in clusters. The patient has been started on vancomycin and Zosyn. No documented fever. The patient was known to me from previous admission in the past. The patient previously was at one point on dialysis, which was later discontinued. PAST MEDICAL HISTORY: * Dementia. * Atrial fibrillation. * CHF. * Diabetes mellitus. * Hypertension. * Chronic kidney disease. * UTI. PAST SURGICAL HISTORY: Jimmy catheter placement and removal. ALLERGIES: No known drug allergies. CURRENT MEDICATIONS: * Vancomycin. * Zosyn. * Insulin. * Aspirin. * Tylenol. SOCIAL HISTORY: Lives with family. No alcohol, tobacco or illicit drug use. FAMILY HISTORY: Positive for diabetes mellitus. REVIEW OF SYSTEMS: History was obtained from medical record. The patient is confused, unable to give any history. PHYSICAL EXAMINATION: GENERAL: Elderly male, awake, not in distress. VITAL SIGNS: 98.9 EYES: No icterus. Pupils equal and reactive. HENT: No oral thrush seen. Moist oral mucosa. NECK: Supple. No JVD or thyromegaly. LUNGS: Good air entry. No rales, no rhonchi. CARDIOVASCULAR: S1 and S2. Regular. No murmur heard. ABDOMEN: Full, soft, nontender. Bowel sound is present. CENTRAL NERVOUS SYSTEM: The patient is awake, confused. SKIN: No rashes, no itchiness. MUSCULOSKELETAL: Tenderness to the right hip. LABORATORY DATA: Sodium ____, potassium 3.7, BUN 43, creatinine 2.4. WBC ____, hemoglobin 9.7, platelets ____. Blood culture growing gram positive cocci in clusters. ASSESSMENT: An 84-year-old male admitted with confusion: * Altered mental status. * gram positive bacteremia, sepsis. * Urinary tract infection. * Renal failure * Multifactorial encephalopathy. * Diabetes mellitus. * Anemia. PLAN: * Obtain CT of the pelvis to rule out fracture. * Discontinue vancomycin. * Continue Zosyn. * Start patient on linezolid * Continue current management. * Continue antiemetics. * The patient will be followed up closely. TID: [id number] RECEIPT: [id number] Electronically Signed by: TANNA THOMAS MD04/29/25 1748 Electronically Co-Signed by: Procedure(s): PATIENT: EKTA BRIECÑO MR#: [id number] : 1940 SEX: M AGE: 84 LOCATION: [facility] ORDER 5 STATUS: ADM IN REPORT#: [id number] SERVICE 4 REASON: increasing confusion ORDERING PHYSICIAN: GAGANDEEP MORTENSEN MD PROCEDURE: HEAD WO - CT HEAD/BRAIN W/O CONTRAST EXAM: Non-contrast CT examination of the Brain CLINICAL HISTORY: Increasing confusion. TECHNIQUE: Thin collimated axial CT images of the brain were obtained, with sagittal and coronal reformatted images also submitted. A CT scan is done according to ALARA (As Low as Reasonably Achievable). CONTRAST USED: None. COMPARISON: Prior CT brain dated December 31, 2024. FINDINGS: Mild age-related degenerative change with prominent sulci and basilar cisterns. Diffuse hypoattenuation in the deep periventricular white matter and yu radiata sequela of chronic microvascular ischemic change. No acute intracranial abnormality is present. No acute cortical infarction, hemorrhage, mass or mass effect. No hydrocephalus or abnormal extra-axial fluid collections. The posterior fossa is unremarkable. The skull base and calvarium are intact. Mild S-shaped deviation of the nasal septum. Minimal mucosal thickening along the floor of the bilateral maxillary sinuses. The remainder of the paranasal sinuses are clear. IMPRESSION: Age-related degenerative change. Changes of chronic microvascular ischemic disease. No acute intracranial abnormality. Early changes of stroke may not be detected on a CT scan. If strong clinical suspicion, then suggest MRI with diffusion-weighted imaging. Compared with the prior study, there is no significant change in the interval. /Talent DICTATED BY: JO ANN SAHNI Jr., MD DATE: 04/19/25424 ELECTRONICALLY SIGNED BY: JO ANN SAHNI Jr., MD DATE: 04/19/25424 PATIENT: EKTA BRICEÑO MR#: [id number] : 1940 SEX: M AGE: 84 LOCATION: [facility] ORDER 58 STATUS: ADM IN REPORT#: [id number] SERVICE 57 REASON: Hepatocellular carcinoma screening ORDERING PHYSICIAN: CAROLYN RANKIN MD PROCEDURE: ABDRUQLTD - US ABDOMINAL RUQ\LTD RUQ Abdominal Ultrasound Clinical Indication: Hepatocellular carcinoma screening. Technique: Real-time grayscale ultrasound of the right upper quadrant was performed. The examination was limited due to patient inability to follow breathing instructions and overlying bowel gas. Comparison: CT 03/17/2024. Findings: Liver: The liver measures approximately 14.5 cm in craniocaudal dimension. Hepatic echotexture is diffusely coarse, compatible with chronic parenchymal disease. No focal hepatic mass is identified on the provided views. Evaluation is limited. Gallbladder: The gallbladder is partially visualized. The wall measures approximately 2 mm in thickness on limited views. No definite gallstones or pericholecystic fluid is identified. Biliary Tree: The common bile duct measures approximately 4 mm in diameter, within normal limits. No intrahepatic biliary ductal dilatation is seen. Pancreas: The pancreas is partially visualized due to overlying bowel gas. The visualized portions are grossly unremarkable. Right Kidney: The right kidney measures approximately 9.3 x 4.1 x 4.0 cm. Renal cortical echogenicity is increased, compatible with medical renal disease. A simple cyst measuring approximately 1.0 x 1.0 x 1.0 cm is noted. No hydronephrosis is identified. Additional Findings Evaluation is limited by increased intestinal air. Impression: 1. No sonographically visible focal hepatic lesion on this limited examination performed for hepatocellular carcinoma screening. Given the history of chronic liver disease and limited visualization, this corresponds to a negative screening ultrasound. Per ACR LI-RADS Ultrasound Surveillance recommendations, routine surveillance ultrasound is recommended in 6 months if the patient remains at risk. 2. Diffusely coarse hepatic echotexture, compatible with chronic liver disease. 3. Increased echogenicity of the right kidney, compatible with medical renal disease. 4. Small simple right renal cyst. Per ACR incidental renal mass guidelines, no imaging follow-up is required. 5. Limited examination due to patient cooperation and overlying bowel gas, which may decrease sensitivity for detection of small lesions. /[place]astern DICTATED BY: SARITA GRESHAM MD DATE: 04/21/25301 ELECTRONICALLY SIGNED BY: SARITA GRESHAM MD DATE: 04/21/25301 PATIENT: EKTA BRICEÑO MR#: [id number] : 1940 SEX: M AGE: 84 LOCATION: [facility] ORDER 51 STATUS: ADM IN REPORT#: [id number] SERVICE 50 REASON: rule out DVT ORDERING PHYSICIAN: MOY KRAFT MD PROCEDURE: VENOUS CHARLIE - US VENOUS DOPPLER BILATERAL EXAMINATION: SPECTRAL DOPPLER ULTRASOUND EXAMINATION OF THE BILATERAL UPPER EXTREMITY VEINS. CLINICAL HISTORY: To rule out DVT. COMPARISON: Prior ultrasound dated 10/07/2024. TECHNIQUE: Grayscale, color, and spectral Doppler images of the bilateral upper extremity veins are submitted. FINDINGS: The internal jugular, visualized aspects of the subclavian, axillary, brachial, radial, ulnar, basilic, and cephalic veins are patent. These veins show normal flow with physiological changes of phasicity and augmentation. The right subclavian vein is not seen due to patient not co-operating and bed ridden. IMPRESSION: There is no deep vein thrombosis within the bilateral upper extremity. /[place]astern DICTATED BY: JO ANN SAHNI Jr., MD DATE: 04/24/25707 ELECTRONICALLY SIGNED BY: JO ANN SAHNI Jr., MD DATE: 04/24/25707 PATIENT: EKTA BRICEÑO MR#: [id number] : 1940 SEX: M AGE: 84 LOCATION: [facility] ORDER 20 STATUS: ADM IN REPORT#: [id number] SERVICE 1000 REASON: Fever ORDERING PHYSICIAN: RHYS [employer] SOFTWARE ARCHITECT PROCEDURE: CXR1VW - CHEST 1VW EXAM: CR Chest, 1 View. CLINICAL HISTORY: Fever COMPARISON: Compared with the previous radiograph dated 01/07/2025. FINDINGS: LUNGS: Pulmonary vascular markings are increased in the right hilar region. There is no mass, infiltrate, or acute pulmonary abnormality. PLEURAL SPACES: No pleural effusion or pneumothorax. MEDIASTINUM: Cardiomegaly with cardiothoracic ratio of 0.61. BONES: No acute osseous abnormality. IMPRESSION: 1. No acute cardiopulmonary findings. 2. Cardiomegaly with cardiothoracic ratio of 0.61. 3. As compared to the previous radiographs dated 01/07/2025, no interval change in the findings. /Eastern DICTATED BY: SARITA GRESHAM MD DATE: 04/23/252324 ELECTRONICALLY SIGNED BY: SARITA GRESHAM MD DATE: 04/23/252324 PATIENT: EKTA BRICEÑO MR#: [id number] : 1940 SEX: M AGE: 84 LOCATION: [facility] ORDER 1006 STATUS: ADM IN REPORT#: [id number] SERVICE 1005 REASON: stroke ORDERING PHYSICIAN: CAROLYN RANKIN MD PROCEDURE: HEAD WO - CT HEAD/BRAIN W/O CONTRAST ADDENDUM REPORT ADDENDUM: Results were shared by telephone at 03:48 PM EST on 04-23-2025 and acknowledged by Carolyn Aguilar. /Talent STUDY CT head without intravenous contrast. HISTORY Stroke. TECHNIQUE Axial computed tomography images of the head/brain were obtained without intravenous contrast. COMPARISON CT head/brain without contrast dated 04/19/2025 01:53 EST. FINDINGS Brain Diffuse cerebral volume loss is present with corresponding prominence of the ventricles and cortical sulci. Scattered small hypodense foci within the bilateral frontoparietal white matter are compatible with chronic small vessel ischemic changes. No evidence of acute intracranial hemorrhage, mass lesion, territorial infarct, midline shift, or extra-axial collection is identified. Overall appearance is unchanged compared with the prior examination. Ventricles The ventricles are mildly prominent in keeping with diffuse cerebral volume loss and show no evidence of hydrocephalus. Orbits The orbits are unremarkable. Sinuses and Mastoids The visualized paranasal sinuses and mastoid air cells are clear. Bones No calvarial or skull base fracture is identified. Soft Tissues The visualized extracranial soft tissues are unremarkable. IMPRESSION * Diffuse cerebral volume loss with chronic small vessel ischemic changes in the bilateral frontoparietal white matter. * No acute intracranial abnormality identified. * No significant interval change compared with CT head/brain without contrast dated 04/19/2025. /Talent DICTATED BY: JO ANN SAHNI Jr., MD DATE: 04/23/25 1550 ELECTRONICALLY SIGNED BY: DATE: STUDY CT head without intravenous contrast. HISTORY Stroke. TECHNIQUE Axial computed tomography images of the head/brain were obtained without intravenous contrast. COMPARISON CT head/brain without contrast dated 04/19/2025 01:53 EST. FINDINGS Brain Diffuse cerebral volume loss is present with corresponding prominence of the ventricles and cortical sulci. Scattered small hypodense foci within the bilateral frontoparietal white matter are compatible with chronic small vessel ischemic changes. No evidence of acute intracranial hemorrhage, mass lesion, territorial infarct, midline shift, or extra-axial collection is identified. Overall appearance is unchanged compared with the prior examination. Ventricles The ventricles are mildly prominent in keeping with diffuse cerebral volume loss and show no evidence of hydrocephalus. Orbits The orbits are unremarkable. Sinuses and Mastoids The visualized paranasal sinuses and mastoid air cells are clear. Bones No calvarial or skull base fracture is identified. Soft Tissues The visualized extracranial soft tissues are unremarkable. IMPRESSION * Diffuse cerebral volume loss with chronic small vessel ischemic changes in the bilateral frontoparietal white matter. * No acute intracranial abnormality identified. * No significant interval change compared with CT head/brain without contrast dated 04/19/2025. /Talent DICTATED BY: JO ANN SAHNI Jr., MD DATE: 04/23/251513 ELECTRONICALLY SIGNED BY: JO ANN SAHNI Jr., MD DATE: 04/23/251513 PATIENT: EKTA BRICEÑO MR#: [id number] : 1940 SEX: M AGE: 84 LOCATION: 2A ORDER 1243 STATUS: ADM IN REPORT#: [id number] SERVICE 1240 REASON: elevated troponin of 1166 ORDERING PHYSICIAN: CAROLYN RANKIN MD PROCEDURE: ECHO CMP - ECHO 2-D COMPLETE APPROVED REPORT EXAM: Two-dimensional and M-mode echocardiogram with Doppler and color Doppler. INDICATION ICD: elevated troponin of 1166 2D Dimensions RVDd 3.5 cm LVEF(%) 60.2 (>50%) LVED Vol(simp.) 94.3 mL IVSd 1.6 (0.7-1.1cm) FS(%) 31 % LVES Vol(simp.) 42.5 mL LVDd 3.5 (3.8-5.6cm) LA (2D) 3.4 (1.6-4.0cm) LVEF(%, simp.) 55 % PWd 1.5 (0.7-1.1cm) Ao Root(2D) 3.1 (2.0-3.7cm) LA ESV INDEX (BP) 23.84 mL/m2 LVDs 2.4 (2.5-4.0cm) LVOT diam 2.0 (1.8-2.4cm) IVC diam 1.9 cm Deformation Strain Apical 4 -13.6 % Apical 2 -10.6 % Apical 3 -10.7 % Global Strain -11.6 % M-Mode Dimensions EPSS 0.8 cm LA (MM) 3.0 (1.6-4.0cm) Ao Root(MM) 3.3 (2.0-3.7cm) Aortic Valve AoV Vmax 2.1 m/s Ao Peak GR 17.2 mmHg LVOT Vmax 1.1 m/s AoV VTI 0.4 m Ao Mean GR 8.3 mmHg LVOT VTI 0.23 m CHERIE (VMAX) 1.74 cm2 Al P1/2T 703 ms CHERIE (VTI) 1.9 cm2 Mitral Valve MV E Vmax 51.4 cm/s DECEL Time 192 ms MV A Vmax 84.0 cm/s P 1/2 T 62 ms E/A ratio 0.6 MVA (PHT) 3.5 cm2 TDI E/E' Medial 14.0 E/E' Lateral 8.4 Medial E' Peak V 3.67 cm/s Lateral E' Peak V 6.13 cm/s Pulmonary Valve PV Vmax 1.5 m/s PV VTI 0.25 m PV Mean GR 3.9 mmHg PV Peak GR 8.9 mmHg Tricuspid Valve TR Vmax 2.5 m/s RVSP 25.7 mmHg TR Peak GR 26.4 mmHg Left Ventricle The left ventricle is normal size. Apical septal and anteroapical hypokinesis. GLS is -12%. Moderate concentric left ventricular hypertrophy. LVEF is 50-55%. Grade I diastolic dysfunction. Right Ventricle The right ventricle is normal size. The right ventricular systolic function is normal. Atria The left atrium size is normal. The right atrium size is normal. Aortic Valve The aortic valve is trileaflet, with shaggy sclerosis, and diffuse leaflet thickening. Mild to moderate aortic regurgitation. There is mild valvular aortic stenosis. Highest mean aortic valve gradient is 10mmHg. Mitral Valve The mitral valve is normal in structure. There is no evidence of significant mitral regurgitation. There is no mitral valve stenosis. Tricuspid Valve The tricuspid valve is normal in structure. There is mild tricuspid valve regurgitation noted. Pulmonic Valve The pulmonary valve is normal in structure. There is no pulmonic valvular regurgitation. Great Vessels The aortic root is normal in size. The IVC is normal in size and collapses >50% with inspiration. Pericardium There is trace pericardial effusion. Conclusion The left atrium size is normal. Moderate concentric left ventricular hypertrophy. Apical septal and anteroapical hypokinesis. GLS is -12%. LVEF is 50-55%. Grade I diastolic dysfunction. The aortic valve is trileaflet, with shaggy sclerosis, and diffuse leaflet thickening. There is mild valvular aortic stenosis. Highest mean aortic valve gradient is 10mmHg. Mild to moderate aortic regurgitation. There is no evidence of significant mitral regurgitation. There is trace pericardial effusion. DICTATED BY: KRISTINA BENNETT MD DATE: 04/24/25 075 ELECTRONICALLY SIGNED BY: KRISTINA BENNETT MD DATE: 04/24/25 1040 PATIENT: EKTA BRICEÑO MR#: [id number] : 1940 SEX: M AGE: 84 LOCATION: [facility] ORDER 1408 STATUS: ADM IN REPORT#: [id number] SERVICE 1406 REASON: RIGHT HIP PAIN ORDERING PHYSICIAN: TANNA THOMAS MD PROCEDURE: ABD PEL WO - CT ABDOMEN/PELVIS W/O CONTRAST STUDY CT Abdomen and Pelvis without IV contrast. HISTORY Right hip pain. TECHNIQUE Axial computed tomography images of the abdomen and pelvis were obtained without intravenous contrast. COMPARISON Right upper quadrant ultrasound dated 04/20/[address] abdomen and pelvis without contrast dated 03/17/2024. FINDINGS LUNG BASES AND PLEURA There is a small left pleural effusion measuring up to approximately 1.5 cm in maximal thickness. Chronic lung changes with basilar atelectasis are present in the bilateral lower lobes, left greater than right. HEART AND PERICARDIUM Minimal pericardial effusion is present with maximal thickness of approximately 1.5 cm. LIVER The liver contains multiple calcified granulomata measuring up to approximately 1 cm. No focal hepatic mass is identified. GALLBLADDER AND BILE DUCTS Cholelithiasis is present with gallstones measuring up to approximately 0.4 cm, without CT evidence of acute cholecystitis. No biliary ductal dilatation is evident. SPLEEN Calcified splenic granulomata measuring up to approximately 1 cm are present. No splenomegaly is seen. ADRENAL GLANDS Adrenal glands are unremarkable. KIDNEYS, URETERS, AND BLADDER There is a left upper pole renal cortical cyst measuring approximately 5 cm and a right lower pole renal cortical cyst measuring approximately 1.5 cm. No hydronephrosis or hydroureter is present. A vesical calculus measuring approximately 2.5 cm is noted within the urinary bladder. No ureteral calculi are identified. STOMACH AND BOWEL There is fecal impaction within the colon and rectum. No evidence of bowel obstruction or acute inflammatory bowel process is identified. PERITONEUM No intraperitoneal free air or free fluid is seen. LYMPH NODES No pathologically enlarged abdominal or pelvic lymph nodes are identified. REPRODUCTIVE ORGANS The prostate is enlarged with an estimated volume of approximately 40 cc. VASCULATURE No abdominal aortic aneurysm is identified. Visualized vascular structures are otherwise unremarkable for a noncontrast study. BONES AND SOFT TISSUES There is severe right hip osteoarthritis characterized by diffuse chondral thinning and prominent periarticular osteophytosis. An intramedullary nail with dynamic hip screw fixation is present traversing the right femoral neck, without evidence of hardware complication or acute periprosthetic fracture. No aggressive osseous lesion or other acute osseous abnormality is identified. IMPRESSION * Severe right hip osteoarthritis with prior right femoral neck fixation, without acute hardware complication or periprosthetic fracture, correlating with the reported right hip pain. * Cholelithiasis without CT evidence of acute cholecystitis, 2.5 cm vesical calculus, bilateral renal cortical cysts, enlarged prostate, and calcified hepatic and splenic granulomata compatible with prior granulomatous disease. /Talent DICTATED BY: SARITA GRESHAM MD DATE: 04/25/25229 ELECTRONICALLY SIGNED BY: SARITA GRESHAM MD DATE: 04/25/25229 Assessment/Plan: ASSESSMENT: Metabolic encephalopathy due to hepatic impairment Hepatic encephalopathy Suspected sepsis, suspected urinary source CKD stage III Left lower extremity anterior tibial wound DVT ruled out Dementia Atrial fibrillation CHF with LVEF 55-60% by 2D echo on 10/08/2024 Diabetes mellitius type2 Hypertension Liver parenchymal disease by CT on 03/17/2024 Discharge Instructions: ADMISSION DATE : 04/19/2025 DISCHARGE DATE: 05/01/2025 DISPOSITION : SNF CONDITION : Stable [employer](S) : Neurology, Dr. Santana Cardiology, Dr. Wilde and Dr. De La O Nephrology, Dr. Pena Infectious Disease, Dr. Thomas FOLLOW UP APPOINTMENT(S) : f/u with PCP in one 2-3 days, f/u with in one week PROCEDURES: IMAGING (S) : report attached to summary MICROBIOLOGY : report attached to summary ACTIVITY : ad taya HOME MEDICATIONS : Continued Home Medications: Reported Medications Indapamide (Indapamide) 2.5 Mg Tablet, 2.5 MG PO DAILY, TAB 04/20/25 Dapagliflozin Propanediol (Farxiga) 10 Mg Tablet, 1 TAB PO DAILY for 30 Days, #30 TAB 0 Refills 04/19/25 [cholecalciferol d3] No Conflict Check, 1 TAB PO DAILY 01/08/25 Pantoprazole Sodium (Protonix) 40 Mg Tablet.dr, 1 TAB PO BID for 30 Days, #30 TAB 0 Refills 01/08/25 Ondansetron HCl (Ondansetron HCl) 4 Mg Tablet, 1 TAB PO Q6HPRN PRN for nausea/vomiting, #10 TAB 0 Refills 01/08/25 Nifedipine (Nifedipine ER) 60 Mg Tab.er.24, 1 TAB PO BID for 30 Days, #30 TAB 0 Refills 01/08/25 Multivitamins,Therapeutic (Multivitamin Tablet) 400 Mcg Tab, 1 TAB PO DAILY for 30 Days, #30 TAB 0 Refills 01/08/25 Loperamide HCl (Loperamide) 2 Mg Tablet, 1 TAB PO Q6HPRN PRN for diarrhea for 30 Days, #180 TAB 0 Refills 01/08/25 [lactulose] No Conflict Check, 20 GM PO BID 01/08/25 Tamsulosin HCl (Flomax) 0.4 Mg Cap.er.24h, 1 CAP PO HS for 30 Days, #30 CAP 0 Refills 01/08/25 Ferrous Sulfate (Ferrous Sulfate) 325 Mg (65 Mg Iron) Ectab, 1 TAB PO DAILY for 30 Days, #60 TAB 0 Refills 01/08/25 Docusate Sodium (Docusate Sodium) 100 Mg Capsule, 1 CAP PO BID for constipation for 7 Days, #14 CAP 0 Refills 01/08/25 Clonidine HCl (Clonidine HCl) 0.1 Mg Tablet, 1 TAB PO HS for 30 Days, #30 TAB 0 Refills 01/08/25 Donepezil HCl (Aricept) 10 Mg Tablet, 1 TAB PO HS for 30 Days, #30 TAB 0 Refills 01/08/25 Acetaminophen (Acetaminophen) 325 Mg Tablet, 2 TAB PO Q4HPRN PRN for pain or fever for 30 Days, #30 TAB 0 Refills 01/08/25 Apixaban (Eliquis) 2.5 Mg Tablet, 2.5 MG PO BID, TAB 07/27/24 Continued Medications: Acetaminophen (Acetaminophen) 325 Mg Tablet 2 TAB PO Q4HPRN PRN for pain or fever for 30 Days, #30 TAB 0 Refills Apixaban (Eliquis) 2.5 Mg Tablet 2.5 MG PO BID, TAB [cholecalciferol d3] () 1 TAB PO DAILY Clonidine HCl (Clonidine HCl) 0.1 Mg Tablet 1 TAB PO HS for 30 Days, #30 TAB 0 Refills Dapagliflozin Propanediol (Farxiga) 10 Mg Tablet 1 TAB PO DAILY for 30 Days, #30 TAB 0 Refills Docusate Sodium (Docusate Sodium) 100 Mg Capsule 1 CAP PO BID for constipation for 7 Days, #14 CAP 0 Refills Donepezil HCl (Aricept) 10 Mg Tablet 1 TAB PO HS for 30 Days, #30 TAB 0 Refills Ferrous Sulfate (Ferrous Sulfate) 325 Mg (65 Mg Iron) Ectab 1 TAB PO DAILY for 30 Days, #60 TAB 0 Refills Indapamide (Indapamide) 2.5 Mg Tablet 2.5 MG PO DAILY, TAB [lactulose] () 20 GM PO BID Loperamide HCl (Loperamide) 2 Mg Tablet 1 TAB PO Q6HPRN PRN for diarrhea for 30 Days, #180 TAB 0 Refills Multivitamins,Therapeutic (Multivitamin Tablet) 400 Mcg Tab 1 TAB PO DAILY for 30 Days, #30 TAB 0 Refills Nifedipine (Nifedipine ER) 60 Mg Tab.er.24 1 TAB PO BID for 30 Days, #30 TAB 0 Refills Ondansetron HCl (Ondansetron HCl) 4 Mg Tablet 1 TAB PO Q6HPRN PRN for nausea/vomiting, #10 TAB 0 Refills Pantoprazole Sodium (Protonix) 40 Mg Tablet.dr 1 TAB PO BID for 30 Days, #30 TAB 0 Refills Tamsulosin HCl (Flomax) 0.4 Mg Cap.er.24h 1 CAP PO HS for 30 Days, #30 CAP 0 Refills Time spent arranging discharge: 1-30 minutes ATTESTATION BY PHYSICIAN I have seen and examined the patient. I reviewed the documentation, medical decision making, and treatment plan as noted by the resident physician above. I agree with the findings and plan of care. CORY FOSTER MD, HARSHAVARDHA MD Apr 30, 2025 14:56
--- NOTE | 2025-05-01 04:22 | PN ---
INFECTIOUS DISEASE FOLLOWUP NOTE DATE OF SERVICE: 04/30/2025 SUBJECTIVE: The patient is seen and examined at bedside. The patient has no fever or chills. No nausea, vomiting. No diarrhea. No bleeding tendency. No joint pain or joint swelling. Appetite is good. PHYSICAL EXAMINATION: VITAL SIGNS: Temperature today 97.2. EYES: No icterus. Pupils equal and reactive. HENT: No oral thrush seen. Moist oral mucosa. NECK: Supple. No JVD or thyromegaly. LUNGS: Good air entry. No rales. No rhonchi. CARDIOVASCULAR: S1 and S2. Regular. No murmur. ABDOMEN: Soft, nontender. Bowel sounds are present. CENTRAL NERVOUS SYSTEM: Awake, alert and oriented x 3. No focal deficits. SKIN: No rashes. LYMPHATIC: No peripheral lymphadenopathy. BACK: No deformity. No pressure ulcer. ASSESSMENT: An 84-year-old male with multiple medical problems: * Methicillin-resistant Staphylococcus aureus bacteremia sepsis. * Urinary tract infection. * Encephalopathy. * Renal failure. * Diabetes mellitus as of late August. PLAN: * Continue nutritional support. * Continue linezolid. * Continue pain management. * Continue GI prophylaxis. * Monitor electrolytes. * The patient will be followed up closely. TID: [id number] RECEIPT: [id number]
[2025-05-10] MEDS ORDERED: RIFA550T PO (00:15)
== END 2025-04-30 16:30 | DRG 871 ==
LOC: EDH 00:13 → EDHIP 03:05 → 4BH 12:04 → 2BH 04-23 14:48 → 2AH 04-24 00:48 → 3CH 04-26 11:00
PROVIDERS: ADMIT Internal Medicine; ATTEND Internal Medicine
PROC: 05HB33Z Insertion of Infusion Device into Right Basilic Vein, Percutaneous Approach (ICD-10-PCS; principal; 2025-04-30)
PROC: B54MZZA Ultrasonography of Right Upper Extremity Veins, Guidance (ICD-10-PCS; 2025-04-30)
DX: A41.02 Sepsis due to Methicillin resistant Staphylococcus aureus (principal); G93.41 Metabolic encephalopathy; K76.7 Hepatorenal syndrome; D63.8 Anemia in other chronic diseases classified elsewhere; I44.1 Atrioventricular block, second degree; E88.09 Other disorders of plasma-protein metabolism, not elsewhere classified; B37.49 Other urogenital candidiasis; I48.0 Paroxysmal atrial fibrillation; N17.9 Acute kidney failure, unspecified; Z99.2 Dependence on renal dialysis; Z79.01 Long term (current) use of anticoagulants; B96.89 Other specified bacterial agents as the cause of diseases classified elsewhere; I13.0 Hypertensive heart and chronic kidney disease with heart failure and stage 1 through stage 4 chronic kidney disease, or unspecified chronic kidney disease; E11.22 Type 2 diabetes mellitus with diabetic chronic kidney disease; F03.90 Unspecified dementia, unspecified severity, without behavioral disturbance, psychotic disturbance, mood disturbance, and anxiety; I35.2 Nonrheumatic aortic (valve) stenosis with insufficiency; I50.42 Chronic combined systolic (congestive) and diastolic (congestive) heart failure; K72.90 Hepatic failure, unspecified without coma; N18.32 Chronic kidney disease, stage 3b; I48.91 Unspecified atrial fibrillation; I25.10 Atherosclerotic heart disease of native coronary artery without angina pectoris; K74.60 Unspecified cirrhosis of liver; N28.89 Other specified disorders of kidney and ureter; M16.11 Unilateral primary osteoarthritis, right hip; N28.1 Cyst of kidney, acquired; Z79.899 Other long term (current) drug therapy; Z82.49 Family history of ischemic heart disease and other diseases of the circulatory system; Z83.3 Family history of diabetes mellitus; Z86.73 Personal history of transient ischemic attack (TIA), and cerebral infarction without residual deficits; Z87.440 Personal history of urinary (tract) infections; Z68.24 Body mass index [BMI] 24.0-24.9, adult
CPT/HCPCS: 36415; 36556; 36600; 70450; 71045; 74176; 76705; 80048; 80053; 80076; 81001; 82105; 82140; 82435; 82550; 82803; 82947; 82948; 83036; 83605; 83615; 83690; 83735; 84100; 84132; 84145; 84295; 84443; 84484; 85018; 85025; 85027; 85610; 85730; 87040; 87086; 87186; 92610; 93005; 93306; 93356; 93970; 99285; C1894; G0378; J0360; J1171; J1630; J2020; J2270; J2543; J3475; J3480; J3490; J7030; J7120; Q0163; A4510; C1750; C1751; J3375